=== PATIENT | male | born 1945 | race American Indian/Alaskan Native ===

== ENCOUNTER 2017-05-01 10:01 | Outpatient (CLI) | payer OTHER | END 2017-05-01 10:02 | disposition home or self-care (01) | LOC: VAS 10:01 | PROVIDERS: ATTEND Internal Medicine | DX: M79.661 Pain in right lower leg (principal); M79.89 Other specified soft tissue disorders ==

== ENCOUNTER 2018-08-26 10:01 | Inpatient (IN) | payer MEDICARE, OTHER ==
--- NOTE | 2018-08-26 11:00 | Emergency Department Report ---
ED Abdominal Pain HPI - General Chief Complaint: Abdominal Pain Stated Complaint: CHEST PAIN/ALL OVER PAIN Time Seen by Provider: 08/26/18 10:32 Source: patient Mode of arrival: Wheelchair Limitations: No Limitations - History of Present Illness Initial Comments: Patient is a 72-year-old male that presents emergency room with complaints of generalized abdominal pain and distention. Patient states that the pain is worse with movement and cough and palpation. Patient states the pain is better with rest. Patient states the pain is worsening. Patient states the pain has been going on for 2 weeks. Patient states he is having difficulties having adonay wel movements, but had a large bowel movement today Patient denies nausea vomiting diarrhea. Patient denies chest pain. Patient denies shortness of breath. Patient states the pain is a 10 out of 10. Patient states the pain is worsening. MD Complaint: abdominal pain -: Sudden Location: diffuse Radiation: none Migration to: no migration Severity: severe Severity scale (0 -10): 10 Quality: stabbing Consistency: constant Improves With: rest Worsens With: movement Associated Symptoms: denies other symptoms. denies: nausea, vomiting, diarrhea, fever, chills, constipation, dysuria, hematemesis, hematochezia, melena, hematuria, anorexia, syncope - Related Data Home Medications Medication Instructions Recorded Confirmed Last Taken B Complex 1 tab PO DAILY 02/26/15 04/04/15 02/20/15 Bisoprolol/Hctz [Ziac 2.5-6.25] 1 each PO DAILY 02/26/15 04/04/15 02/27/15 06:45 Flomax 0.4 mg PO DAILY 02/26/15 04/04/15 02/20/15 Losartan [Cozaar] 1 tab PO DAILY 02/26/15 04/04/15 02/27/15 06:45 Saxagliptin HCl [Onglyza] 1 tab PO DAILY 02/26/15 04/04/15 02/20/15 amLODIPine [Norvasc] 5 mg PO DAILY 02/26/15 04/04/15 02/27/15 06:45 HYDROcodone/APAP 5-325 [[place] 1 each PO Q4HR PRN 04/04/15 04/04/15 Unknown 5/325] Previous Rx's Medication Instructions Recorded Last Taken Type Ondansetron [Zofran TAB] 4 mg PO Q8HR PRN #24 tablet 03/07/15 Unknown Rx Ciprofloxacin HCl [Ciprofloxacin 500 mg PO BID #20 tablet 04/04/15 Unknown Rx TAB] Allergies Allergy/AdvReac Type Severity Reaction Status Date / Time No Known Allergies Allergy Verified 03/12/15 04:05 ED Review of Systems ROS: Stated complaint: CHEST PAIN/ALL OVER PAIN Other details as noted in HPI Constitutional: denies: chills, fever Eyes: denies: eye pain, eye discharge, vision change ENT: denies: ear pain, throat pain Respiratory: denies: cough, shortness of breath, wheezing Cardiovascular: denies: chest pain, palpitations Endocrine: no symptoms reported Gastrointestinal: denies: abdominal pain, nausea, diarrhea Genitourinary: denies: urgency, dysuria Musculoskeletal: denies: back pain, joint swelling, arthralgia Skin: denies: rash, lesions Neurological: denies: headache, weakness, paresthesias Psychiatric: denies: anxiety, depression Hematological/Lymphatic: denies: easy bleeding, easy bruising ED Past Medical Hx - Past Medical History Previous Medical History?: Yes Hx Hypertension: Yes Hx Heart Attack/AMI: No Hx Diabetes: Yes Hx Deep Vein Thrombosis: Yes ("BLOOD CLOT 2011" LEFT LEG) Hx GERD: Yes Hx Renal Disease: No Hx Seizures: No Hx Asthma: No Hx COPD: No Hx HIV: No - Surgical History Past Surgical History?: Yes Hx Pacemaker: No Hx Internal Defibrillator: No Additional Surgical History: prostate surgery - Family History Family history: no significant - Social History Smoking Status: Never Smoker Substance Use Type: None - Medications Home Medications: Home Medications Medication Instructions Recorded Confirmed Last Taken Type B Complex 1 tab PO DAILY 02/26/15 04/04/15 02/20/15 History Bisoprolol/Hctz [Ziac 2.5-6.25] 1 each PO DAILY 02/26/15 04/04/15 02/27/15 06:45 History Flomax 0.4 mg PO DAILY 02/26/15 04/04/15 02/20/15 History Losartan [Cozaar] 1 tab PO DAILY 02/26/15 04/04/15 02/27/15 06:45 History Saxagliptin HCl [Onglyza] 1 tab PO DAILY 02/26/15 04/04/15 02/20/15 History amLODIPine [Norvasc] 5 mg PO DAILY 02/26/15 04/04/15 02/27/15 06:45 History Ondansetron [Zofran TAB] 4 mg PO Q8HR PRN #24 tablet 03/07/15 04/04/15 Unknown Rx Ciprofloxacin HCl [Ciprofloxacin 500 mg PO BID #20 tablet 04/04/15 Unknown Rx TAB] HYDROcodone/APAP 5-325 [[place] 1 each PO Q4HR PRN 04/04/15 04/04/15 Unknown History 5/325] ED Physical Exam - General Limitations: No Limitations General appearance: alert, in no apparent distress - Head Head exam: Present: atraumatic, normocephalic - Eye Eye exam: Present: normal appearance - ENT ENT exam: Present: mucous membranes moist - Neck Neck exam: Present: normal inspection - Respiratory Respiratory exam: Present: normal lung sounds bilaterally. Absent: respiratory distress - Cardiovascular Cardiovascular Exam: Present: regular rate, normal rhythm. Absent: systolic murmur, diastolic murmur, rubs, gallop - GI/Abdominal GI/Abdominal exam: Present: soft, tenderness (generalized tenderness to palpatio n), normal bowel sounds - Rectal Rectal exam: Present: deferred - Extremities Exam Extremities exam: Present: normal inspection - Back Exam Back exam: Present: normal inspection - Neurological Exam Neurological exam: Present: alert, oriented X3 - Psychiatric Psychiatric exam: Present: normal affect, normal mood - Skin Skin exam: Present: warm, dry, intact, normal color. Absent: rash ED Course Vital Signs 08/26/18 08/26/18 08/26/18 10:15 10:45 10:53 Temperature 98.4 F Pulse Rate 69 73 Respiratory 18 15 20 Rate Blood Pressure 149/66 Blood Pressure [Left] O2 Sat by Pulse 95 97 Oximetry 08/26/18 08/26/18 08/26/18 11:01 12:01 13:01 Temperature Pulse Rate 69 76 74 Respiratory 32 H 29 H 25 H Rate Blood Pressure Blood Pressure [Left] O2 Sat by Pulse 94 97 Oximetry 08/26/18 08/26/18 14:03 14:27 Temperature Pulse Rate 80 Respiratory 15 Rate Blood Pressure Blood Pressure 129/79 [Left] O2 Sat by Pulse Oximetry - Reevaluation(s) Reevaluation #1: Discussed all results patient. Patient to be admitted to the hospitalist service. Patient states his pain is still there but it is improved slightly. 08/26/18 15:36 - Consultations Consultation #1: Hospitalist consulted. Hospitalist to admit patient. Bridge orders placed 08/26/18 15:43 ED Medical Decision Making - Lab Data Result diagrams: 08/26/18 11:20 08/26/18 11:20 - Radiology Data Radiology results: report reviewed CT ABDOMEN AND PELVIS WITH CONTRAST INDICATION: Abdominal pain. COMPARISON: None similar. FINDINGS: Abdomen and pelvis CT performed following intravenous administration of 100 cc of Omnipaque 300. LUNG BASES: Trace extreme right lung base pleural effusion. Slight bibasilar atelectasis, right more than left. Minimal pericardial thickening/fluid, approximately 0.4 cm AP anteriorly as on axial image 14, series 2. Right hemidiaphragm approximately 3 cm higher than the left. Top normal heart size. Mild nonspecific distal esophageal wall prominence/thickening, not excluded for gastroesophageal reflux and/or hiatal hernia, amongst others. ABDOMEN: Liver visually minimally hypodense, though nonspecific as also subtle left hepatic lobe surface waviness. Right hepatic lobe 15.6 cm in midclavicular length. Otherwise unremarkable liver, spleen, gallbladder, pancreas, adrenals, aorta and IVC. Nonspecific bilateral perinephric stranding. No hydronephrosis. Right lower renal cortical hypodensities/cysts, the largest exophytic off the lower pole measuring 2.7 cm with minimal peripheral calcification as on axial image 101. No ascites or size significant adenopathy. Opacified GI tract nonobstructive. Normal appendix. Predominantly ascending and transverse colon stool/possible constipation, partly admixed with contrast. Small umbilical hernia containing nonobstructed small bowel through a transverse neck of 1.6 cm. PELVIS: Approximately 6 x 7 cm markedly enlarged prostate creating lobulated impression at the bladder base may be correlated for clinically and with PSA. Slight diffuse urinary bladder exaggerated wall thickness as well, possibly suboptimal distention and/or outlet hypertrophy. Unremarkable rectosigmoid. No free fluid or significant adenopathy. Bilateral fat containing inguinal hernias measuring up to 2.3 cm on the right and 1.6 cm on the left, axial image 158, series 2. Severe L5-S1 disc narrowing/obliteration with adjacent endplate irregularities/spurring. Bilateral L5 pars defects noted with approximately 10 mm retrolisthesis of L5 over S1 with posterior disc uncovering and some ventral thecal sac indentation possible. Mild lower thoracic spine degenerative spurring also seen. CONCLUSION: 1. Small umbilical hernia containing nonobstructive small bowel, as described. 2. Various other findings as markedly enlarged and heterogeneous prostate, mild nonspecific bilateral perinephric stranding, right renal cortical hypodensities/cysts, severe L5-S1 degenerative changes as also imaged lung bases findings, amongst others, as detailed above. Please correlate. - Medical Decision Making Patient is a 72-year-old male presents to emergency with abdominal pain. Patient has CT done. Patient CT shows perinephric stranding. UA positive for UTI. Clinical findings consistent with pyelonephritis. Patient admitted to the hospitalist service. Patient also found to have an elevated WBC. Rest of labs are unremarkable. Patient given fluids and antibiotics. - Differential Diagnosis constipation. Bowel obstruction. UTI. Critical Care Time: Yes Critical care attestation.: If time is entered above; I have spent that time in minutes in the direct care of this critically ill patient, excluding procedure time. Critical Care Time: 35 minutes ED Disposition Clinical Impression: Pyelonephritis UTI (urinary tract infection) Qualifiers: Urinary tract infection type: acute cystitis Hematuria presence: with hematuria Qualified Code(s): N30.01 - Acute cystitis with hematuria Abdominal pain Qualifiers: Abdominal location: generalized Qualified Code(s): R10.84 - Generalized abdominal pain Disposition: OP ADMIT IP TO THIS HOSP Is pt being admited?: Yes Does the pt Need Aspirin: No Condition: Critical Time of Disposition: 15:44
[2018-08-26 11:33] LABS: Basophils % (Auto) 0.3 % (0.0-1.8); Eosinophils # (Auto) 0.1 K/mm3 (0.0-0.4); Eosinophils % (Auto) 0.5 % (0.0-4.3); Hematocrit 33.7 % (35.5-45.6); Hemoglobin 11.2 gm/dl (11.8-15.2); Lymphocytes # (Auto) 0.9 K/mm3 (1.2-5.4); Lymphocytes % (Auto) 6.5 % (13.4-35.0); Mean Corpuscular HGB Conc 33 % (32-34); Mean Corpuscular Volume 95 fl (84-94); Monocytes # (Auto) 1.5 K/mm3 (0.0-0.8); Monocytes % (Auto) 10.6 % (0.0-7.3); Platelet Count 272 K/mm3 (140-440); Red Blood Count 3.54 M/mm3 (3.65-5.03); Red Cell Distribution Width 14.5 % (13.2-15.2)
[2018-08-26 12:00] LABS: Alanine Aminotransferase 196 units/L (7-56); Albumin 3.4 g/dL (3.9-5); BUN/Creatinine Ratio 21; Bilirubin,Direct 0.3 mg/dL (0-0.2); Blood Urea Nitrogen 25 mg/dL (9-20); Calcium 10.3 mg/dL (8.4-10.2); Hemolysis Index 3
[2018-08-26] MEDS ORDERED: DILAUDID ONE (14:23)
[2018-08-26] MEDS ORDERED: DILAUDID IV ONE (14:27)
[2018-08-26 14:33] LABS: Bacteria,Urine 4+ /HPF (Negative); Bilirubin,Urine NEG (Negative); Blood,Urine NEG (Negative); Color,Urine Yellow (Yellow); Protein,Urine <15 mg/dL mg/dL (Negative); Urobilinogen,Urine < 2.0 mg/dL (<2.0)
--- NOTE | 2018-08-26 15:19 | Cat Scan Report ---
CT ABDOMEN AND PELVIS WITH CONTRAST INDICATION: Abdominal pain. COMPARISON: None similar. FINDINGS: Abdomen and pelvis CT performed following intravenous administration of 100 cc of Omnipaque 300. LUNG BASES: Trace extreme right lung base pleural effusion. Slight bibasilar atelectasis, right more than left. Minimal pericardial thickening/fluid, approximately 0.4 cm AP anteriorly as on axial image 14, series 2. Right hemidiaphragm approximately 3 cm higher than the left. Top normal heart size. Mild nonspecific distal esophageal wall prominence/thickening, not excluded for gastroesophageal reflux and/or hiatal hernia, amongst others. ABDOMEN: Liver visually minimally hypodense, though nonspecific as also subtle left hepatic lobe surface waviness. Right hepatic lobe 15.6 cm in midclavicular length. Otherwise unremarkable liver, spleen, gallbladder, pancreas, adrenals, aorta and IVC. Nonspecific bilateral perinephric stranding. No hydronephrosis. Right lower renal cortical hypodensities/cysts, the largest exophytic off the lower pole measuring 2.7 cm with minimal peripheral calcification as on axial image 101. No ascites or size significant adenopathy. Opacified GI tract nonobstructive. Normal appendix. Predominantly ascending and transverse colon stool/possible constipation, partly admixed with contrast. Small umbilical hernia containing nonobstructed small bowel through a transverse neck of 1.6 cm. PELVIS: Approximately 6 x 7 cm markedly enlarged prostate creating lobulated impression at the bladder base may be correlated for clinically and with PSA. Slight diffuse urinary bladder exaggerated wall thickness as well, possibly suboptimal distention and/or outlet hypertrophy. Unremarkable rectosigmoid. No free fluid or significant adenopathy. Bilateral fat containing inguinal hernias measuring up to 2.3 cm on the right and 1.6 cm on the left, axial image 158, series 2. Severe L5-S1 disc narrowing/obliteration with adjacent endplate irregularities/spurring. Bilateral L5 pars defects noted with approximately 10 mm retrolisthesis of L5 over S1 with posterior disc uncovering and some ventral thecal sac indentation possible. Mild lower thoracic spine degenerative spurring also seen. CONCLUSION: 1. Small umbilical hernia containing nonobstructive small bowel, as described. 2. Various other findings as markedly enlarged and heterogeneous prostate, mild nonspecific bilateral perinephric stranding, right renal cortical hypodensities/cysts, severe L5-S1 degenerative changes as also imaged lung bases findings, amongst others, as detailed above. Please correlate. Thank you for the opportunity to participate in this patient's care.
[2018-08-26] MEDS ORDERED: NACL 0.9% 1000 ML 1,000 ML IV ONE (15:43)
[2018-08-26] MEDS ORDERED: MAXIPIME/NS 2 GM/100 ML 2 GM/100 ML BAG IV ONE (15:43)
[2018-08-26] MEDS ORDERED: TYLENOL PO ONE (16:31)
--- NOTE | 2018-08-26 17:46 | History and Physical Report ---
History of Present Illness Date of examination: 08/26/18 Date of admission: 08/26/2018 Chief complaint: Abdominal pain for 2 weeks History of present illness: 72-year-old -[place] male with history of hypertension and type 2 diabetes and BPH comes in for severe abdominal pain and abdominal distention for 2 weeks. Patient has had some difficulty in urination and dysuria. Abdominal pain is sharp and intermittent. Also constipation present but had a bowel movement today. Pain is 10 on a scale of 1-10. Sharp in nature. No exacerbating or relieving factors. Past Medical History Previous Medical History?: Yes Hypertension: Yes Diabetes: Yes Deep Vein Thrombosis: Yes ("BLOOD CLOT 2011" LEFT LEG) GERD: Yes Surgical History Past Surgical History?: Yes Additional Surgical History: prostate surgery Family History Family history: no significant Social History Smoking Status: Never Smoker Substance Use Type: None Medications Home Medications: Home Medications Medication Instructions Recorded Confirmed Last Taken Type B Complex 1 tab PO DAILY 02/26/15 04/04/15 02/20/15 History Bisoprolol/Hctz [Ziac 2.5-6.25] 1 each PO DAILY 02/26/15 04/04/15 02/27/15 06:45 History Flomax 0.4 mg PO DAILY 02/26/15 04/04/15 02/20/15 History Losartan [Cozaar] 1 tab PO DAILY 02/26/15 04/04/15 02/27/15 06:45 History Saxagliptin HCl [Onglyza] 1 tab PO DAILY 02/26/15 04/04/15 02/20/15 History amLODIPine [Norvasc] 5 mg PO DAILY 02/26/15 04/04/15 02/27/15 06:45 History Ondansetron [Zofran TAB] 4 mg PO Q8HR PRN #24 tablet 03/07/15 04/04/15 Unknown Rx Ciprofloxacin HCl [Ciprofloxacin 500 mg PO BID #20 tablet 04/04/15 Unknown Rx TAB] HYDROcodone/APAP 5-325 [[place] 1 each PO Q4HR PRN 04/04/15 04/04/15 Unknown History 5/325] Review of Systems ROS: Stated complaint: CHEST PAIN/ALL OVER PAIN Other details as noted in HPI Constitutional: denies: chills, fever Eyes: denies: eye pain, eye discharge, vision change ENT: denies: ear pain, throat pain Respiratory: denies: cough, shortness of breath, wheezing Cardiovascular: denies: chest pain, palpitations Endocrine: no symptoms reported Gastrointestinal: denies: abdominal pain, nausea, diarrhea Genitourinary: denies: urgency, dysuria Musculoskeletal: denies: back pain, joint swelling, arthralgia Skin: denies: rash, lesions Neurological: denies: headache, weakness, paresthesias Psychiatric: denies: anxiety, depression Hematological/Lymphatic: denies: easy bleeding, easy bruising Medications and Allergies Allergies Allergy/AdvReac Type Severity Reaction Status Date / Time No Known Allergies Allergy Verified 03/12/15 04:05 Home Medications Medication Instructions Recorded Confirmed Last Taken Type B Complex 1 tab PO DAILY 02/26/15 04/04/15 02/20/15 History Bisoprolol/Hctz [Ziac 2.5-6.25] 1 each PO DAILY 02/26/15 04/04/15 02/27/15 06:45 History Flomax 0.4 mg PO DAILY 02/26/15 04/04/15 02/20/15 History Losartan [Cozaar] 1 tab PO DAILY 02/26/15 04/04/15 02/27/15 06:45 History Saxagliptin HCl [Onglyza] 1 tab PO DAILY 02/26/15 04/04/15 02/20/15 History amLODIPine [Norvasc] 5 mg PO DAILY 02/26/15 04/04/15 02/27/15 06:45 History Ondansetron [Zofran TAB] 4 mg PO Q8HR PRN #24 tablet 03/07/15 04/04/15 Unknown Rx Ciprofloxacin HCl [Ciprofloxacin 500 mg PO BID #20 tablet 04/04/15 Unknown Rx TAB] HYDROcodone/APAP 5-325 [[place] 1 each PO Q4HR PRN 04/04/15 04/04/15 Unknown History 5/325] Exam - Constitutional Vitals: Temp Pulse Resp BP Pulse Ox 103.3 F H 71 24 129/79 97 08/26/18 16:30 08/26/18 16:01 08/26/18 16:01 08/26/18 14:27 08/26/18 13:01 General appearance: Present: mild distress, well-nourished - EENT Eyes: Present: PERRL ENT: hearing intact, clear oral mucosa - Neck Neck: Present: supple, normal ROM - Respiratory Respiratory effort: normal Respiratory: bilateral: CTA - Cardiovascular Heart rate: 78 Rhythm: regular Heart Sounds: Present: S1 & S2. Absent: rub, click - Extremities Extremities: no ischemia, pulses intact, pulses symmetrical, No edema Peripheral Pulses: within normal limits - Abdominal General gastrointestinal: Present: soft, tender, non-distended, normal bowel sounds Localized gastrointestinal: tender: diffuse, guarding: diffuse Male genitourinary: Present: normal - Rectal Rectal Exam: deferred - Integumentary Integumentary: Present: clear, warm, dry - Musculoskeletal Musculoskeletal: gait normal, strength equal bilaterally - Psychiatric Psychiatric: appropriate mood/affect, intact judgment & insight - Neurologic Neurologic: CNII-XII intact, moves all extremities Results - Labs CBC & Chem 7: 08/26/18 11:20 08/26/18 11:20 Labs: Laboratory Last Values WBC 13.9 K/mm3 (4.5-11.0) H 08/26/18 11:20 RBC 3.54 M/mm3 (3.65-5.03) L 08/26/18 11:20 Hgb 11.2 gm/dl (11.8-15.2) L 08/26/18 11:20 Hct 33.7 % (35.5-45.6) L 08/26/18 11:20 MCV 95 fl (84-94) H 08/26/18 11:20 MCH 32 pg (28-32) 08/26/18 11:20 MCHC 33 % (32-34) 08/26/18 11:20 RDW 14.5 % (13.2-15.2) 08/26/18 11:20 Plt Count 272 K/mm3 (140-440) 08/26/18 11:20 Lymph % (Auto) 6.5 % (13.4-35.0) L 08/26/18 11:20 [place] % (Auto) 10.6 % (0.0-7.3) H 08/26/18 11:20 Eos % (Auto) 0.5 % (0.0-4.3) 08/26/18 11:20 Baso % (Auto) 0.3 % (0.0-1.8) 08/26/18 11:20 Lymph # 0.9 K/mm3 (1.2-5.4) L 08/26/18 11:20 [place] # 1.5 K/mm3 (0.0-0.8) H 08/26/18 11:20 Eos # 0.1 K/mm3 (0.0-0.4) 08/26/18 11:20 Baso # 0.0 K/mm3 (0.0-0.1) 08/26/18 11:20 Seg Neutrophils % 82.1 % (40.0-70.0) H 08/26/18 11:20 Seg Neutrophils # 11.4 K/mm3 (1.8-7.7) H 08/26/18 11:20 Sodium 136 mmol/L (137-145) L 08/26/18 11:20 Potassium 5.0 mmol/L (3.6-5.0) 08/26/18 11:20 Chloride 98.8 mmol/L (98-107) 08/26/18 11:20 Carbon Dioxide 26 mmol/L (22-30) 08/26/18 11:20 Anion Gap 16 mmol/L 08/26/18 11:20 BUN 25 mg/dL (9-20) H 08/26/18 11:20 Creatinine 1.2 mg/dL (0.8-1.5) 08/26/18 11:20 Estimated GFR > 60 ml/min 08/26/18 11:20 BUN/Creatinine Ratio 21 % 08/26/18 11:20 Glucose 139 mg/dL (75-100) H 08/26/18 11:20 Calcium 10.3 mg/dL (8.4-10.2) H 08/26/18 11:20 Total Bilirubin 0.90 mg/dL (0.1-1.2) 08/26/18 11:20 Direct Bilirubin 0.3 mg/dL (0-0.2) H 08/26/18 11:20 Indirect Bilirubin 0.6 mg/dL 08/26/18 11:20 AST 76 units/L (5-40) H 08/26/18 11:20 ALT 196 units/L (7-56) H 08/26/18 11:20 Alkaline Phosphatase 213 units/L (35-129) H 08/26/18 11:20 Total Protein 7.6 g/dL (6.3-8.2) 08/26/18 11:20 Albumin 3.4 g/dL (3.9-5) L 08/26/18 11:20 Albumin/Globulin Ratio 0.8 % 08/26/18 11:20 Lipase 44 units/L (13-60) 08/26/18 11:20 Urine Color Yellow (Yellow) 08/26/18 14:11 Urine Turbidity Clear (Clear) 08/26/18 14:11 Urine pH 5.0 (5.0-7.0) 08/26/18 14:11 Ur Specific [place] 1.012 (1.003-1.030) 08/26/18 14:11 Urine Protein <15 mg/dl mg/dL (Negative) 08/26/18 14:11 Urine Glucose (UA) 50 mg/dL (Negative) 08/26/18 14:11 Urine Ketones Neg mg/dL (Negative) 08/26/18 14:11 Urine Blood Neg (Negative) 08/26/18 14:11 Urine Nitrite Neg (Negative) 08/26/18 14:11 Urine Bilirubin Neg (Negative) 08/26/18 14:11 Urine Urobilinogen < 2.0 mg/dL (<2.0) 08/26/18 14:11 Ur Leukocyte Esterase Sm (Negative) 08/26/18 14:11 Urine WBC (Auto) 3.0 /HPF (0.0-6.0) 08/26/18 14:11 Urine RBC (Auto) 2.0 /HPF (0.0-6.0) 08/26/18 14:11 U Epithel Cells (Auto) < 1.0 /HPF (0-13.0) 08/26/18 14:11 Urine Bacteria (Auto) 4+ /HPF (Negative) 08/26/18 14:11 - Imaging and Cardiology Imaging and Cardiology: Abd CT /pelvis PELVIS: Approximately 6 x 7 cm markedly enlarged prostate creating lobulated impression at the bladder base may be correlated for clinically and with PSA. Slight diffuse urinary bladder exaggerated wall thickness as well, possibly suboptimal distention and/or outlet hypertrophy. Unremarkable rectosigmoid. No free fluid or significant adenopathy. Bilateral fat containing inguinal hernias measuring up to 2.3 cm on the right and 1.6 cm on the left, axial image 158, series 2. Severe L5-S1 disc narrowing/obliteration with adjacent endplate irregularities/spurring. Bilateral L5 pars defects noted with approximately 10 mm retrolisthesis of L5 over S1 with posterior disc uncovering and some ventral thecal sac indentation possible. Mild lower thoracic spine degenerative spurring also seen. CONCLUSION: 1. Small umbilical hernia containing nonobstructive small bowel, as described. 2. Various other findings as markedly enlarged and heterogeneous prostate, mild nonspecific bilateral perinephric stranding, right renal cortical hypodensities/cysts, severe L5-S1 degenerative changes as also imaged lung bases findings, amongst others, as detailed above. Please correlate. CONCLUSION: 1. Small umbilical hernia containing nonobstructive small bowel, as described. 2. Various other findings as markedly enlarged and heterogeneous prostate, mild nonspecific bilateral perinephric stranding, right renal cortical hypodensities/cysts, severe L5-S1 degenerative changes as also imaged lung bases findings, amongst others, as detailed above. Please correlate. Thank you for the opportunity to participate in this patient's care. 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
[2018-08-26] MEDS ORDERED: NON-FORMULARY (Ondansetron [Zofran Tab] 4 MG) PO PRN (18:04)
[2018-08-26] MEDS ORDERED: TYLENOL PO PRN (18:06)
[2018-08-26] MEDS ORDERED: ZOFRAN IV PRN (18:06)
[2018-08-26] MEDS ORDERED: SODIUM CHLORIDE FLUSH SYRINGE 10 ML IV PRN (18:06)
[2018-08-26] MEDS ORDERED: LOSARTAN PO SCH (18:15)
[2018-08-26] MEDS ORDERED: NON-FORMULARY (Flomax 0.4 MG) PO SCH ×2 (18:15→18:30)
[2018-08-26] MEDS ORDERED: B COMPLEX PO SCH (18:15)
[2018-08-26] MEDS ORDERED: SAXAGLIPTIN HCL PO SCH (18:15)
[2018-08-26] MEDS ORDERED: ZOFRAN ODT PO PRN (18:30)
[2018-08-26] MEDS: NORVASC PO SCH (18:47)
[2018-08-26] MEDS: COZAAR PO SCH (18:48)
[2018-08-26] MEDS: NACL 0.9% 1000 ML 1,000 ML IV SCH (20:26)
[2018-08-26] MEDS: SODIUM CHLORIDE FLUSH SYRINGE 10 ML IV SCH ×2 (20:26→22:57)
[2018-08-26] MEDS: DILAUDID IV PRN (20:46)
[2018-08-26] MEDS: TRADJENTA PO SCH (20:55)
[2018-08-26] MEDS: ROCEPHIN/NS 2 GM/100 ML 2 GM/100 ML BAG IV SCH (22:56)
[2018-08-26] MEDS: FLOMAX PO SCH (22:57)
[2018-08-26] MEDS: ZIAC 2.5-6.25 PO SCH (22:58)
[2018-08-26] MEDS: NORCO 5/325 PO PRN (23:15)
[2018-08-27] MEDS: PERCOCET 5/325 PO PRN ×2 (03:01→17:42)
[2018-08-27 05:58] LABS: Basophils % (Auto) 0.2 % (0.0-1.8); Eosinophils # (Auto) 0.1 K/mm3 (0.0-0.4); Eosinophils % (Auto) 0.5 % (0.0-4.3); Hematocrit 29.6 % (35.5-45.6); Hemoglobin 9.8 gm/dl (11.8-15.2); Lymphocytes # (Auto) 1.2 K/mm3 (1.2-5.4); Lymphocytes % (Auto) 7.8 % (13.4-35.0); Mean Corpuscular HGB Conc 33 % (32-34); Mean Corpuscular Volume 94 fl (84-94); Monocytes # (Auto) 1.9 K/mm3 (0.0-0.8); Monocytes % (Auto) 12.4 % (0.0-7.3); Platelet Count 264 K/mm3 (140-440); Red Blood Count 3.15 M/mm3 (3.65-5.03); Red Cell Distribution Width 14.6 % (13.2-15.2)
[2018-08-27 06:24] LABS: Alanine Aminotransferase 133 units/L (7-56); Albumin 3.1 g/dL (3.9-5); BUN/Creatinine Ratio 17; Blood Urea Nitrogen 20 mg/dL (9-20); Hemolysis Index 4
[2018-08-27] MEDS: NACL 0.9% 1000 ML 1,000 ML IV SCH (07:41)
[2018-08-27] MEDS: DILAUDID IV PRN ×2 (07:56→12:48)
[2018-08-27] MEDS: HumaLOG SUB-Q SCH ×3 (07:58→17:08)
[2018-08-27] MEDS: SODIUM CHLORIDE FLUSH SYRINGE 10 ML IV SCH ×2 (07:58→10:00)
[2018-08-27] MEDS ORDERED: ROCEPHIN/NS 2 GM/100 ML 2 GM/100 ML BAG IV SCH (10:00)
[2018-08-27] MEDS ORDERED: LOVENOX SUB-Q SCH (10:00)
[2018-08-27] MEDS: COZAAR PO SCH (10:00)
[2018-08-27] MEDS: ZIAC 2.5-6.25 PO SCH (10:00)
[2018-08-27] MEDS: NORVASC PO SCH (10:00)
[2018-08-27] MEDS ORDERED: ALLBEE WITH C PO SCH (10:00)
--- NOTE | 2018-08-27 10:13 | Discharge Summary ---
Providers - Providers Date of Admission: 08/26/18 18:06 Attending physician: INDIGO WARD MD Primary care physician: CHELSY DICKENS Hospitalization Condition: Critical Hospital course: 72 year old man with history of hypertension diabetes and BPH. Presents with abdominal pain and abdominal distension x 2 weeks. Also complaining of difficulty passing urine, he was previously having constipation which result on the day of admission. hospital course, he received flomax with improvement of his symptoms, CT A/P showed markedly enlarged prostate with no hydronephrosis or outlet obstruction. UA was neg for pyuria, he was continued on his chronic meds. His finasteride dose was increased. He was given stool softeners, enemas and suppositories for constipation. The patient was noted to have a fever, the source of the fever was being worked up, but the patient elected to sign out AGAINST MEDICAL ADVICE stating that he needed to provide care for his dog. Diagnosis Enlarged prostate Prostatism UTI ruled out (UA negative) HTN DM Chronic constipation Disposition: DC- LEFT AGAINST MED ADVICE Time spent for discharge: 33 mins Core Measure Documentation - Palliative Care Palliative Care/ Comfort Measures: Not Applicable - Core Measures Any of the following diagnoses?: none Exam - Constitutional Vitals: Temp Pulse Resp BP Pulse Ox 97.9 F 62 20 106/54 93 08/27/18 07:23 08/27/18 09:03 08/27/18 09:03 08/27/18 07:23 08/27/18 07:23 General appearance: Present: no acute distress, well-nourished - EENT Eyes: Present: PERRL ENT: hearing intact, clear oral mucosa - Neck Neck: Present: supple, normal ROM - Respiratory Respiratory effort: normal Respiratory: bilateral: CTA - Cardiovascular Heart Sounds: Present: S1 & S2. Absent: rub, click - Extremities Extremities: pulses symmetrical, No edema Peripheral Pulses: within normal limits - Abdominal General gastrointestinal: Present: soft, non-tender, non-distended, normal bowel sounds Male genitourinary: Present: normal - Integumentary Integumentary: Present: clear, warm, dry - Musculoskeletal Musculoskeletal: gait normal, strength equal bilaterally - Psychiatric Psychiatric: appropriate mood/affect, intact judgment & insight - Neurologic Neurologic: CNII-XII intact, moves all extremities Plan Follow up with: DELMA MCLAUGHLIN MD [Staff Physician] - 7 Days CHELSY DICKENS MD [Primary Care Provider] - 3-5 Days Prescriptions: Bisacodyl [Dulcolax suppos] 10 mg [place] Q72H PRN #10 supp.rect PRN Reason: Constipation RX: Finasteride [Proscar] 5 mg PO QDAY #30 tablet Polyethylene Glycol 3350 [Miralax 3350] 17 gm PO QDAY 30 Days packet Sennosides/Docusate Sodium [Senna-S Tablet] 2 each PO HS PRN #60 tablet PRN Reason: Constipation RX: Tamsulosin [Flomax] 0.8 mg PO DAILY #60 capsule
[2018-08-27] MEDS: TRADJENTA PO SCH (10:38)
[2018-08-27] MEDS: FLOMAX PO SCH (10:38)
[2018-08-27] MEDS: NORCO 5/325 PO PRN (10:39)
[2018-08-27] MEDS: ROCEPHIN/NS 2 GM/100 ML 2 GM/100 ML BAG IV SCH (10:40)
[2018-08-27] MEDS ORDERED: SENOKOT S PO PRN (14:28)
--- NOTE | 2018-08-27 14:32 | Progress Note ---
Assessment and Plan Assessment and plan: 72 year old man with history of hypertension diabetes and BPH. Presents with abdominal pain and abdominal distension x 2 weeks. Also complaining of difficulty passing urine, he was previously having constipation which result on the day of admission. hospital course, flomax dose was increased with improvement of his symptoms, CT A/P showed markedly enlarged prostate with no hydronephrosis or outlet obstruction. UA was neg for pyuria, he was continued on his chronic meds. He had fever last night, obtain cxr and blood cultures -he is still c/o constipation; added enema and stool softeners Diagnosis Enlarged prostate Prostatism UTI ruled out (UA negative) HTN DM Chronic constipation Fever History Interval history: Review of systems Constitutional: had fever of 101, no malaise, no joint pains CVS: No chest pain, no orthopnea, no dyspnea on exertion, no pedal edema c/o abdominal pain and constipation Respiratory: No shortness of breath, no wheezing, no coughing Hospitalist Physical - Physical exam Narrative exam: General.: Appears well, no distress, nontoxic HEENT: Moist mucous membranes, extraocular muscles intact, no lymphadenopathy Neck: supple Cardiac: S1-S2 heard Lungs: clear to auscultation bilaterally Abdomen: soft, full and distended Extremities: no edema clubbing or cyanosis Skin: no rash or lesions Neurologic: no gross focal deficits Psych: calm, and cooperative - Constitutional Vitals: Temp Pulse Resp BP Pulse Ox 97.9 F 62 16 106/54 93 08/27/18 07:23 08/27/18 10:00 08/27/18 10:39 08/27/18 10:00 08/27/18 07:23 General appearance: Present: no acute distress, well-nourished Results - Labs CBC & Chem 7: 08/27/18 05:36 08/27/18 05:36 Labs: Laboratory Last Values WBC 15.0 K/mm3 (4.5-11.0) H 08/27/18 05:36 RBC 3.15 M/mm3 (3.65-5.03) L 08/27/18 05:36 Hgb 9.8 gm/dl (11.8-15.2) L 08/27/18 05:36 Hct 29.6 % (35.5-45.6) L 08/27/18 05:36 MCV 94 fl (84-94) 08/27/18 05:36 MCH 31 pg (28-32) 08/27/18 05:36 MCHC 33 % (32-34) 08/27/18 05:36 RDW 14.6 % (13.2-15.2) 08/27/18 05:36 Plt Count 264 K/mm3 (140-440) 08/27/18 05:36 Lymph % (Auto) 7.8 % (13.4-35.0) L 08/27/18 05:36 Pender % (Auto) 12.4 % (0.0-7.3) H 08/27/18 05:36 Eos % (Auto) 0.5 % (0.0-4.3) 08/27/18 05:36 Baso % (Auto) 0.2 % (0.0-1.8) 08/27/18 05:36 Lymph # 1.2 K/mm3 (1.2-5.4) 08/27/18 05:36 Pender # 1.9 K/mm3 (0.0-0.8) H 08/27/18 05:36 Eos # 0.1 K/mm3 (0.0-0.4) 08/27/18 05:36 Baso # 0.0 K/mm3 (0.0-0.1) 08/27/18 05:36 Seg Neutrophils % 79.1 % (40.0-70.0) H 08/27/18 05:36 Seg Neutrophils # 11.9 K/mm3 (1.8-7.7) H 08/27/18 05:36 Sodium 135 mmol/L (137-145) L 08/27/18 05:36 Potassium 4.6 mmol/L (3.6-5.0) 08/27/18 05:36 Chloride 100.9 mmol/L (98-107) 08/27/18 05:36 Carbon Dioxide 22 mmol/L (22-30) 08/27/18 05:36 Anion Gap 17 mmol/L 08/27/18 05:36 BUN 20 mg/dL (9-20) 08/27/18 05:36 Creatinine 1.2 mg/dL (0.8-1.5) 08/27/18 05:36 Estimated GFR > 60 ml/min 08/27/18 05:36 BUN/Creatinine Ratio 17 % 08/27/18 05:36 Glucose 183 mg/dL (75-100) H 08/27/18 05:36 POC Glucose 216 (70-105) H 08/27/18 11:36 Hemoglobin A1c 7.3 % (4-6) H 08/26/18 11:20 Calcium 9.0 mg/dL (8.4-10.2) 08/27/18 05:36 Total Bilirubin 0.80 mg/dL (0.1-1.2) 08/27/18 05:36 Direct Bilirubin 0.3 mg/dL (0-0.2) H 08/26/18 11:20 Indirect Bilirubin 0.6 mg/dL 08/26/18 11:20 AST 43 units/L (5-40) H 08/27/18 05:36 ALT 133 units/L (7-56) H 08/27/18 05:36 Alkaline Phosphatase 170 units/L (35-129) H 08/27/18 05:36 Total Protein 5.8 g/dL (6.3-8.2) L D 08/27/18 05:36 Albumin 3.1 g/dL (3.9-5) L 08/27/18 05:36 Albumin/Globulin Ratio 1.1 % 08/27/18 05:36 Lipase 44 units/L (13-60) 08/26/18 11:20 Urine Color Yellow (Yellow) 08/26/18 14:11 Urine Turbidity Clear (Clear) 08/26/18 14:11 Urine pH 5.0 (5.0-7.0) 08/26/18 14:11 Ur Specific [place] 1.012 (1.003-1.030) 08/26/18 14:11 Urine Protein <15 mg/dl mg/dL (Negative) 08/26/18 14:11 Urine Glucose (UA) 50 mg/dL (Negative) 08/26/18 14:11 Urine Ketones Neg mg/dL (Negative) 08/26/18 14:11 Urine Blood Neg (Negative) 08/26/18 14:11 Urine Nitrite Neg (Negative) 08/26/18 14:11 Urine Bilirubin Neg (Negative) 08/26/18 14:11 Urine Urobilinogen < 2.0 mg/dL (<2.0) 08/26/18 14:11 Ur Leukocyte Esterase Sm (Negative) 08/26/18 14:11 Urine WBC (Auto) 3.0 /HPF (0.0-6.0) 08/26/18 14:11 Urine RBC (Auto) 2.0 /HPF (0.0-6.0) 08/26/18 14:11 U Epithel Cells (Auto) < 1.0 /HPF (0-13.0) 08/26/18 14:11 Urine Bacteria (Auto) 4+ /HPF (Negative) 08/26/18 14:11
--- NOTE | 2018-08-27 15:39 | XRay Report ---
FINAL REPORT EXAM: XR CHEST ROUTINE 2V HISTORY: fever TECHNIQUE: 2 view examination of the chest PRIORS: None FINDINGS: Slightly prominent interstitial opacity in the right lung base may be slight interstitial edema or pn eumonitis. Normal cardiac size without evidence of vascular congestion. Atherosclerotic calcification and tortuo sity in aorta. No definite pneumothorax or pleural effusion. No acute displaced fracture. No focal pulmonary consoli dation. IMPRESSION: Slight prominent interstitial opacity in the right lung base may reflect interstitial edema and/or sl ight interstitial pneumonitis
[2018-08-27] MEDS ORDERED: FLEET MINERAL OIL PR ONE (16:00)
[2018-08-27] MEDS ORDERED: FLEET PR PRN (16:39)
[2018-08-27] MEDS ORDERED: ZITHROMAX 500 MG in NACL 0.9% 250ML 250 ML IV SCH (17:00)
[2018-08-28] MEDS ORDERED: MIRALAX 3350 PO SCH (10:00)
[2018-08-28] MEDS ORDERED: FLOMAX PO SCH (10:00)
[2018-08-28 11:49] VITALS: BP 171/68
== END 2018-08-27 18:16 | disposition left against medical advice (07) | DRG 726 ==
LOC: ED 10:01 → 2B-ACE 18:06
PROVIDERS: ADMIT Internal Medicine; ATTEND Internal Medicine
DX: N40.0 Benign prostatic hyperplasia without lower urinary tract symptoms (principal); I10 Essential (primary) hypertension; E11.9 Type 2 diabetes mellitus without complications; K59.09 Other constipation; K21.9 Gastro-esophageal reflux disease without esophagitis; Z86.718 Personal history of other venous thrombosis and embolism; Z79.01 Long term (current) use of anticoagulants; Z79.899 Other long term (current) drug therapy; Z79.4 Long term (current) use of insulin
CPT/HCPCS: 36415; 71046; 74177; 80048; 80053; 80076; 81001; 82962; 83036; 83690; 85025; 87040; G0378; J0456; J0692; J0696; J1170; J1650; J1815; J3246; J7030; J7050; Q9967

== ENCOUNTER 2018-08-29 12:00 | Inpatient (IN) | payer MEDICARE, OTHER ==
[2018-08-29] MEDS ORDERED: NACL 0.9% 1000 ML 1,000 ML IV ONE (12:40)
[2018-08-29 13:11] LABS: Basophils % (Auto) 0.4 % (0.0-1.8); Eosinophils # (Auto) 0.1 K/mm3 (0.0-0.4); Eosinophils % (Auto) 0.7 % (0.0-4.3); Hematocrit 30.3 % (35.5-45.6); Lymphocytes # (Auto) 1.1 K/mm3 (1.2-5.4); Lymphocytes % (Auto) 9.8 % (13.4-35.0); Mean Corpuscular HGB Conc 33 % (32-34); Mean Corpuscular Volume 94 fl (84-94); Monocytes # (Auto) 1.1 K/mm3 (0.0-0.8); Monocytes % (Auto) 9.4 % (0.0-7.3); Platelet Count 344 K/mm3 (140-440); Red Blood Count 3.23 M/mm3 (3.65-5.03); Red Cell Distribution Width 14.5 % (13.2-15.2)
[2018-08-29 13:31] LABS: Alanine Aminotransferase 96 units/L (7-56); Albumin 3.3 g/dL (3.9-5); BUN/Creatinine Ratio 12; Blood Urea Nitrogen 11 mg/dL (9-20); Calcium 9.9 mg/dL (8.4-10.2); Hemolysis Index 2
[2018-08-29] MEDS ORDERED: BENTYL IM ONE (15:19)
--- NOTE | 2018-08-29 15:34 | Emergency Department Report ---
HPI - General Chief Complaint: Abdominal Pain Time Seen by Provider: 08/29/18 15:04 - HPI HPI: Room 6 The patient is 72-year-old male presenting with chief complaint of abdominal pain. The patient states for several weeks he's had epigastric abdominal pain that worsens whenever he lies flat or coughs. She had had constipation for 3-5 days prior to coming to the ED. The patient was admitted to the hospital last week but left AGAINST MEDICAL ADVICE 2 days ago because there was no one available to care for his dog. Patient returns to the ED because his pain has continued and worsened. Patient denies nausea vomiting. Patient denies history of fever or dysuria. The patient states his last bowel movement occurred a few hours ago. The patient states his abdominal pain waxes and wanes. Location: Abdomen Duration: [See above] Quality: Pain Severity: "07/04" Modifying factors: [see above] Context: [see above] Mode of transportation: [not driving] ED Past Medical Hx - Past Medical History Hx Hypertension: Yes Hx Diabetes: Yes Hx Deep Vein Thrombosis: Yes ("BLOOD CLOT 2012" LEFT LEG) Hx GERD: Yes Additional medical history: BPH - Surgical History Additional Surgical History: prostate surgery - Family History Family history: no significant - Social History Smoking Status: Never Smoker Substance Use Type: None, Alcohol (occasional) - Medications Home Medications: Home Medications Medication Instructions Recorded Confirmed Last Taken Type B Complex 1 tab PO DAILY 02/26/15 08/27/18 02/20/15 History Bisoprolol/Hctz [Ziac 2.5-6.25] 1 each PO DAILY 02/26/15 08/27/18 02/27/15 06:45 History Losartan [Cozaar] 1 tab PO DAILY 02/26/15 08/27/18 08/25/18 09:00 History 100mg Saxagliptin HCl [Onglyza] 1 tab PO DAILY 02/26/15 08/27/18 02/20/15 History amLODIPine [Norvasc] 5 mg PO DAILY 02/26/15 08/27/18 02/27/15 06:45 History Ondansetron [Zofran TAB] 4 mg PO Q8HR PRN #24 tablet 03/07/15 08/27/18 Unknown Rx HYDROcodone/APAP 5-325 [[place] 1 each PO Q4HR PRN 04/04/15 08/27/18 Unknown History 5-325 mg TAB] Bisacodyl [Dulcolax suppos] 10 mg [place] Q72H PRN #10 supp.rect 08/27/18 Unknown Rx Finasteride [Proscar] 5 mg PO QDAY #30 tablet 08/27/18 Unknown Rx Polyethylene Glycol 3350 [Miralax 17 gm PO QDAY 30 Days packet 08/27/18 Unknow n Rx 3350] Sennosides/Docusate Sodium 2 each PO HS PRN #60 tablet 08/27/18 Unknown Rx [Senna-S Tablet] Tamsulosin [Flomax] 0.8 mg PO DAILY #60 capsule 08/27/18 Unknown Rx ED Review of Systems ROS: Stated complaint: STOMACH PAIN Other details as noted in HPI Constitutional: denies: fever Eyes: denies: eye pain ENT: denies: throat pain Respiratory: no symptoms reported Cardiovascular: denies: chest pain Endocrine: no symptoms reported Gastrointestinal: abdominal pain, constipation. denies: nausea, vomiting Genitourinary: denies: dysuria Musculoskeletal: denies: back pain Neurological: denies: headache Physical Exam - Physical Exam Vital Signs: Vital Signs 08/29/18 12:38 Temperature 98.2 F Pulse Rate 83 Respiratory 16 Rate Blood Pressure 139/73 O2 Sat by Pulse 98 Oximetry Physical Exam: GENERAL: The patient is well-developed well-nourished male lying on stretcher occasionally grimacing in pain. [] HEENT: Normocephalic. Atraumatic. Extraocular motions are intact. Patient has moist mucous membranes. NECK: Supple. Trachea midline CHEST/LUNGS: Clear to auscultation. There is no respiratory distress noted. HEART/CARDIOVASCULAR: Regular. There is no tachycardia. There is no gallop rub or murmur. ABDOMEN: Abdomen is soft, with tenderness to palpation in the right upper quadrant, midepigastric and left upper quadrant. There is no tenderness to palpation in the lower abdomen. Patient has normal bowel sounds. There is no abdominal distention. SKIN: There is no rash. There is no edema. There is no diaphoresis. NEURO: The patient is awake, alert, and oriented. The patient is cooperative. The patient has normal speech MUSCULOSKELETAL: There is no evidence of acute injury. ED Course Vital Signs 08/29/18 12:38 Temperature 98.2 F Pulse Rate 83 Respiratory 16 Rate Blood Pressure 139/73 O2 Sat by Pulse 98 Oximetry ED Medical Decision Making - Lab Data Result diagrams: 08/29/18 12:55 08/29/18 12:55 Laboratory Tests 08/29/18 08/29/18 08/29/18 12:55 12:55 15:18 WBC 11.6 H RBC 3.23 L Hgb 10.0 L Hct 30.3 L MCV 94 MCH 31 MCHC 33 RDW 14.5 Plt Count 344 Lymph % (Auto) 9.8 L [place] % (Auto) 9.4 H Eos % (Auto) 0.7 Baso % (Auto) 0.4 Lymph # 1.1 L [place] # 1.1 H Eos # 0.1 Baso # 0.0 Seg Neutrophils % 79.7 H Seg Neutrophils # 9.2 H Sodium 134 L Potassium 4.2 Chloride 98.6 Carbon Dioxide 25 Anion Gap 15 BUN 11 Creatinine 0.9 Estimated GFR > 60 BUN/Creatinine Ratio 12 Glucose 138 H Calcium 9.9 Total Bilirubin 0.70 AST 37 ALT 96 H Alkaline Phosphatase 165 H Total Protein 7.4 D Albumin 3.3 L Albumin/Globulin Ratio 0.8 Lipase 26 - Differential Diagnosis esophagitis, hiatal hernia, pancreatitis, ulcer disease Critical care attestation.: If time is entered above; I have spent that time in minutes in the direct care of this critically ill patient, excluding procedure time. ED Disposition Clinical Impression: Acute abdominal pain Disposition: OP ADMIT IP TO THIS HOSP Is pt being admited?: Yes Does the pt Need Aspirin: No Condition: Fair Referrals: VARGAS RHODES MD [Primary Care Provider] - 3-5 Days Time of Disposition: 15:35 (hospitalist notified (Dr Dorsey))
[2018-08-29] MEDS ORDERED: PEPCID IV ONE (15:35)
[2018-08-29] MEDS ORDERED: TYLENOL PO PRN (17:51)
[2018-08-29] MEDS ORDERED: ZOFRAN IV PRN (17:51)
[2018-08-29] MEDS ORDERED: SODIUM CHLORIDE FLUSH SYRINGE 10 ML IV PRN (17:51)
[2018-08-29 18:21] LABS: Mucus,Urine FEW /HPF
[2018-08-29 18:37] LABS: Bilirubin,Urine NEG (Negative); Blood,Urine NEG (Negative); Color,Urine Yellow (Yellow); Protein,Urine <15 mg/dL mg/dL (Negative); Urobilinogen,Urine < 2.0 mg/dL (<2.0)
[2018-08-29] MEDS: D5NS 1,000 ML IV SCH (20:35)
[2018-08-29] MEDS: DILAUDID IV PRN (20:36)
[2018-08-29] MEDS: SODIUM CHLORIDE FLUSH SYRINGE 10 ML IV SCH (21:05)
[2018-08-29] MEDS: PEPCID IV SCH (21:05)
--- NOTE | 2018-08-29 23:43 | Cat Scan Report ---
FINAL REPORT PROCEDURE: CT ABDOMEN W CON TECHNIQUE: Computerized axial tomography of the abdomen was performed following the IV injection of iodinated nonionic contrast. HISTORY: Recurrent abd pain COMPARISON: No prior studies are available for comparison. FINDINGS: Lower Lung jacobs: Small right pleural effusion visualized. There appears to be a small amount of adj acent atelectasis. Minimal dependent atelectasis also appears to be present in the left lung base. Sm all pericardial effusion also appears to be present. Upper Abdomen: The liver, gallbladder, adrenal glands, the pancreas and the spleen are unremarkable Kidneys, Ureters and Urinary bladder: Low-density nodule projects from the lower 3rd of the right kid brown laterally measuring 2.7 centimeter. Additional low-density nodules seen midportion right kidney l aterally measuring 1.8 centimeter. Subcentimeter low-density nodules are seen in the renal cortex of the left kidney. These appear to represent renal cortical cyst. There is nonspecific increased densit y in the perinephric adipose tissue bilaterally. Retroperitoneum: Abdominal aorta is unremarkable. Nonspecific subcentimeter lymph nodes are seen in the retroperitoneum. No pathologically enlarged lym ph nodes are identified. Bowel: Visualized bowel loops are unremarkable. No ascites or free intraperitoneal gas visualized. Reproductive organs: Other: There is bilateral spondylolysis at L5 with grade 1 spondylolisthesis L5 in relation S1. The L 5-S1 disc space is only partially visualized although it may be fused. IMPRESSION: Small right pleural effusion. Small amount of adjacent atelectasis visualized. There is also minimal dependent atelectasis in the left lung base. Small pericardial effusion is present. Low-density renal cortical nodules visualized bilaterally suggesting renal cortical cyst. Nonspecific increased density seen in the perinephric spaces bilaterally. Bilateral spondylolysis L5 with grade 1 spondylolisthesis. L5-S1 disc space may be previously fused. This is only partially visualized
[2018-08-30] MEDS: PERCOCET 5/325 PO PRN ×3 (00:27→19:55)
--- NOTE | 2018-08-30 01:10 | Event Note ---
Date: 08/29/18 Recurrent Abd pain Fever BPH
--- NOTE | 2018-08-30 01:32 | History and Physical Report ---
CHIEF COMPLAINT: Abdominal pain of 1 week duration. HISTORY OF PRESENT ILLNESS: A 72-year-old male with history of hypertension, diabetes and BPH, who was recently admitted and discharged 2 days ago after being worked up for abdominal pain. In the process of workup, the patient left AMA because he has to take care of his dog. At that point, he was constipated, which is resolved. The patient is having bowel movement per day. The patient had a fever on 08/27/2018. Today, he comes in for recurrent abdominal pain about 6 to 7 on a scale of 1-10, intermittent in nature. No difficulty urinating. No nausea. No vomiting. No constipation. Low-grade fever off and on present. PAST MEDICAL HISTORY: Significant for hypertension, diabetes, deep vein thrombosis, reflux, BPH. PAST SURGICAL HISTORY: Prostate surgery. FAMILY HISTORY: Nothing significant. SOCIAL HISTORY: Does not smoke, occasional alcohol. CURRENT MEDICATIONS: Amlodipine 5 mg once a day, Onglyza one tablet once a day, and Proscar 5 mg once a day. REVIEW OF SYSTEMS: Significant for intermittent abdominal pain, intermittent constipation, which has resolved. Initially, it was bilateral flank pain. Now with generalized abdominal pain. Low-grade fever present off and on. Otherwise, review of systems negative. PHYSICAL EXAMINATION: GENERAL: Elderly male, cooperative during examination. VITAL SIGNS: Blood pressure is 139/73, temperature is 98.2, pulse is 83, respirations 16. HEENT: Unremarkable. Pupils are equal and reactive. NECK: Supple, no lymphadenopathy, no thyromegaly. LUNGS: Clear to auscultation and percussion. Good air entry. CARDIOVASCULAR: S1, S2 heard. No gallop, no murmur, no rub. Apical impulse in left fifth intercostal space and midclavicular line. ABDOMEN: Soft and benign. No hepatosplenomegaly. No guarding, no rigidity. Hernial orifices are normal. EXTREMITIES: Good pedal pulses. No pedal edema. CENTRAL NERVOUS SYSTEM: Alert and oriented x 4, nonfocal exam. SKIN: Normal. ABDOMEN: Generalized tenderness present, but no guarding or rigidity. LABORATORY DATA: Significant for white count of 11,600, H and H is 10.0 and 30.3, platelet count is 344,000. Glucose is 138. BUN and creatinine is 11 and 0.9. Total protein is 7.4, albumin is 3.3, ALT is 96. Urine is negative. Abdominal CAT scan was repeated, which shows small right pleural effusion, small pericardial effusion, low density renal cortical nodules, bilateral spondylolysis, L5 with grade 1 spondylolisthesis. ASSESSMENT AND PLAN: 1. Acute abdominal pain, etiology unclear. We will start empiric antibiotics and get a surgical consult. CT of the abdomen done twice was negative. Benign prostatic hypertrophy may be causing the pain also secondary to urinary obstruction, but that should be only far and few between. Etiology unclear for the abdominal pain. IV Rocephin for now. 2. Benign prostatic hypertrophy. Continue tamsulosin and finasteride. 3. Hypertension. Continue losartan and amlodipine. 4. Constipation, resolved. 5. Deep venous thrombosis prophylaxis, Lovenox 40 mg subcutaneous daily. In summary, the patient has generalized abdominal pain and low-grade fever. Etiology unclear. The patient was diagnosed with pyelonephritis in the last admission. We will initiate ceftriaxone for now empirically. JOB# [id number] DANETTE/GURDEEP [place]
[2018-08-30] MEDS: DILAUDID IV PRN (05:24)
[2018-08-30 05:25] LABS: Basophils % (Auto) 0.3 % (0.0-1.8); Eosinophils # (Auto) 0.1 K/mm3 (0.0-0.4); Eosinophils % (Auto) 1.1 % (0.0-4.3); Hematocrit 30.9 % (35.5-45.6); Hemoglobin 10.2 gm/dl (11.8-15.2); Lymphocytes # (Auto) 0.9 K/mm3 (1.2-5.4); Mean Corpuscular HGB Conc 33 % (32-34); Mean Corpuscular Volume 95 fl (84-94); Monocytes # (Auto) 0.7 K/mm3 (0.0-0.8); Monocytes % (Auto) 8.3 % (0.0-7.3); Platelet Count 351 K/mm3 (140-440); Red Blood Count 3.26 M/mm3 (3.65-5.03); Red Cell Distribution Width 14.7 % (13.2-15.2)
[2018-08-30 05:39] LABS: Alanine Aminotransferase 77 units/L (7-56); Albumin 3.1 g/dL (3.9-5); BUN/Creatinine Ratio 9; Blood Urea Nitrogen 9 mg/dL (9-20); Calcium 9.2 mg/dL (8.4-10.2); Hemolysis Index 5
--- NOTE | 2018-08-30 07:51 | Progress Note ---
Assessment and Plan Assessment and plan: Patient is a 72 year old man with history of hypertension diabetes and BPH recently admitted to the Hospital with abdominal Pain and was noted on initial CT to have markedly enlarged prostate with no hydronephrosis or outlet obstruction. UA was neg for pyuria. Patient was started on flomax and also he wa s given stool softeners, enemas and suppositories for constipation. The patient was noted to have a fever, the source of the fever was being worked up, but the patient elected to sign out AGAINST MEDICAL ADVICE stating that he needed to provide care for his dog according to the discharge summary on 08/27/18 at the time His finasteride dose was increased. He returns to the ER with complains of recurrent abdominal pain and abdominal distension and rates it 7/10 in intensity. During his early admission he had a fever of 103 but none since this presentation. As mentioned he was placed on abx, no clear source was identified. SIRS with no organ dysfunction Diabetes Mellitus Elevate Transaminitis now resolving ?a transient injury /stones Enlarged prostate Prostatism UTI ruled out during prior admission HTN DM Chronic constipation Anemia of chronic disease Right RENAL CYST- PER CT IMAGING Plan Continue supportive care GI and surgical consult Continue to monitor LABS PER NURSING STAFF, Patient urinating without difficulty Continue appropriate home meds CT imaging reviewed, Spondolysis, outpatient follow up for renal cyst recommended DVT/GI prophy Anticipate discharge if no further work up recommended in AM. History Interval history: Patient is seen today for: Abdominal pain Seen and examined at bedside; 24hour events reviewed; nursing staff ; no adverse overnight events reported to me; Denies any chest pain, nausea, vomiting, diarrhea No fever noted blood pressure controlled Hospitalist Physical - Physical exam Narrative exam: VITAL SIGNS: Reviewed. GENERAL: The patient appeared well nourished and normally developed. Vital signs as documented. HEAD: No signs of head trauma. EYES: Pupils are equal. Extraocular motions intact. EARS: Hearing grossly intact. MOUTH: Oropharynx is normal. NECK: No adenopathy, no JVD. CHEST: Chest with clear breath sounds bilaterally. No wheezes, rales, or rhonchi. CARDIAC: Regular rate and rhythm. S1 and S2, without murmurs, gallops, or rubs. VASCULAR: No Edema. Peripheral pulses normal and equal in all extremities. ABDOMEN: Soft, Tender to palpation. distended. No rebound or guarding, and no masses palpated. Bowel Sounds normal. MUSCULOSKELETAL: Good range of motion of all major joints. Extremities without clubbing, cyanosis or edema. NEUROLOGIC EXAM: Alert and oriented x 3. No focal sensory or strength deficits. Speech normal. Follows commands. PSYCHIATRIC: Mood normal. SKIN: No rash or lesions. - Constitutional Vitals: Temp Pulse Resp BP Pulse Ox 98.3 F 61 20 121/54 93 08/30/18 02:04 08/30/18 02:04 08/30/18 05:54 08/30/18 02:04 08/30/18 02:04 Results - Labs CBC & Chem 7: 08/30/18 05:01 08/30/18 05:01 Labs: Laboratory Last Values WBC 8.6 K/mm3 (4.5-11.0) 08/30/18 05:01 RBC 3.26 M/mm3 (3.65-5.03) L 08/30/18 05:01 Hgb 10.2 gm/dl (11.8-15.2) L 08/30/18 05:01 Hct 30.9 % (35.5-45.6) L 08/30/18 05:01 MCV 95 fl (84-94) H 08/30/18 05:01 MCH 31 pg (28-32) 08/30/18 05:01 MCHC 33 % (32-34) 08/30/18 05:01 RDW 14.7 % (13.2-15.2) 08/30/18 05:01 Plt Count 351 K/mm3 (140-440) 08/30/18 05:01 Lymph % (Auto) 11.0 % (13.4-35.0) L 08/30/18 05:01 [place] % (Auto) 8.3 % (0.0-7.3) H 08/30/18 05:01 Eos % (Auto) 1.1 % (0.0-4.3) 08/30/18 05:01 Baso % (Auto) 0.3 % (0.0-1.8) 08/30/18 05:01 Lymph # 0.9 K/mm3 (1.2-5.4) L 08/30/18 05:01 [place] # 0.7 K/mm3 (0.0-0.8) 08/30/18 05:01 Eos # 0.1 K/mm3 (0.0-0.4) 08/30/18 05:01 Baso # 0.0 K/mm3 (0.0-0.1) 08/30/18 05:01 Seg Neutrophils % 79.3 % (40.0-70.0) H 08/30/18 05:01 Seg Neutrophils # 6.8 K/mm3 (1.8-7.7) 08/30/18 05:01 Sodium 140 mmol/L (137-145) 08/30/18 05:01 Potassium 4.8 mmol/L (3.6-5.0) 08/30/18 05:01 Chloride 101.9 mmol/L (98-107) 08/30/18 05:01 Carbon Dioxide 25 mmol/L (22-30) 08/30/18 05:01 Anion Gap 18 mmol/L 08/30/18 05:01 BUN 9 mg/dL (9-20) 08/30/18 05:01 Creatinine 1.0 mg/dL (0.8-1.5) 08/30/18 05:01 Estimated GFR > 60 ml/min 08/30/18 05:01 BUN/Creatinine Ratio 9 % 08/30/18 05:01 Glucose 163 mg/dL (75-100) H 08/30/18 05:01 Calcium 9.2 mg/dL (8.4-10.2) 08/30/18 05:01 Total Bilirubin 0.60 mg/dL (0.1-1.2) 08/30/18 05:01 AST 37 units/L (5-40) 08/30/18 05:01 ALT 77 units/L (7-56) H 08/30/18 05:01 Alkaline Phosphatase 142 units/L (35-129) H 08/30/18 05:01 Total Protein 6.0 g/dL (6.3-8.2) L 08/30/18 05:01 Albumin 3.1 g/dL (3.9-5) L 08/30/18 05:01 Albumin/Globulin Ratio 1.1 % 08/30/18 05:01 Lipase 26 units/L (13-60) 08/29/18 15:18 Urine Color Yellow (Yellow) 08/29/18 17:52 Urine Turbidity Clear (Clear) 08/29/18 17:52 Urine pH 6.0 (5.0-7.0) 08/29/18 17:52 Ur Specific [place] 1.005 (1.003-1.030) 08/29/18 17:52 Urine Protein <15 mg/dl mg/dL (Negative) 08/29/18 17:52 Urine Glucose (UA) Neg mg/dL (Negative) 08/29/18 17:52 Urine Ketones Neg mg/dL (Negative) 08/29/18 17:52 Urine Blood Neg (Negative) 08/29/18 17:52 Urine Nitrite Neg (Negative) 08/29/18 17:52 Ur Reducing Substances Not Reportable 08/29/18 17:52 Urine Bilirubin Neg (Negative) 08/29/18 17:52 Urine Ictotest Not Reportable 08/29/18 17:52 Urine Urobilinogen < 2.0 mg/dL (<2.0) 08/29/18 17:52 Ur Leukocyte Esterase Tr (Negative) 08/29/18 17:52 Urine WBC (Auto) 5.0 /HPF (0.0-6.0) 08/29/18 17:52 Urine RBC (Auto) 1.0 /HPF (0.0-6.0) 08/29/18 17:52 U Epithel Cells (Auto) < 1.0 /HPF (0-13.0) 08/29/18 17:52 Urine Mucus Few /HPF 08/29/18 17:52
[2018-08-30] MEDS: ROCEPHIN/NS 2 GM/100 ML 2 GM/100 ML BAG IV SCH (09:42)
[2018-08-30] MEDS: PROSCAR PO SCH (09:43)
[2018-08-30] MEDS: FLOMAX PO SCH (09:43)
[2018-08-30] MEDS: LOVENOX SUB-Q SCH (09:44)
[2018-08-30] MEDS: PEPCID IV SCH ×2 (09:44→21:50)
[2018-08-30] MEDS: SODIUM CHLORIDE FLUSH SYRINGE 10 ML IV SCH ×2 (09:45→21:50)
[2018-08-30] MEDS: COZAAR PO SCH (09:54)
[2018-08-30] MEDS: NORVASC PO SCH (09:55)
[2018-08-30] MEDS ORDERED: LOVENOX SUB-Q SCH (10:00)
[2018-08-30] MEDS ORDERED: LOSARTAN PO SCH (10:00)
[2018-08-30] MEDS: D5NS 1,000 ML IV SCH (12:28)
[2018-08-30] MEDS ORDERED: GOLYTELY PO ONE (13:31)
--- NOTE | 2018-08-30 13:32 | Gastroenterology Consultation ---
<MARCELLUS EDWARDS - Last Filed: 08/30/18 14:01> History of Present Illness - Reason for Consult Consult date: 08/30/18 abdominal pain Requesting physician: LENARD BRIDGES - History of Present Illness Patient is a 72 y/o male with PMH of HTN, DM, chronic anemia, and BPH who presented to ED with c/o recurrent lower abdominal pain with distention after recently being seen here 3 days ago for similar symptoms with CT 08/26/18 showing enlarged prostate (no hydronephrosis or outlet obstruction). He was given flomax and stool softeners/enemas/suppositories for constipation with further workup recommended for his fever at that time, however he left AMA. Repeat CT this admission showed renal cyst and spondolysis. GI has been consulted for abd pa in. This afternoon patient was resting in bed w/o acute distress. He report an acute onset of lower abdominal pain x 2 weeks with associated distention and change in bowel habit with constipation. Pain is described as a constant pressure that radiates across lower abdomen. Pain is exacerbated with movement, especially standing and bending over. Improved with lying down/resting. Pain has improved after receiving treatment for constipation as above with good results but has not resolved. No rectal bleeding or pain. Denies CP, SOB, wt loss, N/V, signs of bleeding or diarrhea. States he thinks he had a colonoscopy [place] [address] Concepcion, however after chart review he underwent a urology procedure not a colonoscopy. No known Fhx of GI cancers. Past History Past Medical History: anemia, diabetes, DVT, GERD, hypertension, other (BPH) Past Surgical History: Other (prostate surgery) Social history: denies: smoking, alcohol abuse Medications and Allergies Allergies Allergy/AdvReac Type Severity Reaction Status Date / Time No Known Allergies Allergy Verified 03/12/15 04:05 Home Medications Medication Instructions Recorded Confirmed Last Taken Type Losartan [Cozaar] 1 tab PO DAILY 02/26/15 08/29/18 08/25/18 09:00 History 100mg amLODIPine [Norvasc] 5 mg PO DAILY 02/26/15 08/29/18 02/27/15 06:45 History Finasteride [Proscar] 5 mg PO QDAY #30 tablet 08/27/18 08/29/18 Unknown Rx Tamsulosin [Flomax] 0.8 mg PO DAILY #60 capsule 08/27/18 08/29/18 Unknown Rx Active Meds: Active Medications Acetaminophen (Tylenol) 650 mg PO Q4H PRN PRN Reason: Pain MILD(1-3)/Fever >100.5/[place] Amlodipine Besylate (Norvasc) 5 mg PO DAILY [facility] Last Admin: 08/30/18 09:55 Dose: 5 mg Documented by: Enoxaparin Sodium (Lovenox) 40 mg SUB-Q QDAY@1000 [facility] Last Admin: 08/30/18 09:44 Dose: 40 mg Documented by: Famotidine (Pepcid) 20 mg IV BID [facility] Last Admin: 08/30/18 09:44 Dose: 20 mg Documented by: Finasteride (Proscar) 5 mg PO QDAY [facility] Last Admin: 08/30/18 09:43 Dose: 5 mg Documented by: Hydromorphone HCl (Dilaudid) 0.5 mg IV Q3H PRN PRN Reason: Pain , Severe (7-10) Last Admin: 08/30/18 05:24 Dose: 0.5 mg Documented by: Dextrose/Sodium Chloride (D5ns) 1,000 mls @ 75 mls/hr IV DIRECT [facility] Last Admin: 08/30/18 12:28 Dose: 75 mls/hr Documented by: Ceftriaxone Sodium (Rocephin/Ns 2 Gm/100 Ml) 2 gm in 100 mls @ 200 mls/hr IV Q24HR [facility]; Protocol Last Admin: 08/30/18 09:42 Dose: 200 mls/hr Documented by: Losartan Potassium (Cozaar) 100 mg PO DAILY [facility] Last Admin: 08/30/18 09:54 Dose: 100 mg Documented by: Ondansetron HCl (Zofran) 4 mg IV Q3H PRN PRN Reason: Nausea And Vomiting Oxycodone/Acetaminophen (Percocet 5/325) 1 tab PO Q6H PRN PRN Reason: Pain, Moderate (4-6) Last Admin: 08/30/18 09:59 Dose: 1 tab Documented by: Sodium Chloride (Sodium Chloride Flush Syringe 10 Ml) 10 ml IV BID [facility] Last Admin: 08/30/18 09:45 Dose: 10 ml Documented by: Sodium Chloride (Sodium Chloride Flush Syringe 10 Ml) 10 ml IV PRN PRN PRN Reason: LINE FLUSH Tamsulosin HCl (Flomax) 0.8 mg PO DAILY [facility] Last Admin: 08/30/18 09:43 Dose: 0.8 mg Documented by: medications reviewed/updated as required Review of Systems - Review of Systems All systems: negative Gastrointestinal: abdominal pain, constipation Exam - Constitutional Vital Signs: Temp Pulse Resp BP Pulse Ox 97.9 F 74 20 145/71 95 08/30/18 07:44 08/30/18 09:55 08/30/18 10:00 08/30/18 09:55 08/30/18 08:32 General appearance: no acute distress - EENT Eyes: PERRL, EOM intact ENT: hearing intact - Respiratory Respiratory: bilateral: CTA - Cardiovascular Rhythm: regular Heart Sounds: Present: S1 & S2 - Gastrointestinal General gastrointestinal: Present: soft, tender (lower abdomen), distended (slightly), normal bowel sounds, hernia (umbilical) - Neurologic Neurological: alert and oriented x3 - Labs CBC & Chem 7: 08/30/18 05:01 08/30/18 05:01 Lab Results: Laboratory Results - last 24 hr 08/29/18 08/29/18 08/29/18 12:55 15:18 17:52 WBC RBC Hgb Hct MCV MCH MCHC RDW Plt Count Lymph % (Auto) [place] % (Auto) Eos % (Auto) Baso % (Auto) Lymph # [place] # Eos # Baso # Seg Neutrophils % Seg Neutrophils # Sodium 134 L Potassium 4.2 Chloride 98.6 Carbon Dioxide 25 Anion Gap 15 BUN 11 Creatinine 0.9 Estimated GFR > 60 BUN/Creatinine Ratio 12 Glucose 138 H Calcium 9.9 Total Bilirubin 0.70 AST 37 ALT 96 H Alkaline Phosphatase 165 H Total Protein 7.4 D Albumin 3.3 L Albumin/Globulin Ratio 0.8 Lipase 26 Urine Color Yellow Urine Turbidity Clear Urine pH 6.0 Ur Specific [place] 1.005 Urine Protein <15 mg/dl Urine Glucose (UA) Neg Urine Ketones Neg Urine Blood Neg Urine Nitrite Neg Ur Reducing Substances Not Reportable Urine Bilirubin Neg Urine Ictotest Not Reportable Urine Urobilinogen < 2.0 Ur Leukocyte Esterase Tr Urine WBC (Auto) 5.0 Urine RBC (Auto) 1.0 U Epithel Cells (Auto) < 1.0 Urine Mucus Few 08/30/18 08/30/18 05:01 05:01 WBC 8.6 RBC 3.26 L Hgb 10.2 L Hct 30.9 L MCV 95 H MCH 31 MCHC 33 RDW 14.7 Plt Count 351 Lymph % (Auto) 11.0 L [place] % (Auto) 8.3 H Eos % (Auto) 1.1 Baso % (Auto) 0.3 Lymph # 0.9 L [place] # 0.7 Eos # 0.1 Baso # 0.0 Seg Neutrophils % 79.3 H Seg Neutrophils # 6.8 Sodium 140 Potassium 4.8 Chloride 101.9 Carbon Dioxide 25 Anion Gap 18 BUN 9 Creatinine 1.0 Estimated GFR > 60 BUN/Creatinine Ratio 9 Glucose 163 H Calcium 9.2 Total Bilirubin 0.60 AST 37 ALT 77 H Alkaline Phosphatase 142 H Total Protein 6.0 L Albumin 3.1 L Albumin/Globulin Ratio 1.1 Lipase Urine Color Urine Turbidity Urine pH Ur Specific [place] Urine Protein Urine Glucose (UA) Urine Ketones Urine Blood Urine Nitrite Ur Reducing Substances Urine Bilirubin Urine Ictotest Urine Urobilinogen Ur Leukocyte Esterase Urine WBC (Auto) Urine RBC (Auto) U Epithel Cells (Auto) Urine Mucus Assessment and Plan 1.lower abdominal pain 2.change in bowel habit 3.constipation 4.chronic anemia -afebrile -WBC 8.6-trended down -H/H 10.2/30.9-no active signs of bleeding -abd CT showed renal cyst and spondolysis (enlarged prostate seen on previous CT) -patient reports an acute onset of lower abd pain x 2 weeks with distention and new onset constipation (now improved) -surgery consult pending -etiology unclear- possibly related to constipation vs other -will schedule for a colonoscopy tomorrow for further evaluation (r/o malignancy) -okay for clear liquids today then NPO after MN -hold am dose of lovenox, INR in am -continue supportive care -will follow 5.SIRS 6.BPH 7.HTN 8.DM <AMELIA TAN R - Last Filed: 08/30/18 15:16> Medications and Allergies Active Meds: Active Medications Acetaminophen (Tylenol) 650 mg PO Q4H PRN PRN Reason: Pain MILD(1-3)/Fever >100.5/[place] Amlodipine Besylate (Norvasc) 5 mg PO DAILY [facility] Last Admin: 08/30/18 09:55 Dose: 5 mg Documented by: Enoxaparin Sodium (Lovenox) 40 mg SUB-Q QDAY@1000 [facility] Last Admin: 08/30/18 09:44 Dose: 40 mg Documented by: Famotidine (Pepcid) 20 mg IV BID [facility] Last Admin: 08/30/18 09:44 Dose: 20 mg Documented by: Finasteride (Proscar) 5 mg PO QDAY [facility] Last Admin: 08/30/18 09:43 Dose: 5 mg Documented by: Hydromorphone HCl (Dilaudid) 0.5 mg IV Q3H PRN PRN Reason: Pain , Severe (7-10) Last Admin: 08/30/18 05:24 Dose: 0.5 mg Documented by: Dextrose/Sodium Chloride (D5ns) 1,000 mls @ 75 mls/hr IV DIRECT [facility] Last Admin: 08/30/18 12:28 Dose: 75 mls/hr Documented by: Ceftriaxone Sodium (Rocephin/Ns 2 Gm/100 Ml) 2 gm in 100 mls @ 200 mls/hr IV Q24HR [facility]; Protocol Last Admin: 08/30/18 09:42 Dose: 200 mls/hr Documented by: Losartan Potassium (Cozaar) 100 mg PO DAILY [facility] Last Admin: 08/30/18 09:54 Dose: 100 mg Documented by: Ondansetron HCl (Zofran) 4 mg IV Q3H PRN PRN Reason: Nausea And Vomiting Oxycodone/Acetaminophen (Percocet 5/325) 1 tab PO Q6H PRN PRN Reason: Pain, Moderate (4-6) Last Admin: 08/30/18 09:59 Dose: 1 tab Documented by: Sodium Chloride (Sodium Chloride Flush Syringe 10 Ml) 10 ml IV BID [facility] Last Admin: 08/30/18 09:45 Dose: 10 ml Documented by: Sodium Chloride (Sodium Chloride Flush Syringe 10 Ml) 10 ml IV PRN PRN PRN Reason: LINE FLUSH Tamsulosin HCl (Flomax) 0.8 mg PO DAILY [facility] Last Admin: 08/30/18 09:43 Dose: 0.8 mg Documented by: Exam - Constitutional Vital Signs: Temp Pulse Resp BP Pulse Ox 97.7 F 69 18 121/70 95 08/30/18 14:09 08/30/18 14:09 08/30/18 14:09 08/30/18 14:09 08/30/18 14:09 - Labs CBC & Chem 7: 08/30/18 05:01 08/30/18 05:01 Lab Results: Laboratory Results - last 24 hr 08/29/18 08/29/18 08/30/18 15:18 17:52 05:01 WBC 8.6 RBC 3.26 L Hgb 10.2 L Hct 30.9 L MCV 95 H MCH 31 MCHC 33 RDW 14.7 Plt Count 351 Lymph % (Auto) 11.0 L [place] % (Auto) 8.3 H Eos % (Auto) 1.1 Baso % (Auto) 0.3 Lymph # 0.9 L [place] # 0.7 Eos # 0.1 Baso # 0.0 Seg Neutrophils % 79.3 H Seg Neutrophils # 6.8 Sodium Potassium Chloride Carbon Dioxide Anion Gap BUN Creatinine Estimated GFR BUN/Creatinine Ratio Glucose Calcium Total Bilirubin AST ALT Alkaline Phosphatase Total Protein Albumin Albumin/Globulin Ratio Lipase 26 Urine Color Yellow Urine Turbidity Clear Urine pH 6.0 Ur Specific [place] 1.005 Urine Protein <15 mg/dl Urine Glucose (UA) Neg Urine Ketones Neg Urine Blood Neg Urine Nitrite Neg Ur Reducing Substances Not Reportable Urine Bilirubin Neg Urine Ictotest Not Reportable Urine Urobilinogen < 2.0 Ur Leukocyte Esterase Tr Urine WBC (Auto) 5.0 Urine RBC (Auto) 1.0 U Epithel Cells (Auto) < 1.0 Urine Mucus Few 08/30/18 05:01 WBC RBC Hgb Hct MCV MCH MCHC RDW Plt Count Lymph % (Auto) [place] % (Auto) Eos % (Auto) Baso % (Auto) Lymph # [place] # Eos # Baso # Seg Neutrophils % Seg Neutrophils # Sodium 140 Potassium 4.8 Chloride 101.9 Carbon Dioxide 25 Anion Gap 18 BUN 9 Creatinine 1.0 Estimated GFR > 60 BUN/Creatinine Ratio 9 Glucose 163 H Calcium 9.2 Total Bilirubin 0.60 AST 37 ALT 77 H Alkaline Phosphatase 142 H Total Protein 6.0 L Albumin 3.1 L Albumin/Globulin Ratio 1.1 Lipase Urine Color Urine Turbidity Urine pH Ur Specific [place] Urine Protein Urine Glucose (UA) Urine Ketones Urine Blood Urine Nitrite Ur Reducing Substances Urine Bilirubin Urine Ictotest Urine Urobilinogen Ur Leukocyte Esterase Urine WBC (Auto) Urine RBC (Auto) U Epithel Cells (Auto) Urine Mucus Assessment and Plan Pt seen and examined. Lower abd diffusely tender. No clear etiology. Anemia of unclear etiology. Also, LFTs mildly elevated, and CT of liver normal. - Colonoscopy to try and elucidate cause of pain and anemia. - check hepatitis serologies, and f/u LFTs as outpatient.
--- NOTE | 2018-08-30 14:40 | Consultation ---
History of Present Illness Consult date: 08/30/18 Reason for consult: abdominal pain Requesting physician: KAREN REYES Chief complaint: abdominal pain - History of present illness History of present illness: 72yo M with abdominal pain. Patient reports that it is more on the sides and upper abdomen. This is very similar to when he had his prostate issues. His already had a TURP. He reports now that the pain varies with his bowel movements. When he has bowel movements the pain eases off. He experiences a lot of pressure throughout the abdomen as well. Denies any fevers, chills, nausea, vomiting. Denies any weight loss. His appetite is good. Denies any blood in his bowel movements. No family history of cancer. He has no personal history of cancer. Past History Past Medical History: anemia, diabetes, DVT, GERD, hypertension, other (BPH) Past Surgical History: Other (prostate surgery-TURP) Social history: denies: smoking, alcohol abuse Family history: no significant family history Medications and Allergies Allergies Allergy/AdvReac Type Severity Reaction Status Date / Time No Known Allergies Allergy Verified 03/12/15 04:05 Home Medications Medication Instructions Recorded Confirmed Last Taken Type Losartan [Cozaar] 1 tab PO DAILY 02/26/15 08/29/18 08/25/18 09:00 History 100mg amLODIPine [Norvasc] 5 mg PO DAILY 02/26/15 08/29/18 02/27/15 06:45 History Finasteride [Proscar] 5 mg PO QDAY #30 tablet 08/27/18 08/29/18 Unknown Rx Tamsulosin [Flomax] 0.8 mg PO DAILY #60 capsule 08/27/18 08/29/18 Unknown Rx Active Meds: Active Medications Acetaminophen (Tylenol) 650 mg PO Q4H PRN PRN Reason: Pain MILD(1-3)/Fever >100.5/[place]ELDON Amlodipine Besylate (Norvasc) 5 mg PO DAILY [facility] Last Admin: 08/30/18 09:55 Dose: 5 mg Documented by: Enoxaparin Sodium (Lovenox) 40 mg SUB-Q QDAY@1000 [facility] Last Admin: 08/30/18 09:44 Dose: 40 mg Documented by: Famotidine (Pepcid) 20 mg IV BID [facility] Last Admin: 08/30/18 09:44 Dose: 20 mg Documented by: Finasteride (Proscar) 5 mg PO QDAY [facility] Last Admin: 08/30/18 09:43 Dose: 5 mg Documented by: Hydromorphone HCl (Dilaudid) 0.5 mg IV Q3H PRN PRN Reason: Pain , Severe (7-10) Last Admin: 08/30/18 05:24 Dose: 0.5 mg Documented by: Dextrose/Sodium Chloride (D5ns) 1,000 mls @ 75 mls/hr IV DIRECT [facility] Last Admin: 08/30/18 12:28 Dose: 75 mls/hr Documented by: Ceftriaxone Sodium (Rocephin/Ns 2 Gm/100 Ml) 2 gm in 100 mls @ 200 mls/hr IV Q24HR [facility]; Protocol Last Admin: 08/30/18 09:42 Dose: 200 mls/hr Documented by: Losartan Potassium (Cozaar) 100 mg PO DAILY [facility] Last Admin: 08/30/18 09:54 Dose: 100 mg Documented by: Ondansetron HCl (Zofran) 4 mg IV Q3H PRN PRN Reason: Nausea And Vomiting Oxycodone/Acetaminophen (Percocet 5/325) 1 tab PO Q6H PRN PRN Reason: Pain, Moderate (4-6) Last Admin: 08/30/18 09:59 Dose: 1 tab Documented by: Sodium Chloride (Sodium Chloride Flush Syringe 10 Ml) 10 ml IV BID [facility] Last Admin: 08/30/18 09:45 Dose: 10 ml Documented by: Sodium Chloride (Sodium Chloride Flush Syringe 10 Ml) 10 ml IV PRN PRN PRN Reason: LINE FLUSH Tamsulosin HCl (Flomax) 0.8 mg PO DAILY [facility] Last Admin: 08/30/18 09:43 Dose: 0.8 mg Documented by: Review of Systems - Constitutional no fever, no chills, no weakness - Cardiovascular no chest pain - Respiratory no cough - Gastrointestinal abdominal pain, change in bowel habits (not as regular as he used to be.), dyspepsia/bloating, no nausea, no vomiting, no hematemesis, no coffee ground emesis, no BRBPR, no melena, no hematochezia, no loss of appetite - Genitourinary no dysuria - Muskuloskeletal no low back pain - Integumentary no rash, no pruritis, no redness, no sores, no wounds Exam Vital Signs Temp Pulse Resp BP Pulse Ox 98.2 F 83 16 139/73 98 08/29/18 12:38 08/29/18 12:38 08/29/18 12:38 08/29/18 12:38 08/29/18 12:38 - General physical appearance Positive: no distress, no pain, other (very pleasant) - Eyes Positive: normal occular movement. Negative: icteric - Respiratory Positive: normal expansion, normal respiratory effort, clear to auscultation - Cardiovascular Rhythm: regular - Abdomen Abdomen: Present: soft, tender (on the sides in the middle of the abdomen and along the top. No pelvic shake tenderness. No lower chest wall tenderness. Unchanged when muscles contracted. ), bowel sounds hypoactive, distended, guarding (voluntary). Absent: masses, rebound, rigid, wound, surgical scars - Integumentary no rash, no growths, no abnormal pigmentation - Neurologic Neurologic: alert and oriented to time, place and person - Psychiatric Psychiatric: appropriate mood/affect, intact judgment & insight Results - Labs 08/30/18 05:01 08/30/18 05:01 Abnormal lab results 08/30/18 08/30/18 Range/Units 05:01 05:01 RBC 3.26 L (3.65-5.03) M/mm3 Hgb 10.2 L (11.8-15.2) gm/dl Hct 30.9 L (35.5-45.6) % MCV 95 H (84-94) fl Lymph % (Auto) 11.0 L (13.4-35.0) % [place] % (Auto) 8.3 H (0.0-7.3) % Lymph # 0.9 L (1.2-5.4) K/mm3 Seg Neutrophils % 79.3 H (40.0-70.0) % Glucose 163 H (75-100) mg/dL ALT 77 H (7-56) units/L Alkaline Phosphatase 142 H (35-129) units/L Total Protein 6.0 L (6.3-8.2) g/dL Albumin 3.1 L (3.9-5) g/dL Diabetes panel 08/30/18 Range/Units 05:01 Sodium 140 (137-145) mmol/L Potassium 4.8 (3.6-5.0) mmol/L Chloride 101.9 (98-107) mmol/L Carbon Dioxide 25 (22-30) mmol/L BUN 9 (9-20) mg/dL Creatinine 1.0 (0.8-1.5) mg/dL Glucose 163 H (75-100) mg/dL Calcium 9.2 (8.4-10.2) mg/dL AST 37 (5-40) units/L ALT 77 H (7-56) units/L Alkaline Phosphatase 142 H (35-129) units/L Total Protein 6.0 L (6.3-8.2) g/dL Albumin 3.1 L (3.9-5) g/dL Calcium panel 08/30/18 Range/Units 05:01 Calcium 9.2 (8.4-10.2) mg/dL Albumin 3.1 L (3.9-5) g/dL Pituitary panel 08/30/18 Range/Units 05:01 Sodium 140 (137-145) mmol/L Potassium 4.8 (3.6-5.0) mmol/L Chloride 101.9 (98-107) mmol/L Carbon Dioxide 25 (22-30) mmol/L BUN 9 (9-20) mg/dL Creatinine 1.0 (0.8-1.5) mg/dL Glucose 163 H (75-100) mg/dL Calcium 9.2 (8.4-10.2) mg/dL Adrenal panel 08/30/18 Range/Units 05:01 Sodium 140 (137-145) mmol/L Potassium 4.8 (3.6-5.0) mmol/L Chloride 101.9 (98-107) mmol/L Carbon Dioxide 25 (22-30) mmol/L BUN 9 (9-20) mg/dL Creatinine 1.0 (0.8-1.5) mg/dL Glucose 163 H (75-100) mg/dL Calcium 9.2 (8.4-10.2) mg/dL Total Bilirubin 0.60 (0.1-1.2) mg/dL AST 37 (5-40) units/L ALT 77 H (7-56) units/L Alkaline Phosphatase 142 H (35-129) units/L Total Protein 6.0 L (6.3-8.2) g/dL Albumin 3.1 L (3.9-5) g/dL - Imaging CT scan - abdomen: report reviewed, image reviewed CT scan - pelvis: report reviewed, image reviewed Assessment and Plan - Patient Problems (1) Abdominal pain Current Visit: No Status: Acute Qualifiers: Abdominal location: generalized Qualified Code(s): R10.84 - Generalized abdominal pain Plan to address problem: Patient is stable. He does not have any emergency/urgent issues requiring surgical intervention at this time. We will await the results of the colonoscopy that is planned. There is nothing on CT scan that warrants any intervention at this time. It is not clear what the cause of his pain is at this time. Will follow along in his care. Please call with any questions. Time=30min
[2018-08-31] MEDS: DILAUDID IV PRN ×3 (00:17→16:51)
[2018-08-31 06:45] LABS: Hemoglobin 9.6 gm/dl (11.8-15.2); Mean Corpuscular HGB Conc 33 % (32-34); Mean Corpuscular Volume 94 fl (84-94); Platelet Count 397 K/mm3 (140-440); Red Cell Distribution Width 14.8 % (13.2-15.2)
[2018-08-31 06:48] LABS: INR 0.98 (0.87-1.13)
[2018-08-31 07:03] LABS: Iron 29 ug/dL (49-181); Total Iron Binding Capacity 164 mcg/dL (250-450)
[2018-08-31 07:16] LABS: Hepatitis B Surface Antigen Non-Reactive (Negative); Hepatitis C Virus Antibody Non-Reactive (NonReactive)
[2018-08-31] MEDS: NACL 0.9% 1000 ML 1,000 ML IV SCH (09:57)
[2018-08-31] MEDS: PEPCID IV SCH ×2 (10:00→23:44)
[2018-08-31] MEDS: NORVASC PO SCH (10:00)
[2018-08-31] MEDS: PROSCAR PO SCH (10:00)
[2018-08-31] MEDS: ROCEPHIN/NS 2 GM/100 ML 2 GM/100 ML BAG IV SCH (10:00)
[2018-08-31] MEDS: FLOMAX PO SCH (10:00)
[2018-08-31] MEDS: SODIUM CHLORIDE FLUSH SYRINGE 10 ML IV SCH ×2 (10:00→23:45)
[2018-08-31] MEDS: LOVENOX SUB-Q SCH (10:00)
[2018-08-31] MEDS ORDERED: WATER FOR IRRIG STERILE ONE (10:09)
[2018-08-31] MEDS ORDERED: WATER FOR IRRIG STERILE IR ONE (10:09)
--- NOTE | 2018-08-31 10:30 | Anesthesia Consultation ---
Anesthesia Consult and Med Hx Date of service: 08/31/18 - Airway Anesthetic Teeth Evaluation: Poor, Chipped, Partials Mental/Hyoid Distance: Adequate Mallampati Class: Class II Intubation Access Assessment: Probably Good - Pre-Operative Health Status ASA Pre-Surgery Classification: ASA3 Proposed Anesthetic Plan: MAC - Pulmonary Hx Smoking: Yes (quit in 1978) Hx Asthma: No SOB: No COPD: No Hx Sleep Apnea: No - Cardiovascular System Hx Hypertension: Yes Hx Coronary Artery Disease: Yes (Stress test 01/13/11- Small, fixed basal inf defect; old inf AR, no ischemia) Hx Heart Attack/AMI: No Hx Angina: No Hx Cardia Arrhythmia: Yes (RBBB) Hx Pacemaker: No Hx Internal Defibrillator: No Hx Valvular Heart Disease: Yes (Mild to mod AR, Mild MR, Trace TR on echo 11/07/10) Hx Peripheral Vascular Disease: Yes (h/o LLE DVT 2011) - Central Nervous System Hx Neuromuscular Disorder: No Hx Seizures: No CVA: No Hx Psychiatric Problems: No - Gastrointestinal Hx Gastroesophageal Reflux Disease: Yes - Endocrine Hx Renal Disease: No Hx Non-Insulin Dependent Diabetes: Yes Hx Thyroid Disease: No - Hematic Hx Anemia: No - Other Systems Hx Alcohol Use: Yes (SOCIALLY) Hx Substance Use: No Hx Cancer: No Hx Obesity: No
--- NOTE | 2018-08-31 10:31 | Anesthesia Day of Surgery ---
Anesthesia Day of Surgery - Day of Surgery Patient Examined: Yes Patient H&P Reviewed: Yes Patient is NPO: Yes
[2018-08-31] MEDS: COZAAR PO SCH (10:34)
[2018-08-31] MEDS ORDERED: DIPRIVAN 10 MG/ML IV ONE ×2 (12:59→13:00)
--- NOTE | 2018-08-31 13:26 | Post Operative Note ---
Pre-op diagnosis: Anemia, lower abd pain Post-op diagnosis: other (Normal exam) Findings: 1. Normal colonoscopy Procedure: Colonoscopy Anesthesia: MAC Surgeon: AMELIA TAN Estimated blood loss: none Pathology: none Condition: stable Disposition: floor (Continue further evaluation of pain)
--- NOTE | 2018-08-31 13:42 | Operative Report ---
PROCEDURE: Colonoscopy. PREOPERATIVE DIAGNOSIS: Lower abdominal pain and anemia. POSTOPERATIVE DIAGNOSIS: Normal colonoscopy. SEDATION: MAC by Anesthesia. HISTORY: The patient is a 72-year-old man who comes in with lower abdominal pain. He is also constipated. He is anemic with a hemoglobin of 9.6 with no clear etiology. Iron stores show iron of 29 and TIBC of 164. CT is negative. Procedure, indications, risks, and benefits were explained and consent was obtained. The patient was placed in left lateral decubitus position and sedated. Regroup Therapy video colonoscope was passed through the rectum after digital examination and passed with minimal difficulty to the cecum, which was identified by the ileocecal valve and the appendiceal orifice. Scope was then gradually withdrawn with close inspection of the mucosa. Prep was good. FINDINGS: Visualized colonic mucosa is normal appearing with no evidence of mass, lesions, vascular lesions or inflammation. The patient tolerated the procedure well without immediate complication. IMPRESSION: Normal colonoscopy with no evidence of bleeding source or source of pain. RECOMMENDATIONS: 1. May need further evaluation of anemia by hematology, possibly as outpatient. 2. Ongoing surgical evaluation to consider exploratory laparoscopy if pain fails to mitigate. JOB# [id number] HRC/NTS
[2018-08-31] MEDS ORDERED: D50W (25GM) Syringe IV PRN (14:19)
--- NOTE | 2018-08-31 14:26 | Post Anesthesia Evaluation ---
- Post Anesthesia Evaluation Patient Participated: Yes (sleeping) Airway Patent: Yes Stable Respiratory Function: Yes Nausea/Vomiting: No Temp > 96.8F: Yes Pain Manageable: Yes Adequeate Hydration: Yes Anesthesia Complications: Yes Block Receding Appropriately: Not Applicable Patient on Ventilator: No
--- NOTE | 2018-08-31 15:17 | Progress Note ---
Assessment and Plan Assessment and plan: Patient is a 72 year old man with history of hypertension diabetes and BPH recently admitted to the Hospital with abdominal Pain and was noted on initial CT to have markedly enlarged prostate with no hydronephrosis or outlet obstruction. UA was neg for pyuria. Patient was started on flomax and also he wa s given stool softeners, enemas and suppositories for constipation. The patient was noted to have a fever, the source of the fever was being worked up, but the patient elected to sign out AGAINST MEDICAL ADVICE stating that he needed to provide care for his dog according to the discharge summary on 08/27/18 at the time His finasteride dose was increased. He returns to the ER with complains of recurrent abdominal pain and abdominal distension and rates it 7/10 in intensity. During his early admission he had a fever of 103 but none since this presentation. As mentioned he was placed on abx, no clear source was identified. SIRS with no organ dysfunction Diabetes Mellitus Elevate Transaminitis now resolving ?a transient injury /stones Enlarged prostate PERITONEAL IRRITATION ?functional abdominal pain secondary coagulopathy UTI ruled out during prior admission HTN DM Chronic constipation Anemia of chronic disease Right RENAL CYST- PER CT IMAGING Plan Continue supportive care GI and surgical consult input noted CTA chest and Abdomen Accucheck Doppler lower ext Continue to monitor LABS Normal colonoscopy PER NURSING STAFF, Patient urinating without difficulty Continue appropriate home meds CT imaging reviewed, Spondolysis, outpatient follow up for renal cyst recommended DVT/GI prophy Anticipate discharge if no further work up recommended in AM. Hospitalist Physical - Constitutional Vitals: Temp Pulse Resp BP Pulse Ox 98.2 F 82 19 133/59 95 08/31/18 13:06 08/31/18 13:36 08/31/18 13:36 08/31/18 13:36 08/31/18 13:36 Results - Labs CBC & Chem 7: 08/31/18 05:27 08/30/18 05:01 Labs: Laboratory Last Values WBC 7.7 K/mm3 (4.5-11.0) 08/31/18 05:27 RBC 3.10 M/mm3 (3.65-5.03) L 08/31/18 05:27 Hgb 9.6 gm/dl (11.8-15.2) L 08/31/18 05:27 Hct 29.0 % (35.5-45.6) L 08/31/18 05:27 MCV 94 fl (84-94) 08/31/18 05:27 MCH 31 pg (28-32) 08/31/18 05:27 MCHC 33 % (32-34) 08/31/18 05:27 RDW 14.8 % (13.2-15.2) 08/31/18 05:27 Plt Count 397 K/mm3 (140-440) 08/31/18 05:27 Lymph % (Auto) 11.0 % (13.4-35.0) L 08/30/18 05:01 [place] % (Auto) 8.3 % (0.0-7.3) H 08/30/18 05:01 Eos % (Auto) 1.1 % (0.0-4.3) 08/30/18 05:01 Baso % (Auto) 0.3 % (0.0-1.8) 08/30/18 05:01 Lymph # 0.9 K/mm3 (1.2-5.4) L 08/30/18 05:01 [place] # 0.7 K/mm3 (0.0-0.8) 08/30/18 05:01 Eos # 0.1 K/mm3 (0.0-0.4) 08/30/18 05:01 Baso # 0.0 K/mm3 (0.0-0.1) 08/30/18 05:01 Seg Neutrophils % 79.3 % (40.0-70.0) H 08/30/18 05:01 Seg Neutrophils # 6.8 K/mm3 (1.8-7.7) 08/30/18 05:01 PT 13.4 Sec. (12.2-14.9) 08/31/18 05:27 INR 0.98 (0.87-1.13) 08/31/18 05:27 D-Dimer 1725.08 ng/mlDDU (0-234) H 08/31/18 07:38 Sodium 140 mmol/L (137-145) 08/30/18 05:01 Potassium 4.8 mmol/L (3.6-5.0) 08/30/18 05:01 Chloride 101.9 mmol/L (98-107) 08/30/18 05:01 Carbon Dioxide 25 mmol/L (22-30) 08/30/18 05:01 Anion Gap 18 mmol/L 08/30/18 05:01 BUN 9 mg/dL (9-20) 08/30/18 05:01 Creatinine 1.0 mg/dL (0.8-1.5) 08/30/18 05:01 Estimated GFR > 60 ml/min 08/30/18 05:01 BUN/Creatinine Ratio 9 % 08/30/18 05:01 Glucose 163 mg/dL (75-100) H 08/30/18 05:01 Calcium 9.2 mg/dL (8.4-10.2) 08/30/18 05:01 Iron 29 ug/dL (49-181) L 08/31/18 05:27 TIBC 164 mcg/dL (250-450) L 08/31/18 05:27 Ferritin 1262.0 ng/mL (13.0-400.0) H 08/31/18 05:27 Total Bilirubin 0.60 mg/dL (0.1-1.2) 08/30/18 05:01 AST 37 units/L (5-40) 08/30/18 05:01 ALT 77 units/L (7-56) H 08/30/18 05:01 Alkaline Phosphatase 142 units/L (35-129) H 08/30/18 05:01 Total Protein 6.0 g/dL (6.3-8.2) L 08/30/18 05:01 Albumin 3.1 g/dL (3.9-5) L 08/30/18 05:01 Albumin/Globulin Ratio 1.1 % 08/30/18 05:01 Lipase 26 units/L (13-60) 08/29/18 15:18 Urine Color Yellow (Yellow) 08/29/18 17:52 Urine Turbidity Clear (Clear) 08/29/18 17:52 Urine pH 6.0 (5.0-7.0) 08/29/18 17:52 Ur Specific Oxly 1.005 (1.003-1.030) 08/29/18 17:52 Urine Protein <15 mg/dl mg/dL (Negative) 08/29/18 17:52 Urine Glucose (UA) Neg mg/dL (Negative) 08/29/18 17:52 Urine Ketones Neg mg/dL (Negative) 08/29/18 17:52 Urine Blood Neg (Negative) 08/29/18 17:52 Urine Nitrite Neg (Negative) 08/29/18 17:52 Ur Reducing Substances Not Reportable 08/29/18 17:52 Urine Bilirubin Neg (Negative) 08/29/18 17:52 Urine Ictotest Not Reportable 08/29/18 17:52 Urine Urobilinogen < 2.0 mg/dL (<2.0) 08/29/18 17:52 Ur Leukocyte Esterase Tr (Negative) 08/29/18 17:52 Urine WBC (Auto) 5.0 /HPF (0.0-6.0) 08/29/18 17:52 Urine RBC (Auto) 1.0 /HPF (0.0-6.0) 08/29/18 17:52 U Epithel Cells (Auto) < 1.0 /HPF (0-13.0) 08/29/18 17:52 Urine Mucus Few /HPF 08/29/18 17:52 Hepatitis A IgM Ab Non-reactive (NonReactive) 08/31/18 05:27 Hep Bs Antigen Non-reactive (Negative) 08/31/18 05:27 Hep B Core IgM Ab Non-reactive (NonReactive) 08/31/18 05:27 Hepatitis C Antibody Non-reactive (NonReactive) 08/31/18 05:27
[2018-08-31] MEDS: HumaLOG SUB-Q SCH (16:44)
--- NOTE | 2018-08-31 16:53 | Cat Scan Report ---
FINAL REPORT PROCEDURE: CT angiogram chest with contrast. TECHNIQUE: Computerized tomographic angiography of the chest was performed after the IV injection of iodinated nonionic contrast including image processing. The image data was postprocessed using 2-dim ensional multiplanar reformatted (MPR) and 3-dimensional (MIP and/or volume rendered) techniques. HISTORY: Chest pain, possible pulmonary embolism. COMPARISON: No prior studies are available for comparison. FINDINGS: The technologist has included images of the abdomen and pelvis. There is a separate requisition for t hat study. I will limit my review to the images of the chest. The trachea and central bronchi appear normal. There is subsegmental atelectasis in the dependent por tions of both lower lobes. The lungs are otherwise clear and well expanded. There is a small right pl eural effusion and a trace amount of left pleural fluid. The thoracic aorta has a normal caliber with out evidence of dissection. There are some subtle small filling defects in a few of the pulmonary art erial branches supplying the left lower lobe. These are consistent with small emboli. There are no la rge emboli identified in either lung. There is no mediastinal adenopathy. The heart size is mildly en larged. The adrenal glands are not enlarged. The thoracic skeleton appears intact. IMPRESSION: Few small pulmonary emboli in the left lower lobe. Small right pleural effusion and trace amount of l eft pleural fluid.
--- NOTE | 2018-08-31 17:10 | Cat Scan Report ---
FINAL REPORT PROCEDURE: CT angiogram abdomen and pelvis with contrast. TECHNIQUE: Computerized axial tomographic angiography of the abdomen and pelvis was performed after the IV injection of iodinated nonionic contrast. The image data was postprocessed using 2-dimensional multiplanar reformatted (MPR) and 3-dimensional (MIP and/or volume rendered) techniques. HISTORY: Abdominal pain. COMPARISON: CT abdomen 08/29/2018. CT abdomen and pelvis 08/26/2018. Dictation not available for the 2nd study. FINDINGS: There is a small right pleural effusion and a trace amount of left pleural fluid. There is mild subse gmental atelectasis in the right lower lobe. The liver, pancreas and spleen appear normal. The gallbl adder is distended. There is no biliary dilatation. The adrenal glands are not enlarged. Both kidneys appear normal in size and configuration. There are 2 cysts in the right kidney. The abdominal aorta has a normal caliber. The celiac axis and superior mesenteric artery are widely patent. Both renal ar teries are widely patent. The inferior mesenteric artery is patent. Both common iliac arteries are pa tent. Both external iliac and both internal iliac arteries are patent. Both common femoral arteries a re patent. There is no retroperitoneal adenopathy. The unopacified gastrointestinal tract is unremark able. The appendix is not definitely visualized. There is a small umbilical hernia containing a parti al loop of bowel. There are no signs of intestinal obstruction. The bladder is unremarkable. The pros lopez is severely enlarged. This elevates the base of the bladder. I cannot exclude invasion of the bl adder. Referral to a urologist should be considered. There is a moderate sized right inguinal canal h ernia containing fat. There is bilateral spondylolysis of L5. There is grade 1 spondylolisthesis at L 5-S1. L5-S1 disc space appears to be fused. IMPRESSION: Small right pleural effusion and trace amount of left pleural fluid. Right renal cysts. Normal appear ing arterial system. Small umbilical hernia containing a partial loop of bowel. Severe enlargement of the prostate. Referral to a urologist should be considered. Moderate sized right inguinal canal chetan ia containing fat.
--- NOTE | 2018-08-31 19:06 | Vascular Lab Report ---
FINAL REPORT EXAM: VL VENOUS DUPLEX LE BILAT HISTORY: DVT TECHNIQUE: Real-time color duplex sonography was performed of the deep venous systems of the bilater al lower extremities and images are submitted for interpretation. PRIORS: None. FINDINGS: Right: There is normal compressibility of the common and superficial femoral veins and the popliteal vein. Normal venous waveforms are demonstrated throughout. No echogenic thrombus is demonstrated. Col or flow is demonstrated in the posterior tibialis and peroneal veins. Left: There is normal compressibility of the common and superficial femoral veins and the popliteal v ein. Normal venous waveforms are demonstrated throughout. No echogenic thrombus is demonstrated. [place] r flow is demonstrated in the posterior tibialis and peroneal veins. IMPRESSION: No evidence of DVT.
[2018-08-31] MEDS: ELIQUIS PO SCH ×2 (19:27→23:43)
[2018-09-01 05:41] LABS: Hematocrit 28.6 % (35.5-45.6); Hemoglobin 9.6 gm/dl (11.8-15.2); Mean Corpuscular HGB Conc 34 % (32-34); Mean Corpuscular Volume 94 fl (84-94); Platelet Count 383 K/mm3 (140-440); Red Blood Count 3.03 M/mm3 (3.65-5.03); Red Cell Distribution Width 14.7 % (13.2-15.2)
[2018-09-01 06:05] LABS: BUN/Creatinine Ratio 7; Blood Urea Nitrogen 6 mg/dL (9-20); Calcium 9.2 mg/dL (8.4-10.2); Hemolysis Index 3
[2018-09-01] MEDS: HumaLOG SUB-Q SCH ×3 (07:30→17:05)
[2018-09-01] MEDS: ROCEPHIN/NS 2 GM/100 ML 2 GM/100 ML BAG IV SCH (09:35)
[2018-09-01] MEDS: PERCOCET 5/325 PO PRN ×2 (09:38→14:45)
[2018-09-01] MEDS: PEPCID PO SCH ×2 (09:38→22:14)
[2018-09-01] MEDS: FLOMAX PO SCH (09:38)
[2018-09-01] MEDS: NORVASC PO SCH (09:39)
[2018-09-01] MEDS: COZAAR PO SCH (09:39)
[2018-09-01] MEDS: PROSCAR PO SCH (09:41)
[2018-09-01] MEDS: SODIUM CHLORIDE FLUSH SYRINGE 10 ML IV SCH (09:42)
[2018-09-01] MEDS: ELIQUIS PO SCH ×2 (10:00→22:14)
--- NOTE | 2018-09-01 10:20 | Progress Note ---
Assessment and Plan Assessment and plan: Patient is a 72 year old man with history of hypertension diabetes and BPH recently admitted to the Hospital with abdominal Pain and was noted on initial CT to have markedly enlarged prostate with no hydronephrosis or outlet obstruction. UA was neg for pyuria. Patient was started on flomax and also he wa s given stool softeners, enemas and suppositories for constipation. The patient was noted to have a fever, the source of the fever was being worked up, but the patient elected to sign out AGAINST MEDICAL ADVICE stating that he needed to provide care for his dog according to the discharge summary on 08/27/18 at the time His finasteride dose was increased. He returns to the ER with complains of recurrent abdominal pain and abdominal distension and rates it 7/10 in intensity. During his early admission he had a fever of 103 but none since this presentation. As mentioned he was placed on abx, no clear source was identified. SIRS with no organ dysfunction Diabetes Mellitus Small Pulmonary Embolism Elevate Transaminitis now resolving ?a transient injury /stones Enlarged prostate PERITONEAL IRRITATION ?functional abdominal pain secondary coagulopathy UTI ruled out during prior admission HTN DM Chronic constipation Anemia of chronic disease Right RENAL CYST- PER CT IMAGING Plan Continue supportive care Fairplay of MUSCLE RELAXANTS START ELIQUIS Accucheck Doppler lower ext Continue to monitor LABS Normal colonoscopy PER NURSING STAFF, Patient urinating without difficulty Continue appropriate home meds CT imaging reviewed, Spondolysis, outpatient follow up for renal cyst recommended DVT/GI prophy Anticipate discharge IN AM. Outpatient heme onc eval History Interval history: Patient is seen today for: Abdominal pain Seen and examined at bedside; 24hour events reviewed; nursing staff ; Still concerned about the abdominal wall pain. Advised about the finding of Pulmonary embolisim. This appears to be his second episode of VTE, no adverse overnight events reported to me; Denies any chest pain, nausea, vomiting, diarrhea No fever noted blood pressure controlled Hospitalist Physical - Physical exam Narrative exam: VITAL SIGNS: Reviewed. GENERAL: The patient appeared well nourished and normally developed. Vital signs as documented. HEAD: No signs of head trauma. EYES: Pupils are equal. Extraocular motions intact. EARS: Hearing grossly intact. MOUTH: Oropharynx is normal. NECK: No adenopathy, no JVD. CHEST: Chest with clear breath sounds bilaterally. No wheezes, rales, or rhonchi. CARDIAC: Regular rate and rhythm. S1 and S2, without murmurs, gallops, or rubs. VASCULAR: No Edema. Peripheral pulses normal and equal in all extremities. ABDOMEN: Soft, Tender to palpation. Bloated. No rebound or guarding, and no masses palpated. Bowel Sounds normal. MUSCULOSKELETAL: Good range of motion of all major joints. Extremities without clubbing, cyanosis or edema. NEUROLOGIC EXAM: Alert and oriented x 3. No focal sensory or strength deficits. Speech normal. Follows commands. PSYCHIATRIC: Mood normal. SKIN: No rash or lesions. - Constitutional Vitals: Temp Pulse Resp BP Pulse Ox 98.5 F 85 16 187/74 94 09/01/18 09:10 09/01/18 09:39 09/01/18 09:38 09/01/18 09:39 09/01/18 09:10 Results - Labs CBC & Chem 7: 09/01/18 05:05 09/01/18 05:05 Labs: Laboratory Last Values WBC 9.1 K/mm3 (4.5-11.0) 09/01/18 05:05 RBC 3.03 M/mm3 (3.65-5.03) L 09/01/18 05:05 Hgb 9.6 gm/dl (11.8-15.2) L 09/01/18 05:05 Hct 28.6 % (35.5-45.6) L 09/01/18 05:05 MCV 94 fl (84-94) 09/01/18 05:05 MCH 32 pg (28-32) 09/01/18 05:05 MCHC 34 % (32-34) 09/01/18 05:05 RDW 14.7 % (13.2-15.2) 09/01/18 05:05 Plt Count 383 K/mm3 (140-440) 09/01/18 05:05 Lymph % (Auto) 11.0 % (13.4-35.0) L 08/30/18 05:01 [place] % (Auto) 8.3 % (0.0-7.3) H 08/30/18 05:01 Eos % (Auto) 1.1 % (0.0-4.3) 08/30/18 05:01 Baso % (Auto) 0.3 % (0.0-1.8) 08/30/18 05:01 Lymph # 0.9 K/mm3 (1.2-5.4) L 08/30/18 05:01 [place]uel # 0.7 K/mm3 (0.0-0.8) 08/30/18 05:01 Eos # 0.1 K/mm3 (0.0-0.4) 08/30/18 05:01 Baso # 0.0 K/mm3 (0.0-0.1) 08/30/18 05:01 Seg Neutrophils % 79.3 % (40.0-70.0) H 08/30/18 05:01 Seg Neutrophils # 6.8 K/mm3 (1.8-7.7) 08/30/18 05:01 PT 13.4 Sec. (12.2-14.9) 08/31/18 05:27 INR 0.98 (0.87-1.13) 08/31/18 05:27 D-Dimer 1725.08 ng/mlDDU (0-234) H 08/31/18 07:38 Sodium 137 mmol/L (137-145) 09/01/18 05:05 Potassium 4.4 mmol/L (3.6-5.0) 09/01/18 05:05 Chloride 102.9 mmol/L (98-107) 09/01/18 05:05 Carbon Dioxide 25 mmol/L (22-30) 09/01/18 05:05 Anion Gap 14 mmol/L 09/01/18 05:05 BUN 6 mg/dL (9-20) L 09/01/18 05:05 Creatinine 0.9 mg/dL (0.8-1.5) 09/01/18 05:05 Estimated GFR > 60 ml/min 09/01/18 05:05 BUN/Creatinine Ratio 7 % 09/01/18 05:05 Glucose 156 mg/dL (75-100) H 09/01/18 05:05 POC Glucose 139 (70-105) H 09/01/18 07:30 Calcium 9.2 mg/dL (8.4-10.2) 09/01/18 05:05 Iron 29 ug/dL (49-181) L 08/31/18 05:27 TIBC 164 mcg/dL (250-450) L 08/31/18 05:27 Ferritin 1262.0 ng/mL (13.0-400.0) H 08/31/18 05:27 Total Bilirubin 0.60 mg/dL (0.1-1.2) 08/30/18 05:01 AST 37 units/L (5-40) 08/30/18 05:01 ALT 77 units/L (7-56) H 08/30/18 05:01 Alkaline Phosphatase 142 units/L (35-129) H 08/30/18 05:01 Total Protein 6.0 g/dL (6.3-8.2) L 08/30/18 05:01 Albumin 3.1 g/dL (3.9-5) L 08/30/18 05:01 Albumin/Globulin Ratio 1.1 % 08/30/18 05:01 Lipase 26 units/L (13-60) 08/29/18 15:18 Urine Color Yellow (Yellow) 08/29/18 17:52 Urine Turbidity Clear (Clear) 08/29/18 17:52 Urine pH 6.0 (5.0-7.0) 08/29/18 17:52 Ur Specific [place] 1.005 (1.003-1.030) 08/29/18 17:52 Urine Protein <15 mg/dl mg/dL (Negative) 08/29/18 17:52 Urine Glucose (UA) Neg mg/dL (Negative) 08/29/18 17:52 Urine Ketones Neg mg/dL (Negative) 08/29/18 17:52 Urine Blood Neg (Negative) 08/29/18 17:52 Urine Nitrite Neg (Negative) 08/29/18 17:52 Ur Reducing Substances Not Reportable 08/29/18 17:52 Urine Bilirubin Neg (Negative) 08/29/18 17:52 Urine Ictotest Not Reportable 08/29/18 17:52 Urine Urobilinogen < 2.0 mg/dL (<2.0) 08/29/18 17:52 Ur Leukocyte Esterase Tr (Negative) 08/29/18 17:52 Urine WBC (Auto) 5.0 /HPF (0.0-6.0) 08/29/18 17:52 Urine RBC (Auto) 1.0 /HPF (0.0-6.0) 08/29/18 17:52 U Epithel Cells (Auto) < 1.0 /HPF (0-13.0) 08/29/18 17:52 Urine Mucus Few /HPF 08/29/18 17:52 Hepatitis A IgM Ab Non-reactive (NonReactive) 08/31/18 05:27 Hep Bs Antigen Non-reactive (Negative) 08/31/18 05:27 Hep B Core IgM Ab Non-reactive (NonReactive) 08/31/18 05:27 Hepatitis C Antibody Non-reactive (NonReactive) 08/31/18 05:27
--- NOTE | 2018-09-01 10:41 | Progress Note ---
Assessment and Plan - Patient Problems (1) Abdominal pain Current Visit: No Status: Acute Qualifiers: Abdominal location: generalized Qualified Code(s): R10.84 - Generalized abdominal pain Plan to address problem: Patient is stable. He does not have any emergency/urgent issues requiring surg ical intervention at this time. C-scope was normal. It is still not clear what the cause of his pain is at this time. He does not give history consistent with a gallbladder, umbilical hernia, or inguinal hernia problem. Exam is not consistent as well. He has bilaterally mid-abdominal wall pain and epigastric pain by report. Exam is benign. He does state that this is the same pain be had before the TURP. It may be worthwhile to have him see Urology as an out-pt. Will follow along in his care. Please call with any questions. Time=10min Subjective Date of service: 09/01/18 Patient Reports: Positive: still having pain. Negative: nausea, vomiting Objective Vital Signs - 12hr 09/01/18 09/01/18 09/01/18 02:25 09:10 09:38 Temperature 98.6 F 98.5 F Pulse Rate 85 Respiratory 20 20 16 Rate Blood Pressure 152/71 187/74 O2 Sat by Pulse 94 Oximetry 09/01/18 09:39 Temperature Pulse Rate 85 Respiratory Rate Blood Pressure 187/74 O2 Sat by Pulse Oximetry - General physical appearance no distress, no pain, other (looks great) - Eyes normal occular movement - Respiratory normal expansion, normal respiratory effort - Abdomen soft, not tender, not rebound, not guarding, not rigid, not wound, not surgical scars - Integumentary no rash, no growths, no abnormal pigmentation - Psychiatric oriented to time, oriented to person, oriented to place, speech is normal, memory intact - Labs 09/01/18 05:05 09/01/18 05:05 Diabetes panel 09/01/18 Range/Units 05:05 Sodium 137 (137-145) mmol/L Potassium 4.4 (3.6-5.0) mmol/L Chloride 102.9 (98-107) mmol/L Carbon Dioxide 25 (22-30) mmol/L BUN 6 L (9-20) mg/dL Creatinine 0.9 (0.8-1.5) mg/dL Glucose 156 H (75-100) mg/dL Calcium 9.2 (8.4-10.2) mg/dL Calcium panel 09/01/18 Range/Units 05:05 Calcium 9.2 (8.4-10.2) mg/dL Pituitary panel 09/01/18 Range/Units 05:05 Sodium 137 (137-145) mmol/L Potassium 4.4 (3.6-5.0) mmol/L Chloride 102.9 (98-107) mmol/L Carbon Dioxide 25 (22-30) mmol/L BUN 6 L (9-20) mg/dL Creatinine 0.9 (0.8-1.5) mg/dL Glucose 156 H (75-100) mg/dL Calcium 9.2 (8.4-10.2) mg/dL Adrenal panel 09/01/18 Range/Units 05:05 Sodium 137 (137-145) mmol/L Potassium 4.4 (3.6-5.0) mmol/L Chloride 102.9 (98-107) mmol/L Carbon Dioxide 25 (22-30) mmol/L BUN 6 L (9-20) mg/dL Creatinine 0.9 (0.8-1.5) mg/dL Glucose 156 H (75-100) mg/dL Calcium 9.2 (8.4-10.2) mg/dL
[2018-09-01] MEDS ORDERED: FLEXERIL PO ONE (11:12)
[2018-09-01] MEDS: NACL 0.9% 1000 ML 1,000 ML IV SCH (11:27)
--- NOTE | 2018-09-01 12:31 | Gastroenterology Progress Note ---
Assessment and Plan 1.lower abdominal pain 2.change in bowel habit/constipation 3.chronic anemia -afebrile -WBC WNL -H/H 9.6/28.6-stable-no active signs of bleeding -abd CT showed renal cyst and spondolysis (enlarged prostate seen on previous CT) -CTA -severely enlargement of prostate -etiology unclear- possibly related to enlarged prostate vs other -s/p colonoscopy yesterday with normal results -surgery following with no recommendations for surgical intervention at this time -hematology consult pending as outpatient -consider urology consult -start on daily Miralax for constipation -continue supportive care -no further GI recommendations at this time -will sign off, please call if needed 5.SIRS 6.BPH 7.HTN 8.DM Subjective Date of service: 09/01/18 Principal diagnosis: abdominal pain Interval history: Patient sitting on the side of the bed eating lunch w/o acute distress. Reports continued abd pain with no change. No N/V or signs of bleeding. Objective - Constitutional Vitals: Temp Pulse Resp BP Pulse Ox 98.5 F 85 16 187/74 94 09/01/18 09:10 09/01/18 09:39 09/01/18 09:38 09/01/18 09:39 09/01/18 09:10 General appearance: no acute distress - Respiratory Respiratory: bilateral: CTA - Cardiovascular Rhythm: regular Heart Sounds: Present: S1 & S2 - Gastrointestinal General gastrointestinal: Present: soft, tender, non-distended, normal bowel sounds, hernia (umbilical) - Neurologic Neurological: alert and oriented x3 - Labs CBC & Chem 7: 09/01/18 05:05 09/01/18 05:05 Labs: Laboratory Results - last 24 hr 08/31/18 09/01/18 09/01/18 16:39 05:05 05:05 WBC 9.1 RBC 3.03 L Hgb 9.6 L Hct 28.6 L MCV 94 MCH 32 MCHC 34 RDW 14.7 Plt Count 383 Sodium 137 Potassium 4.4 Chloride 102.9 Carbon Dioxide 25 Anion Gap 14 BUN 6 L Creatinine 0.9 Estimated GFR > 60 BUN/Creatinine Ratio 7 Glucose 156 H POC Glucose 136 H Calcium 9.2 09/01/18 09/01/18 07:30 11:08 WBC RBC Hgb Hct MCV MCH MCHC RDW Plt Count Sodium Potassium Chloride Carbon Dioxide Anion Gap BUN Creatinine Estimated GFR BUN/Creatinine Ratio Glucose POC Glucose 139 H 211 H Calcium
[2018-09-01] MEDS: FLEXERIL PO SCH (22:15)
--- NOTE | 2018-09-02 07:51 | Discharge Summary ---
Providers - Providers Date of Admission: 08/29/18 17:51 Attending physician: LENARD BRIDGES MD 08/29/18 17:51 Consult to Physician [CONS] Routine Comment: JAROCHO Consulting Provider: KATJA ULLOA Physician Instructions: CONSULT WAS CALLED TO /YEFRI Reason For Exam: abdominal pain 08/30/18 07:38 Consult to Physician [CONS] Routine Comment: JAROCHO Consulting Provider: MALU MENDOZA Physician Instructions: CONSULT WAS CALLED TO KELLY/VINCE Reason For Exam: Recurrent abdominal Pain Primary care physician: VARGAS RHODES Hospitalization Reason for admission: abdominal pain Condition: Fair Hospital course: Patient is a 72 year old man with history of hypertension diabetes and BPH recently admitted to the Hospital with abdominal Pain and was noted on initial CT to have markedly enlarged prostate with no hydronephrosis or outlet obstruction. UA was neg for pyuria. Patient was started on flomax and also he was given stool softeners, enemas and suppositories for constipation. The patient was noted to have a fever, the source of the fever was being worked up, but the patient elected to sign out AGAINST MEDICAL ADVICE stating that he needed to provide care for his dog according to the discharge summary on 08/27/18 at the time His finasteride dose was increased. He returns to the ER with complains of recurrent abdominal pain and abdominal distension and rates it 7/10 in intensity. During his early admission he had a fever of 103 but none since this presentation. As mentioned he was placed on abx, no clear source was identified. Pt proceeded during this admission to have Colonoscopy that was noted to be normal, following extensive discussion with GI and surgery, Recommendation was made for muscle relaxant which helped with his pain. We also added miralax for constipation. He was noted to have Pulmonary embolism and being the second time, i recommended outpatient hematology eval. Patient understood. He is tolerating diet and is ready for discharge with home health SIRS with no organ dysfunction Diabetes Mellitus Small Pulmonary Embolism Transaminitis BPH CONSTIPATION-SEVERE PERITONEAL IRRITATION ?functional abdominal pain secondary coagulopathy UTI ruled out during prior admission HTN DM Chronic constipation Anemia of chronic disease Right RENAL CYST- PER CT IMAGING Disposition: [id number] HOME UNDER HOME HLTH Time spent for discharge: 35 mins Core Measure Documentation - Palliative Care Palliative Care/ Comfort Measures: Not Applicable - Core Measures Any of the following diagnoses?: DVT/PE - VTE Discharge Requirements Deep Vein Thrombosis/Pulmonary Embolism Present on Admission: Yes Has pt received <5 days of overlap therapy or INR<2.0: No (criteria for overlap therapy at discharge: on overlap therapy for less than 5 days or INR<2.0) Anticoagulant overlap therapy prescribed at discharge: Yes Exam - Physical Exam Narrative exam: VITAL SIGNS: Reviewed. GENERAL: The patient appeared well nourished and normally developed. Vital sign s as documented. HEAD: No signs of head trauma. EYES: Pupils are equal. Extraocular motions intact. EARS: Hearing grossly intact. MOUTH: Oropharynx is normal. NECK: No adenopathy, no JVD. CHEST: Chest with clear breath sounds bilaterally. No wheezes, rales, or rhonchi. CARDIAC: Regular rate and rhythm. S1 and S2, without murmurs, gallops, or rubs. VASCULAR: No Edema. Peripheral pulses normal and equal in all extremities. ABDOMEN: Soft, Tender to palpation. Bloated. No rebound or guarding, and no masses palpated. Bowel Sounds normal. MUSCULOSKELETAL: Good range of motion of all major joints. Extremities without clubbing, cyanosis or edema. NEUROLOGIC EXAM: Alert and oriented x 3. No focal sensory or strength deficits. Speech normal. Follows commands. PSYCHIATRIC: Mood normal. SKIN: No rash or lesions. - Constitutional Vitals: Temp Pulse Resp BP Pulse Ox 97.9 F 68 20 170/80 93 09/02/18 02:32 09/02/18 02:31 09/02/18 02:32 09/02/18 02:32 09/02/18 02:31 Plan Activity: advance as tolerated, fall precautions Diet: low fat, per dietitian instruction Special Instructions: record daily BP diary Follow up with: BERNARDA CHAPARRO MD [Referring] - 7 Days Geetha ALLRED MD [Staff Physician] - 7 Days NIALL AGOSTO MD [Staff Physician] - 7 Days Prescriptions: Apixaban [Eliquis] 10 mg PO BID #12 tablet Apixaban [Eliquis] 5 mg PO Q12HR #60 tablet Cyclobenzaprine [Flexeril 10 MG TAB] 5 mg PO TID #30 tablet Famotidine [Pepcid] 20 mg PO BID #60 tablet Polyethylene Glycol 3350 [Miralax 3350] 17 gm PO QDAY #30 powd.pack Sennosides/Docusate [Senokot S] 1 each PO Q12HR #60 tab traMADol [Ultram] 50 mg PO Q6HR PRN #14 tablet PRN Reason: Pain
[2018-09-02] MEDS: DILAUDID IV PRN (08:16)
[2018-09-02] MEDS: FLEXERIL PO SCH ×2 (08:16→13:39)
[2018-09-02] MEDS: HumaLOG SUB-Q SCH ×2 (08:16→12:26)
[2018-09-02] MEDS: SODIUM CHLORIDE FLUSH SYRINGE 10 ML IV SCH ×2 (08:17→10:01)
[2018-09-02] MEDS ORDERED: MIRALAX 3350 PO SCH (10:00)
[2018-09-02] MEDS: ELIQUIS PO SCH (10:02)
[2018-09-02] MEDS: COZAAR PO SCH (10:02)
[2018-09-02] MEDS: NORVASC PO SCH (10:02)
[2018-09-02] MEDS: PEPCID PO SCH (10:03)
[2018-09-02] MEDS: FLOMAX PO SCH (10:03)
[2018-09-02] MEDS: ROCEPHIN/NS 2 GM/100 ML 2 GM/100 ML BAG IV SCH (10:04)
[2018-09-02] MEDS: PROSCAR PO SCH (12:27)
[2018-09-02 13:58] VITALS: BP 136/75
[2018-09-07] MEDS ORDERED: ELIQUIS PO SCH (10:00)
== END 2018-09-02 14:00 | disposition home health service (06) | DRG 371 ==
LOC: ED 12:00 → 2B-ACE 17:51
PROVIDERS: ADMIT Internal Medicine; ATTEND Internal Medicine
PROC: 0DJD8ZZ Inspection of Lower Intestinal Tract, Via Natural or Artificial Opening Endoscopic (ICD-10-PCS; principal; 2018-08-31)
DX: K65.9 Peritonitis, unspecified (principal); I26.99 Other pulmonary embolism without acute cor pulmonale; R65.10 Systemic inflammatory response syndrome (SIRS) of non-infectious origin without acute organ dysfunction; D68.9 Coagulation defect, unspecified; N40.0 Benign prostatic hyperplasia without lower urinary tract symptoms; I10 Essential (primary) hypertension; I25.10 Atherosclerotic heart disease of native coronary artery without angina pectoris; K21.9 Gastro-esophageal reflux disease without esophagitis; E11.9 Type 2 diabetes mellitus without complications; R74.0 Nonspecific elevation of levels of transaminase and lactic acid dehydrogenase [LDH]; D63.8 Anemia in other chronic diseases classified elsewhere; K59.09 Other constipation; N28.1 Cyst of kidney, acquired; M47.9 Spondylosis, unspecified; Z87.891 Personal history of nicotine dependence; Z72.89 Other problems related to lifestyle; Z86.718 Personal history of other venous thrombosis and embolism; Z79.899 Other long term (current) drug therapy
CPT/HCPCS: 36415; 71275; 74160; 74174; 80048; 80053; 80074; 81001; 82728; 82962; 83550; 83690; 85025; 85027; 85379; 85610; 87116; 93970; G0378; J0500; J0696; J1170; J1650; J1815; J2704; J7030; J7042; Q9967

== ENCOUNTER 2018-09-10 19:56 | Inpatient (IN) | payer MEDICARE, OTHER ==
[2018-09-10] MEDS ORDERED: NACL 0.9% 1000 ML 1,000 ML IV ONE (20:14)
[2018-09-10 21:07] LABS: Alanine Aminotransferase 26 units/L (7-56); Albumin 3.9 g/dL (3.9-5); BUN/Creatinine Ratio 17; Blood Urea Nitrogen 17 mg/dL (9-20); Calcium 10.2 mg/dL (8.4-10.2); Hemolysis Index 0
[2018-09-10 21:30] LABS: INR 1.19 (0.87-1.13)
[2018-09-10 21:31] LABS: Partial Thromboplastin Time 34.3 Sec. (24.2-36.6)
--- NOTE | 2018-09-10 21:36 | Emergency Department Report ---
ED Neuro Deficit HPI - General Chief Complaint: Abdominal Pain Stated Complaint: ABDOMINAL PAIN Time Seen by Provider: 09/10/18 20:40 Source: patient Mode of arrival: Ambulatory Limitations: No Limitations - History of Present Illness Initial Comments: 72-year-old male presented to ED with complaint of abdominal pain. Patient has had this abdominal pain for several weeks now. Patient was admitted and worked up for this same abdominal pain and discharged 8 days ago following a workup that included EKGs, colonoscopy and CT scans of the abdomen and pelvis. During that time patient was also some to have a pulmonary embolism, for which he is currently on Eliquis. Patient return to ED to report that his abdominal pain has continued since discharge. Denies nausea vomiting fever. In telling me about his abdominal pain, patient reported that while he was eating earlier this afternoon, he had difficulty swallowing his food. Patient then stated that he was also concerned because his speech is slurred. When I asked patient is he had a history of stroke in the past, he stated no, and that the slurred speech began earlier today at approximately 2:30 while on the phone with his sister. Patient denies weakness or numbness in his extremities. At this point he eats, stroke alert was called. Patient outside the window for TPA, as I evaluated patient at approx 9:10 PM, 6.5 hrs after onset of symptoms. So, CTA head and neck ordered for possible interventional procedure. -: This afternoon (approx 2:30 pm) Location: speech Presenting Symptoms: Present: Unable to Speak Clearly History of same: No Place: home Severity: mild Improves With: none Worsens With: none On Anticoagulants: Yes (eliquis) Associated Symptoms: denies: nausea/vomiting - Related Data Home Medications: Home Medications Medication Instructions Recorded Confirmed Last Taken Losartan [Cozaar] 1 tab PO DAILY 02/26/15 08/29/18 08/25/18 09:00 100mg amLODIPine [Norvasc] 5 mg PO DAILY 02/26/15 08/29/18 02/27/15 06:45 Previous Rx's Medication Instructions Recorded Last Taken Type Finasteride [Proscar] 5 mg PO QDAY #30 tablet 08/27/18 Unknown Rx Tamsulosin [Flomax] 0.8 mg PO DAILY #60 capsule 08/27/18 Unknown Rx Apixaban [Eliquis] 5 mg PO Q12HR #60 tablet 09/02/18 Unknown Rx Apixaban [Eliquis] 10 mg PO BID #12 tablet 09/02/18 Unknown Rx Cyclobenzaprine [Flexeril 10 MG 5 mg PO TID #30 tablet 09/02/18 Unknown Rx TAB] Famotidine [Pepcid] 20 mg PO BID #60 tablet 09/02/18 Unknown Rx Polyethylene Glycol 3350 [Miralax 17 gm PO QDAY #30 powd.pack 09/02/18 Unknown Rx 3350] Sennosides/Docusate [Senokot S] 1 each PO Q12HR #60 tab 09/02/18 Unknown Rx traMADol [Ultram] 50 mg PO Q6HR PRN #14 tablet 09/02/18 Unknown Rx Allergies/Adverse Reactions: Allergies Allergy/AdvReac Type Severity Reaction Status Date / Time No Known Allergies Allergy Verified 03/12/15 04:05 ED Review of Systems ROS: Stated complaint: ABDOMINAL PAIN Other details as noted in HPI Comment: All other systems reviewed and negative Constitutional: denies: chills, fever Gastrointestinal: abdominal pain. denies: nausea, vomiting, diarrhea, constipation Neurological: other (reports slurred speech). denies: weakness, numbness, paresthesias ED Past Medical Hx - Past Medical History Hx Hypertension: Yes Hx Heart Attack/AMI: No Hx Diabetes: Yes Hx Deep Vein Thrombosis: Yes ("BLOOD CLOT 2012" LEFT LEG) Hx GERD: Yes Hx Renal Disease: No Hx Seizures: No Hx Asthma: No Hx COPD: No Hx Tuberculosis: No Hx HIV: No Additional medical history: BPH - Surgical History Hx Pacemaker: No Hx Internal Defibrillator: No Additional Surgical History: prostate surgery - Social History Smoking Status: Never Smoker Substance Use Type: None - Medications Home Medications: Home Medications Medication Instructions Recorded Confirmed Last Taken Type Losartan [Cozaar] 1 tab PO DAILY 02/26/15 08/29/18 08/25/18 09:00 History 100mg amLODIPine [Norvasc] 5 mg PO DAILY 02/26/15 08/29/18 02/27/15 06:45 History Finasteride [Proscar] 5 mg PO QDAY #30 tablet 08/27/18 08/29/18 Unknown Rx Tamsulosin [Flomax] 0.8 mg PO DAILY #60 capsule 08/27/18 08/29/18 Unknown Rx Apixaban [Eliquis] 5 mg PO Q12HR #60 tablet 09/02/18 Unknown Rx Apixaban [Eliquis] 10 mg PO BID #12 tablet 09/02/18 Unknown Rx Cyclobenzaprine [Flexeril 10 MG 5 mg PO TID #30 tablet 09/02/18 Unknown Rx TAB] Famotidine [Pepcid] 20 mg PO BID #60 tablet 09/02/18 Unknown Rx Polyethylene Glycol 3350 [Miralax 17 gm PO QDAY #30 powd.pack 09/02/18 Unknown Rx 3350] Sennosides/Docusate [Senokot S] 1 each PO Q12HR #60 tab 09/02/18 Unknown Rx traMADol [Ultram] 50 mg PO Q6HR PRN #14 tablet 09/02/18 Unknown Rx ED Neuro Physical Exam - General Limitations: No Limitations General appearance: alert, in no apparent distress Suspected Stroke: Yes - Head Head exam: Present: atraumatic, normocephalic - Eye Eye exam: Present: normal appearance - ENT ENT exam: Present: mucous membranes moist - Neck Neck exam: Present: normal inspection - Respiratory Respiratory exam: Present: normal lung sounds bilaterally. Absent: respiratory distress - Cardiovascular Cardiovascular Exam: Present: regular rate, normal rhythm - GI/Abdominal GI/Abdominal exam: Present: soft, tenderness (mild RUQ tenderness). Absent: distended - Extremities Exam Extremities exam: Present: normal inspection - Neurological Exam Neurological exam: Present: alert, oriented X3 - NIHSS Assessment Interval: Baseline 1a. Level of Consciousness: alert/keenly responsive 1b. LOC Questions: answers both correctly 1c. LOC Commands: performs tasks correctly 2. Best Gaze: normal 3. Visual: no visual loss 4. Facial Palsy: minor paralysis 5b. Motor Arm Right: no drift 5a. Motor Arm Left: no drift 6a. Motor Leg Left: no drift 6b. Motor Leg Right: no drift 7. Limb Ataxia: absent 8. Sensory: normal 9. Best Language: no aphasia 10. Dysarthria: mild/moderate dysarthria 11. Extinction/Inattention: no abnormality Total Score: 2 Stroke Severity: Minor Stroke - Psychiatric Psychiatric exam: Present: normal affect, normal mood - Skin Skin exam: Present: warm, dry, intact, normal color. Absent: rash ED Course Vital Signs 09/10/18 09/10/18 20:12 21:48 Temperature 97.8 F Pulse Rate 80 Respiratory 18 16 Rate Blood Pressure 147/50 O2 Sat by Pulse 99 100 Oximetry - Lab Data Result diagrams: 09/10/18 20:41 09/10/18 20:41 Lab Results 09/10/18 09/10/18 09/10/18 Range/Units 20:41 20:41 21:10 WBC 7.8 (4.5-11.0) K/mm3 RBC 3.45 L (3.65-5.03) M/mm3 Hgb 10.8 L (11.8-15.2) gm/dl Hct 32.5 L (35.5-45.6) % MCV 94 (84-94) fl MCH 31 (28-32) pg MCHC 33 (32-34) % RDW 14.9 (13.2-15.2) % Plt Count 358 (140-440) K/mm3 Lymph % (Auto) 13.3 L (13.4-35.0) % [place] % (Auto) 7.6 H (0.0-7.3) % Eos % (Auto) 1.0 (0.0-4.3) % Baso % (Auto) 0.4 (0.0-1.8) % Lymph # 1.0 L (1.2-5.4) K/mm3 [place] # 0.6 (0.0-0.8) K/mm3 Eos # 0.1 (0.0-0.4) K/mm3 Baso # 0.0 (0.0-0.1) K/mm3 Seg Neutrophils % 77.7 H (40.0-70.0) % Seg Neutrophils # 6.0 (1.8-7.7) K/mm3 PT 15.9 H (12.2-14.9) Sec. INR 1.19 H (0.87-1.13) APTT 34.3 (24.2-36.6) Sec. Sodium 138 (137-145) mmol/L Potassium 3.9 (3.6-5.0) mmol/L Chloride 100.3 (98-107) mmol/L Carbon Dioxide 24 (22-30) mmol/L Anion Gap 18 mmol/L BUN 17 (9-20) mg/dL Creatinine 1.0 (0.8-1.5) mg/dL Estimated GFR > 60 ml/min BUN/Creatinine Ratio 17 % Glucose 156 H (75-100) mg/dL POC Glucose (70-105) Calcium 10.2 (8.4-10.2) mg/dL Total Bilirubin 0.60 (0.1-1.2) mg/dL AST 19 (5-40) units/L ALT 26 (7-56) units/L Alkaline Phosphatase 100 (35-129) units/L Total Protein 7.9 (6.3-8.2) g/dL Albumin 3.9 (3.9-5) g/dL Albumin/Globulin Ratio 1.0 % / Range/Units 21:19 WBC (4.5-11.0) K/mm3 RBC (3.65-5.03) M/mm3 Hgb (11.8-15.2) gm/dl Hct (35.5-45.6) % MCV (84-94) fl MCH (28-32) pg MCHC (32-34) % RDW (13.2-15.2) % Plt Count (140-440) K/mm3 Lymph % (Auto) (13.4-35.0) % [place] % (Auto) (0.0-7.3) % Eos % (Auto) (0.0-4.3) % Baso % (Auto) (0.0-1.8) % Lymph # (1.2-5.4) K/mm3 [place] # (0.0-0.8) K/mm3 Eos # (0.0-0.4) K/mm3 Baso # (0.0-0.1) K/mm3 Seg Neutrophils % (40.0-70.0) % Seg Neutrophils # (1.8-7.7) K/mm3 PT (12.2-14.9) Sec. INR (0.87-1.13) APTT (24.2-36.6) Sec. Sodium (137-145) mmol/L Potassium (3.6-5.0) mmol/L Chloride (98-107) mmol/L Carbon Dioxide (22-30) mmol/L Anion Gap mmol/L BUN (9-20) mg/dL Creatinine (0.8-1.5) mg/dL Estimated GFR ml/min BUN/Creatinine Ratio % Glucose (75-100) mg/dL POC Glucose 152 H (70-105) Calcium (8.4-10.2) mg/dL Total Bilirubin (0.1-1.2) mg/dL AST (5-40) units/L ALT (7-56) units/L Alkaline Phosphatase (35-129) units/L Total Protein (6.3-8.2) g/dL Albumin (3.9-5) g/dL Albumin/Globulin Ratio % - EKG Data -: EKG Interpreted by Me EKG shows normal: sinus rhythm Rate: normal When compared to previous EKG there are: changes noted (compared to 04/22/15, T wave inv in lateral leads) Interpretation: LVH, other (prolonged HI, RBBB, LAFB) - Radiology Data Radiology results: report reviewed, image reviewed - Medical Decision Making 72-year-old male presented to ED with complaint of ongoing abdominal pain. Patient did not mention to triage nurse that that he is experiencing new onset of slurred speech and difficulty swallowing that occurred earlier this afternoon. This did not become evident until the patient told me while I was in the room questioning him about his abdominal pain. On exam patient has slurred speech and mild left facial droop. No extremity weakness or numbness. Stroke Alert was immediately called. CT head showed evidence of an evolving right fr ontal lobe infarct. CTA did not show any large vessel occlusion. Patient presented outside the window for TPA, also does not meet criteria for interventional neurology procedure. Patient has minor stroke with NIH score of 2. Spoke with Dr. Peraza, hospitalist. Will admit the patient. Requests bridge orders to telemetry. - Differential Diagnosis hemorrhagic CVA, ischemic CVA, chronic abdominal pain - Thrombolytic Inclusion/Exclusion Thrombolytic Exclusion Criteria: Symptom Onset > 3 Hours Critical Care Time: Yes (30) Critical care time in (mins) excluding proc time.: 30 Critical care attestation.: If time is entered above; I have spent that time in minutes in the direct care of this critically ill patient, excluding procedure time. Critical Care Time: 30 minutes ED Disposition Clinical Impression: CVA (cerebral vascular accident) Disposition: -09 OP ADMIT IP TO THIS HOSP Is pt being admited?: Yes Condition: Stable Referrals: PRIMARY CARE, [Primary Care Provider] - 3-5 Days Time of Disposition: 23:16
[2018-09-10 21:47] LABS: Basophils % (Auto) 0.4 % (0.0-1.8); Eosinophils # (Auto) 0.1 K/mm3 (0.0-0.4); Hematocrit 32.5 % (35.5-45.6); Hemoglobin 10.8 gm/dl (11.8-15.2); Lymphocytes % (Auto) 13.3 % (13.4-35.0); Mean Corpuscular HGB Conc 33 % (32-34); Mean Corpuscular Volume 94 fl (84-94); Monocytes # (Auto) 0.6 K/mm3 (0.0-0.8); Monocytes % (Auto) 7.6 % (0.0-7.3); Platelet Count 358 K/mm3 (140-440); Red Blood Count 3.45 M/mm3 (3.65-5.03); Red Cell Distribution Width 14.9 % (13.2-15.2)
--- NOTE | 2018-09-10 23:06 | Cat Scan Report ---
FINAL REPORT EXAM: CT ANGIO HEAD HISTORY: slurred speech TECHNIQUE: Following IV administration of 100 cc of Omnipaque 350 axial helical imaging was performe d through the brain with maximum intensity projection images and sagittal and coronal reformatted marylu ges obtained. Comparison: Head CT also performed today FINDINGS: There is normal enhancement of the major intracranial arteries without evidence of occlusion, hemodyn amically significant stenosis or aneurysm. There is normal enhancement of the major intracranial venous structures. Again noted is the focus of acute cortical infarct in the right frontal lobe in the right middle cere bral artery distribution. IMPRESSION: 1. No evidence of occlusion, hemodynamically significant stenosis or aneurysm of the major intracrani al arteries. 2. Repeat demonstration of acute cortical infarct right frontal lobe.
--- NOTE | 2018-09-10 23:11 | Cat Scan Report ---
FINAL REPORT EXAM: CT ANGIO NECK HISTORY: slurred speech TECHNIQUE: Following IV administration of 100 cc of Omnipaque 350 axial helical imaging was performe d through the neck with sagittal and coronal reformatted images and maximum intensity projection imag es obtained. Comparison: None FINDINGS: There is mild aneurysmal dilatation of the posterior aortic arch (3.5 centimeters). There is normal enhancement of the cervical carotid and vertebral arteries without evidence of occlus ion, stenosis, dissection or aneurysm. The vertebral arteries are codominant. There is normal enhancement of the major cervical venous structures. The bony structures are notable for cervical spondylosis with multiple level canal and foraminal sten osis secondary to spondylitic change. The cervical soft tissues are unremarkable. IMPRESSION: 1. No evidence of occlusion, stenosis, dissection or aneurysm of the cervical carotid and vertebral a rteries. 2. 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 3. Cervical spondylosis with multiple level canal and foraminal stenosis.
[2018-09-11] MEDS ORDERED: NACL 0.9% 1000 ML 1,000 ML ONE (00:31)
[2018-09-11] MEDS ORDERED: TYLENOL PR PRN (00:44)
[2018-09-11] MEDS ORDERED: ZOFRAN IV PRN (00:45)
[2018-09-11] MEDS ORDERED: D50W (25GM) Syringe IV PRN ×2 (00:59→12:20)
[2018-09-11 01:05] LABS: Bilirubin,Urine NEG (Negative); Blood,Urine MOD (Negative); Color,Urine Straw (Yellow); Protein,Urine <15 mg/dL mg/dL (Negative); Urobilinogen,Urine < 2.0 mg/dL (<2.0)
[2018-09-11] MEDS: NACL 0.9% 1000 ML 1,000 ML IV SCH ×2 (05:48→19:39)
[2018-09-11] MEDS ORDERED: HumuLIN R SUB-Q SCH (06:00)
--- NOTE | 2018-09-11 06:18 | History and Physical Report ---
CHIEF COMPLAINT: Abdominal pain. OTHER COMPLAINT: Includes speech impairment. HISTORY OF PRESENTING ILLNESS: The patient is a 72-year-old male who came to the Emergency Room complaining of abdominal pain going on for several weeks. The patient had presented before and was admitted, worked up for the same pain about one week prior to presentation and then came back on 09/10/2018 complaining of the same abdominal pain and in addition the patient said that he had speech impairment and was told that he was having slurred speech while talking with the sister on the phone. Also the patient had problem swallowing food, He denied history of chest pain, denied history of shortness of breath also, the patient denied history of dizziness or weakness of any part of the body, was evaluated in the Emergency Room and found to have acute infarct on the CT scan. PAST MEDICAL HISTORY: Pertinent for hypertension, diabetes mellitus, deep vein thrombosis, gastroesophageal reflux disease, benign prostatic hypertrophy. PAST SURGICAL HISTORY: Pertinent for prostate surgery. FAMILY HISTORY: Family history is noncontributory. SOCIAL HISTORY: The patient does not smoke, does not drink alcohol and does not use illicit drugs. MEDICATIONS: The patient is on losartan 1 tablet by mouth daily, amlodipine 5 mg by mouth daily, Proscar 5 mg by mouth daily, tamsulosin 0.8 mg by mouth daily, Eliquis 5 mg by mouth every 12 hours, Flexeril 5 mg by mouth 3 times daily, Pepcid 50 mg by mouth twice daily, MiraLax 17 g by mouth daily, Senokot one by mouth every 12 hours, tramadol 50 mg by mouth every 6 hours as needed for pain. ALLERGIES: There are no known drug allergies. REVIEW OF SYSTEMS: CONSTITUTIONAL: There is no fever, no chills, no diaphoresis. HEENT: There is no headache or sore throat. CARDIOVASCULAR SYSTEM: There is no chest pain or orthopnea. RESPIRATORY SYSTEM: There is no shortness of breath or cough. GASTROINTESTINAL SYSTEM: Abdominal pain is present. No nausea, no vomiting, no diarrhea or constipation. NEUROLOGICAL SYSTEM: Speech impairment is noted. There is no change in mental status. Also there is no numbness or dizziness. MUSCULOSKELETAL SYSTEM: There is no joint pain or swelling. DERMATOLOGICAL SYSTEM: There is no skin rash or itching. GENITOURINARY SYSTEM: There is no dysuria, hematuria, or flank pain. Rest of system review is normal. PHYSICAL EXAMINATION: GENERAL: At the time of exam, the patient was found to be alert, oriented x 3 and not in acute distress. VITAL SIGNS: At the initial time of presentation showed temperature of 97.8 degrees Fahrenheit, pulse of 80, respirations 18, blood pressure 147/50, O2 sat of 99% on room air. HEENT: Show pupils to be equal, round, and reactive to light and accommodating. Extraocular muscles are intact. NECK: Neck is supple with no JVD or carotid bruits. CARDIOVASCULAR SYSTEM: Show first and second heart sounds with no gallops or murmur. RESPIRATORY SYSTEM: Showed good air entry on both sides of the lungs with no abnormal breath sound. GASTROINTESTINAL SYSTEM: Show abdomen to be full, soft, nontender with no organomegaly or rigidity. NEUROLOGICAL: Neuro exam shows the patient to have slurred speech with drooling of the left side of the mouth. Muscle strength is normal in both upper and lower limbs. There is no sensory loss. The deep tendon reflexes are normal. MUSCULOSKELETAL SYSTEM: There is no joint pain or swelling. DERMATOLOGICAL SYSTEM: There is no skin rash or itching. GENITOURINARY SYSTEM: There is no dysuria, hematuria or flank pain. PERTINENT LABORATORY AND IMAGING STUDIES: The patient had CT angiogram of the chest done that shows no evidence of occlusion, hemodynamically significant stenosis or aneurysm of the major intracranial artery. There is acute cortical infarct in the right frontal lobe. Also, CT of the head showed acute cortical infarct in the right frontal lobe. The patient also has CT angiogram of the neck which showed no evidence of occlusion, stenosis, dissection or aneurysm of the cervical, carotid or vertebral artery. There is mild aneurysmal dilatation of the posterior aortic arch about 3.5 cm. There is cervical spondylosis with multiple level canal and foraminal stenosis. Lab results; the patient has CBC done with normal white count, low hemoglobin of 10.8 and low hematocrit of 32.5 with normal MCV and CBC differential showed elevated monocyte count of 7.6. The patient's coagulation studies were unremarkable. Chemistry was unremarkable. Urinalysis shows clear straw colored urine with negative urine nitrite, negative urine leukocyte esterase and no bacteria. DIAGNOSES: 1. Cerebrovascular accident. 2. Speech impairment or slurred speech. 3. Abdominal pain. PLAN OF ACTION: 1. The patient will be admitted to telemetry. 2. The patient will have bilateral carotid Doppler done this morning. 3. The patient will have 2D echo done this morning and will also have speech therapy evaluation and treatment this morning. 4. The patient will be n.p.o. until swallow test is passed. 5. The patient will have Accu-Chek q. 4 hours followed by low-dose sliding scale using regular insulin coverage. 6. The patient will be on Tylenol 650 mg rectally every 4 hours for fever and headache and will be on IV normal saline at 75 mL an hour. 7. The patient will be on IV Zofran 4 mg every 8 hours as needed for nausea and vomiting. 8. The patient will have Neurology consult when neurologist is available, most likely on 09/12/2018. 9. The patient's home medications will be reconciled and started accordingly. JOB# [id number] [facility] [place]
--- NOTE | 2018-09-11 10:56 | Vascular Lab Report ---
FINAL REPORT EXAM: VL CAROTID DUPLEX BILAT HISTORY: CVA WITH SPEECH IMPAIRMENT TECHNIQUE: Carotid duplex Doppler ultrasound performed. PRIORS: None. FINDINGS: There is intimal thickening and mild atherosclerotic plaque seen. There is no abnormal elevation in ICA flow velocity. Right ICA/CCA ratio is 0.7. Left ratio is 1.0. F indings demonstrate no stenosis of hemodynamic significance. Specifically, these findings indicate st enosis of less than 50 percent. Vertebral artery flow is antegrade bilaterally. IMPRESSION: There is no evidence of any hemodynamically significant stenosis.
--- NOTE | 2018-09-11 12:14 | Progress Note ---
Assessment and Plan Assessment and plan: Patient is a 72 yo man with a history of hypertension, BPH, type 2 DM, chronic constipation, chronic abd pains, right leg DVT and recent diagnosis of (08-31-2018) PE on Eliquis, who presents to [facility] ED with slurred speech. CT head (not yet in EMR) reported an acute right fontal lobe infarct. Out of the window for tPA and also on Eliquis. 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 Follow-up on current diagnosis of CVA. Overnight uneventful. Patient denies any chest pain, shortness breath, nausea/vomiting or severe headaches. Imaging, nursing note, chart, labs and old chart reviewed. Discussed with patient. Hospitalist Physical - Physical exam Narrative exam: Gen: thin frail, WDWN, NAD, Awake, Alert, Orientated HEENT: NCAT, EOMI, PERRL, OP Clear Neck: supple, no adenopathy, no thyromegaly, no JVD CVS/Heart: RRR, normal S1S2, pulses present bilaterally Chest/Lungs: CTA B, Symmetrical chest expansion, good air entry bilaterally GI/Abdomen: soft, nd, diffuse nonspecific mild tenderness, good bowel sounds, no guarding or rebound /Bladder: no suprapubic tenderness, no CVA or paraspinal tenderness Extermity/Skin: no c/c/e, no obvious rash MSK: FROM x 4 Neuro: CN 2-12 grossly intact except speech, no new deficits Psych: calm - Constitutional Vitals: Temp Pulse Resp BP Pulse Ox 98.2 F 68 16 157/63 97 09/11/18 05:28 09/11/18 05:28 09/11/18 05:28 09/11/18 05:28 09/11/18 05:28 Results - Labs CBC & Chem 7: 09/10/18 20:41 09/10/18 20:41 Labs: Laboratory Last Values WBC 7.8 K/mm3 (4.5-11.0) 09/10/18 20:41 RBC 3.45 M/mm3 (3.65-5.03) L 09/10/18 20:41 Hgb 10.8 gm/dl (11.8-15.2) L 09/10/18 20:41 Hct 32.5 % (35.5-45.6) L 09/10/18 20:41 MCV 94 fl (84-94) 09/10/18 20:41 MCH 31 pg (28-32) 09/10/18 20:41 MCHC 33 % (32-34) 09/10/18 20:41 RDW 14.9 % (13.2-15.2) 09/10/18 20:41 Plt Count 358 K/mm3 (140-440) 09/10/18 20:41 Lymph % (Auto) 13.3 % (13.4-35.0) L 09/10/18 20:41 [place] % (Auto) 7.6 % (0.0-7.3) H 09/10/18 20:41 Eos % (Auto) 1.0 % (0.0-4.3) 09/10/18 20:41 Baso % (Auto) 0.4 % (0.0-1.8) 09/10/18 20:41 Lymph # 1.0 K/mm3 (1.2-5.4) L 09/10/18 20:41 [place] # 0.6 K/mm3 (0.0-0.8) 09/10/18 20:41 Eos # 0.1 K/mm3 (0.0-0.4) 09/10/18 20:41 Baso # 0.0 K/mm3 (0.0-0.1) 09/10/18 20:41 Seg Neutrophils % 77.7 % (40.0-70.0) H 09/10/18 20:41 Seg Neutrophils # 6.0 K/mm3 (1.8-7.7) 09/10/18 20:41 PT 15.9 Sec. (12.2-14.9) H 09/10/18 21:10 INR 1.19 (0.87-1.13) H 09/10/18 21:10 APTT 34.3 Sec. (24.2-36.6) 09/10/18 21:10 Sodium 138 mmol/L (137-145) 09/10/18 20:41 Potassium 3.9 mmol/L (3.6-5.0) 09/10/18 20:41 Chloride 100.3 mmol/L (98-107) 09/10/18 20:41 Carbon Dioxide 24 mmol/L (22-30) 09/10/18 20:41 Anion Gap 18 mmol/L 09/10/18 20:41 BUN 17 mg/dL (9-20) 09/10/18 20:41 Creatinine 1.0 mg/dL (0.8-1.5) 09/10/18 20:41 Estimated GFR > 60 ml/min 09/10/18 20:41 BUN/Creatinine Ratio 17 % 09/10/18 20:41 Glucose 156 mg/dL (75-100) H 09/10/18 20:41 POC Glucose 120 (70-105) H 09/11/18 05:37 Calcium 10.2 mg/dL (8.4-10.2) 09/10/18 20:41 Total Bilirubin 0.60 mg/dL (0.1-1.2) 09/10/18 20:41 AST 19 units/L (5-40) 09/10/18 20:41 ALT 26 units/L (7-56) 09/10/18 20:41 Alkaline Phosphatase 100 units/L (35-129) 09/10/18 20:41 Total Protein 7.9 g/dL (6.3-8.2) 09/10/18 20:41 Albumin 3.9 g/dL (3.9-5) 09/10/18 20:41 Albumin/Globulin Ratio 1.0 % 09/10/18 20:41 Urine Color Straw (Yellow) 09/10/18 20:14 Urine Turbidity Clear (Clear) 09/10/18 20:14 Urine pH 5.0 (5.0-7.0) 09/10/18 20:14 Ur Specific [place] 1.030 (1.003-1.030) 09/10/18 20:14 Urine Protein <15 mg/dl mg/dL (Negative) 09/10/18 20:14 Urine Glucose (UA) Neg mg/dL (Negative) 09/10/18 20:14 Urine Ketones Neg mg/dL (Negative) 09/10/18 20:14 Urine Blood Mod (Negative) 09/10/18 20:14 Urine Nitrite Neg (Negative) 09/10/18 20:14 Urine Bilirubin Neg (Negative) 09/10/18 20:14 Urine Urobilinogen < 2.0 mg/dL (<2.0) 09/10/18 20:14 Ur Leukocyte Esterase Neg (Negative) 09/10/18 20:14 Urine WBC (Auto) 3.0 /HPF (0.0-6.0) 09/10/18 20:14 Urine RBC (Auto) 13.0 /HPF (0.0-6.0) 09/10/18 20:14 U Epithel Cells (Auto) < 1.0 /HPF (0-13.0) 09/10/18 20:14
[2018-09-11] MEDS ORDERED: APRESOLINE IV PRN (12:19)
[2018-09-11] MEDS: MIRALAX 3350 PO SCH (12:51)
[2018-09-11] MEDS: BABY ASPIRIN PO SCH (12:51)
[2018-09-11] MEDS: HumaLOG SUB-Q SCH ×2 (17:40→22:10)
[2018-09-11] MEDS: SENOKOT S PO SCH (22:02)
[2018-09-11] MEDS: PEPCID PO SCH (22:03)
[2018-09-11] MEDS: FLOMAX PO SCH (22:03)
[2018-09-11] MEDS: ELIQUIS PO SCH (22:03)
[2018-09-12 06:08] LABS: Hematocrit 28.6 % (35.5-45.6); Hemoglobin 9.5 gm/dl (11.8-15.2); Mean Corpuscular HGB Conc 33 % (32-34); Mean Corpuscular Volume 94 fl (84-94); Platelet Count 298 K/mm3 (140-440); Red Blood Count 3.06 M/mm3 (3.65-5.03); Red Cell Distribution Width 15.3 % (13.2-15.2)
[2018-09-12 06:35] LABS: BUN/Creatinine Ratio 12; Blood Urea Nitrogen 11 mg/dL (9-20); Calcium 9.2 mg/dL (8.4-10.2); Hemolysis Index 5; LDL Cholesterol,Direct 72 mg/dL (50-130)
[2018-09-12 06:47] LABS: Chol/HDL Ratio 2.72 %; HDL Cholesterol 43 mg/dL (40-59)
[2018-09-12] MEDS: HumaLOG SUB-Q SCH ×4 (07:27→22:05)
[2018-09-12] MEDS: NACL 0.9% 1000 ML 1,000 ML IV SCH ×2 (08:19→21:51)
[2018-09-12] MEDS ORDERED: DULCOLAX PR NR (09:06)
[2018-09-12] MEDS: ELIQUIS PO SCH ×2 (09:14→21:51)
[2018-09-12] MEDS: SENOKOT S PO SCH ×2 (09:15→22:05)
[2018-09-12] MEDS: MIRALAX 3350 PO SCH (09:15)
[2018-09-12] MEDS: BABY ASPIRIN PO SCH (09:15)
[2018-09-12] MEDS: PEPCID PO SCH ×2 (09:15→21:51)
[2018-09-12] MEDS: PROSCAR PO SCH (09:16)
--- NOTE | 2018-09-12 10:57 | Progress Note ---
Assessment and Plan Assessment and plan: Patient is a 72 yo man with a history of hypertension, BPH, type 2 DM, chronic constipation, chronic abd pains, right leg DVT and recent diagnosis of (08-31-2018) PE on Eliquis, who presents to [facility] ED with slurred speech. CT head (not yet in EMR) reported an acute right fontal lobe infarct (report in the physical chart). Out of the window for tPA and also on Eliquis. 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, get lipid panel -LLL PE, 08/31/18 CTA chest Impression: Few small pulmonary emboli in the left lower lobe, small right pleural effusion and trace amount of left pleural fluid: continue Eliquis -Type 2 DM: add ssi, ada -Hypertension: hold antihypertensive with new stroke, allow slight higher than normal bp, add parameter, low salt diet -Chronic constipation and pains: miralax and senna -BPH with obstruction in the past: flomax and finasteride -Chronic constipation and chronic abd pains, had normal c-scopy 06/26/18: give dulcolax suppository, consult GI -DVT prophylaxis: Eliquis Disposition: continue inpatient care, PT/OT pending, await GI evaluation, this is patient 3rd admission in 2018 and his constipation and abd pains main reason. Anticipate discharge after PT and GI recommendation History Interval history: Patient was seen and examined. Follow-up on current diagnosis of CVA. Overnight uneventful. Patient denies any chest pain, shortness breath, nausea/vomiting or severe headaches. Imaging, nursing note, chart, labs and old chart reviewed. Discussed with patient. Hospitalist Physical - Physical exam Narrative exam: Gen: thin frail, WDWN, NAD, Awake, Alert, Orientated HEENT: NCAT, EOMI, PERRL, OP Clear Neck: supple, no adenopathy, no thyromegaly, no JVD CVS/Heart: RRR, normal S1S2, pulses present bilaterally Chest/Lungs: CTA B, Symmetrical chest expansion, good air entry bilaterally GI/Abdomen: soft, nd, diffuse nonspecific mild tenderness, good bowel sounds, no guarding or rebound /Bladder: no suprapubic tenderness, no CVA or paraspinal tenderness Extermity/Skin: no c/c/e, no obvious rash MSK: FROM x 4 Neuro: CN 2-12 grossly intact except speech, no new deficits Psych: calm - Constitutional Vitals: Temp Pulse Resp BP Pulse Ox 98.4 F 78 20 151/56 95 09/12/18 08:06 09/12/18 08:05 09/12/18 08:05 09/12/18 08:05 09/12/18 08:05 Results - Labs CBC & Chem 7: 09/12/18 05:27 09/12/18 05:27 Labs: Laboratory Last Values WBC 8.1 K/mm3 (4.5-11.0) 09/12/18 05:27 RBC 3.06 M/mm3 (3.65-5.03) L 09/12/18 05:27 Hgb 9.5 gm/dl (11.8-15.2) L 09/12/18 05:27 Hct 28.6 % (35.5-45.6) L 09/12/18 05:27 MCV 94 fl (84-94) 09/12/18 05:27 MCH 31 pg (28-32) 09/12/18 05:27 MCHC 33 % (32-34) 09/12/18 05:27 RDW 15.3 % (13.2-15.2) H 09/12/18 05:27 Plt Count 298 K/mm3 (140-440) 09/12/18 05:27 Lymph % (Auto) 13.3 % (13.4-35.0) L 09/10/18 20:41 [place] % (Auto) 7.6 % (0.0-7.3) H 09/10/18 20:41 Eos % (Auto) 1.0 % (0.0-4.3) 09/10/18 20:41 Baso % (Auto) 0.4 % (0.0-1.8) 09/10/18 20:41 Lymph # 1.0 K/mm3 (1.2-5.4) L 09/10/18 20:41 [place] # 0.6 K/mm3 (0.0-0.8) 09/10/18 20:41 Eos # 0.1 K/mm3 (0.0-0.4) 09/10/18 20:41 Baso # 0.0 K/mm3 (0.0-0.1) 09/10/18 20:41 Seg Neutrophils % 77.7 % (40.0-70.0) H 09/10/18 20:41 Seg Neutrophils # 6.0 K/mm3 (1.8-7.7) 09/10/18 20:41 PT 15.9 Sec. (12.2-14.9) H 09/10/18 21:10 INR 1.19 (0.87-1.13) H 09/10/18 21:10 APTT 34.3 Sec. (24.2-36.6) 09/10/18 21:10 Sodium 139 mmol/L (137-145) 09/12/18 05:27 Potassium 4.2 mmol/L (3.6-5.0) 09/12/18 05:27 Chloride 103.2 mmol/L (98-107) 09/12/18 05:27 Carbon Dioxide 23 mmol/L (22-30) 09/12/18 05:27 Anion Gap 17 mmol/L 09/12/18 05:27 BUN 11 mg/dL (9-20) 09/12/18 05:27 Creatinine 0.9 mg/dL (0.8-1.5) 09/12/18 05:27 Estimated GFR > 60 ml/min 09/12/18 05:27 BUN/Creatinine Ratio 12 % 09/12/18 05:27 Glucose 139 mg/dL (75-100) H 09/12/18 05:27 POC Glucose 141 (70-105) H 09/12/18 05:43 Calcium 9.2 mg/dL (8.4-10.2) 09/12/18 05:27 Total Bilirubin 0.60 mg/dL (0.1-1.2) 09/10/18 20:41 AST 19 units/L (5-40) 09/10/18 20:41 ALT 26 units/L (7-56) 09/10/18 20:41 Alkaline Phosphatase 100 units/L (35-129) 09/10/18 20:41 Total Protein 7.9 g/dL (6.3-8.2) 09/10/18 20:41 Albumin 3.9 g/dL (3.9-5) 09/10/18 20:41 Albumin/Globulin Ratio 1.0 % 09/10/18 20:41 Triglycerides 69 mg/dL (2-149) 09/12/18 05:27 Cholesterol 117 mg/dL (50-199) 09/12/18 05:27 LDL Cholesterol Direct 72 mg/dL (50-130) 09/12/18 05:27 HDL Cholesterol 43 mg/dL (40-59) 09/12/18 05:27 Cholesterol/HDL Ratio 2.72 % 09/12/18 05:27 Urine Color Straw (Yellow) 09/10/18 20:14 Urine Turbidity Clear (Clear) 09/10/18 20:14 Urine pH 5.0 (5.0-7.0) 09/10/18 20:14 Ur Specific [place] 1.030 (1.003-1.030) 09/10/18 20:14 Urine Protein <15 mg/dl mg/dL (Negative) 09/10/18 20:14 Urine Glucose (UA) Neg mg/dL (Negative) 09/10/18 20:14 Urine Ketones Neg mg/dL (Negative) 09/10/18 20:14 Urine Blood Mod (Negative) 09/10/18 20:14 Urine Nitrite Neg (Negative) 09/10/18 20:14 Urine Bilirubin Neg (Negative) 09/10/18 20:14 Urine Urobilinogen < 2.0 mg/dL (<2.0) 09/10/18 20:14 Ur Leukocyte Esterase Neg (Negative) 09/10/18 20:14 Urine WBC (Auto) 3.0 /HPF (0.0-6.0) 09/10/18 20:14 Urine RBC (Auto) 13.0 /HPF (0.0-6.0) 09/10/18 20:14 U Epithel Cells (Auto) < 1.0 /HPF (0-13.0) 09/10/18 20:14
--- NOTE | 2018-09-12 17:03 | Gastroenterology Consultation ---
History of Present Illness - Reason for Consult Consult date: 09/12/18 abdominal pain Requesting physician: ALEXIS LUNDBERG - History of Present Illness This is a 72 yo male with pmh of HTN, DM, chronic anemia, and BPH admitted after initially presenting with persistent lower abdominal pain and constipation. Admission course notable also for new stroke with presenting symptoms of slurred speech. He was admitted 2 times earlier this month for lower abdominal pain. Last admission, which was last week consistent of work up including repeat CT abdomen and colonoscopy, which was normal. He reports mid and lower abdominal pain that feels like a "tummy ache" and constipation. Pain is worse with him standing or bending over. There is no association with eating but improve after a BM. He had bowel regimen since admission and had several stools without blood today. He feels a little better. Past History Past Medical History: anemia, hypertension, other (BPH) Past Surgical History: TURP Social history: lives with family Family history: no significant family history Medications and Allergies Allergies Allergy/AdvReac Type Severity Reaction Status Date / Time No Known Allergies Allergy Verified 03/12/15 04:05 Home Medications Medication Instructions Recorded Confirmed Last Taken Type Losartan [Cozaar] 1 tab PO DAILY 02/26/15 09/11/18 08/25/18 09:00 History 100mg amLODIPine [Norvasc] 5 mg PO DAILY 02/26/15 09/11/18 02/27/15 06:45 History Finasteride [Proscar] 5 mg PO QDAY #30 tablet 08/27/18 09/11/18 Unknown Rx Apixaban [Eliquis] 10 mg PO BID #12 tablet 09/02/18 09/11/18 Unknown Rx Cyclobenzaprine [Flexeril 10 MG 5 mg PO TID #30 tablet 09/02/18 09/11/18 Unknown Rx TAB] Famotidine [Pepcid] 20 mg PO BID #60 tablet 09/02/18 09/11/18 Unknown Rx Polyethylene Glycol 3350 [Miralax 17 gm PO QDAY #30 powd.pack 09/02/18 09/11/18 Unknown Rx 3350] Sennosides/Docusate [Senokot S] 1 each PO Q12HR #60 tab 09/02/18 09/11/18 Unkn own Rx traMADol [Ultram] 50 mg PO Q6HR PRN #14 tablet 09/02/18 09/11/18 Unknown Rx Bisoprolol-Hctz 10-6.25 mg Tab 1 tab PO DAILY 09/11/18 09/11/18 Unknown History Linagliptin [Tradjenta] 1 tab PO DAILY 09/11/18 09/11/18 Unknown History Tamsulosin [Flomax] 0.8 mg PO HS 09/11/18 09/11/18 Unknown History Active Meds: Active Medications Acetaminophen (Tylenol) 650 mg PO Q4H PRN PRN Reason: Pain, Mild (1-3), fever > 101 Apixaban (Eliquis) 10 mg PO BID [facility]; Protocol Last Admin: 09/12/18 09:14 Dose: 10 mg Documented by: Aspirin (Baby Aspirin) 81 mg PO QDAY [facility] Last Admin: 09/12/18 09:15 Dose: 81 mg Documented by: Atorvastatin Calcium (Lipitor) 40 mg PO QHS [facility] Last Admin: 09/11/18 22:03 Dose: 40 mg Documented by: Dextrose (D50w (25gm) Syringe) 50 ml IV PRN PRN PRN Reason: Hypoglycemia Famotidine (Pepcid) 20 mg PO BID [facility] Last Admin: 09/12/18 09:15 Dose: 20 mg Documented by: Finasteride (Proscar) 5 mg PO QDAY [facility] Last Admin: 09/12/18 09:16 Dose: 5 mg Documented by: Hydralazine HCl (Apresoline) 10 mg IV Q4HR PRN PRN Reason: Blood Pressure Sodium Chloride (Nacl 0.9% 1000 Ml) 1,000 mls @ 75 mls/hr IV DIRECT [facility] Last Admin: 09/12/18 08:19 Dose: 75 mls/hr Documented by: Insulin Human Lispro (Humalog) 0 unit SUB-Q ACHS [facility]; Protocol Last Admin: 09/12/18 12:19 Dose: Not Given Documented by: Ondansetron HCl (Zofran) 4 mg IV Q8H PRN PRN Reason: Nausea And Vomiting Polyethylene Glycol (Miralax 3350) 17 gm PO QDAY [facility] Last Admin: 09/12/18 09:15 Dose: 17 gm Documented by: Senna/Docusate Sodium (Senokot S) 1 tab PO Q12HR [facility] Last Admin: 09/12/18 09:15 Dose: 1 tab Documented by: Tamsulosin HCl (Flomax) 0.8 mg PO HS [facility] Last Admin: 09/11/18 22:03 Dose: 0.8 mg Documented by: Review of Systems - Review of Systems Constitutional: no weight loss, no weight gain, no fever, no chills Ears, Nose, Throat: difficulty swallowing Cardiovascular: no chest pain Gastrointestinal: abdominal pain, constipation, no nausea, no vomiting, no diarrhea Neurological: no head injury Hematologic/Lymphatic: no easy bruising Exam - Constitutional Vital Signs: Temp Pulse Resp BP Pulse Ox 98.4 F 82 18 148/62 97 09/12/18 08:06 09/12/18 11:30 09/12/18 10:00 09/12/18 11:30 09/12/18 11:30 General appearance: no acute distress, well-nourished - EENT ENT: hearing intact, clear oral mucosa, dentition normal - Neck Neck: supple, normal ROM, no masses or JVD - Respiratory Respiratory effort: normal Respiratory: bilateral: CTA - Breasts Breasts: deferred - Cardiovascular Rhythm: regular Heart Sounds: Present: S1 & S2. Absent: gallop, rub Extremities: pulses intact, No edema, normal color, Full ROM - Gastrointestinal General gastrointestinal: Present: soft, tender, non-distended, normal bowel sounds - Integumentary Integumentary: Present: clear, warm, dry - Neurologic Neurological: alert and oriented x3 - Psychiatric Psychiatric: appropriate mood/affect, intact judgment & insight, memory intact - Labs CBC & Chem 7: 09/12/18 05:27 09/12/18 05:27 Lab Results: Laboratory Results - last 24 hr 09/11/18 09/11/18 09/12/18 17:32 21:43 05:27 WBC 8.1 RBC 3.06 L Hgb 9.5 L Hct 28.6 L MCV 94 MCH 31 MCHC 33 RDW 15.3 H Plt Count 298 Sodium Potassium Chloride Carbon Dioxide Anion Gap BUN Creatinine Estimated GFR BUN/Creatinine Ratio Glucose POC Glucose 120 H 140 H Calcium Triglycerides Cholesterol LDL Cholesterol Direct HDL Cholesterol Cholesterol/HDL Ratio 09/12/18 09/12/18 09/12/18 05:27 05:43 11:40 WBC RBC Hgb Hct MCV MCH MCHC RDW Plt Count Sodium 139 Potassium 4.2 Chloride 103.2 Carbon Dioxide 23 Anion Gap 17 BUN 11 Creatinine 0.9 Estimated GFR > 60 BUN/Creatinine Ratio 12 Glucose 139 H POC Glucose 141 H 140 H Calcium 9.2 Triglycerides 69 Cholesterol 117 LDL Cholesterol Direct 72 HDL Cholesterol 43 Cholesterol/HDL Ratio 2.72 Assessment and Plan This is a 72 yo male with pmh of HTN, DM, chronic anemia, and BPH admitted after initially presenting with persistent lower abdominal pain and constipation. - Patient Problems (1) Abdominal pain Current Visit: No Status: Acute Qualifiers: Abdominal location: generalized Qualified Code(s): R10.84 - Generalized abdominal pain Plan to address problem: 1.lower abdominal pain 2.change in bowel habit/constipation 3.chronic anemia - Two previous admissions with similar symptoms earlier this month. - work up included abd CT showed renal cyst and spondolysis (enlarged prostate seen on previous CT), CTA -severely enlargement of prostate, colonoscopy with normal results - was also seen by surgery service during last admission. - may be more IBS and 2/2 constipation. - pain better today after several bowel movements Rec: - cont with miralax and dulcolax for constipation. - trial of dicyclomine bid. - will follow
[2018-09-12] MEDS: FLOMAX PO SCH (21:51)
[2018-09-12] MEDS: BENTYL PO SCH (21:51)
[2018-09-13] MEDS: HumaLOG SUB-Q SCH ×4 (08:28→22:01)
[2018-09-13] MEDS: PEPCID PO SCH ×2 (09:42→21:49)
[2018-09-13] MEDS: BENTYL PO SCH ×2 (09:42→21:49)
[2018-09-13] MEDS: MIRALAX 3350 PO SCH (09:42)
[2018-09-13] MEDS: ELIQUIS PO SCH ×2 (09:42→21:49)
[2018-09-13] MEDS: SENOKOT S PO SCH ×2 (09:42→21:49)
[2018-09-13] MEDS: BABY ASPIRIN PO SCH (09:42)
[2018-09-13] MEDS: PROSCAR PO SCH (09:42)
--- NOTE | 2018-09-13 12:26 | Progress Note ---
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 CT head (not yet in EMR) reported an acute right fontal lobe infarct (report in the physical chart). Patient was out of the window for tPA and also was on Eliquis. Admitted for management. Hospitalist Physical Gen: thin frail, WDWN, NAD, Awake, Alert, Orientated HEENT: NCAT, EOMI, PERRL, OP Clear Neck: supple, no adenopathy, no thyromegaly, no JVD CVS/Heart: RRR, normal S1S2, pulses present bilaterally Chest/Lungs: CTA B, Symmetrical chest expansion, good air entry bilaterally GI/Abdomen: soft, nd, diffuse nonspecific mild tenderness, good bowel sounds, no guarding or rebound /Bladder: no suprapubic tenderness, no CVA or paraspinal tenderness Extermity/Skin: no c/c/e, no obvious rash MSK: FROM x 4 Neuro: CN 2-12 grossly intact except speech, no new deficits Psych: calm Subjective Date of service: 09/13/18 Interval history: Patient was seen and examined. Overnight uneventful. Patient denies any chest pain, shortness breath, nausea/vomiting. c/o headache. Objective - Labs CBC & Chem 7: 09/12/18 05:27 09/12/18 05:27 Labs: Abnormal lab results 09/12/18 09/12/18 09/13/18 Range/Units 16:54 21:10 06:14 POC Glucose 134 H 209 H 111 H (70-105)
--- NOTE | 2018-09-13 13:40 | Consultation ---
History of Present Illness Consult date: 09/13/18 Requesting physician: CHRISTIANO SEBASTIAN Reason for Consult: stroke Chief complaint: dysarthria, facial droop History of present illness: This 72-year-old right-handed [place] born male states that on September 10 around 2:30 PM he noticed he couldn't swallow correctly and then his sister on the phone with him noticed he had slurred speech. No dizziness or numbness or tingling but was told his face looked distorted at the hospital. Symptoms including trouble swallowing were gone within [address] scan shows a question of a right frontal acute stroke which to me is at least questionable on my review. He had taken his usual Eliquis apparently listed as 10 mg twice a day (high dose compared to usual dose listed in [facility]). He was not on aspirin at home. He does not check his blood sugar at home. Low blood sugar has been reported to give hemiparesis and dysarthria so certainly could give facial droop. Past History Past Medical History: anemia, diabetes (borderline), hypertension, pulmonary embolism, other (BPH. 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 denies: smoking (quit 35 years ago.), prescription drug abuse, IV drug use (no illicit drugs.) Family history: no significant family history, diabetes (father), hypertension (brother), other (negative for epilepsy.). denies: stroke Medications and Allergies Allergies Allergy/AdvReac Type Severity Reaction Status Date / Time No Known Allergies Allergy Verified 03/12/15 04:05 Home Medications Medication Instructions Recorded Confirmed Last Taken Type Losartan [Cozaar] 1 tab PO DAILY 02/26/15 09/11/18 08/25/18 09:00 History 100mg amLODIPine [Norvasc] 5 mg PO DAILY 02/26/15 09/11/18 02/27/15 06:45 History Finasteride [Proscar] 5 mg PO QDAY #30 tablet 08/27/18 09/11/18 Unknown Rx Apixaban [Eliquis] 10 mg PO BID #12 tablet 09/02/18 09/11/18 Unknown Rx Cyclobenzaprine [Flexeril 10 MG 5 mg PO TID #30 tablet 09/02/18 09/11/18 Unknown Rx TAB] Famotidine [Pepcid] 20 mg PO BID #60 tablet 09/02/18 09/11/18 Unknown Rx Polyethylene Glycol 3350 [Miralax 17 gm PO QDAY #30 powd.pack 09/02/18 09/11/18 Unknown Rx 3350] Sennosides/Docusate [Senokot S] 1 each PO Q12HR #60 tab 09/02/18 09/11/18 Unknown Rx traMADol [Ultram] 50 mg PO Q6HR PRN #14 tablet 09/02/18 09/11/18 Unknown Rx Bisoprolol-Hctz 10-6.25 mg Tab 1 tab PO DAILY 09/11/18 09/11/18 Unknown History Linagliptin [Tradjenta] 1 tab PO DAILY 09/11/18 09/11/18 Unknown History Tamsulosin [Flomax] 0.8 mg PO HS 09/11/18 09/11/18 Unknown History Active Meds: Active Medications Acetaminophen (Tylenol) 650 mg PO Q4H PRN PRN Reason: Pain, Mild (1-3), fever > 101 Apixaban (Eliquis) 10 mg PO BID [facility]; Protocol Last Admin: 09/13/18 09:42 Dose: 10 mg Documented by: Aspirin (Baby Aspirin) 81 mg PO QDAY [facility] Last Admin: 09/13/18 09:42 Dose: 81 mg Documented by: Atorvastatin Calcium (Lipitor) 40 mg PO QHS [facility] Last Admin: 09/12/18 21:51 Dose: 40 mg Documented by: Dextrose (D50w (25gm) Syringe) 50 ml IV PRN PRN PRN Reason: Hypoglycemia Dicyclomine HCl (Bentyl) 20 mg PO BID [facility] Last Admin: 09/13/18 09:42 Dose: 20 mg Documented by: Famotidine (Pepcid) 20 mg PO BID [facility] Last Admin: 09/13/18 09:42 Dose: 20 mg Documented by: Finasteride (Proscar) 5 mg PO QDAY [facility] Last Admin: 09/13/18 09:42 Dose: 5 mg Documented by: Hydralazine HCl (Apresoline) 10 mg IV Q4HR PRN PRN Reason: Blood Pressure Sodium Chloride (Nacl 0.9% 1000 Ml) 1,000 mls @ 75 mls/hr IV DIRECT [facility] Last Admin: 09/12/18 21:51 Dose: 75 mls/hr Documented by: Insulin Human Lispro (Humalog) 0 unit SUB-Q ACHS [facility]; Protocol Last Admin: 09/13/18 08:28 Dose: Not Given Documented by: Ondansetron HCl (Zofran) 4 mg IV Q8H PRN PRN Reason: Nausea And Vomiting Polyethylene Glycol (Miralax 3350) 17 gm PO QDAY [facility] Last Admin: 09/13/18 09:42 Dose: 17 gm Documented by: Senna/Docusate Sodium (Senokot S) 1 tab PO Q12HR [facility] Last Admin: 09/13/18 09:42 Dose: 1 tab Documented by: Tamsulosin HCl (Flomax) 0.8 mg PO HS [facility] Last Admin: 09/12/18 21:51 Dose: 0.8 mg Documented by: Review of Systems All systems: negative (no headaches or dizziness, unknown if any snoring, not napping and not sleepy driving. No leg cramps or restless legs or other sleep disorders. No memory problems or paresthesias.) Physical Examination - Vital Signs Vital Signs: Vital Signs Temp Pulse Resp BP Pulse Ox 97.8 F 81 18 147/50 99 09/10/18 20:09 09/10/18 20:09 09/10/18 20:09 09/10/18 20:09 09/10/18 20:09 - Physical Exam Narrative exam: General Appearance: well developed well nourished (per BMI) early 70s [facility] [place] [facility]. HEENT: atraumatic, normocephalic; no bruits, 2+ Andreina without soreness or induration or enlargement, sclerae nonicteric. Oropharynx pink and moist. Neck: supple, no bruits. Heart: seems to have a low pitched II/ murmur at the base but no other extra sounds. Extremities: no clubbing, cyanosis or edema. 2+ dorsalis pedis pulses bilaterally. Neurologic Exam: Mental Status: Awake, alert, oriented X 3, speech is clear, names pen and tip of pen, and abstracts okay though initially with concrete answers though with prompting gives a correct answer, names President and Swimming Instructor, serial 7's with one error but gets 5+7 = 12, no right-left confusion, gets 3 of 3 objects at 3 minutes, spells WORLD backwards correctly after one incorrect attempt. Cranial Nerves: jacobs full but has impersistence of primary gaze, no papilledema, SVPs present, PERRLA, EOMs full without nystagmus or diplopia, facial sensation intact to pinprick and light touch, no facial weakness, Proctor is midline, palate rises symmetrically to phonation but gags are absent, shoulder shrug is 5 X 2, tongue protrudes midline. Cerebellar: finger to nose dysmetric at endpoints bilaterally, tandem is done with some scissoring and sidestepping despite my support and use of the IV pole for support. Sensory: intact to light touch, pinprick, and vibrations. Double simultaneous stimulation is intact. Motor Exam Upper Extremities: no drift or pronation, Hany intact. Boom Master are 5 X 2, tone is normal. Bilateral first DI atrophy right more than left (again denies any paresthesias) but no fasciculations are noted visually. Motor Exam Lower Extremities: walks well on heels and toes with IV pole support but not safe to hop. Hany intact. Tone is normal. Perhaps some intrinsic atr ophy in the feet but no fasciculations are noted visually. Reflexes: Palmomental, snout, glabellar and jaw jerk are negative. Triceps are trace right and trace to 1 left, biceps are trace to 1 and brachioradialis are trace bilaterally. Ruel's is negative bilaterally. Knee jerks are trace and ankle jerks are 1+ bilaterally without clonus. Toes are downgoing bilaterally to Babinski testing. - Assessment Assessment Interval: Baseline - Level of Consciousness 1a. Level of Consciousness: alert/keenly responsive - LOC Questions 1b. LOC Questions: answers both correctly - LOC Command 1c. LOC Commands: performs tasks correctly - Best Gaze 2. Best Gaze: normal - Visual 3. Visual: no visual loss - Facial Palsy 4. Facial Palsy: minor paralysis - Motor Arm 5b. Motor Arm Right: no drift - Motor Leg 6a. Motor Leg Left: no drift - Limb Ataxia 7. Limb Ataxia: absent - Sensory 8. Sensory: normal - Best Language 9. Best Language: no aphasia - Dysarthria 10. Dysarthria: mild/moderate dysarthria - Extinction and Inattention 11. Extinction/Inattention: no abnormality Results - Laboratory Findings CBC and BMP: 09/12/18 05:27 09/12/18 05:27 Abnormal Lab Findings: Abnormal Labs 09/10/18 09/10/18 09/10/18 20:41 20:41 21:10 RBC 3.45 L Hgb 10.8 L Hct 32.5 L RDW Lymph % (Auto) 13.3 L [place] % (Auto) 7.6 H Lymph # 1.0 L Seg Neutrophils % 77.7 H PT 15.9 H INR 1.19 H Glucose 156 H POC Glucose 09/10/18 09/11/18 09/11/18 21:19 05:37 12:35 RBC Hgb Hct RDW Lymph % (Auto) [place] % (Auto) Lymph # Seg Neutrophils % PT INR Glucose POC Glucose 152 H 120 H 188 H 09/11/18 09/11/18 09/12/18 17:32 21:43 05:27 RBC 3.06 L Hgb 9.5 L Hct 28.6 L RDW 15.3 H Lymph % (Auto) [place] % (Auto) Lymph # Seg Neutrophils % PT INR Glucose POC Glucose 120 H 140 H 09/12/18 09/12/18 09/12/18 05:27 05:43 11:40 RBC Hgb Hct RDW Lymph % (Auto) [place] % (Auto) Lymph # Seg Neutrophils % PT INR Glucose 139 H POC Glucose 141 H 140 H 09/12/18 09/12/18 09/13/18 16:54 21:10 06:14 RBC Hgb Hct RDW Lymph % (Auto) [place] % (Auto) Lymph # Seg Neutrophils % PT INR Glucose POC Glucose 134 H 209 H 111 H 09/13/18 12:22 RBC Hgb Hct RDW Lymph % (Auto) [place] % (Auto) Lymph # Seg Neutrophils % PT INR Glucose POC Glucose 149 H Assessment and Plan Impression: 1. TIA vs stroke Plan: 1. Brain MRI pending. States he is not claustrophobic. 2. If brain MRI shows stroke, will need transesophageal echocardiogram with bubble to get a better bubble study and to look more closely at aortic regurgitation and aorta as a source for emboli. May need to switch to warfarin. 3. If brain MRI is negative, I suggest 5 hour GTT to see if he gets hypoglycemic and see if that gives him dysarthria. If yes, just needs multiple small meals instructions. If GTT is negative, needs additional stroke labs such as anti-cardiolipin antibodies, lupus anticoagulant which may include beta-2 glycoprotein antibodies, factor II DNA mutation, phosphatidylserine antibodies, protein C and protein S and anti-thrombin 3 activities and antigens, homocysteine, and lipoprotein A. 60 minutes spent including description of transesophageal echocardiogram with bubble study and need for brain MRI first. Did not discuss 5 hour GTT but did mention possible need for other stroke blood tests. Thank you for the interesting consultation on this pleasant early 70s man. Signing off, call for any unusual results or other questions.
[2018-09-13] MEDS: NACL 0.9% 1000 ML 1,000 ML IV SCH (13:42)
--- NOTE | 2018-09-13 13:46 | Gastroenterology Progress Note ---
Addendum entered and electronically signed by MCKENZIE MORENO MD 09/13/18 17:08: Patient seen and examined on 09/13/2018. Abdominal pain improving somewhat. Likely also related to enlarged prostate. Cont with dicyclomine Recommend urology consult Will sign off. Original Note: Assessment and Plan This is a 72 yo male with pmh of HTN, DM, chronic anemia, and BPH admitted after initially presenting with persistent lower abdominal pain and constipation. 1.lower abdominal pain 2.chronic constipation 3.chronic anemia- consider hematology consult -H/H 9.5/28.6-stable compared to previous-no active signs of bleeding - patient with two previous admissions with similar symptoms earlier this month. - work up included abd CT showed renal cyst and spondolysis (enlarged prostate seen on previous CT), CTA -severely enlargement of prostate, colonoscopy with normal results - was also seen by surgery service during last admission with no recommendations for surgical intervention at that time -etiology-likely related to enlarged prostate vs other (IBS-C?) -constipation now resolved-continue daily bowel regimen with miralax and dulcolax -continue dicyclomine -recommend urology consult -no further workup or recommendations per GI standpoint -will sign off, please call if needed Subjective Date of service: 09/13/18 Principal diagnosis: abd pain, constipation Interval history: No acute distress. Has continued mild lower abdominal (pelvic) pain. No N/V. Tolerating diet. Reports multiple BMs overnight and 1 this am with constipation now resolved. Objective - Constitutional Vitals: Temp Pulse Resp BP Pulse Ox 98.0 F 79 18 134/43 97 09/13/18 00:07 09/13/18 00:07 09/13/18 00:07 09/13/18 00:07 09/13/18 00:07 General appearance: no acute distress - Respiratory Respiratory: bilateral: CTA - Cardiovascular Rhythm: regular Heart Sounds: Present: S1 & S2 - Gastrointestinal General gastrointestinal: Present: soft, tender (slight TTP lower abd), non-distended, normal bowel sounds - Neurologic Neurological: alert and oriented x3 - Labs CBC & Chem 7: 09/12/18 05:27 09/12/18 05:27 Labs: Laboratory Results - last 24 hr 09/12/18 09/12/18 09/13/18 16:54 21:10 06:14 POC Glucose 134 H 209 H 111 H 09/13/18 12:22 POC Glucose 149 H
[2018-09-13] MEDS ORDERED: COMPAZINE PO PRN (17:02)
[2018-09-13] MEDS: FLOMAX PO SCH (21:49)
[2018-09-14] MEDS: NACL 0.9% 1000 ML 1,000 ML IV SCH (06:39)
[2018-09-14] MEDS: HumaLOG SUB-Q SCH ×4 (09:30→21:08)
[2018-09-14] MEDS: BABY ASPIRIN PO SCH (09:30)
[2018-09-14] MEDS: BENTYL PO SCH ×2 (09:30→21:07)
[2018-09-14] MEDS: PROSCAR PO SCH (09:30)
[2018-09-14] MEDS: ELIQUIS PO SCH (09:30)
[2018-09-14] MEDS: PEPCID PO SCH ×2 (09:30→21:07)
[2018-09-14] MEDS: SENOKOT S PO SCH ×2 (09:31→21:08)
[2018-09-14] MEDS: MIRALAX 3350 PO SCH (09:31)
--- NOTE | 2018-09-14 11:17 | Cat Scan Report ---
FINAL REPORT EXAM: CT HEAD/BRAIN WO CON HISTORY: slurred speech TECHNIQUE: Standard unenhanced CT of the head at 5.0 millimeter axial increments. PRIORS: None. FINDINGS: There is a small area of acute evolving infarct in the right frontal region laterally (axial image 31 ) in the M1 area. ASPECTS: 9 The ventricular system is normal in size and configuration. There is no evidence for parenchymal volu me loss. There is no evidence for mass lesion, mass effect, midline shift, or acute intracranial hemorrhage. No evidence for acute skull fracture is seen. No abnormality in the overlying scalp soft tissues is seen. Visualized paranasal sinuses are clear. IMPRESSION: Small acute involving infarct in the right frontal region laterally in the M1 area ASPECTS: 9
--- NOTE | 2018-09-14 11:51 | Magnetic Resonance Report ---
MRI BRAIN WITHOUT CONTRAST: 09/14/18 CLINICAL: CVA TECHNIQUE: Axial diffusion, T1, T2, gradient echo T2*, coronal and axial FLAIR and sagittal T1 sequences on a 1.5 Mary magnet. FINDINGS: Motion degrades the quality of the exam. The ventricles and sulci are normal for age. Restricted diffusion involves the right inferior frontal gyrus in the involved volume measures approximately 3.2 x 2.0 cm. There is mild gyral swelling and corresponding hyperintensity on T2 and FLAIR sequences. No other mass effect. Hypointense signal foci on the gradient echo sequence at gyral margins is consistent with petechial hemorrhage or cortical laminar necrosis. No other hemorrhage. No other restricted diffusion. No extra-axial collection. Normal pituitary and optic chiasm. The brainstem and cerebellum are normal. Intact vascular flow voids. Normal sinuses. The orbits, and soft tissues are normal. Normal calvarium and skull base. IMPRESSION: 1. A 3 cm x 2 cm subacute right frontal lobe infarct with petechial hemorrhage and/or cortical laminar necrosis in the area of infarct. 2. No evidence of hyperacute or acute infarct.
[2018-09-14] MEDS: COREG PO SCH ×2 (13:03→21:07)
--- NOTE | 2018-09-14 14:32 | Progress Note ---
Assessment and Plan /Acute Right Frontal Lobe Ischemic Stroke: - noted echo/carotid result and lipid panel - MRI brain showed pitecheal hemorrhagic transformation - will hold eliquis for now, appreciate neurology recommendation - positive for CVA while patient was on eliquis - will order SANIYA and request heam consult /LLL PE, 08/31/18 CTA chest Impression: Few small pulmonary emboli in the left lower lobe, small right pleural effusion and trace amount of left pleural fluid: patient continued on Eliquis - will hold now till clears by neuro /Type 2 DM: cont ssi, ada diet /Hypertension: cont to monitor, low salt diet /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 CT head (not yet in EMR) reported an acute right fontal lobe infarct (report in the physical chart). Patient was out of the window for tPA and also was on Eliquis. Admitted for management. Hospitalist Physical Gen: thin frail, WDWN, NAD, Awake, Alert, Orientated HEENT: NCAT, EOMI, PERRL, OP Clear Neck: supple, no adenopathy, no thyromegaly, no JVD CVS/Heart: RRR, normal S1S2, pulses present bilaterally Chest/Lungs: CTA B, Symmetrical chest expansion, good air entry bilaterally GI/Abdomen: soft, nd, diffuse nonspecific mild tenderness, good bowel sounds, no guarding or rebound /Bladder: no suprapubic tenderness, no CVA or paraspinal tenderness Extermity/Skin: no c/c/e, no obvious rash MSK: FROM x 4 Neuro: CN 2-12 grossly intact except speech, no new deficits Psych: calm Subjective Date of service: 09/14/18 Principal diagnosis: abd pain, constipation Interval history: Patient was seen and examined. Overnight uneventful. Patient denies any chest pain, shortness breath, nausea/vomiting. no headache. worried about his health. Objective - Constitutional Vitals: Vital Signs - 12hr 09/14/18 09/14/18 09/14/18 05:00 05:51 08:50 Temperature 98.2 F 98.7 F Pulse Rate 97 H 86 94 H Respiratory 18 16 Rate Blood Pressure 150/68 169/61 O2 Sat by Pulse 98 97 Oximetry - Labs CBC & Chem 7: 09/12/18 05:27 09/12/18 05:27 Labs: Abnormal lab results 09/13/18 09/13/18 09/13/18 Range/Units 15:25 16:32 21:14 POC Glucose 143 H 161 H (70-105) C-Reactive Protein 9.10 H (0.00-1.30) mg/dL 09/14/18 09/14/18 Range/Units 05:55 12:15 POC Glucose 145 H 165 H (70-105) C-Reactive Protein (0.00-1.30) mg/dL
[2018-09-14] MEDS: FLOMAX PO SCH (21:07)
--- NOTE | 2018-09-15 08:23 | Event Note ---
Date: 09/15/18 [id number]
--- NOTE | 2018-09-15 08:52 | Consultation ---
REFERRING PHYSICIAN: Kerry Gutierrez MD REASON FOR CONSULTATION: MRI showing 3 cm infarct with hemorrhage. HISTORY OF PRESENT ILLNESS: I saw the patient, a 72-year-old male in the medical floor. The patient was admitted a few weeks ago with abdominal pain. He was found to be anemic, at that time was found to have small pulmonary embolism and the patient was discharged with Eliquis with advised to see outpatient ballistics tester. He has been on Eliquis. He was with his friends and the friends noted slurred speech. Friend/sister was called. He was brought to the hospital and seen by neurologist. Yesterday, MRI was done, which showed infarct and petechial hemorrhage. There is an evaluation for Cardiology to see if there is a shunt. I have been asked to evaluate as he had and PE and now a stroke infarct with petechial hemorrhage. At this time, no headache, no visual disturbances, no ear discharge, no chest pain, no shortness of breath at rest, no abdominal pain, no vomiting, no diarrhea, no dysuria. The patient had abdominal pain in the recent past. The patient also had some swallowing issues. PAST MEDICAL HISTORY: Hypertension, diabetes, PE, GERD, BPH. PAST SURGICAL HISTORY: Prostate surgery. FAMILY HISTORY: Noncontributory. SOCIAL HISTORY: No history of tobacco or alcohol usage. HOME MEDICATIONS: Include losartan, amlodipine, Proscar, Eliquis 5 q. 12h., Flexeril, Pepcid, MiraLax, tramadol. ALLERGIES: None. PHYSICAL EXAMINATION: VITAL SIGNS: Temperature is 98, pulse 65, respirations 17, BP 133/54. HEENT: Mild pallor, no icterus. NECK: No neck lymph nodes. HEART: S1, S2. LUNGS: Short systolic murmur. ABDOMEN: Soft. EXTREMITIES: No calf tenderness. NEUROLOGIC: Alert, awake, answers questions appropriately. LABORATORY DATA: White cell 8, hemoglobin 9.5, MCV 94, platelet 298. Potassium ____, creatinine 0.9, calcium 9.2, bilirubin 0.6. RADIOLOGY: Brain MRI was done. Echo was done. CTA of the neck was done. ASSESSMENT: 1. History of pulmonary embolism. The patient was on Eliquis. 2. Right frontal infarct and then hemorrhage in the same. The patient was on Eliquis. This has been held. Neurology has seen the patient. This becomes a challenging case, most likely Cardiology evaluation will help to see if there is a shunt, which may have caused this embolus evet causing an ischemic stroke. At this time, there is a plan for warfarin anticoagulation. This is again challenging in view of the petechial hemorrhage. Lovenox for short term is an option. 3. Diabetes. 4. Hypertension. 5. Benign prostatic hypertrophy. 6. Abdominal pain issues. We will do hypercoagulable workup, a few as an inpatient and a few as an outpatient. JOB# [id number] NM/NTS
[2018-09-15] MEDS: PEPCID PO SCH ×2 (09:34→21:30)
[2018-09-15] MEDS: MIRALAX 3350 PO SCH (09:34)
[2018-09-15] MEDS: COREG PO SCH ×2 (09:35→21:32)
[2018-09-15] MEDS: SENOKOT S PO SCH ×2 (09:35→21:30)
[2018-09-15] MEDS: PROSCAR PO SCH (09:35)
[2018-09-15] MEDS: HumaLOG SUB-Q SCH ×4 (09:36→21:30)
--- NOTE | 2018-09-15 15:55 | Progress Note ---
Assessment and Plan /Acute Right Frontal Lobe Ischemic Stroke: - noted echo/carotid result and lipid panel - MRI brain showed pitecheal hemorrhagic transformation - will hold eliquis for now, appreciate neurology recommendation - positive for CVA while patient was on eliquis - plan for SANIYA tomorrow and heam consulted /LLL PE, 08/31/18 CTA chest Impression: Few small pulmonary emboli in the left lower lobe, small right pleural effusion and trace amount of left pleural fluid: patient continued on Eliquis - will hold now till clears by neuro /Type 2 DM: cont ssi, ada diet /Hypertension: cont to monitor, low salt diet /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 CT head reported an acute right fontal lobe infarct (report in the physical chart). Patient was out of the window for tPA and also was on Eliquis. Admitted for management. Hospitalist Physical Gen: thin frail, WDWN, NAD, Awake, Alert, Orientated HEENT: NCAT, EOMI, PERRL, OP Clear Neck: supple, no adenopathy, no thyromegaly, no JVD CVS/Heart: RRR, normal S1S2, pulses present bilaterally Chest/Lungs: CTA B, Symmetrical chest expansion, good air entry bilaterally GI/Abdomen: soft, nd, diffuse nonspecific mild tenderness, good bowel sounds, no guarding or rebound /Bladder: no suprapubic tenderness, no CVA or paraspinal tenderness Extermity/Skin: no c/c/e, no obvious rash MSK: FROM x 4 Neuro: CN 2-12 grossly intact except speech, no new deficits Psych: calm Subjective Date of service: 09/15/18 Principal diagnosis: abd pain, constipation Interval history: Patient was seen and examined. Overnight uneventful. Patient denies any chest pain, shortness breath, nausea/vomiting. no headache. worried about his health. Objective - Constitutional Vitals: Vital Signs - 12hr 09/15/18 09/15/18 09/15/18 04:55 08:54 12:32 Temperature 98.0 F 99.1 F 103.0 F H Respiratory 17 18 18 Rate Blood Pressure 133/54 147/78 181/72 09/15/18 15:19 Temperature 101.8 F H Respiratory 18 Rate Blood Pressure 130/59 - Labs CBC & Chem 7: 09/16/18 06:46 09/12/18 05:27 Labs: Abnormal lab results 09/14/18 09/14/18 09/15/18 Range/Units 15:37 20:49 07:04 POC Glucose 237 H 141 H 162 H (70-105) 09/15/18 Range/Units 11:02 POC Glucose 192 H (70-105)
[2018-09-15] MEDS: BENTYL PO SCH ×2 (17:05→21:29)
[2018-09-15] MEDS: TYLENOL PO PRN (17:26)
[2018-09-15] MEDS ORDERED: LEVAQUIN 750MG/150ML 750 MG/150 ML BAG IV SCH (18:00)
--- NOTE | 2018-09-15 19:14 | XRay Report ---
FINAL REPORT PROCEDURE: Chest. TECHNIQUE: Portable AP view. HISTORY: Fever. COMPARISON: Chest 08/27/2018. FINDINGS: The heart size is borderline. There is mild tortuosity and ectasia in the thoracic aorta. The lungs a re clear and well expanded. There are no pleural effusions. The soft tissues are unremarkable. The re gional skeleton appears intact. IMPRESSION: No evidence of acute disease.
[2018-09-15] MEDS: LEVAQUIN 750MG/150ML 750 MG/150 ML BAG IV SCH (20:19)
[2018-09-15] MEDS: FLOMAX PO SCH (21:30)
--- NOTE | 2018-09-16 06:54 | Hem/Onc Progress Note ---
Assessment and Plan 1. History of pulmonary embolism. The patient was on Eliquis. 2. Right frontal infarct and then hemorrhage in the same. The patient was on Eliquis. This has been held. Neurology has seen the patient. This becomes a challenging case, most likely Cardiology evaluation will help to see if there is a shunt, which may have caused this embolus evet causing an ischemic stroke. At this time, there is a plan for warfarin anticoagulation. This is again challenging in view of the petechial hemorrhage. Lovenox for short term is an option. 3. Diabetes. 4. Hypertension. 5. Benign prostatic hypertrophy. 6. Abdominal pain issues. We will do hypercoagulable workup, a few as an inpatient and a few as an outpatient. - Patient Problems (1) CVA (cerebral vascular accident) Current Visit: Yes Status: Acute Subjective Date of service: 09/16/18 Principal diagnosis: PE and CVA Interval history: SANIYA pending Objective - Constitutional Vitals: Last Vital Signs Temp 98.7 F 09/16/18 04:23 Pulse 74 09/16/18 05:00 Resp 17 09/16/18 04:23 BP 134/52 09/16/18 04:23 Pulse Ox 97 09/16/18 04:23 Pain Intensity (0-10): denies any pain General appearance: no acute distress Performance status: 3-limited selfcare - EENT Eyes: EOM intact ENT: clear oral mucosa Lymph node exam: negative cervical - Neck Neck: normal ROM - Respiratory Respiratory effort: Positive: normal Respiratory: bilateral: CTA - Cardiovascular Heart Sounds: Present: S1 & S2 Extremities: No edema - Gastrointestinal General gastrointestinal: Present: soft, non-tender Rectal Exam: deferred - Genitourinary Male genitourinary: Present: deferred - Integumentary Integumentary: warm - Musculoskeletal Musculoskeletal: strength equal bilaterally - Neurologic Neurologic: other (speech slurred slightly) - Labs Lab Results: Laboratory Results - last 24 hr 09/15/18 09/15/18 09/15/18 07:04 09:37 09:37 POC Glucose 162 H Vitamin B12 881.2 Folate 14.14 09/15/18 09/15/18 09/15/18 11:02 15:16 21:28 POC Glucose 192 H 224 H 158 H Vitamin B12 Folate 09/16/18 06:23 POC Glucose 134 H Vitamin B12 Folate Medications & Allergies - Medications Allergies/Adverse Reactions: Allergies No Known Allergies Allergy (Verified 03/12/15 04:05) Home Medications: Home Medications Medication Instructions Recorded Confirmed Last Taken Type RX: Losartan [Cozaar] 1 tab PO DAILY 02/26/15 09/11/18 08/25/18 09:00 History 100mg RX: amLODIPine [Norvasc] 5 mg PO DAILY 02/26/15 09/11/18 02/27/15 06:45 History RX: Finasteride [Proscar] 5 mg PO QDAY #30 tablet 08/27/18 09/11/18 Unknown Rx RX: Apixaban [Eliquis] 10 mg PO BID #12 tablet 09/02/18 09/11/18 Unknown Rx RX: Cyclobenzaprine [Flexeril 10 5 mg PO TID #30 tablet 09/02/18 09/11/18 Unknown Rx MG TAB] RX: Famotidine [Pepcid] 20 mg PO BID #60 tablet 09/02/18 09/11/18 Unknown Rx RX: Polyethylene Glycol 3350 17 gm PO QDAY #30 powd.pack 09/02/18 09/11/18 Unkn own Rx [Miralax 3350] RX: Sennosides/Docusate [Senokot S] 1 each PO Q12HR #60 tab 09/02/18 09/11/18 Unknown Rx traMADol [Ultram] 50 mg PO Q6HR PRN #14 tablet 09/02/18 09/11/18 Unknown Rx Bisoprolol-Hctz 10-6.25 mg Tab 1 tab PO DAILY 09/11/18 09/11/18 Unknown History Linagliptin [Tradjenta] 1 tab PO DAILY 09/11/18 09/11/18 Unknown History RX: Tamsulosin [Flomax] 0.8 mg PO HS 09/11/18 09/11/18 Unknown History Active Medications: Generic Name Dose Route Start Last Admin Trade Name Freq PRN Reason Stop Dose Admin Acetaminophen 650 mg 09/11/18 22:06 09/15/18 17:26 Tylenol PO 650 mg Q4H PRN Administration Pain, Mild (1-3), fever > 101 Atorvastatin Calcium 40 mg 09/11/18 22:00 09/15/18 21:30 Lipitor PO 40 mg QHS JOZEF Administration Carvedilol 6.25 mg 09/14/18 13:00 09/15/18 21:32 Coreg PO Not Given BID JOZEF Dextrose 50 ml 09/11/18 12:20 D50w (25gm) Syringe IV PRN PRN Hypoglycemia Dicyclomine HCl 20 mg 09/12/18 22:00 09/15/18 21:29 Bentyl PO 20 mg BID JOZEF Administration Famotidine 20 mg 09/11/18 22:00 09/15/18 21:30 Pepcid PO 20 mg BID JOZEF Administration Finasteride 5 mg 09/12/18 10:00 09/15/18 09:35 Proscar PO 5 mg QDAY JOZEF Administration Hydralazine HCl 10 mg 09/11/18 12:19 Apresoline IV Q4HR PRN Blood Pressure Levofloxacin/Dextrose 750 mg in 150 mls @ 100 mls/hr 09/15/18 20:00 09/15/18 20:19 Levaquin 750mg/150ml IV Not Given Q24HR [facility] Protocol Insulin Human Lispro 0 unit 09/11/18 16:30 09/15/18 21:30 Humalog SUB-Q 1 unit ACHS JOZEF Administration Protocol Ondansetron HCl 4 mg 09/11/18 00:45 Zofran IV Q8H PRN Nausea And Vomiting Polyethylene Glycol 17 gm 09/11/18 13:00 09/15/18 09:34 Miralax 3350 PO 17 gm QDAY JOZEF Administration Prochlorperazine Maleate 10 mg 09/13/18 17:02 Compazine PO Q6H PRN Nausea And Vomiting Senna/Docusate Sodium 1 tab 09/11/18 22:00 09/15/18 21:30 Senokot S PO 1 tab Q12HR JOZEF Administration Tamsulosin HCl 0.8 mg 09/11/18 22:00 09/15/18 21:30 Flomax PO 0.8 mg HS JOZEF Administration
[2018-09-16 07:06] LABS: Basophils % (Auto) 0.3 % (0.0-1.8); Eosinophils # (Auto) 0.1 K/mm3 (0.0-0.4); Eosinophils % (Auto) 1.1 % (0.0-4.3); Hemoglobin 9.7 gm/dl (11.8-15.2); Lymphocytes # (Auto) 1.2 K/mm3 (1.2-5.4); Lymphocytes % (Auto) 12.5 % (13.4-35.0); Mean Corpuscular HGB Conc 34 % (32-34); Mean Corpuscular Volume 92 fl (84-94); Monocytes # (Auto) 1.1 K/mm3 (0.0-0.8); Monocytes % (Auto) 11.7 % (0.0-7.3); Platelet Count 228 K/mm3 (140-440); Red Blood Count 3.15 M/mm3 (3.65-5.03); Red Cell Distribution Width 15.2 % (13.2-15.2)
[2018-09-16 07:16] LABS: INR 1.17 (0.87-1.13)
[2018-09-16] MEDS ORDERED: AMIDATE IV ONE (09:15)
[2018-09-16] MEDS ORDERED: XYLOCAINE CARDIAC IV ONE (09:15)
[2018-09-16] MEDS ORDERED: DECADRON ONE (09:15)
[2018-09-16] MEDS ORDERED: ZOFRAN ONE (09:15)
[2018-09-16] MEDS ORDERED: VERSED ONE (09:15)
[2018-09-16] MEDS ORDERED: DIPRIVAN 10 MG/ML IV ONE (09:18)
[2018-09-16] MEDS ORDERED: HURRICAINE ONE 20% TOPICAL SPRAY MM (09:23)
[2018-09-16] MEDS: NACL 0.9% 1000 ML 1,000 ML IV SCH (09:31)
[2018-09-16] MEDS ORDERED: NACL 0.9% 1000 ML 1,000 ML ONE (09:31)
[2018-09-16] MEDS ORDERED: HURRICAINE ONE 20% TOPICAL SPRAY MM NR (10:00)
[2018-09-16] MEDS: COREG PO SCH ×2 (12:29→22:24)
[2018-09-16] MEDS: LEVAQUIN 750MG/150ML 750 MG/150 ML BAG IV SCH (12:29)
[2018-09-16] MEDS: BENTYL PO SCH ×2 (12:29→22:25)
[2018-09-16] MEDS: HumaLOG SUB-Q SCH ×4 (12:29→22:25)
[2018-09-16] MEDS: PROSCAR PO SCH (12:29)
[2018-09-16] MEDS: PEPCID PO SCH ×2 (12:29→22:25)
[2018-09-16] MEDS: MIRALAX 3350 PO SCH (12:30)
[2018-09-16] MEDS: SENOKOT S PO SCH ×2 (12:33→22:23)
--- NOTE | 2018-09-16 12:43 | Event Note ---
Date: 09/15/18 Patient spiked fever will place on abx after obtaining blood cx, will also obtain CXR, UA will follow clinically
--- NOTE | 2018-09-16 15:13 | Anesthesia Day of Surgery ---
Anesthesia Day of Surgery - Day of Surgery Patient Examined: Yes Patient H&P Reviewed: Yes Patient is NPO: Yes Beta Blockers: No Cardiac Clearance: No Pulmonary Clearance: No
--- NOTE | 2018-09-16 15:14 | Anesthesia Consultation ---
Anesthesia Consult and Med Hx Date of service: 09/16/18 - Airway Anesthetic Teeth Evaluation: Good, Dentures ROM Head & Neck: Adequate Mental/Hyoid Distance: Adequate Mallampati Class: Class III Intubation Access Assessment: Good - Pulmonary Exam CTA: Yes - Cardiac Exam Cardiac Exam: No Murmur - Pre-Operative Health Status ASA Pre-Surgery Classification: ASA3 Proposed Anesthetic Plan: MAC - Pulmonary Hx Smoking: Yes (quit in 1978) Hx Asthma: No SOB: No COPD: No Hx Pneumonia: No Hx Sleep Apnea: No - Cardiovascular System Hx Hypertension: Yes Hx Coronary Artery Disease: Yes (Stress test 01/13/11- Small, fixed basal inf defect; old inf [place], no ischemia) Hx Heart Attack/AMI: No Hx Angina: No Hx Cardia Arrhythmia: Yes (RBBB) Hx Pacemaker: No Hx Internal Defibrillator: No Hx Valvular Heart Disease: Yes (Mild to mod AR, Mild MR, Trace TR on echo 11/07/10) Hx Peripheral Vascular Disease: Yes (h/o LLE DVT 2011) - Central Nervous System Hx Neuromuscular Disorder: No Hx Seizures: No CVA: No Hx Psychiatric Problems: No - Gastrointestinal Hx Gastroesophageal Reflux Disease: Yes - Endocrine Hx Renal Disease: No Hx End Stage Renal Disease: No Hx Non-Insulin Dependent Diabetes: Yes Hx Thyroid Disease: No - Hematic Hx Anemia: No - Other Systems Hx Alcohol Use: Yes (SOCIALLY) Hx Substance Use: No Hx Cancer: No Hx Obesity: No
[2018-09-16] MEDS: COUMADIN PO SCH (16:56)
[2018-09-16] MEDS: ZOSYN/NS 3.375GM/50ML 3.375 GM/50 ML BAG IV SCH ×2 (17:49→22:23)
[2018-09-16] MEDS: FLOMAX PO SCH (22:24)
[2018-09-16] MEDS: ROBITUSSIN PO PRN (23:44)
[2018-09-17 00:58] LABS: Amorphous Crystals,Urine Few; Bilirubin,Urine NEG (Negative); Blood,Urine SM (Negative); Color,Urine Yellow (Yellow); Protein,Urine <15 mg/dL mg/dL (Negative); Urobilinogen,Urine < 2.0 mg/dL (<2.0)
[2018-09-17] MEDS: ZOSYN/NS 3.375GM/50ML 3.375 GM/50 ML BAG IV SCH ×3 (05:49→21:54)
[2018-09-17 06:26] LABS: Basophils % (Auto) 0.3 % (0.0-1.8); Eosinophils # (Auto) 0.1 K/mm3 (0.0-0.4); Eosinophils % (Auto) 1.4 % (0.0-4.3); Hematocrit 25.8 % (35.5-45.6); Hemoglobin 8.9 gm/dl (11.8-15.2); Lymphocytes # (Auto) 1.2 K/mm3 (1.2-5.4); Mean Corpuscular HGB Conc 34 % (32-34); Mean Corpuscular Volume 91 fl (84-94); Monocytes # (Auto) 1.1 K/mm3 (0.0-0.8); Monocytes % (Auto) 13.5 % (0.0-7.3); Platelet Count 223 K/mm3 (140-440); Red Blood Count 2.84 M/mm3 (3.65-5.03); Red Cell Distribution Width 15.2 % (13.2-15.2)
[2018-09-17 06:35] LABS: INR 1.02 (0.87-1.13)
[2018-09-17 06:45] LABS: BUN/Creatinine Ratio 11; Blood Urea Nitrogen 11 mg/dL (9-20); Calcium 9.3 mg/dL (8.4-10.2); Hemolysis Index 2
[2018-09-17] MEDS: HumaLOG SUB-Q SCH ×4 (08:14→22:06)
[2018-09-17] MEDS: PROSCAR PO SCH (10:15)
[2018-09-17] MEDS: SENOKOT S PO SCH ×2 (10:15→21:55)
[2018-09-17] MEDS: MIRALAX 3350 PO SCH (10:15)
[2018-09-17] MEDS: BENTYL PO SCH ×2 (10:16→21:54)
[2018-09-17] MEDS: COREG PO SCH ×2 (10:16→21:53)
[2018-09-17] MEDS: PEPCID PO SCH ×2 (10:16→21:53)
--- NOTE | 2018-09-17 15:27 | Progress Note ---
Assessment and Plan /Bacteremia - spiked fever since yesterday - cont abx, blood cx +ve for gm +ve bacteria - repeat cx tomorrow /Acute Right Frontal Lobe Ischemic Stroke: - noted echo/carotid result and lipid panel - MRI brain showed pitecheal hemorrhagic transformation - will hold eliquis for now, appreciate neurology recommendation - positive for CVA while patient was on eliquis - s/p SANIYA today showed no thrombus or PFO - discussed with neurology will start on coumadin as he failed eliquis w/o bridging /LLL PE, 08/31/18 CTA chest Impression: Few small pulmonary emboli in the left lower lobe, small right pleural effusion and trace amount of left pleural fluid: patient was placed on Eliquis - now on coumadin per neuro /Type 2 DM: cont ssi, ada diet /Hypertension: cont to monitor, low salt diet /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 CT head reported an acute right fontal lobe infarct (report in the physical chart). Patient was out of the window for tPA and also was on Eliquis. Admitted for management. Hospitalist Physical Gen: thin frail, WDWN, NAD, Awake, Alert, Orientated HEENT: NCAT, EOMI, PERRL, OP Clear Neck: supple, no adenopathy, no thyromegaly, no JVD CVS/Heart: RRR, normal S1S2, pulses present bilaterally Chest/Lungs: CTA B, Symmetrical chest expansion, good air entry bilaterally GI/Abdomen: soft, nd, diffuse nonspecific mild tenderness, good bowel sounds, no guarding or rebound /Bladder: no suprapubic tenderness, no CVA or paraspinal tenderness Extermity/Skin: no c/c/e, no obvious rash MSK: FROM x 4 Neuro: CN 2-12 grossly intact except speech, no new deficits Psych: calm Subjective Date of service: 09/16/18 Principal diagnosis: abd pain, constipation Interval history: Patient was seen and examined. Overnight uneventful. Patient denies any chest pain, shortness breath, nausea/vomiting. no headache. S/p SANIYA today blood cx growing gm +ve cocci Objective - Constitutional Vitals: Vital Signs - 12hr 09/17/18 09/17/18 09/17/18 04:42 08:21 08:22 Temperature 98.6 F 98.8 F Pulse Rate 74 85 Respiratory 18 18 Rate Blood Pressure 125/41 128/49 O2 Sat by Pulse 95 97 Oximetry 09/17/18 09/17/18 09/17/18 10:00 10:16 12:32 Temperature Pulse Rate 80 85 80 Respiratory 18 18 Rate Blood Pressure 128/49 132/55 O2 Sat by Pulse 96 95 Oximetry 09/17/18 12:34 Temperature 98.4 F Pulse Rate Respiratory Rate Blood Pressure O2 Sat by Pulse Oximetry - Labs CBC & Chem 7: 09/17/18 06:09 09/17/18 06:09 Labs: Abnormal lab results 09/16/18 09/16/18 09/16/18 Range/Units 15:53 21:00 22:36 RBC (3.65-5.03) M/mm3 Hgb (11.8-15.2) gm/dl Hct (35.5-45.6) % [place] % (Auto) (0.0-7.3) % [place] # (0.0-0.8) K/mm3 Sodium (137-145) mmol/L Glucose (75-100) mg/dL POC Glucose 178 H 132 H (70-105) Urine WBC (Auto) 8.0 H (0.0-6.0) /HPF 09/17/18 09/17/18 09/17/18 Range/Units 06:09 06:09 12:35 RBC 2.84 L (3.65-5.03) M/mm3 Hgb 8.9 L (11.8-15.2) gm/dl Hct 25.8 L (35.5-45.6) % [place] % (Auto) 13.5 H (0.0-7.3) % [place] # 1.1 H (0.0-0.8) K/mm3 Sodium 134 L (137-145) mmol/L Glucose 145 H (75-100) mg/dL POC Glucose 121 H (70-105) Urine WBC (Auto) (0.0-6.0) /HPF
--- NOTE | 2018-09-17 15:29 | Progress Note ---
Assessment and Plan /Bacteremia - spiked fever on 09/15/18 - cont abx, blood cx +ve for strep B - repeat cx today, ID consult /Acute Right Frontal Lobe Ischemic Stroke: - noted echo/carotid result and lipid panel - MRI brain showed pitecheal hemorrhagic transformation - will hold eliquis for now, appreciate neurology recommendation - positive for CVA while patient was on eliquis - s/p SANIYA 09/16 showed no thrombus or PFO - discussed with neurology and started on coumadin as he failed eliquis w/o bridging /LLL PE, 08/31/18 CTA chest Impression: Few small pulmonary emboli in the left lower lobe, small right pleural effusion and trace amount of left pleural fluid: patient was placed on Eliquis - now on coumadin per neuro /Type 2 DM: cont ssi, ada diet /Hypertension: cont to monitor, low salt diet /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 CT head reported an acute right fontal lobe infarct (report in the physical chart). Patient was out of the window for tPA and also was on Eliquis. Admitted for management. Hospitalist Physical Gen: thin frail, WDWN, NAD, Awake, Alert, Orientated HEENT: NCAT, EOMI, PERRL, OP Clear Neck: supple, no adenopathy, no thyromegaly, no JVD CVS/Heart: RRR, normal S1S2, pulses present bilaterally Chest/Lungs: CTA B, Symmetrical chest expansion, good air entry bilaterally GI/Abdomen: soft, nd, diffuse nonspecific mild tenderness, good bowel sounds, no guarding or rebound /Bladder: no suprapubic tenderness, no CVA or paraspinal tenderness Extermity/Skin: no c/c/e, no obvious rash MSK: FROM x 4 Neuro: CN 2-12 grossly intact except speech, no new deficits Psych: calm Subjective Date of service: 09/17/18 Principal diagnosis: abd pain, constipation Interval history: Patient was seen and examined. Overnight uneventful. Patient denies any chest pain, shortness breath, nausea/vomiting. no headache. S/p SANIYA yesterday blood cx growing strep B Objective - Constitutional Vitals: Vital Signs - 12hr 09/17/18 09/17/18 09/17/18 04:42 08:21 08:22 Temperature 98.6 F 98.8 F Pulse Rate 74 85 Respiratory 18 18 Rate Blood Pressure 125/41 128/49 O2 Sat by Pulse 95 97 Oximetry 09/17/18 09/17/18 09/17/18 10:00 10:16 12:32 Temperature Pulse Rate 80 85 80 Respiratory 18 18 Rate Blood Pressure 128/49 132/55 O2 Sat by Pulse 96 95 Oximetry 09/17/18 12:34 Temperature 98.4 F Pulse Rate Respiratory Rate Blood Pressure O2 Sat by Pulse Oximetry - Labs CBC & Chem 7: 09/17/18 06:09 09/17/18 06:09 Labs: Abnormal lab results 09/16/18 09/16/18 09/16/18 Range/Units 15:53 21:00 22:36 RBC (3.65-5.03) M/mm3 Hgb (11.8-15.2) gm/dl Hct (35.5-45.6) % [place] % (Auto) (0.0-7.3) % [place] # (0.0-0.8) K/mm3 Sodium (137-145) mmol/L Glucose (75-100) mg/dL POC Glucose 178 H 132 H (70-105) Urine WBC (Auto) 8.0 H (0.0-6.0) /HPF 09/17/18 09/17/18 09/17/18 Range/Units 06:09 06:09 12:35 RBC 2.84 L (3.65-5.03) M/mm3 Hgb 8.9 L (11.8-15.2) gm/dl Hct 25.8 L (35.5-45.6) % [place] % (Auto) 13.5 H (0.0-7.3) % [place] # 1.1 H (0.0-0.8) K/mm3 Sodium 134 L (137-145) mmol/L Glucose 145 H (75-100) mg/dL POC Glucose 121 H (70-105) Urine WBC (Auto) (0.0-6.0) /HPF
[2018-09-17] MEDS: COUMADIN PO SCH (17:17)
[2018-09-17] MEDS: ROBITUSSIN PO PRN (21:52)
[2018-09-17] MEDS: FLOMAX PO SCH (21:53)
[2018-09-17] MEDS: NACL 0.9% 1000 ML 1,000 ML IV SCH (21:58)
--- NOTE | 2018-09-17 22:03 | Cat Scan Report ---
FINAL REPORT EXAM: CT ABDOMEN PELVIS WO CON HISTORY: abdominal pain TECHNIQUE: CT abdomen and pelvis oral contrast. No IV contrast administered. PRIORS: Correlated with prior exam August 31, 2018 FINDINGS: There is a wedge-shaped opacity within the right lower lobe which is partially visualized. Pleural ef fusion seen previously is resolved. There is a small pericardial effusion No focal abnormality identified within the liver parenchyma. The spleen demonstrates normal size and attenuation. No pancreatic abnormalities seen. Kidneys demonstrate no evidence of hydronephrosis or nephrolithiasis. No ureteral calculus identified . There is a low-density focus mid right kidney and additional cortical low to intermediate density f ocus lower pole the right kidney with a small peripheral calcification most consistent with cysts and present on the prior exam. The adrenal glands are unremarkable. Abdominal aorta is normal in caliber. No pathologically enlarged lymph nodes are identified. No signs of free fluid or free air No evidence of small bowel dilatation. The appendix is identified and is normal in size no adjacent inflammatory change seen. Oral contrast material present to the level of the mid descending colon. Prostate is enlarged. Urinary bladder is unremarkable. There is small right inguinal hernia containing fatty tissue. No bowel loops or inflammatory change w ithin the hernia sac. IMPRESSION: Wedge-shaped opacity partially visualized in the right lower lobe may reflect residual atelectasis. R ecommend followup CT in approximately 2 months to duct amount of resolution. Right renal cysts Enlarged prostate Small right inguinal hernia
[2018-09-18] MEDS: ZOSYN/NS 3.375GM/50ML 3.375 GM/50 ML BAG IV SCH ×2 (05:41→14:13)
[2018-09-18 05:54] LABS: INR 1.08 (0.87-1.13)
--- NOTE | 2018-09-18 07:38 | Hem/Onc Progress Note ---
Assessment and Plan 1. History of pulmonary embolism. The patient was on Eliquis. 2. Right frontal infarct and then hemorrhage in the same. The patient was on Eliquis. This has been held. Neurology has seen the patient. This becomes a challenging case, most likely Cardiology evaluation will help to see if there is a shunt, which may have caused this embolus evet causing an ischemic stroke. At this time, there is a plan for warfarin anticoagulation. This is again challenging in view of the petechial hemorrhage. Lovenox for short term is an option. 3. Diabetes. 4. Hypertension. 5. Benign prostatic hypertrophy. 6. Abdominal pain issues. We will do hypercoagulable workup, a few as an inpatient and a few as an outpatient. 09/18 pt on coumadin - target INR 2-3 d/w pt that he would need periodic INR - as OP - Patient Problems (1) CVA (cerebral vascular accident) Current Visit: Yes Status: Acute Subjective Date of service: 09/18/18 Principal diagnosis: PE and CVA Interval history: feeling better Objective - Constitutional Vitals: Last Vital Signs Temp 98.8 F 09/18/18 05:17 Pulse 76 09/18/18 05:17 Resp 17 09/18/18 05:17 BP 127/48 09/18/18 05:17 Pulse Ox 96 09/18/18 05:17 Pain Intensity (0-10): denies any pain General appearance: no acute distress Performance status: 3-limited selfcare - EENT Eyes: EOM intact ENT: clear oral mucosa Lymph node exam: negative cervical - Neck Neck: normal ROM - Respiratory Respiratory effort: Positive: normal Respiratory: negative: CTA - Cardiovascular Heart Sounds: Present: S1 & S2 Extremities: No edema - Gastrointestinal General gastrointestinal: Present: soft, non-tender Rectal Exam: deferred - Genitourinary Male genitourinary: Present: deferred - Integumentary Integumentary: warm - Neurologic Neurologic: moves all extremities - Psychiatric Psychiatric: appropriate mood/affect - Labs Lab Results: Laboratory Results - last 24 hr 09/17/18 09/17/18 09/17/18 12:35 16:37 21:30 PT INR POC Glucose 121 H 155 H 174 H 09/18/18 09/18/18 05:18 05:21 PT 14.7 INR 1.08 POC Glucose 162 H Medications & Allergies - Medications Allergies/Adverse Reactions: Allergies No Known Allergies Allergy (Verified 03/12/15 04:05) Home Medications: Home Medications Medication Instructions Recorded Confirmed Last Taken Type Losartan [Cozaar] 1 tab PO DAILY 02/26/15 09/11/18 08/25/18 09:00 History 100mg amLODIPine [Norvasc] 5 mg PO DAILY 02/26/15 09/11/18 02/27/15 06:45 History Finasteride [Proscar] 5 mg PO QDAY #30 tablet 08/27/18 09/11/18 Unknown Rx Apixaban [Eliquis] 10 mg PO BID #12 tablet 09/02/18 09/11/18 Unknown Rx Cyclobenzaprine [Flexeril 10 MG 5 mg PO TID #30 tablet 09/02/18 09/11/18 Unknown Rx TAB] Famotidine [Pepcid] 20 mg PO BID #60 tablet 09/02/18 09/11/18 Unknown Rx Polyethylene Glycol 3350 [Miralax 17 gm PO QDAY #30 powd.pack 09/02/18 09/11/18 Unknown Rx 3350] Sennosides/Docusate [Senokot S] 1 each PO Q12HR #60 tab 09/02/18 09/11/18 Unknown Rx traMADol [Ultram] 50 mg PO Q6HR PRN #14 tablet 09/02/18 09/11/18 Unknown Rx Bisoprolol-Hctz 10-6.25 mg Tab 1 tab PO DAILY 09/11/18 09/11/18 Unknown History Linagliptin [Tradjenta] 1 tab PO DAILY 09/11/18 09/11/18 Unknown History Tamsulosin [Flomax] 0.8 mg PO HS 09/11/18 09/11/18 Unknown History Active Medications: Generic Name Dose Route Start Last Admin Trade Name Freq PRN Reason Stop Dose Admin Acetaminophen 650 mg 09/11/18 22:06 09/15/18 17:26 Tylenol PO 650 mg Q4H PRN Administration Pain, Mild (1-3), fever > 101 Atorvastatin Calcium 40 mg 09/11/18 22:00 09/17/18 21:53 Lipitor PO 40 mg QHS JOZEF Administration Carvedilol 6.25 mg 09/14/18 13:00 09/17/18 21:53 Coreg PO 6.25 mg BID JOZEF Administration Dextrose 50 ml 09/11/18 12:20 D50w (25gm) Syringe IV PRN PRN Hypoglycemia Dicyclomine HCl 20 mg 09/12/18 22:00 09/17/18 21:54 Bentyl PO 20 mg BID JOZEF Administration Famotidine 20 mg 09/11/18 22:00 09/17/18 21:53 Pepcid PO 20 mg BID JOZEF Administration Finasteride 5 mg 09/12/18 10:00 09/17/18 10:15 Proscar PO 5 mg QDAY JOZEF Administration Guaifenesin 200 mg 09/16/18 23:11 09/17/18 21:52 Robitussin PO 200 mg Q4H PRN Administration Cough Hydralazine HCl 10 mg 09/11/18 12:19 Apresoline IV Q4HR PRN Blood Pressure Sodium Chloride 1,000 mls @ 42 mls/hr 09/16/18 10:00 09/17/18 21:58 Nacl 0.9% 1000 Ml IV 42 mls/hr DIRECT JOZEF Administration Piperacillin Sod/Tazobactam Sod 3.375 gm in 50 mls @ 100 mls/hr 09/16/18 14:00 09/18/18 05:41 Zosyn/Ns 3.375gm/50ml IV 100 mls/hr Q8HR JOZEF Administration Protocol Insulin Human Lispro 0 unit 09/11/18 16:30 09/17/18 22:06 Humalog SUB-Q 1 unit ACHS JOZEF Administration Protocol Ondansetron HCl 4 mg 09/11/18 00:45 Zofran IV Q8H PRN Nausea And Vomiting Polyethylene Glycol 17 gm 09/11/18 13:00 09/17/18 10:15 Miralax 3350 PO Not Given QDAY JOZEF Prochlorperazine Maleate 10 mg 09/13/18 17:02 Compazine PO Q6H PRN Nausea And Vomiting Senna/Docusate Sodium 1 tab 09/11/18 22:00 09/17/18 21:55 Senokot S PO Not Given Q12HR JOZEF Tamsulosin HCl 0.8 mg 09/11/18 22:00 09/17/18 21:53 Flomax PO 0.8 mg HS JOZEF Administration Warfarin Sodium 5 mg 09/16/18 17:00 09/17/18 17:17 Coumadin PO 5 mg DAILY@1700 [facility] Administration Protocol
[2018-09-18] MEDS: HumaLOG SUB-Q SCH ×4 (09:05→22:27)
[2018-09-18] MEDS: PEPCID PO SCH ×2 (09:06→22:11)
[2018-09-18] MEDS: PROSCAR PO SCH (09:06)
[2018-09-18] MEDS: BENTYL PO SCH ×2 (09:06→22:10)
[2018-09-18] MEDS: SENOKOT S PO SCH ×2 (09:07→22:10)
[2018-09-18] MEDS: MIRALAX 3350 PO SCH (09:07)
[2018-09-18] MEDS: COREG PO SCH ×2 (09:08→22:11)
--- NOTE | 2018-09-18 09:45 | Progress Note ---
Assessment and Plan /Bacteremia - spiked fever on 09/15/18 - cont abx, blood cx +ve for strep B - ordered repeat cx, ID consulted - SANIYA on 09/16/18 showed no vegetation /Acute Right Frontal Lobe Ischemic Stroke: - noted echo/carotid result and lipid panel - MRI brain showed pitecheal hemorrhagic transformation - will hold eliquis for now, appreciate neurology recommendation - positive for CVA while patient was on eliquis - s/p SANIYA 09/16 showed no throm bus or PFO - discussed with neurology and started on coumadin as he failed eliquis w/o bridging /LLL PE, 08/31/18 CTA chest Impression: Few small pulmonary emboli in the left lower lobe, small right pleural effusion and trace amount of left pleural fluid: patient was placed on Eliquis - now on coumadin per neuro /Type 2 DM: cont ssi, ada diet /Hypertension: cont to monitor, low salt diet /BPH with obstruction in the past: flomax and finasteride /Chronic constipation and chronic abd pains, had normal c-scopy 06/26/18: s/p dulcolax suppository, consulted GI - now having regular BM and repeat CT abdomen w/o any acute finding - If remains symptomatic will do CTA abdomen/pelvis and HIDA scan /DVT prophylaxis: scd Disposition: continue inpatient care, follow SANIYA and heam recommendation Brief History Patient is a 72 yo man with a history of hypertension, BPH, type 2 DM, chronic constipation, chronic abd pains, right leg DVT and recent diagnosis of (08-31-2018) PE on Eliquis, who presents to [facility] ED with slurred speech. CT head reported an acute right fontal lobe infarct (report in the physical chart). Patient was out of the window for tPA and also was on Eliquis. Admitted for management. CT abdomen/pelvis: Wedge-shaped opacity partially visualized in the right lower lobe may reflect residual atelectasis. Recommend followup CT in approximately 2 months to duct amount of resolution. Right renal cysts Enlarged prostate Small right inguinal hernia. MRI brain: 1. A 3 cm x 2 cm subacute right frontal lobe infarct with petechial hemorrhage and/or cortical laminar necrosis in the area of infarct. 2. No evidence of hyperacute or acute infarct. CTA head/neck: 1. No evidence of occlusion, stenosis, dissection or aneurysm of the cervical carotid and vertebral arteries. 2. 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 3. Cervical spondylosis with multiple level canal and foraminal stenosis. Hospitalist Physical Gen: thin frail, WDWN, NAD, Awake, Alert, Orientated HEENT: NCAT, EOMI, PERRL, OP Clear Neck: supple, no adenopathy, no thyromegaly, no JVD CVS/Heart: RRR, normal S1S2, pulses present bilaterally Chest/Lungs: CTA B, Symmetrical chest expansion, good air entry bilaterally GI/Abdomen: soft, nd, diffuse nonspecific mild tenderness, good bowel sounds, no guarding or rebound /Bladder: no suprapubic tenderness, no CVA or paraspinal tenderness Extermity/Skin: no c/c/e, no obvious rash MSK: FROM x 4 Neuro: CN 2-12 grossly intact except speech, no new deficits Psych: calm Subjective Date of service: 09/18/18 Principal diagnosis: abd pain, constipation Interval history: Patient was seen and examined. Overnight uneventful. Patient denies any chest pain, shortness breath, nausea/vomiting. no headache. S/p SANIYA yesterday blood cx growing strep B Discussed with ID, cont to c/o intermittent RLQ abdominal pain Objective - Constitutional Vitals: Vital Signs - 12hr 09/17/18 09/17/18 09/17/18 21:53 22:00 23:43 Temperature 99.1 F Pulse Rate 74 80 Respiratory 17 Rate Respiratory 16 Rate [Abdomen] Blood Pressure 134/49 124/55 O2 Sat by Pulse 95 Oximetry 09/18/18 09/18/18 09/18/18 05:17 08:50 08:52 Temperature 98.8 F 98.2 F Pulse Rate 76 81 Respiratory 17 20 Rate Respiratory Rate [Abdomen] Blood Pressure 127/48 138/58 O2 Sat by Pulse 96 98 Oximetry 09/18/18 09:08 Temperature Pulse Rate 81 Respiratory Rate Respiratory Rate [Abdomen] Blood Pressure 138/58 O2 Sat by Pulse Oximetry - Labs CBC & Chem 7: 09/17/18 06:09 09/17/18 06:09 Labs: Abnormal lab results 09/17/18 09/17/18 09/17/18 Range/Units 12:35 16:37 21:30 POC Glucose 121 H 155 H 174 H (70-105) 09/18/18 Range/Units 05:21 POC Glucose 162 H (70-105)
--- NOTE | 2018-09-18 15:19 | Cat Scan Report ---
FINAL REPORT EXAM: CT HEAD/BRAIN WO CON HISTORY: brain bleed TECHNIQUE: CT of the head was performed without intravenous contrast. PRIORS: CT of the head from 09/10/2018. FINDINGS: The ventricles are normal in shape and position. The ventricles are nondilated. No acute intracrania l hemorrhage, mass or mass effect. Evolving right frontal lobe infarct is noted. The basilar cisterns are patent. The paranasal sinuses are clear. The extracranial soft tissues demonstrate no abnormality. The calvar ium is intact. The orbits are intact. The mastoid air cells are clear. IMPRESSION: Interval evolution of the right frontal lobe infarct. No acute intracranial hemorrhage.
--- NOTE | 2018-09-18 16:18 | Consultation ---
History of Present Illness - Reason for Consult Consult date: 09/18/18 bacteremia Requesting physician: CHRISTIANO SEBASTIAN - History of Present Illness 72 y/o male with history of hypertension, BPH, type 2 DM, chronic constipation, chronic abdominal pains, right leg DVT and recent PE on Eliquis; admitted on 09/10/2018 due to slurred speech. Patient reports chronic periumbilical abdominal pain for which he has been admitted twice in the recent past. He has had abdominal CT and colonoscopies all normal. In the ED, temp 97.8, HR 81, BP 147/50, R 18. WBC 7.8. Hg 10.8. Plat 353. Creat 1. Glu 156. CRP 9. Blood cultures 09/15/2018 Strep B 3 of 4 bottles. Repeat blood culture negative. CT head reported an acute right fontal lobe infarct. Patient was out of the window for tPA and also was on Eliquis. CT abdomen/pelvis showed wedge-shaped opacity partially visualized in the right lower lobe may reflect residual atelectasis. Right renal cysts Enlarged prostate Small right inguinal hernia. MRI brain demonstrated a 3 cm x 2 cm subacute right frontal lobe infarct with petechial hemorrhage and/or cortical laminar necrosis in the area of infarct. 2. No evidence of hyperacute or acute infarct. Review of Systems: General: + fever, chills, nightsweats, unintentional weight change, or change in appetite Cutaneous: no rash, pruritus Head: no headaches or injury Eyes: no changes in vision, eye pain, double vision Ears: no ear pain, ear discharge, ringing or hearing loss Nose: no nose bleeding, stuffiness Mouth & throat: no bleeding gums, no horseness, no dental problems, or swollen glands Neck: no pain, node enlargement/lumps, tyroid enlargement or tenderness Respiratory: no cough, wheezing, sputum, hemoptysis, pleuritic chest pain Cardiovascular: no chest pain, leg edema, cyanosis, RASMUSSEN, orthopnea Musculoskeletal: no decreased joint motion, bone or joint pain, joint swelling, muscle aches Gastrointestinal: no nausea, vomiting, hematemesis, diarrhea, constipation, melena, bright red blood in stools, fecal incontinence, jaundice, +abd pain Genitourinary/Reproductive: no frequent urination, dysuria, hematuria, incontinence Neurogical: no seizures, no headaches, no weakness, no paresthesias, +slurred speech. No visual changes; no memory loss, no vertigo, no tremors, no numbness Psychiatric: stable mood; no excessive anxiety, sadness or moodiness Past History Past Medical History: anemia, diabetes (borderline), hypertension, pulmonary embolism, other (BPH. 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 denies: smoking (quit 35 years ago.), prescription drug abuse, IV drug use (no illicit drugs.) Family history: no significant family history, diabetes (father), hypertension (brother), other (negative for epilepsy.). denies: stroke Medications and Allergies Allergies Allergy/AdvReac Type Severity Reaction Status Date / Time No Known Allergies Allergy Verified 03/12/15 04:05 Home Medications Medication Instructions Recorded Confirmed Last Taken Type Losartan [Cozaar] 1 tab PO DAILY 02/26/15 09/11/18 08/25/18 09:00 History 100mg amLODIPine [Norvasc] 5 mg PO DAILY 02/26/15 09/11/18 02/27/15 06:45 History Finasteride [Proscar] 5 mg PO QDAY #30 tablet 08/27/18 09/11/18 Unknown Rx Apixaban [Eliquis] 10 mg PO BID #12 tablet 09/02/18 09/11/18 Unknown Rx Cyclobenzaprine [Flexeril 10 MG 5 mg PO TID #30 tablet 09/02/18 09/11/18 Unknown Rx TAB] Famotidine [Pepcid] 20 mg PO BID #60 tablet 09/02/18 09/11/18 Unknown Rx Polyethylene Glycol 3350 [Miralax 17 gm PO QDAY #30 powd.pack 09/02/18 09/11/18 Unknown Rx 3350] Sennosides/Docusate [Senokot S] 1 each PO Q12HR #60 tab 09/02/18 09/11/18 Unknown Rx traMADol [Ultram] 50 mg PO Q6HR PRN #14 tablet 09/02/18 09/11/18 Unknown Rx Bisoprolol-Hctz 10-6.25 mg Tab 1 tab PO DAILY 09/11/18 09/11/18 Unknown History Linagliptin [Tradjenta] 1 tab PO DAILY 09/11/18 09/11/18 Unknown History Tamsulosin [Flomax] 0.8 mg PO HS 09/11/18 09/11/18 Unknown History Active Meds: Active Medications Acetaminophen (Tylenol) 650 mg PO Q4H PRN PRN Reason: Pain, Mild (1-3), fever > 101 Last Admin: 09/15/18 17:26 Dose: 650 mg Documented by: Atorvastatin Calcium (Lipitor) 40 mg PO QHS [facility] Last Admin: 09/17/18 21:53 Dose: 40 mg Documented by: Carvedilol (Coreg) 6.25 mg PO BID [facility] Last Admin: 09/18/18 09:08 Dose: 6.25 mg Documented by: Dextrose (D50w (25gm) Syringe) 50 ml IV PRN PRN PRN Reason: Hypoglycemia Dicyclomine HCl (Bentyl) 20 mg PO BID [facility] Last Admin: 09/18/18 09:06 Dose: 20 mg Documented by: Famotidine (Pepcid) 20 mg PO BID [facility] Last Admin: 09/18/18 09:06 Dose: 20 mg Documented by: Finasteride (Proscar) 5 mg PO QDAY [facility] Last Admin: 09/18/18 09:06 Dose: 5 mg Documented by: Guaifenesin (Robitussin) 200 mg PO Q4H PRN PRN Reason: Cough Last Admin: 09/17/18 21:52 Dose: 200 mg Documented by: Hydralazine HCl (Apresoline) 10 mg IV Q4HR PRN PRN Reason: Blood Pressure Piperacillin Sod/Tazobactam Sod (Zosyn/Ns 3.375gm/50ml) 3.375 gm in 50 mls @ 100 mls/hr IV Q8HR [facility]; Protocol Last Admin: 09/18/18 14:13 Dose: 100 mls/hr Documented by: Insulin Human Lispro (Humalog) 0 unit SUB-Q ACHS [facility]; Protocol Last Admin: 09/18/18 12:31 Dose: 1 unit Documented by: Ondansetron HCl (Zofran) 4 mg IV Q8H PRN PRN Reason: Nausea And Vomiting Polyethylene Glycol (Miralax 3350) 17 gm PO QDAY [facility] Last Admin: 09/18/18 09:07 Dose: Not Given Documented by: Prochlorperazine Maleate (Compazine) 10 mg PO Q6H PRN PRN Reason: Nausea And Vomiting Senna/Docusate Sodium (Senokot S) 1 tab PO Q12HR [facility] Last Admin: 09/18/18 09:07 Dose: Not Given Documented by: Tamsulosin HCl (Flomax) 0.8 mg PO HS [facility] Last Admin: 09/17/18 21:53 Dose: 0.8 mg Documented by: Warfarin Sodium (Coumadin) 10 mg PO DAILY@1700 JOZEF Physical Examination - Physical Exam Narrative exam: General appearance: Alert in NAD, conversant Eyes: anicteric sclerae, moist conjunctivae; no lid-lag; PERRLA HENT: Atraumatic; oropharynx clear with moist mucous membranes and no mucosal ulcerations/no oral thrush; normal hard and soft palate. Normal external ears. Neck: Trachea midline; supple, no thyromegaly or lymphadenopathy Lungs: CTA, with normal respiratory effort and no intercostal retractions CV: RRR, no murmurs Abdomen: Soft, non-tender; no masses or hepatosplenomegaly Extremities: No peripheral edema or extremity lymphadenopathy Skin: Normal temperature, turgor and texture; no rash, ulcers or subcutaneous nodules Psych: Appropriate affect, alert and oriented to person, place and time. Neuro: alert and oriented x 3. Moving all extermities - Constitutional Vitals: Vital Signs Temp Pulse Resp BP Pulse Ox 98.2 F 76 20 138/58 96 09/18/18 11:47 09/18/18 10:00 09/18/18 08:50 09/18/18 09:08 09/18/18 10:00 Temperature -Last 24 Hours Temperature 98.2 F Temperature 98.2 F Temperature 98.8 F Temperature 99.1 F Temperature 98.8 F Temperature 97.6 F Results - Labs CBC & Chem 7: 09/17/18 06:09 09/17/18 06:09 Labs: Abnormal lab results 09/17/18 09/17/18 09/18/18 Range/Units 16:37 21:30 05:21 POC Glucose 155 H 174 H 162 H (70-105) 09/18/18 Range/Units 11:48 POC Glucose 151 H (70-105) Assessment and Plan Cultures: Blood cultures 09/15/2018 Strep B 3 of 4 bottles. Blood cultures 09/17/2018 no growth Assessment: 72 y/o male with history of hypertension, BPH, type 2 DM, chronic constipation, chronic abdominal pains, right leg DVT and recent PE on Eliquis; admitted on 09/10/2018 due to slurred speech. Patient reports chronic periumbilical abdominal pain for which he has been admitted twice in the recent past. He has had abdominal CT and colonoscopies all normal. He was admitted afebrile but on 09/15/2018 he spiked at 102 fever: 1) Sepsis: NOT Present on admission, manifested by fever, tachycardia. Etiology most likely Strep B bacteremia. 2) Strep group B bacteremia: not present on admission ? unclear etiology ?line infection. UA x 2 negative. CXR neg. No wound. No intravascular devices. 3) Acute right fontal lobe infarct. Patient was out of the window for tPA and also was on Eliquis. MRI brain demonstrated a 3 cm x 2 cm subacute right frontal lobe infarct with petechial hemorrhage and/or cortical laminar necrosis in the area of infarct. 2. No evidence of hyperacute or acute infarct. 4) Persistent abdominal pain: CT abdomen/pelvis showed wedge-shaped opacity partially visualized in the right lower lobe may reflect residual atelectasis. Right renal cysts Enlarged prostate Small right inguinal hernia. ? constipation ? BPH Recommendations: - follow-up repeat blood cultures - stop zosyn - start cefazolin 2 gm IV q8h - check TTE Will follow. Cecilia Sen MD Infectious Diseases Head [facility] ([facility]) M [phone] O [phone]
[2018-09-18] MEDS: COUMADIN PO SCH (17:14)
[2018-09-18] MEDS: ROBITUSSIN PO PRN (22:11)
[2018-09-18] MEDS: FLOMAX PO SCH (22:11)
[2018-09-18] MEDS: ceFAZolin 2 GM in NACL 0.9% 100 ML IV SCH (22:42)
[2018-09-19] MEDS: ceFAZolin 2 GM in NACL 0.9% 100 ML IV SCH ×3 (05:37→21:37)
[2018-09-19 06:09] LABS: INR 1.17 (0.87-1.13)
--- NOTE | 2018-09-19 07:26 | Hem/Onc Progress Note ---
Assessment and Plan 1. History of pulmonary embolism. The patient was on Eliquis. 2. Right frontal infarct and then hemorrhage in the same. The patient was on Eliquis. This has been held. Neurology has seen the patient. This becomes a challenging case, most likely Cardiology evaluation will help to see if there is a shunt, which may have caused this embolus evet causing an ischemic stroke. At this time, there is a plan for warfarin anticoagulation. This is again challenging in view of the petechial hemorrhage. Lovenox for short term is an option. 3. Diabetes. 4. Hypertension. 5. Benign prostatic hypertrophy. 6. Abdominal pain issues. We will do hypercoagulable workup, a few as an inpatient and a few as an outpatient. 09/18 pt on coumadin - target INR 2-3 d/w pt that he would need periodic INR - as OP 09/19 - abdo pain - Ct abdo nil acute - cause unclear pharmacy dosing coumdain - Patient Problems (1) CVA (cerebral vascular accident) Current Visit: Yes Status: Acute Subjective Date of service: 09/19/18 Principal diagnosis: abdo pain Interval history: c/o abdo pain - also when he has a BM - no related to cough Objective - Constitutional Vitals: Last Vital Signs Temp 98.9 F 09/18/18 19:45 Pulse 74 09/18/18 22:00 Resp 17 09/18/18 19:45 BP 151/63 09/18/18 19:45 Pulse Ox 95 09/18/18 19:45 Pain Intensity (0-10): 2/10 (abdo) General appearance: no acute distress Performance status: 3-limited selfcare - EENT Eyes: EOM intact ENT: clear oral mucosa Lymph node exam: negative cervical - Neck Neck: normal ROM - Respiratory Respiratory effort: Positive: normal Respiratory: bilateral: CTA - Cardiovascular Heart Sounds: Present: S1 & S2 Extremities: No edema - Gastrointestinal General gastrointestinal: Present: soft, non-tender Rectal Exam: deferred - Genitourinary Male genitourinary: Present: deferred - Integumentary Integumentary: warm - Musculoskeletal Musculoskeletal: strength equal bilaterally - Neurologic Neurologic: moves all extremities - Labs Lab Results: Laboratory Results - last 24 hr 09/18/18 09/18/18 09/18/18 11:48 16:35 21:29 PT INR POC Glucose 151 H 151 H 216 H 09/19/18 09/19/18 05:52 05:53 PT 15.7 H INR 1.17 H POC Glucose 151 H Medications & Allergies - Medications Allergies/Adverse Reactions: Allergies No Known Allergies Allergy (Verified 03/12/15 04:05) Home Medications: Home Medications Medication Instructions Recorded Confirmed Last Taken Type Losartan [Cozaar] 1 tab PO DAILY 02/26/15 09/11/18 08/25/18 09:00 History 100mg amLODIPine [Norvasc] 5 mg PO DAILY 02/26/15 09/11/18 02/27/15 06:45 History Finasteride [Proscar] 5 mg PO QDAY #30 tablet 08/27/18 09/11/18 Unknown Rx Apixaban [Eliquis] 10 mg PO BID #12 tablet 09/02/18 09/11/18 Unknown Rx Cyclobenzaprine [Flexeril 10 MG 5 mg PO TID #30 tablet 09/02/18 09/11/18 Unknown Rx TAB] Famotidine [Pepcid] 20 mg PO BID #60 tablet 09/02/18 09/11/18 Unknown Rx Polyethylene Glycol 3350 [Miralax 17 gm PO QDAY #30 powd.pack 09/02/18 09/11/18 Unknown Rx 3350] Sennosides/Docusate [Senokot S] 1 each PO Q12HR #60 tab 09/02/18 09/11/18 Unknown Rx traMADol [Ultram] 50 mg PO Q6HR PRN #14 tablet 09/02/18 09/11/18 Unknown Rx Bisoprolol-Hctz 10-6.25 mg Tab 1 tab PO DAILY 09/11/18 09/11/18 Unknown History Linagliptin [Tradjenta] 1 tab PO DAILY 09/11/18 09/11/18 Unknown History Tamsulosin [Flomax] 0.8 mg PO HS 09/11/18 09/11/18 Unknown History Active Medications: Generic Name Dose Route Start Last Admin Trade Name Freq PRN Reason Stop Dose Admin Acetaminophen 650 mg 09/11/18 22:06 09/15/18 17:26 Tylenol PO 650 mg Q4H PRN Administration Pain, Mild (1-3), fever > 101 Atorvastatin Calcium 40 mg 09/11/18 22:00 09/18/18 22:11 Lipitor PO 40 mg QHS JOZEF Administration Carvedilol 6.25 mg 09/14/18 13:00 09/18/18 22:11 Coreg PO 6.25 mg BID JOZEF Administration Dextrose 50 ml 09/11/18 12:20 D50w (25gm) Syringe IV PRN PRN Hypoglycemia Dicyclomine HCl 20 mg 09/12/18 22:00 09/18/18 22:10 Bentyl PO 20 mg BID JOZEF Administration Famotidine 20 mg 09/11/18 22:00 09/18/18 22:11 Pepcid PO 20 mg BID JOZEF Administration Finasteride 5 mg 09/12/18 10:00 09/18/18 09:06 Proscar PO 5 mg QDAY JOZEF Administration Guaifenesin 200 mg 09/16/18 23:11 09/18/18 22:11 Robitussin PO 200 mg Q4H PRN Administration Cough Hydralazine HCl 10 mg 09/11/18 12:19 Apresoline IV Q4HR PRN Blood Pressure Cefazolin Sodium 2 gm/ Sodium 100 mls @ 200 mls/hr 09/18/18 22:00 09/19/18 05:37 Chloride IV 200 mls/hr Q8HR JOZEF Administration Insulin Human Lispro 0 unit 09/11/18 16:30 09/18/18 22:27 Humalog SUB-Q 2 unit ACHS JOZEF Administration Protocol Ondansetron HCl 4 mg 09/11/18 00:45 Zofran IV Q8H PRN Nausea And Vomiting Polyethylene Glycol 17 gm 09/11/18 13:00 09/18/18 09:07 Miralax 3350 PO Not Given QDAY JOZEF Prochlorperazine Maleate 10 mg 09/13/18 17:02 Compazine PO Q6H PRN Nausea And Vomiting Senna/Docusate Sodium 1 tab 09/11/18 22:00 09/18/18 22:10 Senokot S PO 1 tab Q12HR JOZEF Administration Tamsulosin HCl 0.8 mg 09/11/18 22:00 09/18/18 22:11 Flomax PO 0.8 mg HS JOZEF Administration Warfarin Sodium 10 mg 09/18/18 17:00 09/18/18 17:14 Coumadin PO 10 mg DAILY@1700 JOZEF Administration
[2018-09-19] MEDS: HumaLOG SUB-Q SCH ×4 (07:37→21:37)
--- NOTE | 2018-09-19 10:35 | Progress Note ---
Addendum entered and electronically signed by MIGUEL ANGEL CLANCY NP 09/19/18 16:10: [facility] denied, will send OPAT to case management. Addendum entered and electronically signed by MIGUEL ANGEL CLANCY NP 09/19/18 14:33: Antibiotic order sent to [facility] for approval. Original Note: Assessment and Plan Cultures: Blood cultures 09/15/2018 Strep B 3 of 4 bottles. Blood cultures 09/17/2018 no growth Assessment: 72 y/o male with history of hypertension, BPH, type 2 DM, chronic constipation, chronic abdominal pains, right leg DVT and recent PE on Eliquis; admitted on due to slurred speech. Patient reports chronic periumbilical abdominal pain for which he has been admitted twice in the recent past. He has had abdominal CT and colonoscopies all normal. He was admitted afebrile but on 09/15/2018 he spiked at 102 fever: 1) Sepsis: NOT Present on admission, manifested by fever, tachycardia. Etiology most likely Strep B bacteremia. 2) Strep group B bacteremia: not present on admission ? unclear etiology ?line infection (had a left arm PIV that got infiltrated). UA x 2 negative. CXR neg. No wound. No intravascular devices. TTE no vegetations. 3) Acute right fontal lobe infarct. Patient was out of the window for tPA and also was on Eliquis. MRI brain demonstrated a 3 cm x 2 cm subacute right frontal lobe infarct with petechial hemorrhage and/or cortical laminar necrosis in the area of infarct. 2. No evidence of hyperacute or acute infarct. 4) Persistent abdominal pain: CT abdomen/pelvis showed wedge-shaped opacity partially visualized in the right lower lobe may reflect residual atelectasis. Right renal cysts Enlarged prostate Small right inguinal hernia. ? constipation ? BPH ?bowel ischemia ? cholecystitis Recommendations: - follow-up repeat blood cultures - continue cefazolin 2 gm IV q8h D2 - consider HIDA scan and abdominal CTA in light of persistent abd pain - CRP/C3/C4/lactate/DENNISE - at discharge will do ceftriaxone 2 gm IV qday total 14 days until 10/01/2018 via midline Discussed with Dr Gutierrez Will follow. Cecilia Sen MD Infectious Diseases Athletic [facility] ([facility]) M [phone] O [phone] Subjective Date of service: 09/19/18 Principal diagnosis: abdo pain Interval history: Remains c/o 9 of 10 abdominal pain, no fever. ROS: as above rest neg Objective - Exam Narrative Exam: General appearance: Alert in NAD, conversant Eyes: anicteric sclerae, moist conjunctivae; no lid-lag; PERRLA HENT: Atraumatic; oropharynx clear with moist mucous membranes and no mucosal ulcerations/no oral thrush; normal hard and soft palate. Normal external ears. Neck: Trachea midline; supple, no thyromegaly or lymphadenopathy Lungs: CTA, with normal respiratory effort and no intercostal retractions CV: RRR, no murmurs Abdomen: Soft,Mild tender to pal R flank Extremities: No peripheral edema or extremity lymphadenopathy Skin: Normal temperature, turgor and texture; no rash, ulcers or subcutaneous nodules Psych: Appropriate affect, alert and oriented to person, place and time. Neuro: alert and oriented x 3. Moving all extermities - Constitutional Vitals: Vital Signs Temp Pulse Resp BP Pulse Ox 98.3 F 78 18 138/57 96 09/19/18 08:33 09/19/18 08:34 09/19/18 08:34 09/19/18 08:34 09/19/18 08:34 Temperature -Last 24 Hours Temperature 98.3 F Temperature 98.6 F Temperature 98.6 F Temperature 98.9 F Temperature 98.2 F Temperature 98.2 F - Labs CBC & Chem 7: 09/17/18 06:09 09/17/18 06:09 Labs: Abnormal lab results 09/18/18 09/18/18 09/18/18 Range/Units 11:48 16:35 21:29 PT (12.2-14.9) Sec. INR (0.87-1.13) POC Glucose 151 H 151 H 216 H (70-105) 09/19/18 09/19/18 Range/Units 05:52 05:53 PT 15.7 H (12.2-14.9) Sec. INR 1.17 H (0.87-1.13) POC Glucose 151 H (70-105)
[2018-09-19] MEDS: PEPCID PO SCH ×2 (10:38→21:35)
[2018-09-19] MEDS: COREG PO SCH ×2 (10:38→21:35)
[2018-09-19] MEDS: BENTYL PO SCH ×2 (10:38→21:34)
[2018-09-19] MEDS: PROSCAR PO SCH (10:38)
[2018-09-19] MEDS: SENOKOT S PO SCH ×2 (10:39→21:34)
[2018-09-19] MEDS: MIRALAX 3350 PO SCH (10:39)
[2018-09-19 14:54] LABS: Hematocrit 28.8 % (35.5-45.6); Hemoglobin 9.7 gm/dl (11.8-15.2); Mean Corpuscular HGB Conc 34 % (32-34); Mean Corpuscular Volume 93 fl (84-94); Platelet Count 317 K/mm3 (140-440); Red Blood Count 3.09 M/mm3 (3.65-5.03); Red Cell Distribution Width 15.7 % (13.2-15.2)
[2018-09-19 15:15] LABS: BUN/Creatinine Ratio 10; Blood Urea Nitrogen 9 mg/dL (9-20); Hemolysis Index 4
--- NOTE | 2018-09-19 16:46 | Progress Note ---
Assessment and Plan /Acute on Chronic constipation and chronic abd pains, had normal c-scopy 06/26/18: s/p dulcolax suppository, consulted GI - now having regular BM and repeat CT abdomen w/o any acute finding - Remains symptomatic will do CTA abdomen/pelvis and HIDA scan /Acute Right Frontal Lobe Ischemic Stroke: - noted echo/carotid result and lipid panel - MRI brain showed pitecheal hemorrhagic transformation - Repeat CT head stable, - positive for CVA while patient was on eliquis - s/p SANIYA 09/16 showed no thrombus or PFO - discussed with neurology and started on coumadin as he failed eliquis, w/o bridging as MRI showed pitecheal hemorrhagic transformation /Bacteremia - spiked fever on 09/15/18 - cont abx, blood cx +ve for strep B - ordered repeat cx, ID consulted - SANIYA on 09/16/18 showed no vegetation - will need two weeks of IV abx /LLL PE, 08/31/18 CTA chest Impression: Few small pulmonary emboli in the left lower lobe, small right pleural effusion and trace amount of left pleural fluid: patient was placed on Eliquis - now on coumadin per neuro /Type 2 DM: cont ssi, ada diet /Hypertension: cont to monitor, low salt diet /BPH with obstruction in the past: flomax and finasteride /DVT prophylaxis: scd/coumadin Disposition: continue inpatient care, follow CTA abdomen and HIDA scan. Will need 2 weeks of IV abx per ID recommendation on discharge. Brief History Patient is a 72 yo man with a history of hypertension, BPH, type 2 DM, chronic constipation, chronic abd pains, right leg DVT and recent diagnosis of (08-31-2018) PE on Eliquis, who presents to [facility] ED with worsening abdominal pain and noted to have slurred speech. CT head reported an acute right fontal lobe infarct (report in the physical chart). Patient was out of the window for tPA and also was on Eliquis. Admitted for further management. CT abdomen/pelvis: Wedge-shaped opacity partially visualized in the right lower lobe may reflect residual atelectasis. Recommend followup CT in approximately 2 months to duct amount of resolution. Right renal cysts Enlarged prostate Small right inguinal hernia. MRI brain: 1. A 3 cm x 2 cm subacute right frontal lobe infarct with petechial hemorrhage and/or cortical laminar necrosis in the area of infarct. 2. No evidence of hyperacute or acute infarct. CTA head/neck: 1. No evidence of occlusion, stenosis, dissection or aneurysm of the cervical carotid and vertebral arteries. 2. 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 3. Cervical spondylosis with multiple level canal and foraminal stenosis. Hospitalist Physical Gen: thin frail, WDWN, NAD, Awake, Alert, Orientated HEENT: NCAT, EOMI, PERRL, OP Clear Neck: supple, no adenopathy, no thyromegaly, no JVD CVS/Heart: RRR, normal S1S2, pulses present bilaterally Chest/Lungs: CTA B, Symmetrical chest expansion, good air entry bilaterally GI/Abdomen: soft, nd, diffuse nonspecific mild tenderness, good bowel sounds, no guarding or rebound Extermity/Skin: no c/c/e, no obvious rash MSK: FROM x 4 Neuro: CN 2-12 grossly intact except speech, no new deficits Psych: calm Subjective Date of service: 09/19/18 Principal diagnosis: abd pain, constipation Interval history: Patient was seen and examined. Overnight uneventful. Patient denies any chest pain, shortness breath, nausea/vomiting. no headache. afebrile blood cx growing strep B Discussed with ID, cont to c/o intermittent RLQ abdominal pain Objective - Constitutional Vitals: Vital Signs - 12hr 09/19/18 09/19/18 09/19/18 05:48 08:33 08:34 Temperature 98.6 F 98.3 F Pulse Rate 71 78 Pulse Rate [ From Monitor] Respiratory 17 18 Rate Blood Pressure 129/49 138/57 O2 Sat by Pulse 93 96 Oximetry 09/19/18 09/19/18 09/19/18 10:00 15:58 16:01 Temperature 98.3 F Pulse Rate 74 77 Pulse Rate [ 78 From Monitor] Respiratory 18 20 Rate Blood Pressure 143/55 O2 Sat by Pulse 96 99 Oximetry - Labs CBC & Chem 7: 09/19/18 14:34 09/19/18 14:34 Labs: Abnormal lab results 09/18/18 09/18/18 09/19/18 Range/Units 16:35 21:29 05:52 RBC (3.65-5.03) M/mm3 Hgb (11.8-15.2) gm/dl Hct (35.5-45.6) % RDW (13.2-15.2) % PT 15.7 H (12.2-14.9) Sec. INR 1.17 H (0.87-1.13) Glucose (75-100) mg/dL POC Glucose 151 H 216 H (70-105) C-Reactive Protein (0.00-1.30) mg/dL 09/19/18 09/19/18 09/19/18 Range/Units 05:53 11:06 12:30 RBC (3.65-5.03) M/mm3 Hgb (11.8-15.2) gm/dl Hct (35.5-45.6) % RDW (13.2-15.2) % PT (12.2-14.9) Sec. INR (0.87-1.13) Glucose (75-100) mg/dL POC Glucose 151 H 242 H (70-105) C-Reactive Protein 8.70 H (0.00-1.30) mg/dL 09/19/18 09/19/18 Range/Units 14:34 14:34 RBC 3.09 L (3.65-5.03) M/mm3 Hgb 9.7 L (11.8-15.2) gm/dl Hct 28.8 L (35.5-45.6) % RDW 15.7 H (13.2-15.2) % PT (12.2-14.9) Sec. INR (0.87-1.13) Glucose 105 H (75-100) mg/dL POC Glucose (70-105) C-Reactive Protein (0.00-1.30) mg/dL
[2018-09-19] MEDS: COUMADIN PO SCH (17:10)
--- NOTE | 2018-09-19 20:10 | Cat Scan Report ---
FINAL REPORT EXAM: CT ANGIO ABDOMEN PELVIS HISTORY: RLQ pain patient's nurse reports that he is complaining of "stomach pain". TECHNIQUE: Following oral administration of GI contrast and administration of IV contrast axial devaughn jordyn imaging was performed through the abdomen and pelvis with sagittal and coronal reformatted images and maximum intensity projection images obtained. Comparison: CT abdomen and pelvis dated September 17, 2018 FINDINGS: There appears to be a small pericardial fluid collection that has increased in size in the interval. Heart appears to be enlarged. There appears to be a small right subpulmonic fluid collection that is new in the interval. The spleen, pancreas and adrenal glands are unremarkable. The gallbladder is mildly distended and unremarkable. There is a right renal cyst that is not significantly changed in size. The kidneys are otherwise unre markable. The bowel is normal caliber. There is a small midline abdominal wall hernia that contains a nondistended segment of transverse col on. There is no evidence of pneumoperitoneum. The appendix is normal caliber. The abdominal aorta is normal caliber. There is normal enhancement of the major intra-abdominal branc hes and of the iliac arteries without evidence of occlusion, significant stenosis or aneurysm. There is no evidence of intra-abdominal adenopathy. The urinary bladder is moderately distended. The prostate gland is enlarged with maximal axial dimension of 6.7 centimeters. There are small bilateral inguinal hernias that contain fat. The bony structures are notable for bilateral L5 spondylolysis with grade 1 anterolisthesis of L5 on S1 and marked degenerative disc and endplate change at this level. IMPRESSION: 1. Interval increase in size of small pericardial fluid collection. 2. Interval development of a small right subpulmonic fluid collection. 3. Marked enlargement of the prostate gland. 4. Bilateral L5 spondylolysis with grade 1 anterolisthesis of L5 on S1 and marked degenerative disc a nd endplate change L5-S1. 5. Small umbilical hernia that contains a nondistended segment of transverse colon.
[2018-09-19] MEDS: FLOMAX PO SCH (21:34)
[2018-09-19] MEDS: ROBITUSSIN PO PRN (21:34)
[2018-09-19] MEDS: TYLENOL PO PRN (21:36)
[2018-09-20] MEDS: ceFAZolin 2 GM in NACL 0.9% 100 ML IV SCH ×3 (05:06→22:37)
--- NOTE | 2018-09-20 07:35 | Hem/Onc Progress Note ---
Assessment and Plan 1. History of pulmonary embolism. The patient was on Eliquis. 2. Right frontal infarct and then hemorrhage in the same. The patient was on Eliquis. This has been held. Neurology has seen the patient. This becomes a challenging case, most likely Cardiology evaluation will help to see if there is a shunt, which may have caused this embolus evet causing an ischemic stroke. At this time, there is a plan for warfarin anticoagulation. This is again challenging in view of the petechial hemorrhage. Lovenox for short term is an option. 3. Diabetes. 4. Hypertension. 5. Benign prostatic hypertrophy. 6. Abdominal pain issues. We will do hypercoagulable workup, a few as an inpatient and a few as an outpatient. 09/18 pt on coumadin - target INR 2-3 d/w pt that he would need periodic INR - as OP 09/19 - abdo pain - Ct abdo nil acute - cause unclear pharmacy dosing coumdain 09/20 - pt had CTA abdo - small umbilcal hernia - the cause of the abdo pain is unclear - dr paige was looking into shingles - but after 2 weeks of pain - no rash umblical hernia - ? spine related? pt on coumadin - pharmacy dosing - INr 1.3 - Patient Problems (1) CVA (cerebral vascular accident) Current Visit: Yes Status: Acute Subjective Date of service: 09/20/18 Principal diagnosis: cva - Pe and abdo pain Interval history: c/o abdo pain - pt had CTA abdo Objective - Constitutional Vitals: Last Vital Signs Temp 98.0 F 09/20/18 03:32 Pulse 64 09/20/18 03:32 Resp 18 09/20/18 03:32 BP 142/60 09/20/18 03:32 Pulse Ox 96 09/20/18 03:32 Pain Intensity (0-10): 2/10 (abdo) General appearance: mild distress Performance status: 3-limited selfcare - EENT Eyes: EOM intact ENT: clear oral mucosa Lymph node exam: negative cervical - Neck Neck: normal ROM - Respiratory Respiratory effort: Positive: normal Respiratory: bilateral: CTA - Cardiovascular Heart Sounds: Present: S1 & S2 Extremities: No edema - Gastrointestinal General gastrointestinal: Present: soft Rectal Exam: deferred - Genitourinary Male genitourinary: Present: deferred - Integumentary Integumentary: warm - Musculoskeletal Musculoskeletal: strength equal bilaterally - Neurologic Neurologic: moves all extremities - Labs Lab Results: Laboratory Results - last 24 hr 09/19/18 09/19/18 09/19/18 11:06 11:06 11:06 WBC RBC Hgb Hct MCV MCH MCHC RDW Plt Count Sodium Potassium Chloride Carbon Dioxide Anion Gap BUN Creatinine Estimated GFR BUN/Creatinine Ratio Glucose POC Glucose Lactic Acid 1.70 Calcium C-Reactive Protein 8.70 H Lipase 37 09/19/18 09/19/18 09/19/18 12:30 14:34 14:34 WBC 9.8 RBC 3.09 L Hgb 9.7 L Hct 28.8 L MCV 93 MCH 32 MCHC 34 RDW 15.7 H Plt Count 317 Sodium 139 Potassium 4.1 Chloride 100.4 Carbon Dioxide 26 Anion Gap 17 BUN 9 Creatinine 0.9 Estimated GFR > 60 BUN/Creatinine Ratio 10 Glucose 105 H POC Glucose 242 H Lactic Acid Calcium 10.0 C-Reactive Protein Lipase 09/19/18 09/19/18 09/19/18 14:34 15:58 20:40 WBC RBC Hgb Hct MCV MCH MCHC RDW Plt Count Sodium Potassium Chloride Carbon Dioxide Anion Gap BUN Creatinine Estimated GFR BUN/Creatinine Ratio Glucose POC Glucose 130 H 251 H Lactic Acid 1.10 Calcium C-Reactive Protein Lipase Medications & Allergies - Medications Allergies/Adverse Reactions: Allergies No Known Allergies Allergy (Verified 03/12/15 04:05) Home Medications: Home Medications Medication Instructions Recorded Confirmed Last Taken Type Losartan [Cozaar] 1 tab PO DAILY 02/26/15 09/11/18 08/25/18 09:00 History 100mg amLODIPine [Norvasc] 5 mg PO DAILY 02/26/15 09/11/18 02/27/15 06:45 History Finasteride [Proscar] 5 mg PO QDAY #30 tablet 08/27/18 09/11/18 Unknown Rx Apixaban [Eliquis] 10 mg PO BID #12 tablet 09/02/18 09/11/18 Unknown Rx Cyclobenzaprine [Flexeril 10 MG 5 mg PO TID #30 tablet 09/02/18 09/11/18 Unknown Rx TAB] Famotidine [Pepcid] 20 mg PO BID #60 tablet 09/02/18 09/11/18 Unknown Rx Polyethylene Glycol 3350 [Miralax 17 gm PO QDAY #30 powd.pack 09/02/18 09/11/18 Unknown Rx 3350] Sennosides/Docusate [Senokot S] 1 each PO Q12HR #60 tab 09/02/18 09/11/18 Unknown Rx traMADol [Ultram] 50 mg PO Q6HR PRN #14 tablet 09/02/18 09/11/18 Unknown Rx Bisoprolol-Hctz 10-6.25 mg Tab 1 tab PO DAILY 09/11/18 09/11/18 Unknown History Linagliptin [Tradjenta] 1 tab PO DAILY 09/11/18 09/11/18 Unknown History Tamsulosin [Flomax] 0.8 mg PO HS 09/11/18 09/11/18 Unknown History Active Medications: Generic Name Dose Route Start Last Admin Trade Name Freq PRN Reason Stop Dose Admin Acetaminophen 650 mg 09/11/18 22:06 09/19/18 21:36 Tylenol PO 650 mg Q4H PRN Administration Pain, Mild (1-3), fever > 101 Atorvastatin Calcium 40 mg 09/11/18 22:00 09/19/18 21:35 Lipitor PO 40 mg QHS JOZEF Administration Carvedilol 6.25 mg 09/14/18 13:00 09/19/18 21:35 Coreg PO 6.25 mg BID JOZEF Administration Dextrose 50 ml 09/11/18 12:20 D50w (25gm) Syringe IV PRN PRN Hypoglycemia Dicyclomine HCl 20 mg 09/12/18 22:00 09/19/18 21:34 Bentyl PO 20 mg BID JOZEF Administration Famotidine 20 mg 09/11/18 22:00 09/19/18 21:35 Pepcid PO 20 mg BID JOZEF Administration Finasteride 5 mg 09/12/18 10:00 09/19/18 10:38 Proscar PO 5 mg QDAY JOZEF Administration Guaifenesin 200 mg 09/16/18 23:11 09/19/18 21:34 Robitussin PO 200 mg Q4H PRN Administration Cough Hydralazine HCl 10 mg 09/11/18 12:19 Apresoline IV Q4HR PRN Blood Pressure Cefazolin Sodium 2 gm/ Sodium 100 mls @ 200 mls/hr 09/18/18 22:00 09/20/18 05:06 Chloride IV 200 mls/hr Q8HR JOZEF Administration Insulin Human Lispro 0 unit 09/11/18 16:30 09/19/18 21:37 Humalog SUB-Q 3 unit ACHS JOZEF Administration Protocol Ondansetron HCl 4 mg 09/11/18 00:45 Zofran IV Q8H PRN Nausea And Vomiting Polyethylene Glycol 17 gm 09/11/18 13:00 09/19/18 10:39 Miralax 3350 PO Not Given QDAY [facility] Prochlorperazine Maleate 10 mg 09/13/18 17:02 Compazine PO Q6H PRN Nausea And Vomiting Senna/Docusate Sodium 1 tab 09/11/18 22:00 09/19/18 21:34 Senokot S PO 1 tab Q12HR JOZEF Administration Tamsulosin HCl 0.8 mg 09/11/18 22:00 09/19/18 21:34 Flomax PO 0.8 mg HS JOZEF Administration Warfarin Sodium 10 mg 09/18/18 17:00 09/19/18 17:10 Coumadin PO 10 mg DAILY@1700 JOZEF Administration
[2018-09-20 07:51] LABS: INR 1.3 (0.87-1.13)
[2018-09-20] MEDS: HumaLOG SUB-Q SCH ×4 (07:54→22:37)
[2018-09-20 08:00] LABS: BUN/Creatinine Ratio 10; Blood Urea Nitrogen 9 mg/dL (9-20); Calcium 9.7 mg/dL (8.4-10.2); Hemolysis Index 2
[2018-09-20] MEDS ORDERED: KINEVAC IV ONE (08:45)
--- NOTE | 2018-09-20 10:10 | Nuclear Medicine Report ---
HEPATOBILIARY SCAN: History: Right-sided abdominal pain. Following the injection of the radionuclide, serial scanning was obtained over the right upper quadrant. Initial imaging of the liver demonstrates a relatively normal activity pattern. Progressive concentration of the radionuclide in the bile ducts, with filling of both the gallbladder and small bowel, is identified within a normal time period. The gallbladder ejection fraction measures 35%. The patient reports the same pain and cramps during the infusion of CCK. IMPRESSION: Normal biliary system. Symptomatology as described.
--- NOTE | 2018-09-20 10:52 | Progress Note ---
Assessment and Plan Cultures: Blood cultures 09/15/2018 Strep B 3 of 4 bottles. Blood cultures 09/17/2018 no growth Assessment: 72 y/o male with history of hypertension, BPH, type 2 DM, chronic constipation, chronic abdominal pains, right leg DVT and recent PE on Eliquis; admitted on 09/10/2018 due to slurred speech. Patient reports chronic periumbilical abdominal pain for which he has been admitted twice in the recent past. He has had abdominal CT and colonoscopies all normal. He was admitted afebrile but on 09/15/2018 he spiked at 102 fever: 1) Sepsis: Resolved, , manifested by fever, tachycardia. Etiology most likely Strep B bacteremia -CRP- 8.7. 2) Strep group B bacteremia: not present on admission ? unclear etiology ?line infection (had a left arm PIV that got infiltrated). UA x 2 negative. CXR neg. No wound. No intravascular devices. TTE no vegetations. 3) Acute right fontal lobe infarct. Patient was out of the window for tPA and also was on Eliquis. MRI brain demonstrated a 3 cm x 2 cm subacute right frontal lobe infarct with petechial hemorrhage and/or cortical laminar necrosis in the area of infarct. 2. No evidence of hyperacute or acute infarct. 4) Persistent abdominal pain: CT abdomen/pelvis showed wedge-shaped opacity partially visualized in the right lower lobe may reflect residual atelectasis. Right renal cysts Enlarged prostate Small right inguinal hernia. ? constipation ? BPH ?bowel ischemia ? cholecystitis Recommendations: - follow-up repeat blood cultures - continue cefazolin 2 gm IV q8h D2 - consider HIDA scan and abdominal CTA in light of persistent abd pain - f/u C3/C4/lactate/DENNISE - at discharge will do ceftriaxone 2 gm IV qday total 14 days until 10/01/2018 via midline -order place with case management -consider surgical consult for symptomatic hernia. ID is signing off [facility] M: [id number] O:[phone] Subjective Date of service: 09/20/18 Principal diagnosis: cva - Pe and abdo pain Interval history: Patient seen and examined. Increased agitation at bedside, did not want to answer questions. Objective - Exam Narrative Exam: General appearance: Alert in NAD, Agitated, uncooperative Eyes: anicteric sclerae, moist conjunctivae; no lid-lag; PERRLA HENT: Atraumatic; oropharynx clear with moist mucous membranes and no mucosal ulcerations/no oral thrush; normal hard and soft palate. Normal external ears. Neck: AILYN, exam limited Lungs: AILYN, exam limited CV: AILYN, Exam limited Abdomen: AILYN Extremities: No peripheral edema or extremity lymphadenopathy Skin: Normal temperature, turgor and texture; no rash, ulcers or subcutaneous nodules Psych: Agitated, combative - Constitutional Vitals: Vital Signs Temp Pulse Resp BP Pulse Ox 98.0 F 64 18 142/60 96 09/20/18 03:32 09/20/18 03:32 09/20/18 03:32 09/20/18 03:32 09/20/18 03:32 Temperature -Last 24 Hours Temperature 98.0 F Temperature 98.5 F Temperature 98.2 F Temperature 98.3 F - Labs CBC & Chem 7: 09/19/18 14:34 09/20/18 07:05 Labs: Abnormal lab results 09/19/18 09/19/18 09/19/18 Range/Units 11:06 12:30 14:34 RBC 3.09 L (3.65-5.03) M/mm3 Hgb 9.7 L (11.8-15.2) gm/dl Hct 28.8 L (35.5-45.6) % RDW 15.7 H (13.2-15.2) % PT (12.2-14.9) Sec. INR (0.87-1.13) Glucose (75-100) mg/dL POC Glucose 242 H (70-105) C-Reactive Protein 8.70 H (0.00-1.30) mg/dL 09/19/18 09/19/18 09/19/18 Range/Units 14:34 15:58 20:40 RBC (3.65-5.03) M/mm3 Hgb (11.8-15.2) gm/dl Hct (35.5-45.6) % RDW (13.2-15.2) % PT (12.2-14.9) Sec. INR (0.87-1.13) Glucose 105 H (75-100) mg/dL POC Glucose 130 H 251 H (70-105) C-Reactive Protein (0.00-1.30) mg/dL 09/20/18 09/20/18 Range/Units 07:05 07:05 RBC (3.65-5.03) M/mm3 Hgb (11.8-15.2) gm/dl Hct (35.5-45.6) % RDW (13.2-15.2) % PT 17.0 H (12.2-14.9) Sec. INR 1.30 H (0.87-1.13) Glucose 136 H (75-100) mg/dL POC Glucose (70-105) C-Reactive Protein (0.00-1.30) mg/dL
--- NOTE | 2018-09-20 11:34 | Consultation ---
History of Present Illness - Reason for Consult Consult date: 09/20/18 - History of Present Illness CC: BPH CAUSE OF ABS PAIN Patient is a 72 yo man with a history of hypertension, BPH, type 2 DM, chronic constipation, chronic abd pains, right leg DVT and recent diagnosis of (08-31-2018) PE on Eliquis, who presents to [facility] ED with slurred speech. CT head reported an acute right fontal lobe infarct (report in the physical chart). Patient was out of the window for tPA and also was on Eliquis. S/P TURP 2014 (SANDRINE) CTA (08-31-18) - RENAL CYST - NO INTEVENTION NEEDED SMALL UMBILICAL HERNIA - DOUBT CAUSE OF PAIN RT INGUINAL HENRIA - MAY CAUSE PAIN - CONSIDER SURGERY EVAL ENLARGED PROSTATE - NOT CAUSE OF PAIN DISTENDED BLADDER - CAN CAUSE PAIN (NEED REY) LUMBAR/SACRAL DISC DISEASE - MAY CAUSE AB PAIN - CONSIDER NEUROLOGY/ ORTHO EVAL -- pt states seen by spine doctor in past' "everything normal" REY PLACED (18F)---AREN COLORED URINE A/p BPH RENAL CYSTS SPINE DISEASE NEUROGENIC BLADDER (CIC IN PAST, PT STOPPED) CONTINUE REY MAY NEED SPINE EVAL (NEUROPATHY) Past History Past Medical History: anemia, diabetes (borderline), hypertension, pulmonary embolism, other (BPH. 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 denies: smoking (quit 35 years ago.), prescription drug abuse, IV drug use (no illicit drugs.) Family history: no significant family history, diabetes (father), hypertension (brother), other (negative for epilepsy.). denies: stroke Medications and Allergies Allergies Allergy/AdvReac Type Severity Reaction Status Date / Time No Known Allergies Allergy Verified 03/12/15 04:05 Home Medications Medication Instructions Recorded Confirmed Last Taken Type Losartan [Cozaar] 1 tab PO DAILY 02/26/15 09/11/18 08/25/18 09:00 History 100mg amLODIPine [Norvasc] 5 mg PO DAILY 02/26/15 09/11/18 02/27/15 06:45 History Finasteride [Proscar] 5 mg PO QDAY #30 tablet 08/27/18 09/11/18 Unknown Rx Apixaban [Eliquis] 10 mg PO BID #12 tablet 09/02/18 09/11/18 Unknown Rx Cyclobenzaprine [Flexeril 10 MG 5 mg PO TID #30 tablet 09/02/18 09/11/18 Unknown Rx TAB] Famotidine [Pepcid] 20 mg PO BID #60 tablet 09/02/18 09/11/18 Unknown Rx Polyethylene Glycol 3350 [Miralax 17 gm PO QDAY #30 powd.pack 09/02/18 09/11/18 Unknown Rx 3350] Sennosides/Docusate [Senokot S] 1 each PO Q12HR #60 tab 09/02/18 09/11/18 Unknown Rx traMADol [Ultram] 50 mg PO Q6HR PRN #14 tablet 09/02/18 09/11/18 Unknown Rx Bisoprolol-Hctz 10-6.25 mg Tab 1 tab PO DAILY 09/11/18 09/11/18 Unknown History Linagliptin [Tradjenta] 1 tab PO DAILY 09/11/18 09/11/18 Unknown History Tamsulosin [Flomax] 0.8 mg PO HS 09/11/18 09/11/18 Unknown History Active Meds: Active Medications Acetaminophen (Tylenol) 650 mg PO Q4H PRN PRN Reason: Pain, Mild (1-3), fever > 101 Last Admin: 09/19/18 21:36 Dose: 650 mg Documented by: Atorvastatin Calcium (Lipitor) 40 mg PO QHS [facility] Last Admin: 09/19/18 21:35 Dose: 40 mg Documented by: Carvedilol (Coreg) 6.25 mg PO BID [facility] Last Admin: 09/19/18 21:35 Dose: 6.25 mg Documented by: Dextrose (D50w (25gm) Syringe) 50 ml IV PRN PRN PRN Reason: Hypoglycemia Dicyclomine HCl (Bentyl) 20 mg PO BID [facility] Last Admin: 09/19/18 21:34 Dose: 20 mg Documented by: Famotidine (Pepcid) 20 mg PO BID [facility] Last Admin: 09/19/18 21:35 Dose: 20 mg Documented by: Finasteride (Proscar) 5 mg PO QDAY [facility] Last Admin: 09/19/18 10:38 Dose: 5 mg Documented by: Guaifenesin (Robitussin) 200 mg PO Q4H PRN PRN Reason: Cough Last Admin: 09/19/18 21:34 Dose: 200 mg Documented by: Hydralazine HCl (Apresoline) 10 mg IV Q4HR PRN PRN Reason: Blood Pressure Cefazolin Sodium 2 gm/ Sodium (Chloride) 100 mls @ 200 mls/hr IV Q8HR [facility] Last Admin: 09/20/18 05:06 Dose: 200 mls/hr Documented by: Insulin Human Lispro (Humalog) 0 unit SUB-Q [facility]; Protocol Last Admin: 09/20/18 07:54 Dose: Not Given Documented by: Ondansetron HCl (Zofran) 4 mg IV Q8H PRN PRN Reason: Nausea And Vomiting Polyethylene Glycol (Miralax 3350) 17 gm PO QDAY [facility] Last Admin: 09/19/18 10:39 Dose: Not Given Documented by: Prochlorperazine Maleate (Compazine) 10 mg PO Q6H PRN PRN Reason: Nausea And Vomiting Senna/Docusate Sodium (Senokot S) 1 tab PO Q12HR [facility] Last Admin: 09/19/18 21:34 Dose: 1 tab Documented by: Tamsulosin HCl (Flomax) 0.8 mg PO HS [facility] Last Admin: 09/19/18 21:34 Dose: 0.8 mg Documented by: Warfarin Sodium (Coumadin) 10 mg PO DAILY@1700 [facility] Last Admin: 09/19/18 17:10 Dose: 10 mg Documented by: Exam - Constitutional Vitals: Temp Pulse Resp BP Pulse Ox 98.0 F 64 18 142/60 96 09/20/18 03:32 09/20/18 03:32 09/20/18 03:32 09/20/18 03:32 09/20/18 03:32 Results - Labs CBC & Chem 7: 02/25/19 14:34 09/20/18 07:05 Labs: Abnormal lab results 09/19/18 09/19/18 09/19/18 Range/Units 11:06 12:30 14:34 RBC 3.09 L (3.65-5.03) M/mm3 Hgb 9.7 L (11.8-15.2) gm/dl Hct 28.8 L (35.5-45.6) % RDW 15.7 H (13.2-15.2) % PT (12.2-14.9) Sec. INR (0.87-1.13) Glucose (75-100) mg/dL POC Glucose 242 H (70-105) C-Reactive Protein 8.70 H (0.00-1.30) mg/dL 09/19/18 09/19/18 09/19/18 Range/Units 14:34 15:58 20:40 RBC (3.65-5.03) M/mm3 Hgb (11.8-15.2) gm/dl Hct (35.5-45.6) % RDW (13.2-15.2) % PT (12.2-14.9) Sec. INR (0.87-1.13) Glucose 105 H (75-100) mg/dL POC Glucose 130 H 251 H (70-105) C-Reactive Protein (0.00-1.30) mg/dL 09/20/18 09/20/18 Range/Units 07:05 07:05 RBC (3.65-5.03) M/mm3 Hgb (11.8-15.2) gm/dl Hct (35.5-45.6) % RDW (13.2-15.2) % PT 17.0 H (12.2-14.9) Sec. INR 1.30 H (0.87-1.13) Glucose 136 H (75-100) mg/dL POC Glucose (70-105) C-Reactive Protein (0.00-1.30) mg/dL
[2018-09-20] MEDS: MIRALAX 3350 PO SCH (13:02)
[2018-09-20] MEDS: SENOKOT S PO SCH ×2 (13:02→22:34)
[2018-09-20] MEDS: COREG PO SCH ×2 (13:03→22:35)
[2018-09-20] MEDS: PEPCID PO SCH ×2 (13:04→22:34)
[2018-09-20] MEDS: PROSCAR PO SCH (13:04)
[2018-09-20] MEDS: BENTYL PO SCH ×2 (13:14→22:36)
--- NOTE | 2018-09-20 14:18 | Progress Note ---
Assessment and Plan Assessment and plan: Patient is a 72 yo man with a history of hypertension, BPH, type 2 DM, chronic constipation, chronic abd pains, right leg DVT and recent diagnosis of (08-31-2018) PE on Eliquis, who presents to [facility] ED with slurred speech. CT head (not yet in EMR) reported an acute right fontal lobe infarct (report in the physical chart). Out of the window for tPA and also on Eliquis. 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, get lipid panel -LLL PE, 08/31/18 CTA chest Impression: Few small pulmonary emboli in the left lower lobe, small right pleural effusion and trace amount of left pleural fluid: on Coumadin -Bacteremia: continue iv abx, d/c with iv rocephin until 10/01/18 -Type 2 DM: add ssi, ada -Hypertension: hold antihypertensive with new stroke, allow slight higher than normal bp, add parameter, low salt diet -Chronic constipation and pains: miralax and senna -BPH with obstruction in the past: flomax and finasteride -Chronic constipation and chronic abd pains, had normal c-scopy 06/26/18: give dulcolax suppository, consult GI -DVT prophylaxis: Eliquis Disposition: continue inpatient care, await INR to be higher, await PICC line for home abx (insurance and home health issues) D/W his PCP Dr. Sanders History Interval history: Patient was seen and examined. Follow-up on current diagnosis of CVA. Overnight uneventful. Patient denies any chest pain, shortness breath, nausea/vomiting or severe headaches. Imaging, nursing note, chart, labs and old chart reviewed. Dis cussed with patient. Hospitalist Physical - Physical exam Narrative exam: Gen: thin frail, WDWN, NAD, Awake, Alert, Orientated HEENT: NCAT, EOMI, PERRL, OP Clear Neck: supple, no adenopathy, no thyromegaly, no JVD CVS/Heart: RRR, normal S1S2, pulses present bilaterally Chest/Lungs: CTA B, Symmetrical chest expansion, good air entry bilaterally GI/Abdomen: soft, nd, diffuse nonspecific mild tenderness, good bowel sounds, no guarding or rebound /Bladder: no suprapubic tenderness, no CVA or paraspinal tenderness Extermity/Skin: no c/c/e, no obvious rash MSK: FROM x 4 Neuro: CN 2-12 grossly intact except speech, no new deficits Psych: calm - Constitutional Vitals: Temp Pulse Resp BP Pulse Ox 97.9 F 98 H 18 162/67 99 09/20/18 11:36 09/20/18 13:03 09/20/18 11:36 09/20/18 13:03 09/20/18 11:36 Results - Labs CBC & Chem 7: 09/19/18 14:34 09/20/18 07:05 Labs: Laboratory Last Values WBC 9.8 K/mm3 (4.5-11.0) 09/19/18 14:34 RBC 3.09 M/mm3 (3.65-5.03) L 09/19/18 14:34 Hgb 9.7 gm/dl (11.8-15.2) L 09/19/18 14:34 Hct 28.8 % (35.5-45.6) L 09/19/18 14:34 MCV 93 fl (84-94) 09/19/18 14:34 MCH 32 pg (28-32) 09/19/18 14:34 MCHC 34 % (32-34) 09/19/18 14:34 RDW 15.7 % (13.2-15.2) H 09/19/18 14:34 Plt Count 317 K/mm3 (140-440) 09/19/18 14:34 Lymph % (Auto) 15.0 % (13.4-35.0) 09/17/18 06:09 [place] % (Auto) 13.5 % (0.0-7.3) H 09/17/18 06:09 Eos % (Auto) 1.4 % (0.0-4.3) 09/17/18 06:09 Baso % (Auto) 0.3 % (0.0-1.8) 09/17/18 06:09 Lymph # 1.2 K/mm3 (1.2-5.4) 09/17/18 06:09 [place] # 1.1 K/mm3 (0.0-0.8) H 09/17/18 06:09 Eos # 0.1 K/mm3 (0.0-0.4) 09/17/18 06:09 Baso # 0.0 K/mm3 (0.0-0.1) 09/17/18 06:09 Seg Neutrophils % 69.8 % (40.0-70.0) 09/17/18 06:09 Seg Neutrophils # 5.5 K/mm3 (1.8-7.7) 09/17/18 06:09 ESR 75 mm/Hr (0-20) 09/13/18 15:25 PT 17.0 Sec. (12.2-14.9) H 09/20/18 07:05 INR 1.30 (0.87-1.13) H 09/20/18 07:05 APTT 34.3 Sec. (24.2-36.6) 09/10/18 21:10 Sodium 139 mmol/L (137-145) 09/20/18 07:05 Potassium 4.6 mmol/L (3.6-5.0) 09/20/18 07:05 Chloride 102.5 mmol/L (98-107) 09/20/18 07:05 Carbon Dioxide 25 mmol/L (22-30) 09/20/18 07:05 Anion Gap 16 mmol/L 09/20/18 07:05 BUN 9 mg/dL (9-20) 09/20/18 07:05 Creatinine 0.9 mg/dL (0.8-1.5) 09/20/18 07:05 Estimated GFR > 60 ml/min 09/20/18 07:05 BUN/Creatinine Ratio 10 % 09/20/18 07:05 Glucose 136 mg/dL (75-100) H 09/20/18 07:05 POC Glucose 157 (70-105) H 09/20/18 11:38 Lactic Acid 1.10 mmol/L (0.7-2.0) 09/19/18 14:34 Calcium 9.7 mg/dL (8.4-10.2) 09/20/18 07:05 Total Bilirubin 0.60 mg/dL (0.1-1.2) 09/10/18 20:41 AST 19 units/L (5-40) 09/10/18 20:41 ALT 26 units/L (7-56) 09/10/18 20:41 Alkaline Phosphatase 100 units/L (35-129) 09/10/18 20:41 C-Reactive Protein 8.70 mg/dL (0.00-1.30) H 09/19/18 11:06 Total Protein 7.9 g/dL (6.3-8.2) 09/10/18 20:41 Albumin 3.9 g/dL (3.9-5) 09/10/18 20:41 Albumin/Globulin Ratio 1.0 % 09/10/18 20:41 Triglycerides 69 mg/dL (2-149) 09/12/18 05:27 Cholesterol 117 mg/dL (50-199) 09/12/18 05:27 LDL Cholesterol Direct 72 mg/dL (50-130) 09/12/18 05:27 HDL Cholesterol 43 mg/dL (40-59) 09/12/18 05:27 Cholesterol/HDL Ratio 2.72 % 09/12/18 05:27 Lipase 37 units/L (13-60) 09/19/18 11:06 Vitamin B12 881.2 pg/mL (211-911) 09/15/18 09:37 Folate 14.14 ng/mL (7.3-26.0) 09/15/18 09:37 Urine Color Yellow (Yellow) 09/16/18 22:36 Urine Turbidity Clear (Clear) 09/16/18 22:36 Urine pH 5.0 (5.0-7.0) 09/16/18 22:36 Ur Specific [place] 1.009 (1.003-1.030) 09/16/18 22:36 Urine Protein <15 mg/dl mg/dL (Negative) 09/16/18 22:36 Urine Glucose (UA) Neg mg/dL (Negative) 09/16/18 22:36 Urine Ketones Neg mg/dL (Negative) 09/16/18 22:36 Urine Blood Sm (Negative) 09/16/18 22:36 Urine Nitrite Neg (Negative) 09/16/18 22:36 Urine Bilirubin Neg (Negative) 09/16/18 22:36 Urine Urobilinogen < 2.0 mg/dL (<2.0) 09/16/18 22:36 Ur Leukocyte Esterase Neg (Negative) 09/16/18 22:36 Urine WBC (Auto) 8.0 /HPF (0.0-6.0) H 09/16/18 22:36 Urine RBC (Auto) 11.0 /HPF (0.0-6.0) 09/16/18 22:36 U Epithel Cells (Auto) < 1.0 /HPF (0-13.0) 09/16/18 22:36 Amorphous Crystals Few 09/16/18 22:36 Nutrition/Malnutrition Assess - Dietary Evaluation Nutrition/Malnutrition Findings: Nutrition Notes Start: 09/16/18 11:47 Freq: Status: Active Protocol: Document 09/19/18 11:12 OL (Rec: 09/19/18 11:13 OL [id number]) Nutrition Notes Need for Assessment generated from: Education Initial or Follow up Brief Note Pertinent Medications coumadin Subjective/Other Information RD screen for coumadin educatoin. Pt. familiar with coumadin/vitamin K DNI. Pt. wanting handout to take home. Updated food preferences in chart. Nutrition Intervention Revisit per MD consult or patient Sign Off request:
[2018-09-20] MEDS: COUMADIN PO SCH (17:18)
[2018-09-20] MEDS: TYLENOL PO PRN ×2 (17:23→22:33)
[2018-09-20] MEDS: ROBITUSSIN PO PRN (22:33)
[2018-09-20] MEDS: FLOMAX PO SCH (22:36)
[2018-09-21] MEDS: TYLENOL PO PRN ×2 (05:19→22:13)
[2018-09-21] MEDS: ceFAZolin 2 GM in NACL 0.9% 100 ML IV SCH ×3 (05:20→22:12)
--- NOTE | 2018-09-21 07:28 | Hem/Onc Progress Note ---
Assessment and Plan 1. History of pulmonary embolism. The patient was on Eliquis. 2. Right frontal infarct and then hemorrhage in the same. The patient was on Eliquis. This has been held. Neurology has seen the patient. This becomes a challenging case, most likely Cardiology evaluation will help to see if there is a shunt, which may have caused this embolus evet causing an ischemic stroke. At this time, there is a plan for warfarin anticoagulation. This is again challenging in view of the petechial hemorrhage. Lovenox for short term is an option. 3. Diabetes. 4. Hypertension. 5. Benign prostatic hypertrophy. 6. Abdominal pain issues. We will do hypercoagulable workup, a few as an inpatient and a few as an outpatient. 09/18 pt on coumadin - target INR 2-3 d/w pt that he would need periodic INR - as OP 09/19 - abdo pain - Ct abdo nil acute - cause unclear pharmacy dosing coumdain 09/20 - pt had CTA abdo - small umbilcal hernia - the cause of the abdo pain is unclear - dr mares was looking into shingles - but after 2 weeks of pain - no rash umblical hernia - ? spine related? pt on coumadin - pharmacy dosing - INr 1.3 09/21 - pt had foleys - he wants it out ? if abdo pain is spine related once INR > 2 - OP follow up d/w dr Mares -he will speak to cardio and ID on antibiotics for culture + - Patient Problems (1) CVA (cerebral vascular accident) Current Visit: Yes Status: Acute Subjective Date of service: 09/21/18 Principal diagnosis: PE and CVA Interval history: pt had foleys cath placement - he is not happy about same. he was walking on the floor - and now he cannot - he wants it out Objective - Constitutional Vitals: Last Vital Signs Temp 98.0 F 09/21/18 04:55 Pulse 78 09/21/18 04:55 Resp 20 09/21/18 05:19 BP 139/50 09/21/18 04:55 Pulse Ox 96 09/21/18 04:55 Pain Intensity (0-10): 2/10 (abdo) General appearance: mild distress Performance status: 3-limited selfcare - EENT Eyes: EOM intact ENT: clear oral mucosa Lymph node exam: negative cervical - Neck Neck: supple - Respiratory Respiratory effort: Positive: normal Respiratory: bilateral: CTA - Cardiovascular Heart Sounds: Present: S1 & S2 Extremities: No edema - Gastrointestinal General gastrointestinal: Present: soft Rectal Exam: deferred - Genitourinary Male genitourinary: Present: deferred - Integumentary Integumentary: warm - Musculoskeletal Musculoskeletal: strength equal bilaterally - Neurologic Neurologic: moves all extremities - Psychiatric Psychiatric: appropriate mood/affect - Labs Lab Results: Laboratory Results - last 24 hr 09/20/18 09/20/18 09/20/18 07:05 07:05 07:21 PT 17.0 H INR 1.30 H Sodium 139 Potassium 4.6 Chloride 102.5 Carbon Dioxide 25 Anion Gap 16 BUN 9 Creatinine 0.9 Estimated GFR > 60 BUN/Creatinine Ratio 10 Glucose 136 H POC Glucose 132 H Calcium 9.7 09/20/18 09/20/18 09/20/18 11:38 16:28 22:16 PT INR Sodium Potassium Chloride Carbon Dioxide Anion Gap BUN Creatinine Estimated GFR BUN/Creatinine Ratio Glucose POC Glucose 157 H 228 H 200 H Calcium 09/21/18 05:45 PT INR Sodium Potassium Chloride Carbon Dioxide Anion Gap BUN Creatinine Estimated GFR BUN/Creatinine Ratio Glucose POC Glucose 137 H Calcium Medications & Allergies - Medications Allergies/Adverse Reactions: Allergies No Known Allergies Allergy (Verified 03/12/15 04:05) Home Medications: Home Medications Medication Instructions Recorded Confirmed Last Taken Type Losartan [Cozaar] 1 tab PO DAILY 02/26/15 09/11/18 08/25/18 09:00 History 100mg amLODIPine [Norvasc] 5 mg PO DAILY 02/26/15 09/11/18 02/27/15 06:45 History Finasteride [Proscar] 5 mg PO QDAY #30 tablet 08/27/18 09/11/18 Unknown Rx Apixaban [Eliquis] 10 mg PO BID #12 tablet 09/02/18 09/11/18 Unknown Rx Cyclobenzaprine [Flexeril 10 MG 5 mg PO TID #30 tablet 09/02/18 09/11/18 Unknown Rx TAB] Famotidine [Pepcid] 20 mg PO BID #60 tablet 09/02/18 09/11/18 Unknown Rx Polyethylene Glycol 3350 [Miralax 17 gm PO QDAY #30 powd.pack 09/02/18 09/11/18 Unknown Rx 3350] Sennosides/Docusate [Senokot S] 1 each PO Q12HR #60 tab 09/02/18 09/11/18 Unknown Rx traMADol [Ultram] 50 mg PO Q6HR PRN #14 tablet 09/02/18 09/11/18 Unknown Rx Bisoprolol-Hctz 10-6.25 mg Tab 1 tab PO DAILY 09/11/18 09/11/18 Unknown History Linagliptin [Tradjenta] 1 tab PO DAILY 09/11/18 09/11/18 Unknown History Tamsulosin [Flomax] 0.8 mg PO HS 09/11/18 09/11/18 Unknown History Active Medications: Generic Name Dose Route Start Last Admin Trade Name Freq PRN Reason Stop Dose Admin Acetaminophen 650 mg 09/11/18 22:06 09/21/18 05:19 Tylenol PO 650 mg Q4H PRN Administration Pain, Mild (1-3), fever > 101 Atorvastatin Calcium 40 mg 09/11/18 22:00 09/20/18 22:36 Lipitor PO 40 mg QHS JOZEF Administration Carvedilol 6.25 mg 09/14/18 13:00 09/20/18 22:35 Coreg PO 6.25 mg BID JOZEF Administration Dextrose 50 ml 09/11/18 12:20 D50w (25gm) Syringe IV PRN PRN Hypoglycemia Dicyclomine HCl 20 mg 09/12/18 22:00 09/20/18 22:36 Bentyl PO 20 mg BID JOZEF Administration Famotidine 20 mg 09/11/18 22:00 09/20/18 22:34 Pepcid PO 20 mg BID JOZEF Administration Finasteride 5 mg 09/12/18 10:00 09/20/18 13:04 Proscar PO 5 mg QDAY JOZEF Administration Guaifenesin 200 mg 09/16/18 23:11 09/20/18 22:33 Robitussin PO 200 mg Q4H PRN Administration Cough Hydralazine HCl 10 mg 09/11/18 12:19 Apresoline IV Q4HR PRN Blood Pressure Cefazolin Sodium 2 gm/ Sodium 100 mls @ 200 mls/hr 09/18/18 22:00 09/21/18 05:20 Chloride IV 200 mls/hr Q8HR JOZEF Administration Insulin Human Lispro 0 unit 09/11/18 16:30 09/20/18 22:37 Humalog SUB-Q 2 unit ACHS JOZEF Administration Protocol Ondansetron HCl 4 mg 09/11/18 00:45 Zofran IV Q8H PRN Nausea And Vomiting Polyethylene Glycol 17 gm 09/11/18 13:00 09/20/18 13:02 Miralax 3350 PO Not Given QDAY JOZEF Prochlorperazine Maleate 10 mg 09/13/18 17:02 Compazine PO Q6H PRN Nausea And Vomiting Senna/Docusate Sodium 1 tab 09/11/18 22:00 09/20/18 22:34 Senokot S PO 1 tab Q12HR JOZEF Administration Tamsulosin HCl 0.8 mg 09/11/18 22:00 09/20/18 22:36 Flomax PO 0.8 mg HS JOZEF Administration Warfarin Sodium 10 mg 09/18/18 17:00 09/20/18 17:18 Coumadin PO 10 mg DAILY@1700 JOZEF Administration
[2018-09-21 07:49] LABS: INR 1.5 (0.87-1.13)
[2018-09-21] MEDS: HumaLOG SUB-Q SCH ×4 (08:39→22:16)
[2018-09-21] MEDS: PEPCID PO SCH ×2 (09:19→22:15)
[2018-09-21] MEDS: PROSCAR PO SCH (09:19)
[2018-09-21] MEDS: SENOKOT S PO SCH ×2 (09:20→22:16)
[2018-09-21] MEDS: BENTYL PO SCH ×2 (09:21→22:13)
[2018-09-21] MEDS: COREG PO SCH ×2 (09:21→22:15)
[2018-09-21] MEDS: MIRALAX 3350 PO SCH (09:22)
--- NOTE | 2018-09-21 15:36 | Progress Note ---
Subjective Date of service: 09/21/18 Principal diagnosis: PE and CVA Interval history: CC: BPH CAUSE OF ABDPAIN Patient is a 72 yo man with a history of hypertension, BPH, type 2 DM, chronic constipation, chronic abd pains, right leg DVT and recent diagnosis of (08-31-2018) PE on Eliquis, who presents to [facility] ED with slurred speech. CT head reported an acute right fontal lobe infarct (report in the physical chart). Patient was out of the window for tPA and also was on Eliquis. S/P TURP 2014 (SANDRINE) CTA (08-31-18) - RENAL CYST - NO INTEVENTION NEEDED SMALL UMBILICAL HERNIA - DOUBT CAUSE OF PAIN RT INGUINAL HENRIA - MAY CAUSE PAIN - CONSIDER SURGERY EVAL ENLARGED PROSTATE - NOT CAUSE OF PAIN DISTENDED BLADDER - CAN CAUSE PAIN (NEED REY) LUMBAR/SACRAL DISC DISEASE - MAY CAUSE AB PAIN - CONSIDER NEUROLOGY/ ORTHO EVAL -- pt states seen by spine doctor in past' "everything normal" REY removed - pt reports pain & wants out (removed) A/p BPH RENAL CYSTS SPINE DISEASE NEUROGENIC BLADDER (CIC IN PAST, PT STOPPED) NEEDS SPINE EVAL (NEUROPATHY) Objective - Constitutional Vitals: Vital Signs - 12hr 09/21/18 09/21/18 09/21/18 04:55 05:19 08:24 Temperature 98.0 F 97.6 F Pulse Rate 78 Respiratory 18 20 18 Rate Blood Pressure 139/50 163/58 O2 Sat by Pulse 96 Oximetry 09/21/18 09/21/18 08:40 08:42 Temperature Pulse Rate 75 Respiratory 18 Rate Blood Pressure O2 Sat by Pulse Oximetry - Labs CBC & Chem 7: 09/19/18 14:34 09/20/18 07:05 Labs: Abnormal lab results 09/19/18 09/20/18 09/20/18 Range/Units 11:06 16:28 22:16 PT (12.2-14.9) Sec. INR (0.87-1.13) POC Glucose 228 H 200 H (70-105) Complement C4 56 H (15-53) mg/dL 09/21/18 09/21/18 09/21/18 Range/Units 05:45 06:55 11:05 PT 19.1 H (12.2-14.9) Sec. INR 1.50 H (0.87-1.13) POC Glucose 137 H 205 H (70-105) Complement C4 (15-53) mg/dL Medications & Allergies - Medications Allergies/Adverse Reactions: Allergies No Known Allergies Allergy (Verified 03/12/15 04:05) Home Medications: Home Medications Medication Instructions Recorded Confirmed Last Taken Type Losartan [Cozaar] 1 tab PO DAILY 02/26/15 09/11/18 08/25/18 09:00 History 100mg amLODIPine [Norvasc] 5 mg PO DAILY 02/26/15 09/11/18 02/27/15 06:45 History Finasteride [Proscar] 5 mg PO QDAY #30 tablet 08/27/18 09/11/18 Unknown Rx Apixaban [Eliquis] 10 mg PO BID #12 tablet 09/02/18 09/11/18 Unknown Rx Cyclobenzaprine [Flexeril 10 MG 5 mg PO TID #30 tablet 09/02/18 09/11/18 Unknown Rx TAB] Famotidine [Pepcid] 20 mg PO BID #60 tablet 09/02/18 09/11/18 Unknown Rx Polyethylene Glycol 3350 [Miralax 17 gm PO QDAY #30 powd.pack 09/02/18 09/11/18 Unknown Rx 3350] Sennosides/Docusate [Senokot S] 1 each PO Q12HR #60 tab 09/02/18 09/11/18 Unknown Rx traMADol [Ultram] 50 mg PO Q6HR PRN #14 tablet 09/02/18 09/11/18 Unknown Rx Bisoprolol-Hctz 10-6.25 mg Tab 1 tab PO DAILY 09/11/18 09/11/18 Unknown History Linagliptin [Tradjenta] 1 tab PO DAILY 09/11/18 09/11/18 Unknown History Tamsulosin [Flomax] 0.8 mg PO HS 09/11/18 09/11/18 Unknown History Active Medications: Generic Name Dose Route Start Last Admin Trade Name Freq PRN Reason Stop Dose Admin Acetaminophen 650 mg 09/11/18 22:06 09/21/18 05:19 Tylenol PO 650 mg Q4H PRN Administration Pain, Mild (1-3), fever > 101 Atorvastatin Calcium 40 mg 09/11/18 22:00 09/20/18 22:36 Lipitor PO 40 mg QHS JOZEF Administration Carvedilol 6.25 mg 09/14/18 13:00 09/21/18 09:21 Coreg PO 6.25 mg BID JOZEF Administration Dextrose 50 ml 09/11/18 12:20 D50w (25gm) Syringe IV PRN PRN Hypoglycemia Dicyclomine HCl 20 mg 09/12/18 22:00 09/21/18 09:21 Bentyl PO 20 mg BID JOZEF Administration Famotidine 20 mg 09/11/18 22:00 09/21/18 09:19 Pepcid PO 20 mg BID JOZEF Administration Finasteride 5 mg 09/12/18 10:00 09/21/18 09:19 Proscar PO 5 mg QDAY JOZEF Administration Guaifenesin 200 mg 09/16/18 23:11 09/20/18 22:33 Robitussin PO 200 mg Q4H PRN Administration Cough Hydralazine HCl 10 mg 09/11/18 12:19 Apresoline IV Q4HR PRN Blood Pressure Cefazolin Sodium 2 gm/ Sodium 100 mls @ 200 mls/hr 09/18/18 22:00 09/21/18 14:55 Chloride IV 200 mls/hr Q8HR JOZEF Administration Insulin Human Lispro 0 unit 09/11/18 16:30 09/21/18 13:25 Humalog SUB-Q 2 unit ACHS JOZEF Administration Protocol Ondansetron HCl 4 mg 09/11/18 00:45 Zofran IV Q8H PRN Nausea And Vomiting Polyethylene Glycol 17 gm 09/11/18 13:00 09/21/18 09:22 Miralax 3350 PO Not Given QDAY JOZEF Prochlorperazine Maleate 10 mg 09/13/18 17:02 Compazine PO Q6H PRN Nausea And Vomiting Senna/Docusate Sodium 1 tab 09/11/18 22:00 09/21/18 09:20 Senokot S PO 1 tab Q12HR JOZEF Administration Tamsulosin HCl 0.8 mg 09/11/18 22:00 09/20/18 22:36 Flomax PO 0.8 mg HS JOZEF Administration Warfarin Sodium 10 mg 09/18/18 17:00 09/20/18 17:18 Coumadin PO 10 mg DAILY@1700 JOZEF Administration
[2018-09-21] MEDS: COUMADIN PO SCH (17:14)
--- NOTE | 2018-09-21 17:50 | Progress Note ---
Assessment and Plan Assessment and plan: Patient is a 72 yo man with a history of hypertension, BPH, type 2 DM, chronic constipation, chronic abd pains, right leg DVT and recent diagnosis of (08-31-2018) PE on Eliquis, who presents to [facility] ED with slurred speech. CT head (not yet in EMR) reported an acute right fontal lobe infarct (report in the physical chart). Out of the window for tPA and also on Eliquis. -Acute Right Frontal Lobe Ischemic Stroke: treat with statin, asa, pt/ot/burner tender/echo/carotid, get lipid panel -LLL PE, 08/31/18 CTA chest Impression: Few small pulmonary emboli in the left lower lobe, small right pleural effusion and trace amount of left pleural fluid: on Coumadin -Bacteremia: continue iv abx, d/c with iv rocephin until 10/01/18 -Type 2 DM: add ssi, ada -Hypertension: hold antihypertensive with new stroke, allow slight higher than normal bp, add parameter, low salt diet -Chronic constipation and pains: miralax and senna -BPH with obstruction in the past: flomax and finasteride -Chronic constipation and chronic abd pains, had normal c-scopy 06/26/18: give dulcolax suppository, consult GI -DVT prophylaxis: Eliquis Disposition: continue inpatient care, await INR to be higher, await PICC line for home abx (insurance and home health issues) D/W his PCP Dr. Sanders, he is concerned that patient may have Post herpetic neuralgia from prior shingles D/W Urology, diagnosis with neurogenic bladder and needs spinal evaluation, which should be done outpatient with Spinal Orthopedist which is not available here. Urology placed a allred and patient demanded it to be remove. INR is 1.5 today, hopefully discharge soon with IV setup also History Interval history: Patient was seen and examined. Follow-up on current diagnosis of CVA. Overnight uneventful. Patient denies any chest pain, shortness breath, nausea/vomiting or severe headaches. Imaging, nursing note, chart, labs and old chart reviewed. Discussed with patient. Hospitalist Physical - Physical exam Narrative exam: Gen: thin frail, WDWN, NAD, Awake, Alert, Orientated HEENT: NCAT, EOMI, PERRL, OP Clear Neck: supple, no adenopathy, no thyromegaly, no JVD CVS/Heart: RRR, normal S1S2, pulses present bilaterally Chest/Lungs: CTA B, Symmetrical chest expansion, good air entry bilaterally GI/Abdomen: soft, nd, diffuse nonspecific mild tenderness, good bowel sounds, no guarding or rebound /Bladder: no suprapubic tenderness, no CVA or paraspinal tenderness Extermity/Skin: no c/c/e, no obvious rash MSK: FROM x 4 Neuro: CN 2-12 grossly intact except speech, no new deficits Psych: calm - Constitutional Vitals: Temp Pulse Resp BP Pulse Ox 98.2 F 83 20 141/67 94 09/21/18 16:42 09/21/18 16:42 09/21/18 16:42 09/21/18 16:42 09/21/18 16:42 Results - Labs CBC & Chem 7: 09/19/18 14:34 09/20/18 07:05 Labs: Laboratory Last Values WBC 9.8 K/mm3 (4.5-11.0) 09/19/18 14:34 RBC 3.09 M/mm3 (3.65-5.03) L 09/19/18 14:34 Hgb 9.7 gm/dl (11.8-15.2) L 09/19/18 14:34 Hct 28.8 % (35.5-45.6) L 09/19/18 14:34 MCV 93 fl (84-94) 09/19/18 14:34 MCH 32 pg (28-32) 09/19/18 14:34 MCHC 34 % (32-34) 09/19/18 14:34 RDW 15.7 % (13.2-15.2) H 09/19/18 14:34 Plt Count 317 K/mm3 (140-440) 09/19/18 14:34 Lymph % (Auto) 15.0 % (13.4-35.0) 09/17/18 06:09 [place] % (Auto) 13.5 % (0.0-7.3) H 09/17/18 06:09 Eos % (Auto) 1.4 % (0.0-4.3) 09/17/18 06:09 Baso % (Auto) 0.3 % (0.0-1.8) 09/17/18 06:09 Lymph # 1.2 K/mm3 (1.2-5.4) 09/17/18 06:09 [place] # 1.1 K/mm3 (0.0-0.8) H 09/17/18 06:09 Eos # 0.1 K/mm3 (0.0-0.4) 09/17/18 06:09 Baso # 0.0 K/mm3 (0.0-0.1) 09/17/18 06:09 Seg Neutrophils % 69.8 % (40.0-70.0) 09/17/18 06:09 Seg Neutrophils # 5.5 K/mm3 (1.8-7.7) 09/17/18 06:09 ESR 75 mm/Hr (0-20) 09/13/18 15:25 PT 19.1 Sec. (12.2-14.9) H 09/21/18 06:55 INR 1.50 (0.87-1.13) H 09/21/18 06:55 APTT 34.3 Sec. (24.2-36.6) 09/10/18 21:10 Sodium 139 mmol/L (137-145) 09/20/18 07:05 Potassium 4.6 mmol/L (3.6-5.0) 09/20/18 07:05 Chloride 102.5 mmol/L (98-107) 09/20/18 07:05 Carbon Dioxide 25 mmol/L (22-30) 09/20/18 07:05 Anion Gap 16 mmol/L 09/20/18 07:05 BUN 9 mg/dL (9-20) 09/20/18 07:05 Creatinine 0.9 mg/dL (0.8-1.5) 09/20/18 07:05 Estimated GFR > 60 ml/min 09/20/18 07:05 BUN/Creatinine Ratio 10 % 09/20/18 07:05 Glucose 136 mg/dL (75-100) H 09/20/18 07:05 POC Glucose 191 (70-105) H 09/21/18 16:15 Lactic Acid 1.10 mmol/L (0.7-2.0) 09/19/18 14:34 Calcium 9.7 mg/dL (8.4-10.2) 09/20/18 07:05 Total Bilirubin 0.60 mg/dL (0.1-1.2) 09/10/18 20:41 AST 19 units/L (5-40) 09/10/18 20:41 ALT 26 units/L (7-56) 09/10/18 20:41 Alkaline Phosphatase 100 units/L (35-129) 09/10/18 20:41 C-Reactive Protein 8.70 mg/dL (0.00-1.30) H 09/19/18 11:06 Total Protein 7.9 g/dL (6.3-8.2) 09/10/18 20:41 Albumin 3.9 g/dL (3.9-5) 09/10/18 20:41 Albumin/Globulin Ratio 1.0 % 09/10/18 20:41 Triglycerides 69 mg/dL (2-149) 09/12/18 05:27 Cholesterol 117 mg/dL (50-199) 09/12/18 05:27 LDL Cholesterol Direct 72 mg/dL (50-130) 09/12/18 05:27 HDL Cholesterol 43 mg/dL (40-59) 09/12/18 05:27 Cholesterol/HDL Ratio 2.72 % 09/12/18 05:27 Lipase 37 units/L (13-60) 09/19/18 11:06 Vitamin B12 881.2 pg/mL (211-911) 09/15/18 09:37 Folate 14.14 ng/mL (7.3-26.0) 09/15/18 09:37 Urine Color Yellow (Yellow) 09/16/18 22:36 Urine Turbidity Clear (Clear) 09/16/18 22:36 Urine pH 5.0 (5.0-7.0) 09/16/18 22:36 Ur Specific [place] 1.009 (1.003-1.030) 09/16/18 22:36 Urine Protein <15 mg/dl mg/dL (Negative) 09/16/18 22:36 Urine Glucose (UA) Neg mg/dL (Negative) 09/16/18 22:36 Urine Ketones Neg mg/dL (Negative) 09/16/18 22:36 Urine Blood Sm (Negative) 09/16/18 22:36 Urine Nitrite Neg (Negative) 09/16/18 22:36 Urine Bilirubin Neg (Negative) 09/16/18 22:36 Urine Urobilinogen < 2.0 mg/dL (<2.0) 09/16/18 22:36 Ur Leukocyte Esterase Neg (Negative) 09/16/18 22:36 Urine WBC (Auto) 8.0 /HPF (0.0-6.0) H 09/16/18 22:36 Urine RBC (Auto) 11.0 /HPF (0.0-6.0) 09/16/18 22:36 U Epithel Cells (Auto) < 1.0 /HPF (0-13.0) 09/16/18 22:36 Amorphous Crystals Few 09/16/18 22:36 Complement C4 56 mg/dL (15-53) H 09/19/18 11:06 Nutrition/Malnutrition Assess - Dietary Evaluation Nutrition/Malnutrition Findings: Nutrition Notes Start: 09/16/18 11:47 Freq: Status: Active Protocol: Document 09/19/18 11:12 OL (Rec: 09/19/18 11:13 OL [id number]) Nutrition Notes Need for Assessment generated from: Education Initial or Follow up Brief Note Pertinent Medications coumadin Subjective/Other Information RD screen for coumadin educatoin. Pt. familiar with coumadin/vitamin K DNI. Pt. wanting handout to take home. Updated food preferences in chart. Nutrition Intervention Revisit per MD consult or patient Sign Off request:
[2018-09-21] MEDS: ROBITUSSIN PO PRN (22:12)
[2018-09-21] MEDS: FLOMAX PO SCH (22:13)
[2018-09-22] MEDS: ceFAZolin 2 GM in NACL 0.9% 100 ML IV SCH ×3 (06:16→22:43)
--- NOTE | 2018-09-22 07:24 | Hem/Onc Progress Note ---
Assessment and Plan 1. History of pulmonary embolism. The patient was on Eliquis. 2. Right frontal infarct and then hemorrhage in the same. The patient was on Eliquis. This has been held. Neurology has seen the patient. This becomes a challenging case, most likely Cardiology evaluation will help to see if there is a shunt, which may have caused this embolus evet causing an ischemic stroke. At this time, there is a plan for warfarin anticoagulation. This is again challenging in view of the petechial hemorrhage. Lovenox for short term is an option. 3. Diabetes. 4. Hypertension. 5. Benign prostatic hypertrophy. 6. Abdominal pain issues. We will do hypercoagulable workup, a few as an inpatient and a few as an outpatient. 09/18 pt on coumadin - target INR 2-3 d/w pt that he would need periodic INR - as OP 09/19 - abdo pain - Ct abdo nil acute - cause unclear pharmacy dosing coumdain 09/20 - pt had CTA abdo - small umbilcal hernia - the cause of the abdo pain is unclear - dr mares was looking into shingles - but after 2 weeks of pain - no rash umblical hernia - ? spine related? pt on coumadin - pharmacy dosing - INr 1.3 09/21 - pt had foleys - he wants it out ? if abdo pain is spine related once INR > 2 - OP follow up d/w dr Mares -he will speak to cardio and ID on antibiotics for culture + 09/22 - off allred inr target 2-3 - Patient Problems (1) CVA (cerebral vascular accident) Current Visit: Yes Status: Acute Subjective Date of service: 09/22/18 Principal diagnosis: pe and cva Interval history: off foleys - still has abdo pain Objective - Constitutional Vitals: Last Vital Signs Temp 98.0 F 09/22/18 05:55 Pulse 80 09/22/18 05:55 Resp 17 09/22/18 05:55 BP 147/51 09/22/18 05:55 Pulse Ox 97 09/22/18 05:55 Pain Intensity (0-10): 1/10 (rt sided abdo pain) General appearance: mild distress Performance status: 3-limited selfcare - EENT Eyes: EOM intact ENT: clear oral mucosa Lymph node exam: negative cervical - Neck Neck: normal ROM - Respiratory Respiratory effort: Positive: normal Respiratory: bilateral: CTA - Cardiovascular Heart Sounds: Present: S1 & S2 Extremities: No edema - Gastrointestinal General gastrointestinal: Present: soft Rectal Exam: deferred - Genitourinary Male genitourinary: Present: deferred - Integumentary Integumentary: warm - Musculoskeletal Musculoskeletal: strength equal bilaterally - Neurologic Neurologic: moves all extremities - Psychiatric Psychiatric: appropriate mood/affect - Labs Lab Results: Laboratory Results - last 24 hr 09/19/18 09/21/18 09/21/18 11:06 06:55 11:05 PT 19.1 H INR 1.50 H POC Glucose 205 H Complement C4 56 H 09/21/18 09/21/18 09/22/18 16:15 21:06 06:00 PT INR POC Glucose 191 H 206 H 140 H Complement C4 Medications & Allergies - Medications Allergies/Adverse Reactions: Allergies No Known Allergies Allergy (Verified 03/12/15 04:05) Home Medications: Home Medications Medication Instructions Recorded Confirmed Last Taken Type Losartan [Cozaar] 1 tab PO DAILY 02/26/15 09/11/18 08/25/18 09:00 History 100mg amLODIPine [Norvasc] 5 mg PO DAILY 02/26/15 09/11/18 02/27/15 06:45 History Finasteride [Proscar] 5 mg PO QDAY #30 tablet 08/27/18 09/11/18 Unknown Rx Apixaban [Eliquis] 10 mg PO BID #12 tablet 09/02/18 09/11/18 Unknown Rx Cyclobenzaprine [Flexeril 10 MG 5 mg PO TID #30 tablet 09/02/18 09/11/18 Unknown Rx TAB] Famotidine [Pepcid] 20 mg PO BID #60 tablet 09/02/18 09/11/18 Unknown Rx Polyethylene Glycol 3350 [Miralax 17 gm PO QDAY #30 powd.pack 09/02/18 09/11/18 Unknown Rx 3350] Sennosides/Docusate [Senokot S] 1 each PO Q12HR #60 tab 09/02/18 09/11/18 Unknown Rx traMADol [Ultram] 50 mg PO Q6HR PRN #14 tablet 09/02/18 09/11/18 Unknown Rx Bisoprolol-Hctz 10-6.25 mg Tab 1 tab PO DAILY 09/11/18 09/11/18 Unknown History Linagliptin [Tradjenta] 1 tab PO DAILY 09/11/18 09/11/18 Unknown History Tamsulosin [Flomax] 0.8 mg PO HS 09/11/18 09/11/18 Unknown History Active Medications: Generic Name Dose Route Start Last Admin Trade Name Freq PRN Reason Stop Dose Admin Acetaminophen 650 mg 09/11/18 22:06 09/21/18 22:13 Tylenol PO 650 mg Q4H PRN Administration Pain, Mild (1-3), fever > 101 Atorvastatin Calcium 40 mg 09/11/18 22:00 09/21/18 22:13 Lipitor PO 40 mg QHS JOZEF Administration Carvedilol 6.25 mg 09/14/18 13:00 09/21/18 22:15 Coreg PO 6.25 mg BID JOZEF Administration Dextrose 50 ml 09/11/18 12:20 D50w (25gm) Syringe IV PRN PRN Hypoglycemia Dicyclomine HCl 20 mg 09/12/18 22:00 09/21/18 22:13 Bentyl PO 20 mg BID JOZEF Administration Famotidine 20 mg 09/11/18 22:00 09/21/18 22:15 Pepcid PO 20 mg BID JOZEF Administration Finasteride 5 mg 09/12/18 10:00 09/21/18 09:19 Proscar PO 5 mg QDAY JOZEF Administration Guaifenesin 200 mg 09/16/18 23:11 09/21/18 22:12 Robitussin PO 200 mg Q4H PRN Administration Cough Hydralazine HCl 10 mg 09/11/18 12:19 Apresoline IV Q4HR PRN Blood Pressure Cefazolin Sodium 2 gm/ Sodium 100 mls @ 200 mls/hr 09/18/18 22:00 09/22/18 06:16 Chloride IV 200 mls/hr Q8HR JOZEF Administration Insulin Human Lispro 0 unit 09/11/18 16:30 09/21/18 22:16 Humalog SUB-Q 2 unit ACHS JOZEF Administration Protocol Ondansetron HCl 4 mg 09/11/18 00:45 Zofran IV Q8H PRN Nausea And Vomiting Polyethylene Glycol 17 gm 09/11/18 13:00 09/21/18 09:22 Miralax 3350 PO Not Given QDAY JOZEF Prochlorperazine Maleate 10 mg 09/13/18 17:02 Compazine PO Q6H PRN Nausea And Vomiting Senna/Docusate Sodium 1 tab 09/11/18 22:00 09/21/18 22:16 Senokot S PO 1 tab Q12HR JOZEF Administration Tamsulosin HCl 0.8 mg 09/11/18 22:00 09/21/18 22:13 Flomax PO 0.8 mg HS JOZEF Administration Warfarin Sodium 10 mg 09/18/18 17:00 09/21/18 17:14 Coumadin PO 10 mg DAILY@1700 JOZEF Administration
[2018-09-22] MEDS: HumaLOG SUB-Q SCH ×4 (08:28→22:44)
[2018-09-22 08:41] LABS: INR 1.81 (0.87-1.13)
[2018-09-22] MEDS: MIRALAX 3350 PO SCH (09:45)
[2018-09-22] MEDS: COREG PO SCH ×2 (09:46→22:45)
[2018-09-22] MEDS: BENTYL PO SCH ×2 (09:46→22:43)
[2018-09-22] MEDS: SENOKOT S PO SCH ×2 (09:47→22:44)
[2018-09-22] MEDS: PROSCAR PO SCH (09:47)
[2018-09-22] MEDS: PEPCID PO SCH ×2 (09:47→22:45)
[2018-09-22 11:50] LABS: ANA Screen, IFA Negative (Negative)
--- NOTE | 2018-09-22 16:35 | Progress Note ---
Assessment and Plan Assessment and plan: Patient is a 72 yo man with a history of hypertension, BPH, type 2 DM, chronic constipation, chronic abd pains, right leg DVT and recent diagnosis of (08-31-2018) PE on Eliquis, who presents to [facility] ED with slurred speech. CT head (not yet in EMR) reported an acute right fontal lobe infarct (report in the physical chart). Out of the window for tPA and also on Eliquis. -Acute Right Frontal Lobe Ischemic Stroke: treat with statin, asa, pt/ot/scalemaker/echo/carotid, get lipid panel -LLL PE, 08/31/18 CTA chest Impression: Few small pulmonary emboli in the left lower lobe, small right pleural effusion and trace amount of left pleural fluid: on Coumadin -Bacteremia: continue iv abx, d/c with iv rocephin until 10/01/18 -Type 2 DM: add ssi, ada -Hypertension: hold antihypertensive with new stroke, allow slight higher than normal bp, add parameter, low salt diet -Chronic constipation and pains: miralax and senna -BPH with obstruction in the past: flomax and finasteride -Chronic constipation and chronic abd pains, had normal c-scopy 06/26/18: give dulcolax suppository, consult GI -DVT prophylaxis: Eliquis Disposition: continue inpatient care, await INR to be higher, await PICC line for home abx (insurance and home health issues) D/W his PCP Dr. Sanders, he is concerned that patient may have Post herpetic neuralgia from prior shingles D/W Urology, diagnosis with neurogenic bladder and needs spinal evaluation, which should be done outpatient with Spinal Orthopedist which is not available here. Urology placed a allred and patient demanded it to be remove. INR is 1.81 today, hopefully discharge soon with IV setup also History Interval history: Patient was seen and examined. Follow-up on current diagnosis of CVA. Overnight uneventful. Patient denies any chest pain, shortness breath, nausea/vomiting or severe headaches. Imaging, nursing note, chart, labs and old chart reviewed. Discussed with patient. Hospitalist Physical - Physical exam Narrative exam: Gen: thin frail, WDWN, NAD, Awake, Alert, Orientated HEENT: NCAT, EOMI, PERRL, OP Clear Neck: supple, no adenopathy, no thyromegaly, no JVD CVS/Heart: RRR, normal S1S2, pulses present bilaterally Chest/Lungs: CTA B, Symmetrical chest expansion, good air entry bilaterally GI/Abdomen: soft, nd, diffuse nonspecific mild tenderness, good bowel sounds, no guarding or rebound /Bladder: no suprapubic tenderness, no CVA or paraspinal tenderness Extermity/Skin: no c/c/e, no obvious rash MSK: FROM x 4 Neuro: CN 2-12 grossly intact except speech, no new deficits Psych: calm - Constitutional Vitals: Temp Pulse Resp BP Pulse Ox 98.5 F 85 20 133/48 97 09/22/18 11:48 09/22/18 11:48 09/22/18 11:48 09/22/18 11:48 09/22/18 11:48 Results - Labs CBC & Chem 7: 09/19/18 14:34 09/20/18 07:05 Labs: Laboratory Last Values WBC 9.8 K/mm3 (4.5-11.0) 09/19/18 14:34 RBC 3.09 M/mm3 (3.65-5.03) L 09/19/18 14:34 Hgb 9.7 gm/dl (11.8-15.2) L 09/19/18 14:34 Hct 28.8 % (35.5-45.6) L 09/19/18 14:34 MCV 93 fl (84-94) 09/19/18 14:34 MCH 32 pg (28-32) 09/19/18 14:34 MCHC 34 % (32-34) 09/19/18 14:34 RDW 15.7 % (13.2-15.2) H 09/19/18 14:34 Plt Count 317 K/mm3 (140-440) 09/19/18 14:34 Lymph % (Auto) 15.0 % (13.4-35.0) 09/17/18 06:09 [place] % (Auto) 13.5 % (0.0-7.3) H 09/17/18 06:09 Eos % (Auto) 1.4 % (0.0-4.3) 09/17/18 06:09 Baso % (Auto) 0.3 % (0.0-1.8) 09/17/18 06:09 Lymph # 1.2 K/mm3 (1.2-5.4) 09/17/18 06:09 [place] # 1.1 K/mm3 (0.0-0.8) H 09/17/18 06:09 Eos # 0.1 K/mm3 (0.0-0.4) 09/17/18 06:09 Baso # 0.0 K/mm3 (0.0-0.1) 09/17/18 06:09 Seg Neutrophils % 69.8 % (40.0-70.0) 09/17/18 06:09 Seg Neutrophils # 5.5 K/mm3 (1.8-7.7) 09/17/18 06:09 ESR 75 mm/Hr (0-20) 09/13/18 15:25 PT 22.2 Sec. (12.2-14.9) H 09/22/18 Unknown INR 1.81 (0.87-1.13) H 09/22/18 Unknown APTT 34.3 Sec. (24.2-36.6) 09/10/18 21:10 Sodium 139 mmol/L (137-145) 09/20/18 07:05 Potassium 4.6 mmol/L (3.6-5.0) 09/20/18 07:05 Chloride 102.5 mmol/L (98-107) 09/20/18 07:05 Carbon Dioxide 25 mmol/L (22-30) 09/20/18 07:05 Anion Gap 16 mmol/L 09/20/18 07:05 BUN 9 mg/dL (9-20) 09/20/18 07:05 Creatinine 0.9 mg/dL (0.8-1.5) 09/20/18 07:05 Estimated GFR > 60 ml/min 09/20/18 07:05 BUN/Creatinine Ratio 10 % 09/20/18 07:05 Glucose 136 mg/dL (75-100) H 09/20/18 07:05 POC Glucose 226 (70-105) H 09/22/18 11:50 Lactic Acid 1.10 mmol/L (0.7-2.0) 09/19/18 14:34 Calcium 9.7 mg/dL (8.4-10.2) 09/20/18 07:05 Total Bilirubin 0.60 mg/dL (0.1-1.2) 09/10/18 20:41 AST 19 units/L (5-40) 09/10/18 20:41 ALT 26 units/L (7-56) 09/10/18 20:41 Alkaline Phosphatase 100 units/L (35-129) 09/10/18 20:41 C-Reactive Protein 8.70 mg/dL (0.00-1.30) H 09/19/18 11:06 Total Protein 7.9 g/dL (6.3-8.2) 09/10/18 20:41 Albumin 3.9 g/dL (3.9-5) 09/10/18 20:41 Albumin/Globulin Ratio 1.0 % 09/10/18 20:41 Triglycerides 69 mg/dL (2-149) 09/12/18 05:27 Cholesterol 117 mg/dL (50-199) 09/12/18 05:27 LDL Cholesterol Direct 72 mg/dL (50-130) 09/12/18 05:27 HDL Cholesterol 43 mg/dL (40-59) 09/12/18 05:27 Cholesterol/HDL Ratio 2.72 % 09/12/18 05:27 Lipase 37 units/L (13-60) 09/19/18 11:06 Vitamin B12 881.2 pg/mL (211-911) 09/15/18 09:37 Folate 14.14 ng/mL (7.3-26.0) 09/15/18 09:37 Urine Color Yellow (Yellow) 09/16/18 22:36 Urine Turbidity Clear (Clear) 09/16/18 22:36 Urine pH 5.0 (5.0-7.0) 09/16/18 22:36 Ur Specific [place] 1.009 (1.003-1.030) 09/16/18 22:36 Urine Protein <15 mg/dl mg/dL (Negative) 09/16/18 22:36 Urine Glucose (UA) Neg mg/dL (Negative) 09/16/18 22:36 Urine Ketones Neg mg/dL (Negative) 09/16/18 22:36 Urine Blood Sm (Negative) 09/16/18 22:36 Urine Nitrite Neg (Negative) 09/16/18 22:36 Urine Bilirubin Neg (Negative) 09/16/18 22:36 Urine Urobilinogen < 2.0 mg/dL (<2.0) 09/16/18 22:36 Ur Leukocyte Esterase Neg (Negative) 09/16/18 22:36 Urine WBC (Auto) 8.0 /HPF (0.0-6.0) H 09/16/18 22:36 Urine RBC (Auto) 11.0 /HPF (0.0-6.0) 09/16/18 22:36 U Epithel Cells (Auto) < 1.0 /HPF (0-13.0) 09/16/18 22:36 Amorphous Crystals Few 09/16/18 22:36 DENNISE Screen Negative (Negative) 09/19/18 11:06 Complement C4 56 mg/dL (15-53) H 09/19/18 11:06 Nutrition/Malnutrition Assess - Dietary Evaluation Nutrition/Malnutrition Findings: Nutrition Notes Start: 09/16/18 11:47 Freq: Status: Active Protocol: Document 09/19/18 11:12 OL (Rec: 09/19/18 11:13 OL [id number]) Nutrition Notes Need for Assessment generated from: Education Initial or Follow up Brief Note Pertinent Medications coumadin Subjective/Other Information RD screen for coumadin educatoin. Pt. familiar with coumadin/vitamin K DNI. Pt. wanting handout to take home. Updated food preferences in chart. Nutrition Intervention Revisit per MD consult or patient Sign Off request:
[2018-09-22] MEDS: COUMADIN PO SCH (17:42)
[2018-09-22] MEDS: FLOMAX PO SCH (22:44)
[2018-09-22] MEDS: ROBITUSSIN PO PRN (22:50)
[2018-09-23] MEDS: ceFAZolin 2 GM in NACL 0.9% 100 ML IV SCH (05:20)
[2018-09-23 06:45] LABS: INR 2.09 (0.87-1.13)
--- NOTE | 2018-09-23 07:30 | Hem/Onc Progress Note ---
Assessment and Plan 1. History of pulmonary embolism. The patient was on Eliquis. 2. Right frontal infarct and then hemorrhage in the same. The patient was on Eliquis. This has been held. Neurology has seen the patient. This becomes a challenging case, most likely Cardiology evaluation will help to see if there is a shunt, which may have caused this embolus evet causing an ischemic stroke. At this time, there is a plan for warfarin anticoagulation. This is again challenging in view of the petechial hemorrhage. Lovenox for short term is an option. 3. Diabetes. 4. Hypertension. 5. Benign prostatic hypertrophy. 6. Abdominal pain issues. We will do hypercoagulable workup, a few as an inpatient and a few as an outpatient. 09/18 pt on coumadin - target INR 2-3 d/w pt that he would need periodic INR - as OP 09/19 - abdo pain - Ct abdo nil acute - cause unclear pharmacy dosing coumdain 09/20 - pt had CTA abdo - small umbilcal hernia - the cause of the abdo pain is unclear - dr mares was looking into shingles - but after 2 weeks of pain - no rash umblical hernia - ? spine related? pt on coumadin - pharmacy dosing - INr 1.3 09/21 - pt had foleys - he wants it out ? if abdo pain is spine related once INR > 2 - OP follow up d/w dr Mares -he will speak to cardio and ID on antibiotics for culture + 09/22 - off allred inr target 2-3 09/23 - INR 2 - d/w dr Doe - pt was on 5 mg on 09/16 and then from 09/18 - pt has been on 10 mg coumadin will do OP follow up pharmacy is dosing coumadin IV antibiotics as per ID - Patient Problems (1) CVA (cerebral vascular accident) Current Visit: Yes Status: Acute Subjective Date of service: 09/23/18 Principal diagnosis: PE and CVA Interval history: inr 2 - pt got 5 mg coumadin and then 10 mg a few times Objective - Constitutional Vitals: Last Vital Signs Temp 98.1 F 09/23/18 03:52 Pulse 77 09/23/18 03:52 Resp 18 09/23/18 03:52 BP 122/46 09/23/18 03:52 Pulse Ox 93 09/23/18 03:52 Pain Intensity (0-10): 1/10 (abdo) General appearance: no acute distress Performance status: 3-limited selfcare - EENT Eyes: EOM intact ENT: clear oral mucosa - Neck Neck: normal ROM - Respiratory Respiratory effort: Positive: normal Respiratory: bilateral: CTA - Cardiovascular Heart Sounds: Present: S1 & S2 Extremities: No edema - Gastrointestinal General gastrointestinal: Present: soft, non-tender Rectal Exam: deferred - Genitourinary Male genitourinary: Present: deferred - Integumentary Integumentary: warm - Musculoskeletal Musculoskeletal: strength equal bilaterally - Neurologic Neurologic: moves all extremities, other (slightly slurred speech) - Psychiatric Psychiatric: appropriate mood/affect - Labs Lab Results: Laboratory Results - last 24 hr 09/19/18 09/22/18 09/22/18 11:06 11:50 16:59 PT INR POC Glucose 226 H 160 H DENNISE Screen Negative 09/22/18 09/22/18 09/23/18 21:36 Unknown 06:18 PT 22.2 H 24.9 H INR 1.81 H 2.09 H POC Glucose 171 H DENNISE Screen Medications & Allergies - Medications Allergies/Adverse Reactions: Allergies No Known Allergies Allergy (Verified 03/12/15 04:05) Home Medications: Home Medications Medication Instructions Recorded Confirmed Last Taken Type Losartan [Cozaar] 1 tab PO DAILY 02/26/15 09/11/18 08/25/18 09:00 History 100mg amLODIPine [Norvasc] 5 mg PO DAILY 02/26/15 09/11/18 02/27/15 06:45 History Finasteride [Proscar] 5 mg PO QDAY #30 tablet 08/27/18 09/11/18 Unknown Rx Apixaban [Eliquis] 10 mg PO BID #12 tablet 09/02/18 09/11/18 Unknown Rx Cyclobenzaprine [Flexeril 10 MG 5 mg PO TID #30 tablet 09/02/18 09/11/18 Unknown Rx TAB] Famotidine [Pepcid] 20 mg PO BID #60 tablet 09/02/18 09/11/18 Unknown Rx Polyethylene Glycol 3350 [Miralax 17 gm PO QDAY #30 powd.pack 09/02/18 09/11/18 Unknown Rx 3350] Sennosides/Docusate [Senokot S] 1 each PO Q12HR #60 tab 09/02/18 09/11/18 Unknown Rx traMADol [Ultram] 50 mg PO Q6HR PRN #14 tablet 09/02/18 09/11/18 Unknown Rx Bisoprolol-Hctz 10-6.25 mg Tab 1 tab PO DAILY 09/11/18 09/11/18 Unknown History Linagliptin [Tradjenta] 1 tab PO DAILY 09/11/18 09/11/18 Unknown History Tamsulosin [Flomax] 0.8 mg PO HS 09/11/18 09/11/18 Unknown History Active Medications: Generic Name Dose Route Start Last Admin Trade Name Freq PRN Reason Stop Dose Admin Acetaminophen 650 mg 09/11/18 22:06 09/21/18 22:13 Tylenol PO 650 mg Q4H PRN Administration Pain, Mild (1-3), fever > 101 Atorvastatin Calcium 40 mg 09/11/18 22:00 09/22/18 22:44 Lipitor PO 40 mg QHS JOZEF Administration Carvedilol 6.25 mg 09/14/18 13:00 09/22/18 22:45 Coreg PO 6.25 mg BID JOZEF Administration Dextrose 50 ml 09/11/18 12:20 D50w (25gm) Syringe IV PRN PRN Hypoglycemia Dicyclomine HCl 20 mg 09/12/18 22:00 09/22/18 22:43 Bentyl PO 20 mg BID OJZEF Administration Famotidine 20 mg 09/11/18 22:00 09/22/18 22:45 Pepcid PO 20 mg BID JOZEF Administration Finasteride 5 mg 09/12/18 10:00 09/22/18 09:47 Proscar PO 5 mg QDAY JOZEF Administration Guaifenesin 200 mg 09/16/18 23:11 09/22/18 22:50 Robitussin PO 200 mg Q4H PRN Administration Cough Hydralazine HCl 10 mg 09/11/18 12:19 Apresoline IV Q4HR PRN Blood Pressure Cefazolin Sodium 2 gm/ Sodium 100 mls @ 200 mls/hr 09/18/18 22:00 09/23/18 05:20 Chloride IV 100 mls/hr Q8HR JOZEF Administration Insulin Human Lispro 0 unit 09/11/18 16:30 09/22/18 22:44 Humalog SUB-Q 1 unit ACHS JOZEF Administration Protocol Ondansetron HCl 4 mg 09/11/18 00:45 Zofran IV Q8H PRN Nausea And Vomiting Polyethylene Glycol 17 gm 09/11/18 13:00 09/22/18 09:45 Miralax 3350 PO Not Given QDAY JOZEF Prochlorperazine Maleate 10 mg 09/13/18 17:02 Compazine PO Q6H PRN Nausea And Vomiting Senna/Docusate Sodium 1 tab 09/11/18 22:00 09/22/18 22:44 Senokot S PO 1 tab Q12HR JOZEF Administration Tamsulosin HCl 0.8 mg 09/11/18 22:00 09/22/18 22:44 Flomax PO 0.8 mg HS JOZEF Administration Warfarin Sodium 10 mg 09/18/18 17:00 09/22/18 17:42 Coumadin PO 10 mg DAILY@1700 JOZEF Administration
[2018-09-23 09:06] VITALS: BP 147/57
[2018-09-23] MEDS: BENTYL PO SCH (09:50)
[2018-09-23] MEDS: MIRALAX 3350 PO SCH (09:50)
[2018-09-23] MEDS: SENOKOT S PO SCH (09:50)
[2018-09-23] MEDS: COREG PO SCH (10:04)
[2018-09-23] MEDS: PROSCAR PO SCH (10:05)
[2018-09-23] MEDS: PEPCID PO SCH (10:05)
--- NOTE | 2018-09-23 11:05 | Discharge Summary ---
Providers - Providers Date of Admission: 09/10/18 23:25 Date of discharge: 09/23/18 Attending physician: ALEXIS LUNDBERG 09/11/18 06:00 Speech Therapy Evaluation and Treat [CONS] Routine Reason For Exam: SPEECH IMPAIRMENT 09/12/18 10:44 Consult to Physician [CONS] Routine Comment: Consulting Provider: CÉSAR MARY Physician Instructions: Reason For Exam: Recurrent abd pains, constipation 09/12/18 11:11 Physical Therapy Evaluation and Treat [CONS] Routine Comment: Reason For Exam: Evaluate gait/functional status, CVA 09/13/18 08:20 Consult to Physician [CONS] Routine Comment: notified ava Consulting Provider: FREEDOM SHINE Physician Instructions: Reason For Exam: acute stroke 09/14/18 15:24 Consult to Physician [CONS] Routine Comment: Consulting Provider: NIALL AGOSTO Physician Instructions: Reason For Exam: hypercoaguable state 09/17/18 15:33 Consult to Physician [CONS] Routine Comment: Consulting Provider: CECILIA ARRIAGA Physician Instructions: Reason For Exam: bacteremia 09/19/18 14:34 PICC Line Placement [Consult to PICC Line RN] [CONS] Urgent Reason For Exam: outpatient antibiotic therapy Type Line:: Midline 09/19/18 16:14 Consult to Case Management [CONS] Urgent Services Needed at Discharge: Home Health Services Notified:: no Additional Physician Instructions: [facility] M [phone] O [phone] F [phone] OUTPATIENT PARENTERAL ANTIBIOTIC THERAPY ORDERS Diagnoses: Group B Strep Bacteremia Antimicrobial administration: at discharge will do ceftriaxone 2 gm IV qday total 14 days until 10/01/2018 via midline Remove MIDLINE line after last dose unless otherwise instructed. Lines: MIDLINE Lab monitoring: CBC, BUN, Creatinine, ALT, AST once a week preferly on Wednesday morning. Please fax results to [phone] and call [phone] for critical lab results. Annie Mendez NP/Cecilia Soto MD Date: 09/19/18 09/20/18 11:05 Consult to Physician [CONS] Routine Comment: Consulting Provider: KAIDEN DELUCA Physician Instructions: Reason For Exam: Enlarged prostate causing constipation? Primary care physician: [facility]PPORT SPECIALIST Hospitalization Condition: Stable Hospital course: Patient is a 72 yo man with a history of hypertension, BPH, type 2 DM, chronic constipation, chronic abd pains, right leg DVT and recent diagnosis of (08-31-2018) PE on Eliquis, who presents to [facility] ED with slurred speech. CT head (not yet in EMR) reported an acute right fontal lobe infarct (report in the physical chart). Out of the window for tPA and also on Eliquis. -Acute Right Frontal Lobe Ischemic Stroke: treat with statin, asa, pt/ot/head butler/echo/carotid, get lipid panel -LLL PE, 08/31/18 CTA chest Impression: Few small pulmonary emboli in the left lower lobe, small right pleural effusion and trace amount of left pleural fluid: on Coumadin -Bacteremia: continue iv abx, d/c with iv rocephin until 10/01/18 -Type 2 DM: add ssi, ada -Hypertension: hold antihypertensive with new stroke, allow slight higher than normal bp, add parameter, low salt diet -Chronic constipation and pains: miralax and senna -BPH with obstruction in the past: flomax and finasteride -Chronic constipation and chronic abd pains, had normal c-scopy 06/26/18: give dulcolax suppository, consult GI -DVT prophylaxis: Eliquis Disposition: continue inpatient care, await INR to be higher, await PICC line for home abx (insurance and home health issues) D/W his PCP Dr. Sanders, he is concerned that patient may have Post herpetic neuralgia from prior shingles D/W Urology, diagnosis with neurogenic bladder and needs spinal evaluation, which should be done outpatient with Spinal Orthopedist which is not available here. Urology placed a allred and patient demanded it to be remove. INR is 2.09 today, Disposition: DC-01 TO HOME OR SELFCARE Time spent for discharge: 34 minutes Core Measure Documentation - Palliative Care Palliative Care/ Comfort Measures: Not Applicable - Core Measures Any of the following diagnoses?: none - VTE Discharge Requirements Deep Vein Thrombosis/Pulmonary Embolism Present on Admission: No Has pt received <5 days of overlap therapy or INR<2.0: No Anticoagulant overlap therapy prescribed at discharge: No Contraindication No Overlap Therapy order at DC: Not Indicated Exam - Physical Exam Narrative exam: Gen: thin frail, WDWN, NAD, Awake, Alert, Orientated HEENT: NCAT, EOMI, PERRL, OP Clear Neck: supple, no adenopathy, no thyromegaly, no JVD CVS/Heart: RRR, normal S1S2, pulses present bilaterally Chest/Lungs: CTA B, Symmetrical chest expansion, good air entry bilaterally GI/Abdomen: soft, nd, diffuse nonspecific mild tenderness, good bowel sounds, no guarding or rebound /Bladder: no suprapubic tenderness, no CVA or paraspinal tenderness Extermity/Skin: no c/c/e, no obvious rash MSK: FROM x 4 Neuro: CN 2-12 grossly intact except speech, no new deficits Psych: calm - Constitutional Vitals: Temp Pulse Resp BP Pulse Ox 98.4 F 90 18 147/57 95 09/23/18 09:05 09/23/18 09:05 09/23/18 09:05 09/23/18 09:05 09/23/18 09:05 Plan Activity: other Diet: low salt Additional Instructions: See Dr. Peters regarding abdominal pains Follow up with: PRIMARY CAREMD [Primary Care Provider] - 3-5 Days ALBINA ROSSI MD [Staff Physician] - 7 Days ([place] office on 09/26/2018 @ 11:45AM) NIALL AGOSTO MD [Staff Physician] - 7 Days CECILIA ARRIAGA MD [Staff Physician] - 7 Days KAIDEN DELUCA MD [Staff Physician] - 7 Days ОЛЕГ PETERS MD [Staff Physician] - 7 Days Prescriptions: AtorvaSTATin [Lipitor] 40 mg PO QHS #30 tablet Carvedilol [Coreg] 6.25 mg PO BID #60 tablet Warfarin [Coumadin] 5 mg PO DAILY@1700 #30 tablet
[2018-09-23] MEDS: HumaLOG SUB-Q SCH (11:30)
[2018-09-23 16:17] LABS: Myeloperoxidase Antibody <1.0 AI (<1.0)
[2018-09-24] MEDS: HumaLOG SUB-Q SCH (08:49)
[2018-09-24] MEDS: ceFAZolin 2 GM in NACL 0.9% 100 ML IV SCH (08:53)
== END 2018-09-23 16:45 | disposition home health service (06) | DRG 64 ==
LOC: ED 19:56 → 4A 23:25
PROVIDERS: ADMIT Internal Medicine; ATTEND Internal Medicine
PROC: 05HY33Z Insertion of Infusion Device into Upper Vein, Percutaneous Approach (ICD-10-PCS; principal; 2018-09-21)
DX: I63.9 Cerebral infarction, unspecified (principal); A40.1 Sepsis due to streptococcus, group B; I26.99 Other pulmonary embolism without acute cor pulmonale; I61.9 Nontraumatic intracerebral hemorrhage, unspecified; I10 Essential (primary) hypertension; F10.10 Alcohol abuse, uncomplicated; K59.09 Other constipation; R47.81 Slurred speech; G89.29 Other chronic pain; N28.1 Cyst of kidney, acquired; R29.702 NIHSS score 2; I25.10 Atherosclerotic heart disease of native coronary artery without angina pectoris; Y90.0 Blood alcohol level of less than 20 mg/100 ml; E11.9 Type 2 diabetes mellitus without complications; K21.9 Gastro-esophageal reflux disease without esophagitis; N40.0 Benign prostatic hyperplasia without lower urinary tract symptoms; Z86.718 Personal history of other venous thrombosis and embolism; Z82.49 Family history of ischemic heart disease and other diseases of the circulatory system; Z83.3 Family history of diabetes mellitus; Z87.891 Personal history of nicotine dependence; Z79.899 Other long term (current) drug therapy; Z79.01 Long term (current) use of anticoagulants; Z79.84 Long term (current) use of oral hypoglycemic drugs; Z86.711 Personal history of pulmonary embolism
CPT/HCPCS: 36415; 70450; 70496; 70498; 70551; 71045; 74174; 74176; 78227; 80048; 80053; 80061; 81001; 82140; 82607; 82747; 82962; 83690; 85025; 85027; 85610; 85652; 85730; 86021; 86038; 86140; 86160; 87040; 87116; 93005; 93010; 93306; 93312; 93320; 93325; 93880; G0378; A9270-GY; A9537; J0690; J1100; J1815; J1956; J2001; J2250; J2405; J2543; J2704; J2805; J7030; Q0164; Q9967

== ENCOUNTER 2019-01-09 16:35 | Inpatient (IN) | payer MEDICARE, OTHER ==
--- NOTE | 2019-01-09 17:33 | Emergency Department Report ---
Blank Doc - Documentation Documentation: This is a 73-year-old male that presents with SOB. Denies any CP. PCP sent p atient to r/o PE. HX of PE. This initial assessment/diagnostic orders/clinical plan/treatment(s) is/are subject to change based on patient's health status, clinical progression and re- assessment by fellow clinical providers in the ED. Further treatment and workup at subsequent clinical providers discretion. Patient/guardians urged not to elope from the ED as their condition may be serious if not clinically assessed and managed. Initial orders include: 1- Patient sent to MAIN for further evaluation and treatment 2- labs 3- EKG 4- CXR
--- NOTE | 2019-01-09 18:14 | XRay Report ---
PROCEDURE: XR CHEST ROUTINE 2V TECHNIQUE: PA and lateral chest radiographs were obtained. HISTORY: Dyspnea COMPARISONS: 08/27/2018. FINDINGS: Heart: Cardiac silhouette is mildly prominent. Mediastinum/Vessels: Normal. Lungs/Pleural space: No infiltrate, effusion, or pneumothorax. Bony thorax: No acute osseous abnormality. IMPRESSION: Mildly prominent cardiac silhouette. No pulmonary infiltrates are identified. This document is electronically signed by Christa Aguilar MD., January 09 2019 06:13:18 PM ET
[2019-01-09 18:16] LABS: Basophils % (Auto) 0.3 % (0.0-1.8); Eosinophils # (Auto) 0.1 K/mm3 (0.0-0.4); Eosinophils % (Auto) 1.2 % (0.0-4.3); Hematocrit 35.3 % (35.5-45.6); Hemoglobin 11.8 gm/dl (11.8-15.2); Lymphocytes # (Auto) 1.2 K/mm3 (1.2-5.4); Lymphocytes % (Auto) 20.3 % (13.4-35.0); Mean Corpuscular HGB Conc 34 % (32-34); Mean Corpuscular Volume 92 fl (84-94); Monocytes # (Auto) 0.4 K/mm3 (0.0-0.8); Monocytes % (Auto) 7.5 % (0.0-7.3); Platelet Count 207 K/mm3 (140-440); Red Blood Count 3.84 M/mm3 (3.65-5.03); Red Cell Distribution Width 16.6 % (13.2-15.2)
[2019-01-09 18:26] LABS: BUN/Creatinine Ratio 13; Blood Urea Nitrogen 13 mg/dL (9-20); Calcium 10.2 mg/dL (8.4-10.2); Hemolysis Index 6
[2019-01-09 18:41] LABS: INR 1.82 (0.87-1.13)
[2019-01-09 18:42] LABS: Partial Thromboplastin Time 38.6 Sec. (24.2-36.6)
--- NOTE | 2019-01-09 21:25 | Emergency Department Report ---
HPI - General Chief Complaint: Dyspnea/Respdistress Time Seen by Provider: 01/09/19 17:32 - HPI HPI: Madrigal 24 The patient is a 73-year-old male presenting with chief complaint shortness of breath. The patient states for 1 week he's had intermittent shortness of breath at rest and with exertion. Patient denies chest pain during this time. Patient denies palpitations or history of fever. Patient denies cough. The patient was seen by his primary physician Dr. Allred return should the patient to the ED for CT scan of the chest Location: Lungs Duration: [See above] Quality: [See above] Severity: [See above] Modifying factors: [see above] Context: [see above] Mode of transportation: [not driving] ED Past Medical Hx - Past Medical History Previous Medical History?: Yes Hx Hypertension: Yes Hx Diabetes: Yes Hx GERD: Yes Additional medical history: BPH - Surgical History Past Surgical History?: Yes Additional Surgical History: prostate surgery - Social History Smoking Status: Former Smoker (none 35 years) Substance Use Type: None (denies illicit drug use) - Medications Home Medications: Home Medications Medication Instructions Recorded Confirmed Last Taken Type Losartan [Cozaar] 1 tab PO DAILY 02/26/15 01/09/19 08/25/18 09:00 History 100mg amLODIPine [Norvasc] 5 mg PO DAILY 02/26/15 01/09/19 02/27/15 06:45 History Finasteride [Proscar] 5 mg PO QDAY #30 tablet 08/27/18 01/09/19 Unknown Rx Famotidine [Pepcid] 20 mg PO BID #60 tablet 09/02/18 01/09/19 Unknown Rx Tamsulosin [Flomax] 0.4 mg PO BID 09/11/18 01/09/19 Unknown History Acetaminophen [Acetaminophen TAB] 650 mg PO Q4H PRN #30 tablet 09/23/18 01/09/19 Unknown Rx Carvedilol [Coreg] 6.25 mg PO BID #60 tablet 09/23/18 01/09/19 Unknown Rx Warfarin [Coumadin] 5 mg PO DAILY@1700 #30 tablet 09/23/18 01/09/19 Unknown Rx AtorvaSTATin [Lipitor] 10 mg PO QHS 01/09/19 01/09/19 Unknown History metFORMIN [Glucophage] 500 mg PO QDAY 01/09/19 01/09/19 Unknown History ED Review of Systems ROS: Stated complaint: SOB Other details as noted in HPI Constitutional: denies: fever Eyes: denies: eye pain ENT: denies: throat pain Respiratory: orthopnea (?), shortness of breath, SOB with exertion Cardiovascular: denies: chest pain Endocrine: no symptoms reported Gastrointestinal: denies: abdominal pain Genitourinary: denies: dysuria Musculoskeletal: denies: back pain Neurological: denies: headache Physical Exam - Physical Exam Vital Signs: Vital Signs 01/09/19 01/09/19 17:33 20:47 Temperature 98 F 97.8 F Pulse Rate 71 66 Respiratory 17 20 Rate Blood Pressure 162/53 Blood Pressure 177/65 [Left] O2 Sat by Pulse 98 98 Oximetry Physical Exam: GENERAL: The patient is well-developed well-nourished male sitting on stretcher not appearing to be in acute distress. [] HEENT: Normocephalic. Atraumatic. Extraocular motions are intact. Patient has moist mucous membranes. NECK: Supple. Trachea midline CHEST/LUNGS: Clear to auscultation. There is no respiratory distress noted. HEART/CARDIOVASCULAR: Regular. There is no tachycardia. There is no gallop rub or murmur. ABDOMEN: Abdomen is soft, nontender. Patient has normal bowel sounds. There is no abdominal distention. SKIN: There is no rash. There is no diaphoresis. NEURO: The patient is awake, alert, and oriented. The patient is cooperative. The patient has normal speech MUSCULOSKELETAL: There is no evidence of acute injury. ED Course Vital Signs 01/09/19 01/09/19 17:33 20:47 Temperature 98 F 97.8 F Pulse Rate 71 66 Respiratory 17 20 Rate Blood Pressure 162/53 Blood Pressure 177/65 [Left] O2 Sat by Pulse 98 98 Oximetry ED Medical Decision Making - Lab Data Result diagrams: 01/09/19 17:51 01/09/19 17:51 Laboratory Tests 01/09/19 01/09/19 01/09/19 17:51 17:51 17:51 WBC 6.0 RBC 3.84 Hgb 11.8 Hct 35.3 L MCV 92 MCH 31 MCHC 34 RDW 16.6 H Plt Count 207 Lymph % (Auto) 20.3 Coffey % (Auto) 7.5 H Eos % (Auto) 1.2 Baso % (Auto) 0.3 Lymph # 1.2 Coffey # 0.4 Eos # 0.1 Baso # 0.0 Seg Neutrophils % 70.7 H Seg Neutrophils # 4.2 PT 20.7 H INR 1.82 H APTT 38.6 H D-Dimer < 135.00 Sodium 140 Potassium 3.9 Chloride 103.8 Carbon Dioxide 25 Anion Gap 15 BUN 13 Creatinine 1.0 Estimated GFR > 60 BUN/Creatinine Ratio 13 Glucose 115 H Calcium 10.2 Troponin T < 0.010 NT-Pro-B Natriuret Pep 01/09/19 17:51 WBC RBC Hgb Hct MCV MCH MCHC RDW Plt Count Lymph % (Auto) Coffey % (Auto) Eos % (Auto) Baso % (Auto) Lymph # Coffey # Eos # Baso # Seg Neutrophils % Seg Neutrophils # PT INR APTT D-Dimer Sodium Potassium Chloride Carbon Dioxide Anion Gap BUN Creatinine Estimated GFR BUN/Creatinine Ratio Glucose Calcium Troponin T NT-Pro-B Natriuret Pep 3024 H - EKG Data -: EKG Interpreted by Me EKG shows normal: sinus rhythm Rate: normal - EKG Data When compared to previous EKG there are: no significant change Interpretation: unchanged when compared t (09/10/2018) - Radiology Data Radiology results: report reviewed (chest x-ray, CT chest), image reviewed (chest x-ray, CT chest) interpreted by me: Chest x-ray-no focal infiltrates, no pneumothorax [facility] [address] [place] [address] XRay Report Signed Patient: BOBBI LEON MR #: [id number] : 1945 Acct:[id number] Age/Sex: 73 / M ADM Date: 01/09/19 Loc: ED Attending Dr: Ordering Physician: HOWIE SERNA NP Date of Service: 01/09/19 Procedure(s): XR chest routine 2V Accession Number(s): [id number] cc: HOWIE SERNA NP Fluoro Time In Minutes: PROCEDURE: XR CHEST ROUTINE 2V TECHNIQUE: PA and lateral chest radiographs were obtained. HISTORY: Dyspnea COMPARISONS: 08/27/2018. FINDINGS: Heart: Cardiac silhouette is mildly prominent. Mediastinum/Vessels: Normal. Lungs/Pleural space: No infiltrate, effusion, or pneumothorax. Bony thorax: No acute osseous abnormality. IMPRESSION: Mildly prominent cardiac silhouette. No pulmonary infiltrates are identified. This document is electronically signed by Christa Aguilar MD., January 09 2019 06:13:18 PM ET Transcribed By: [facility] Dictated By: CHRISTA AGUILAR M.D. Electronically Authenticated By: CHRISTA AGUILAR M.D. Signed Date/Time: 01/09/191813 DD/ 53 TD/TT: 01/09/191754 [facility] [address] [place] [address] Cat Scan Report Signed Patient: BOBBI LEON MR #: [id number] : 1945 Acct:[id number] Age/Sex: 73 / M ADM Date: 01/09/19 Loc: ED Attending Dr: Ordering Physician: KATERYNA SORIA MD Date of Service: 01/09/19 Procedure(s): CT angio chest Accession Number(s): [id number] cc: KATERYNA SORIA MD PROCEDURE: CT ANGIO CHEST TECHNIQUE: Computerized tomographic angiography of the chest was performed after the IV injection of iodinated nonionic contrast including image processing. The image data was postprocessed using 2-dimensional multiplanar reformatted (MPR) and 3-dimensional (MIP and/or volume rendered) techniques. Automated exposure control, adjustment of mA and/or kV according to patient size, or iterative reconstruction dose optimization techniques were utilized. CT DOSE LENGTH PRODUCT: 521.1 mGycm HISTORY: shortness of breath COMPARISONS: August 31, 2018 . FINDINGS: Bilateral pulmonary arteries and their branches demonstrate normal opacification without filling defects. Aorta is of normal caliber. A small patchy density is noted involving the right upper lobe. Thyroid demonstrates normal size and density. There is no lymphadenopathy. Hilar structures are within normal limits. Mild degree pericardial effusion is noted. There are also mild degree bilateral pleural effusions. A 2 cm cystic lesion is noted involving the midpole right kidney. Moderate degree endplate degenerative changes are noted involving T8-9 with Schmorl's nodes. Vertebral height is normal. IMPRESSION: No evidence of pulmonary embolism A small patchy density in the right upper lobe is suspicious for early pneumonia. It is new since the prior study. Mild degree bilateral pleural effusions Mild degree pericardial effusion And right renal cystic lesion cannot be further evaluated. This document is electronically signed by Narendra Ivy MD., January 09 2019 11:11:34 PM ET Transcribed By: [facility] [place] Dictated By: NARENDRA IVY Electronically Authenticated By: NARENDRA IVY Signed Date/Time: 01/09/192312 DD/ 46 TD/TT: 01/09/192246 - Differential Diagnosis CHF, PE, bronchitis Critical care attestation.: If time is entered above; I have spent that time in minutes in the direct care of this critically ill patient, excluding procedure time. ED Disposition Clinical Impression: Shortness of breath, CHF (congestive heart failure) Disposition: OP ADMIT IP TO THIS HOSP Is pt being admited?: Yes Does the pt Need Aspirin: Yes Condition: Fair Referrals: Geetha ALLRED MD [Primary Care Provider] - 3-5 Days Time of Disposition: 23:45 (hospitalist paged (Dr. Haley Lakhani))
--- NOTE | 2019-01-09 23:13 | Cat Scan Report ---
PROCEDURE: CT ANGIO CHEST TECHNIQUE: Computerized tomographic angiography of the chest was performed after the IV injection of iodinated nonionic contrast including image processing. The image data was postprocessed using 2-di mensional multiplanar reformatted (MPR) and 3-dimensional (MIP and/or volume rendered) techniques. Au tomated exposure control, adjustment of mA and/or kV according to patient size, or iterative reconstr uction dose optimization techniques were utilized. CT DOSE LENGTH PRODUCT: 521.1 mGycm HISTORY: shortness of breath COMPARISONS: August 31, 2018 . FINDINGS: Bilateral pulmonary arteries and their branches demonstrate normal opacification without filling defe cts. Aorta is of normal caliber. A small patchy density is noted involving the right upper lobe. Thyr oid demonstrates normal size and density. There is no lymphadenopathy. Hilar structures are within no rmal limits. Mild degree pericardial effusion is noted. There are also mild degree bilateral pleural effusions. A 2 cm cystic lesion is noted involving the midpole right kidney. Moderate degree endplate degenerative changes are noted involving T8-9 with Schmorl's nodes. Vertebral height is normal. IMPRESSION: No evidence of pulmonary embolism A small patchy density in the right upper lobe is suspicious for early pneumonia. It is new since the prior study. Mild degree bilateral pleural effusions Mild degree pericardial effusion And right renal cystic lesion cannot be further evaluated. This document is electronically signed by Juan Pablo Ivy MD., January 09 2019 11:11:34 PM ET
[2019-01-09] MEDS ORDERED: LASIX IV ONE (23:40)
[2019-01-09] MEDS ORDERED: PROVENTIL IH PRN (23:58)
[2019-01-09] MEDS ORDERED: SODIUM CHLORIDE FLUSH SYRINGE 10 ML IV PRN (23:58)
[2019-01-09] MEDS ORDERED: TYLENOL PO PRN (23:58)
[2019-01-09] MEDS ORDERED: ZOFRAN IV PRN (23:58)
[2019-01-10] MEDS ORDERED: D50W (25GM) Syringe IV PRN (00:04)
--- NOTE | 2019-01-10 00:48 | History and Physical Report ---
<DENISE MILLAN - Last Filed: 01/10/19 01:13> History of Present Illness Date of examination: 01/09/19 Date of admission: 01/09/2019 Chief complaint: Shortness of Breath History of present illness: 73-year-old -Maltese male with history of DM 2, HTN, BPH, GERD, DVT (2011) and PE on Coumadin, and right frontal lobe ischemic stroke (08/2018) who presents [facility] ED with complaints of shortness of breath. Patient states that over the past 2 weeks he has been experiencing progressively worsening shortness of breath with activity and at rest. Patient states he is unable to walk up one flight of stairs without becoming shortness of breath. He admits to intermittent orthopnea. Patient states that he decided to come to ED for further evaluation given his hx of DVT and PE. He states that he is compliant with current Coumadin therapy. Review of chart shows patient was previously admitted early this year for right frontal lobe ischemic stroke and abdominal pain. Admits: Dysnpea at rest and with activity, and occasional nonproductive cough Denies: Chest pain, PND, productive cough, hemoptysis, headache, fever, or n/v/d Past History Past Medical History: diabetes (DM2), DVT (2011), GERD, hypertension, pulmonary embolism, stroke (rt frontal lobe ischemic stroke 08/31/2018), other (BPH) Past Surgical History: Other (prostate surgery) Social history: Lives alone, smoking (quit smoking 35 years ago) Family history: no significant family history Medications and Allergies Allergies Allergy/AdvReac Type Severity Reaction Status Date / Time No Known Allergies Allergy Verified 03/12/15 04:05 Home Medications Medication Instructions Recorded Confirmed Last Taken Type Losartan [Cozaar] 1 tab PO DAILY 02/26/15 01/09/19 08/25/18 09:00 History 100mg amLODIPine [Norvasc] 5 mg PO DAILY 02/26/15 01/09/19 02/27/15 06:45 History Finasteride [Proscar] 5 mg PO QDAY #30 tablet 08/27/18 01/09/19 Unknown Rx Famotidine [Pepcid] 20 mg PO BID #60 tablet 09/02/18 01/09/19 Unknown Rx Tamsulosin [Flomax] 0.4 mg PO BID 09/11/18 01/09/19 Unknown History Acetaminophen [Acetaminophen TAB] 650 mg PO Q4H PRN #30 tablet 09/23/18 01/09/19 Unknown Rx Carvedilol [Coreg] 6.25 mg PO BID #60 tablet 09/23/18 01/09/19 Unknown Rx Warfarin [Coumadin] 5 mg PO DAILY@1700 #30 tablet 09/23/18 01/09/19 Unknown Rx AtorvaSTATin [Lipitor] 10 mg PO QHS 01/09/19 01/09/19 Unknown History metFORMIN [Glucophage] 500 mg PO QDAY 01/09/19 01/09/19 Unknown History Active Meds: Active Medications Acetaminophen (Tylenol) 650 mg PO Q4H PRN PRN Reason: Pain MILD(1-3)/Fever >100.5/WELDON Albuterol (Proventil) 2.5 mg IH Q3HRT PRN PRN Reason: Shortness Of Breath Amlodipine Besylate (Norvasc) 5 mg PO DAILY [facility] Atorvastatin Calcium (Lipitor) 10 mg PO QHS [facility] Carvedilol (Coreg) 6.25 mg PO BID [facility] Dextrose (D50w (25gm) Syringe) 50 ml IV PRN PRN PRN Reason: Hypoglycemia Docusate Sodium (Colace) 100 mg PO BID [facility] Enoxaparin Sodium (Lovenox) 40 mg SUB-Q QDAY@2200 [facility] Famotidine (Pepcid) 20 mg PO BID [facility] Finasteride (Proscar) 5 mg PO QDAY [facility] Insulin Human Lispro (Humalog) 0 unit SUB-Q ACHS [facility]; Protocol Losartan Potassium (Cozaar) 100 mg PO DAILY [facility] Metformin HCl (Glucophage) 500 mg PO QAMDIAB JOZEF Ondansetron HCl (Zofran) 4 mg IV Q8H PRN PRN Reason: Nausea And Vomiting Sodium Chloride (Sodium Chloride Flush Syringe 10 Ml) 10 ml IV BID [facility] Sodium Chloride (Sodium Chloride Flush Syringe 10 Ml) 10 ml IV PRN PRN PRN Reason: LINE FLUSH Tamsulosin HCl (Flomax) 0.4 mg PO BID [facility] Warfarin Sodium (Coumadin) 5 mg PO DAILY@1700 [facility]; Protocol Review of Systems All systems: negative (we reviewed and no additional remarkable complaints except as noted below) Cardiovascular: orthopnea, shortness of breath, dyspnea on exertion Respiratory: shortness of breath, dyspnea on exertion Exam - Physical Exam Narrative exam: Physical exam General appearance: Present: No acute distress, alert and oriented 3, - M[place]ese older adult male - EENT Eyes: Present: PERRL, EOM intact ENT: hearing intact, normal dentition - Neck Neck: Present: supple, normal ROM - Respiratory Respiratory effort: Non-labored Respiratory: bases diminished with scattered crackles - Cardiovascular Heart rate: 67 (bpm) Rhythm: Sinus rhythm, right bundle branch block Heart Sounds: Present: S1 & S2. Absent: rub, click - Extremities Extremities: no ischemia, pulses intact, abnormal (ble trace edema ) - Peripheral Assessment Peripheral Pulses: within normal limits - Abdominal General gastrointestinal: soft, non-tender, normal bowel sounds - Integumentary Integumentary: Present: warm, dry - Musculoskeletal Musculoskeletal: Able to move all extremities, normal gait -Neurological Neurological: CN II-XII intact - Psychiatric Psychiatric: cooperative - Constitutional Vitals: Temp Pulse Resp BP Pulse Ox 98.0 F 62 20 157/64 98 01/09/19 23:00 01/09/19 23:00 01/09/19 23:00 01/09/19 23:00 01/09/19 23:00 Results - Labs CBC & Chem 7: 01/09/19 17:51 01/09/19 17:51 Labs: Laboratory Last Values WBC 6.0 K/mm3 (4.5-11.0) 01/09/19 17:51 RBC 3.84 M/mm3 (3.65-5.03) 01/09/19 17:51 Hgb 11.8 gm/dl (11.8-15.2) 01/09/19 17:51 Hct 35.3 % (35.5-45.6) L 01/09/19 17:51 MCV 92 fl (84-94) 01/09/19 17:51 MCH 31 pg (28-32) 01/09/19 17:51 MCHC 34 % (32-34) 01/09/19 17:51 RDW 16.6 % (13.2-15.2) H 01/09/19 17:51 Plt Count 207 K/mm3 (140-440) 01/09/19 17:51 Lymph % (Auto) 20.3 % (13.4-35.0) 01/09/19 17:51 Worth % (Auto) 7.5 % (0.0-7.3) H 01/09/19 17:51 Eos % (Auto) 1.2 % (0.0-4.3) 01/09/19 17:51 Baso % (Auto) 0.3 % (0.0-1.8) 01/09/19 17:51 Lymph # 1.2 K/mm3 (1.2-5.4) 01/09/19 17:51 Worth # 0.4 K/mm3 (0.0-0.8) 01/09/19 17:51 Eos # 0.1 K/mm3 (0.0-0.4) 01/09/19 17:51 Baso # 0.0 K/mm3 (0.0-0.1) 01/09/19 17:51 Seg Neutrophils % 70.7 % (40.0-70.0) H 01/09/19 17:51 Seg Neutrophils # 4.2 K/mm3 (1.8-7.7) 01/09/19 17:51 PT 20.7 Sec. (12.2-14.9) H 01/09/19 17:51 INR 1.82 (0.87-1.13) H 01/09/19 17:51 APTT 38.6 Sec. (24.2-36.6) H 01/09/19 17:51 < 135.00 ng/mlDDU (0-234) 01/09/19 17:51 Sodium 140 mmol/L (137-145) 01/09/19 17:51 Potassium 3.9 mmol/L (3.6-5.0) 01/09/19 17:51 Chloride 103.8 mmol/L (98-107) 01/09/19 17:51 Carbon Dioxide 25 mmol/L (22-30) 01/09/19 17:51 15 mmol/L 01/09/19 17:51 BUN 13 mg/dL (9-20) 01/09/19 17:51 1.0 mg/dL (0.8-1.5) 01/09/19 17:51 Estimated GFR > 60 ml/min 01/09/19 17:51 13 % 01/09/19 17:51 Glucose 115 mg/dL (75-100) H 01/09/19 17:51 Calcium 10.2 mg/dL (8.4-10.2) 01/09/19 17:51 < 0.010 ng/mL (0.00-0.029) 01/09/19 17:51 NT-Pro-B Natriuret Pep 3024 pg/mL (0-900) H 01/09/19 17:51 - Imaging and Cardiology EKG: image reviewed (67 bpm, sinus rhythm, right bundle-branch block, nonspecific T-wave abnormalities) Chest x-ray: report reviewed (Mildly prominent cardiac silhouette. No pulmonary infiltrates are identified. ), image reviewed Imaging and Cardiology: CTA Chest: IMPRESSION: No evidence of pulmonary embolism A small patchy density in the right upper lobe is suspicious for early pneumonia. It is new since the prior study. Mild degree bilateral pleural effusions Mild degree pericardial effusion And right renal cystic lesion cannot be further evaluated. Assessment and Plan Assessment and plan: 73-year-old -Maltese male with history of DM 2, HTN, BPH, GERD, DVT (2011) and PE on Coumadin, and right frontal lobe ischemic stroke (08/2018) who presents [facility] ED with complaints of progressively worsening shortness of breath for the past 2 weeks. CTA negative for PE. CXR unrevealing. BNP elevated at 3024. On examination patient has BLE trace edema. On auscultation scattered crackles to bases. He was given IV Lasix 20 mg in the ED. Will admit to telemetry for further evaluation. R/O acute CHF HTN DM 2 BPH GERD History right frontal lobe ischemic stroke (08/31/18) History of DVT (2011) History of PE Plan: Continue supportive care Continuous monitoring monitor Albuterol when necessary Cardiology consult pending Echocardiogram pending Continue Coumadin 5mg daily Monitor BP Resume Norvasc 5 mg daily, losartan 100 mg daily, Coreg 6.25 mg twice a day Resume home statin: Lipitor 10 mg daily Start ASA 81 mg Continue Pepcid 20 mg daily Continue finasteride 5 mg and Flomax 0.4 mg daily POC BG monitoring Resume metformin 500 mg twice a day Sliding scale coverage HgbA1C pending DVT PPX AC on Coumadin This patient was seen in conjunction with Dr. Fernando Lakhani Advance Directives: No VTE prophylaxis?: Chemical Plan of care discussed with patient/family: Yes <CARROL LAKHANI - Last Filed: 01/10/19 01:59> History of Present Illness Date of admission: 01/09/19 23:58 Medications and Allergies Active Meds: Active Medications Acetaminophen (Tylenol) 650 mg PO Q4H PRN PRN Reason: Pain MILD(1-3)/Fever >100.5/WELDON Albuterol (Proventil) 2.5 mg IH Q3HRT PRN PRN Reason: Shortness Of Breath Amlodipine Besylate (Norvasc) 5 mg PO DAILY [facility] Aspirin (Baby Aspirin) 81 mg PO QDAY [facility] Atorvastatin Calcium (Lipitor) 10 mg PO QHS [facility] Carvedilol (Coreg) 6.25 mg PO BID [facility] Dextrose (D50w (25gm) Syringe) 50 ml IV PRN PRN PRN Reason: Hypoglycemia Docusate Sodium (Colace) 100 mg PO BID [facility] Famotidine (Pepcid) 20 mg PO BID [facility] Finasteride (Proscar) 5 mg PO QDAY [facility] Insulin Human Lispro (Humalog) 0 unit SUB-Q ACHS [facility]; Protocol Losartan Potassium (Cozaar) 100 mg PO DAILY [facility] Metformin HCl (Glucophage) 500 mg PO QAMDIAB [facility] Ondansetron HCl (Zofran) 4 mg IV Q8H PRN PRN Reason: Nausea And Vomiting Sodium Chloride (Sodium Chloride Flush Syringe 10 Ml) 10 ml IV BID [facility] Sodium Chloride (Sodium Chloride Flush Syringe 10 Ml) 10 ml IV PRN PRN PRN Reason: LINE FLUSH Tamsulosin HCl (Flomax) 0.4 mg PO BID [facility] Warfarin Sodium (Coumadin) 5 mg PO DAILY@1700 [facility]; Protocol Exam - Constitutional Vitals: Temp Pulse Resp BP Pulse Ox 97.5 F L 60 16 151/58 98 01/10/19 01:26 01/10/19 01:26 01/10/19 01:26 01/10/19 01:26 01/10/19 01:26 Results - Labs CBC & Chem 7: 01/09/19 17:51 01/09/19 17:51 Labs: Laboratory Last Values WBC 6.0 K/mm3 (4.5-11.0) 01/09/19 17:51 RBC 3.84 M/mm3 (3.65-5.03) 01/09/19 17:51 Hgb 11.8 gm/dl (11.8-15.2) 01/09/19 17:51 Hct 35.3 % (35.5-45.6) L 01/09/19 17:51 MCV 92 fl (84-94) 01/09/19 17:51 MCH 31 pg (28-32) 01/09/19 17:51 MCHC 34 % (32-34) 01/09/19 17:51 RDW 16.6 % (13.2-15.2) H 01/09/19 17:51 Plt Count 207 K/mm3 (140-440) 01/09/19 17:51 Lymph % (Auto) 20.3 % (13.4-35.0) 01/09/19 17:51 Worth % (Auto) 7.5 % (0.0-7.3) H 01/09/19 17:51 Eos % (Auto) 1.2 % (0.0-4.3) 01/09/19 17:51 Baso % (Auto) 0.3 % (0.0-1.8) 01/09/19 17:51 Lymph # 1.2 K/mm3 (1.2-5.4) 01/09/19 17:51 Worth # 0.4 K/mm3 (0.0-0.8) 01/09/19 17:51 Eos # 0.1 K/mm3 (0.0-0.4) 01/09/19 17:51 Baso # 0.0 K/mm3 (0.0-0.1) 01/09/19 17:51 Seg Neutrophils % 70.7 % (40.0-70.0) H 01/09/19 17:51 Seg Neutrophils # 4.2 K/mm3 (1.8-7.7) 01/09/19 17:51 PT 20.7 Sec. (12.2-14.9) H 01/09/19 17:51 INR 1.82 (0.87-1.13) H 01/09/19 17:51 APTT 38.6 Sec. (24.2-36.6) H 01/09/19 17:51 < 135.00 ng/mlDDU (0-234) 01/09/19 17:51 Sodium 140 mmol/L (137-145) 01/09/19 17:51 Potassium 3.9 mmol/L (3.6-5.0) 01/09/19 17:51 Chloride 103.8 mmol/L (98-107) 01/09/19 17:51 Carbon Dioxide 25 mmol/L (22-30) 01/09/19 17:51 15 mmol/L 01/09/19 17:51 BUN 13 mg/dL (9-20) 01/09/19 17:51 1.0 mg/dL (0.8-1.5) 01/09/19 17:51 Estimated GFR > 60 ml/min 01/09/19 17:51 13 % 01/09/19 17:51 Glucose 115 mg/dL (75-100) H 01/09/19 17:51 Calcium 10.2 mg/dL (8.4-10.2) 01/09/19 17:51 < 0.010 ng/mL (0.00-0.029) 01/09/19 23:21 NT-Pro-B Natriuret Pep 3024 pg/mL (0-900) H 01/09/19 17:51 Assessment and Plan Assessment and plan: 73, and a history of CVA, hypertension, diabetes, BPH, GERD, DVT, PE because emergency room with complaints of shortness of breath, dyspnea on exertion 2 weeks. Physical exam is significant for basilar crackles, trace edema. Initiate CHF pathway. Patient seen and examined, discussed with nurse practitioner
[2019-01-10 05:28] LABS: Basophils % (Auto) 0.6 % (0.0-1.8); Eosinophils % (Auto) 0.7 % (0.0-4.3); Hematocrit 32.4 % (35.5-45.6); Hemoglobin 11.1 gm/dl (11.8-15.2); Lymphocytes # (Auto) 0.8 K/mm3 (1.2-5.4); Lymphocytes % (Auto) 16.2 % (13.4-35.0); Mean Corpuscular HGB Conc 34 % (32-34); Mean Corpuscular Volume 92 fl (84-94); Monocytes # (Auto) 0.3 K/mm3 (0.0-0.8); Platelet Count 199 K/mm3 (140-440); Red Blood Count 3.54 M/mm3 (3.65-5.03); Red Cell Distribution Width 16.5 % (13.2-15.2)
[2019-01-10 05:49] LABS: BUN/Creatinine Ratio 14; Blood Urea Nitrogen 14 mg/dL (9-20); Calcium 9.7 mg/dL (8.4-10.2); Hemolysis Index 2
[2019-01-10] MEDS ORDERED: LASIX IV SCH (06:00)
[2019-01-10] MEDS ORDERED: GLUCOPHAGE PO SCH (08:00)
[2019-01-10 08:37] VITALS: BP 154/50
[2019-01-10] MEDS: HumaLOG SUB-Q SCH ×2 (08:47→12:57)
[2019-01-10] MEDS ORDERED: BABY ASPIRIN PO SCH (10:00)
[2019-01-10] MEDS ORDERED: NORVASC PO SCH (10:00)
[2019-01-10] MEDS ORDERED: SODIUM CHLORIDE FLUSH SYRINGE 10 ML IV SCH (10:00)
[2019-01-10] MEDS ORDERED: PEPCID PO SCH (10:00)
[2019-01-10] MEDS ORDERED: COLACE PO SCH (10:00)
[2019-01-10] MEDS ORDERED: ZITHROMAX 500 MG in NACL 0.9% 250ML 250 ML IV SCH (10:00)
[2019-01-10] MEDS ORDERED: FLOMAX PO SCH (10:00)
[2019-01-10] MEDS ORDERED: ROCEPHIN/NS 1 GM/50 ML 1 GM/50 ML BAG IV SCH (10:00)
[2019-01-10] MEDS ORDERED: COREG PO SCH (10:00)
[2019-01-10] MEDS ORDERED: PROSCAR PO SCH (10:00)
[2019-01-10] MEDS ORDERED: COZAAR PO SCH (10:00)
--- NOTE | 2019-01-10 12:32 | Consultation ---
History of Present Illness Consult date: 01/10/19 Requesting physician: DENISE MILLAN Consult reason: shortness of breath History of present illness: The pt is a 73 YO male with a past medical history of PE, anticoagulated on Coumadin, AI, CVA, HTN, HLP. He is followed in our office by Dr. Adler. He presented with c/o progressively worsening SOB and RASMUSSEN and intermittent orthopnea for the past 2 weeks. He denies any chest pain, palpitations, n/v, diaphoresis, dizziness or syncope. He reports compliance with his home medication regimen, including coumadin. Chest CTA negative for PE, shows RUL density suspicious for PNA, mild bilateral pleural effusions, mild pericardial effusion. TTE done 09/11/2018 showed mod AR, EF 40-45%, mild LVH, mild MR, mild TR, minimal pericardial effusion. SANIYA done 09/16/2018 showed severe AR with normal LV size and function, mild MR, negative bubble study, no thrombus, no vegetation. Past History Past Medical History: diabetes (DM2), DVT (2011), GERD, hypertension, pulmonary embolism, stroke (rt frontal lobe ischemic stroke 08/31/2018), other (BPH) Past Surgical History: Other (prostate surgery) Social history: Lives alone, smoking (quit smoking 35 years ago) Family history: no significant family history Medications and Allergies Allergies Allergy/AdvReac Type Severity Reaction Status Date / Time No Known Allergies Allergy Verified 03/12/15 04:05 Home Medications Medication Instructions Recorded Confirmed Last Taken Type Losartan [Cozaar] 1 tab PO DAILY 02/26/15 01/09/19 08/25/18 09:00 History 100mg amLODIPine [Norvasc] 5 mg PO DAILY 02/26/15 01/09/19 02/27/15 06:45 History Finasteride [Proscar] 5 mg PO QDAY #30 tablet 08/27/18 01/09/19 Unknown Rx Famotidine [Pepcid] 20 mg PO BID #60 tablet 09/02/18 01/09/19 Unknown Rx Tamsulosin [Flomax] 0.4 mg PO BID 09/11/18 01/09/19 Unknown History Acetaminophen [Acetaminophen TAB] 650 mg PO Q4H PRN #30 tablet 09/23/18 01/09/19 Unknown Rx Carvedilol [Coreg] 6.25 mg PO BID #60 tablet 09/23/18 01/09/19 Unknown Rx Warfarin [Coumadin] 5 mg PO DAILY@1700 #30 tablet 09/23/18 01/09/19 Unknown Rx AtorvaSTATin [Lipitor] 10 mg PO QHS 01/09/19 01/09/19 Unknown History metFORMIN [Glucophage] 500 mg PO QDAY 01/09/19 01/09/19 Unknown History Active Meds: Active Medications Acetaminophen (Tylenol) 650 mg PO Q4H PRN PRN Reason: Pain MILD(1-3)/Fever >100.5/[place]ELDON Albuterol (Proventil) 2.5 mg IH Q3HRT PRN PRN Reason: Shortness Of Breath Amlodipine Besylate (Norvasc) 5 mg PO DAILY [facility] Last Admin: 01/10/19 10:05 Dose: 5 mg Documented by: Aspirin (Baby Aspirin) 81 mg PO QDAY [facility] Last Admin: 01/10/19 10:05 Dose: 81 mg Documented by: Atorvastatin Calcium (Lipitor) 10 mg PO QHS [facility] Carvedilol (Coreg) 6.25 mg PO BID [facility] Last Admin: 01/10/19 10:05 Dose: 6.25 mg Documented by: Dextrose (D50w (25gm) Syringe) 50 ml IV PRN PRN PRN Reason: Hypoglycemia Docusate Sodium (Colace) 100 mg PO BID [facility] Last Admin: 01/10/19 10:05 Dose: 100 mg Documented by: Famotidine (Pepcid) 20 mg PO BID [facility] Last Admin: 01/10/19 10:05 Dose: 20 mg Documented by: Finasteride (Proscar) 5 mg PO QDAY [facility] Last Admin: 01/10/19 10:05 Dose: 5 mg Documented by: Furosemide (Lasix) 40 mg IV 0600,1800 [facility] Last Admin: 01/10/19 05:40 Dose: 40 mg Documented by: Ceftriaxone Sodium (Rocephin/Ns 1 Gm/50 Ml) 1 gm in 50 mls @ 100 mls/hr IV Q24HR [facility]; Protocol Last Admin: 01/10/19 11:32 Dose: 100 mls/hr Documented by: Azithromycin 500 mg/ Sodium (Chloride) 250 mls @ 250 mls/hr IV Q24HR [facility] Last Admin: 01/10/19 10:31 Dose: 250 mls/hr Documented by: Insulin Human Lispro (Humalog) 0 unit SUB-Q ACHS [facility]; Protocol Last Admin: 01/10/19 08:47 Dose: Not Given Documented by: Losartan Potassium (Cozaar) 100 mg PO DAILY [facility] Last Admin: 01/10/19 10:05 Dose: 100 mg Documented by: Metformin HCl (Glucophage) 500 mg PO QAMDIAB [facility] Last Admin: 01/10/19 10:24 Dose: 500 mg Documented by: Ondansetron HCl (Zofran) 4 mg IV Q8H PRN PRN Reason: Nausea And Vomiting Sodium Chloride (Sodium Chloride Flush Syringe 10 Ml) 10 ml IV BID [facility] Last Admin: 01/10/19 10:07 Dose: 10 ml Documented by: Sodium Chloride (Sodium Chloride Flush Syringe 10 Ml) 10 ml IV PRN PRN PRN Reason: LINE FLUSH Tamsulosin HCl (Flomax) 0.4 mg PO BID [facility] Last Admin: 01/10/19 10:05 Dose: 0.4 mg Documented by: Warfarin Sodium (Coumadin) 5 mg PO DAILY@1700 [facility]; Protocol Review of Systems Constitutional: no weight loss, no weight gain, no fever, no chills, no sweats Ears, nose, mouth and throat: no ear pain, no nose pain, no sinus pressure, no sinus pain Cardiovascular: shortness of breath, dyspnea on exertion, decreased exercise tolerance, no chest pain, no orthopnea, no palpitations, no rapid/irregular heart beat, no edema, no syncope, no lightheadedness Respiratory: shortness of breath, dyspnea on exertion, no cough, no congestion, no wheezing, no pain on inspiration Gastrointestinal: no abdominal pain, no nausea, no vomiting, no diarrhea, no constipation, no change in bowel habits Genitourinary Male: no dysuria, no hematuria, no flank pain, no discharge, no urinary frequency, no urinary hesitancy Musculoskeletal: no neck stiffness, no neck pain, no shooting arm pain, no arm numbness/tingling, no low back pain, no shooting leg pain Integumentary: no rash, no pruritis, no redness, no sores, no wounds Neurological: no head injury, no paralysis, no weakness, no parathesias, no numbness, no tingling, no seizures, no syncope Psychiatric: no anxiety Endocrine: no cold intolerance, no heat intolerance Hematologic/Lymphatic: no easy bruising, no easy bleeding Allergic/Immunologic: no urticaria, no wheezing Physical Examination Vital Signs Temp Pulse Resp BP Pulse Ox 98 F 71 17 162/53 98 01/09/19 17:33 01/09/19 17:33 01/09/19 17:33 01/09/19 17:33 01/09/19 17:33 General appearance: no acute distress HEENT: Positive: PERRL, Normocephaly, Mucus Membranes Moist Neck: Positive: neck supple, trachea midline Cardiac: Positive: Reg Rate and Rhythm, S1/S2 Lungs: Positive: Decreased Breath Sounds Neuro: Positive: Grossly Intact Abdomen: Negative: Tender Skin: Negative: Rash, Wound Musculoskeletal: No Pain Extremities: Absent: edema Results 01/10/19 05:03 01/10/19 05:03 Coagulation 01/09/19 Range/Units 17:51 PT 20.7 H (12.2-14.9) Sec. INR 1.82 H (0.87-1.13) APTT 38.6 H (24.2-36.6) Sec. CBC 01/09/19 01/10/19 Range/Units 17:51 05:03 WBC 6.0 4.6 (4.5-11.0) K/mm3 RBC 3.84 3.54 L (3.65-5.03) M/mm3 Hgb 11.8 11.1 L (11.8-15.2) gm/dl Hct 35.3 L 32.4 L (35.5-45.6) % Plt Count 207 199 (140-440) K/mm3 Lymph # 1.2 0.8 L (1.2-5.4) K/mm3 Alcorn # 0.4 0.3 (0.0-0.8) K/mm3 Eos # 0.1 0.0 (0.0-0.4) K/mm3 Baso # 0.0 0.0 (0.0-0.1) K/mm3 Comprehensive Metabolic Panel 01/09/19 01/10/19 Range/Units 17:51 05:03 Sodium 140 139 (137-145) mmol/L Potassium 3.9 4.0 (3.6-5.0) mmol/L Chloride 103.8 103.2 (98-107) mmol/L Carbon Dioxide 25 24 (22-30) mmol/L BUN 13 14 (9-20) mg/dL Creatinine 1.0 1.0 (0.8-1.5) mg/dL Glucose 115 H 224 H (75-100) mg/dL Calcium 10.2 9.7 (8.4-10.2) mg/dL - Imaging and Cardiology Echo: report reviewed (TTE done 09/11/2018 showed mod AR, EF 40-45%, mild LVH, mild MR, mild TR, minimal pericardial effusion. SANIYA done 09/16/2018 showed severe AR with normal LV size and function, mild MR, negative bubble study, no thrombus, no vegetation. ) EKG: report reviewed, image reviewed EKG interpretations - Telemetry EKG Rhythm: Sinus Rhythm - EKG Sinus rhythms and dysrhythmias: sinus rhythm Assessment and Plan Agree with present cardiac management. Await echo. The patient has been seen in conjunction with Dr. Lane Gallegos who agrees with the assessment and plan of care. - Patient Problems (1) Acute heart failure Current Visit: Yes Status: Acute (2) Pneumonia Current Visit: Yes Status: Acute (3) Aortic insufficiency Current Visit: Yes Status: Chronic (4) Hypertension Current Visit: Yes Status: Chronic Qualifiers: Hypertension type: essential hypertension Qualified Code(s): I10 - Essential (primary) hypertension (5) Hyperlipidemia Current Visit: Yes Status: Chronic (6) History of CVA (cerebrovascular accident) Current Visit: Yes Status: Chronic (7) History of pulmonary embolism Current Visit: Yes Status: Chronic
--- NOTE | 2019-01-10 15:04 | Discharge Summary ---
Providers - Providers Date of Admission: 01/09/19 23:58 Date of discharge: 01/10/19 Attending physician: ALEXIS LUNDBERG 01/10/19 00:41 Consult to Physician [CONS] Routine Comment: Consulting Provider: EVELYN ONEAL Physician Instructions: Reason For Exam: SOB with acitivity and rest, hx of CVA 08/2018 Primary care physician: Slim ALLRED MD Hospitalization Condition: Stable Hospital course: Patient is a 73 yo man with a history of PE, anticoagulated on Coumadin, AI, CVA, HTN, HLP who presented with SOB. He denies any chest pain, palpitations, n/v, diaphoresis, dizziness or syncope. He reports compliance with his home medication regimen, including coumadin. TTE done 09/11/2018 showed mod AR, EF 40- 45%, mild LVH, mild MR, mild TR, minimal pericardial effusion. SANIYA done 09/16/2018 showed severe AR with normal LV size and function, mild MR, negative bubble study, no thrombus, no vegetation. * CTA Chest IMPRESSION: No evidence of pulmonary embolism A small patchy density in the right upper lobe is suspicious for early pneumonia. It is new since the prior study. Mild degree bilateral pleural effusions Mild degree peric ardial effusion And right renal cystic lesion cannot be further evaluated. Discharge Diagnoses: RUL Pneumonia, gave patient detail instructions to follow up with Dr. Pelayo for repeat INR. HTN DM 2 BPH GERD History right frontal lobe ischemic stroke (08/31/18) History of DVT (2011) History of PE Home with oral abx I also called his PCP, Dr. Pelayo and left message at 8:08am on 01/11/19. Patient need repeat INR in 3-4 days and ECHO with [facility]. Disposition: DC-01 TO HOME OR SELFCARE Time spent for discharge: 32 minutes Core Measure Documentation - Palliative Care Palliative Care/ Comfort Measures: Not Applicable - Core Measures Any of the following diagnoses?: none - VTE Discharge Requirements Deep Vein Thrombosis/Pulmonary Embolism Present on Admission: No Has pt received <5 days of overlap therapy or INR<2.0: No Anticoagulant overlap therapy prescribed at discharge: No Contraindication No Overlap Therapy order at DC: Not Indicated Exam - Physical Exam Narrative exam: Gen: WDWN, NAD, Awake, Alert, Orientated HEENT: NCAT, EOMI, PERRL, OP Clear Neck: supple, no adenopathy, no thyromegaly, no JVD CVS/Heart: RRR, normal S1S2, pulses present bilaterally Chest/Lungs: CTA B, Symmetrical chest expansion, good air entry bilaterally GI/Abdomen: soft, NTND, good bowel sounds, no guarding or rebound /Bladder: no suprapubic tenderness, no CVA or paraspinal tenderness Extermity/Skin: no c/c/e, no obvious rash MSK: FROM x 4 Neuro: CN 2-12 grossly intact, no new focal deficits Psych: calm - Constitutional Vitals: Temp Pulse Resp BP Pulse Ox 97.7 F 61 14 154/50 98 01/10/19 08:05 01/10/19 12:00 01/10/19 08:05 01/10/19 08:05 01/10/19 12:00 Plan Activity: other (no strenous) Diet: low salt Follow up with: Geetha ALLRED MD [Primary Care Provider] - 3-5 Days EVELYN ONEAL MD [Staff Physician] - 7 Days Forms: Warfarin Discharge Instruction Prescriptions: levoFLOXacin [Levaquin] 750 mg PO QDAY #7 tablet
[2019-01-10] MEDS ORDERED: COUMADIN PO SCH (17:00)
[2019-01-10] MEDS ORDERED: LOVENOX SUB-Q SCH (22:00)
== END 2019-01-10 18:00 | disposition home or self-care (01) | DRG 291 ==
LOC: ED 16:35 → 4A 23:58
PROVIDERS: ADMIT Internal Medicine; ATTEND Internal Medicine
DX: I11.0 Hypertensive heart disease with heart failure (principal); J18.1 Lobar pneumonia, unspecified organism; I31.3 Pericardial effusion (noninflammatory); I50.9 Heart failure, unspecified; E11.9 Type 2 diabetes mellitus without complications; K21.9 Gastro-esophageal reflux disease without esophagitis; I08.1 Rheumatic disorders of both mitral and tricuspid valves; N40.0 Benign prostatic hyperplasia without lower urinary tract symptoms; Z87.891 Personal history of nicotine dependence; Z79.84 Long term (current) use of oral hypoglycemic drugs; Z79.01 Long term (current) use of anticoagulants; Z86.718 Personal history of other venous thrombosis and embolism; Z86.73 Personal history of transient ischemic attack (TIA), and cerebral infarction without residual deficits; Z86.711 Personal history of pulmonary embolism
CPT/HCPCS: 36415; 71046; 71275; 80048; 82962; 83036; 83880; 84484; 85025; 85379; 85610; 85730; 87116; 93005; 93010; 96374; G0378; J0456; J0696; J1940; J7050; Q9967

== ENCOUNTER 2019-01-23 11:00 | Outpatient (CLI) | payer OTHER ==
--- NOTE | 2019-01-23 12:13 | XRay Report ---
CHEST 2 VIEWS INDICATION: Lobar pneumonia, unspecified organism. COMPARISON: 01/09/2019 FINDINGS: Support devices: None. Heart: Within normal limits. Lungs/pleura: No acute air space or interstitial disease. No pneumothorax. Additional findings: None. IMPRESSION: 1. Unremarkable chest x-ray. Patchy infiltrate at the left lung base has resolved since 01/09/2019. Signer Name: Wilver Olmedo Jr, MD Signed: 01/23/2019 12:08 PM Workstation Name: [id number]
== END 2019-01-23 11:01 | disposition home or self-care (01) ==
LOC: XRAY 11:00
PROVIDERS: ATTEND Internal Medicine
DX: J18.1 Lobar pneumonia, unspecified organism (principal); E11.9 Type 2 diabetes mellitus without complications; E78.5 Hyperlipidemia, unspecified; I11.0 Hypertensive heart disease with heart failure; I50.9 Heart failure, unspecified; K21.9 Gastro-esophageal reflux disease without esophagitis
CPT/HCPCS: 71046